=== PATIENT | male | born 1955 | race Caucasian/White ===

== ENCOUNTER 2016-10-12 07:20 | Inpatient (IN) ==
[2016-10-12] MEDS ORDERED: ASPIRIN PO ONE (07:36)
[2016-10-12 08:00] LABS: MANUAL DIFF NEEDED? NO
[2016-10-12] MEDS ORDERED: MORPHINE IV ONE ×2 (08:02→11:15)
[2016-10-12] MEDS ORDERED: ZOFRAN IV ONE (08:03)
[2016-10-12 08:04] LABS: BASO% 0.3 % (0.0-0.8); EOS# 0.82 X1000 (0.0-0.7); EOS% 9.1 % (0.0-10.0); HEMATOCRIT 29.2 % (42.0-52.0); HEMOGLOBIN 9.3 g/dL (14.0-18.0); LYMPH# 0.63 X1000 (1.2-3.4); MCH 25.8 PG (27-31); MCHC 31.8 g/dL (33-37); MCV 81.1 FL (81-99); MONO# 0.67 X1000 (0.11-0.59); MONO% 7.4 % (1.7-9.3); MPV 10.4 FL (7.4-10.4); NEUT% 76.2 % (42.2-75.2); PLT 278 X1000 (130-400)
--- NOTE | 2016-10-12 08:07 | PROVIDER DOCUMENTATION ---
Addendum entered and electronically signed by Yordan Lopez Scribe 10/12/16 13:28 : Progress - PLAN OF CARE/RESULTS Progress/Plan/Lab Results: Laboratory Tests 10/12/16 10/12/16 10/12/16 07:54 07:54 07:54 WBC 9.06 RBC 3.60 L Hgb 9.3 L Hct 29.2 L MCV 81.1 MCH 25.8 L MCHC 31.8 L RDW Std Deviation 17.2 H Plt Count 278 MPV 10.4 Immature Gran % (Auto) 0.0 Neut % (Auto) 76.2 H Lymph % (Auto) 7.0 L [place] % (Auto) 7.4 Eos % (Auto) 9.1 Baso % (Auto) 0.3 Immature Gran # (Auto) 0.00 Neut # 6.91 H Lymph # 0.63 L [place] # 0.67 H Eos # 0.82 H Baso # 0.03 Sodium 134 L Potassium 3.8 Chloride 92 L Carbon Dioxide 27 Anion Gap 15 BUN 59 H Creatinine 2.4 H Estimated GFR/1.73 m2 28 BUN/Creatinine Ratio 25 Glucose 149 H Calculated Osmolality 288 Calcium 8.4 L Total Bilirubin 1.03 H AST 14 ALT 8 L Alkaline Phosphatase 216 H Troponin T 0.288 H Edi-V-Gurdfpgaiqn Pept Total Protein 7.3 Albumin 3.3 L Globulin 4.0 Albumin/Globulin Ratio 0.8 Urine Source Urine Color Urine Turbidity Urine pH Ur Specific [place] Urine Protein Ur Glucose (Stick) Ur Ketones (Stick) Urine Blood Urine Nitrite Urine Bilirubin Urobilinogen Dipstick Urine Leukocytes Urine WBC (Auto) Urine RBC (Auto) U Epithel Cells (Auto) Urine Bacteria (Auto) 10/12/16 10/12/16 07:54 11:30 WBC RBC Hgb Hct MCV MCH MCHC RDW Std Deviation Plt Count MPV Immature Gran % (Auto) Neut % (Auto) Lymph % (Auto) [place] % (Auto) Eos % (Auto) Baso % (Auto) Immature Gran # (Auto) Neut # Lymph # [place] # Eos # Baso # Sodium Potassium Chloride Carbon Dioxide Anion Gap BUN Creatinine Estimated GFR/1.73 m2 BUN/Creatinine Ratio Glucose Calculated Osmolality Calcium Total Bilirubin AST ALT Alkaline Phosphatase Troponin T Iab-A-Dlvtvizwfal Pept 9078 H Total Protein Albumin Globulin Albumin/Globulin Ratio Urine Source CLEAN CATCH Urine Color YELLOW Urine Turbidity CLEAR Urine pH 7.0 Ur Specific [place] 1.013 Urine Protein 200 A Ur Glucose (Stick) TRACE Ur Ketones (Stick) NEGATIVE Urine Blood TRACE A Urine Nitrite NEGATIVE Urine Bilirubin NEGATIVE Urobilinogen Dipstick NORMAL Urine Leukocytes NEGATIVE Urine WBC (Auto) <10 Urine RBC (Auto) <10 U Epithel Cells (Auto) <10 Urine Bacteria (Auto) NEGATIVE Orders Category Date Time Status Nursing- MD Consult Request ROUTINE Care 10/12/16 10:31 Active MD [Physician/Provider Consults] Routine Cons 10/12/16 10:29 Ordered MD [Physician/Provider Consults] Routine Cons 10/12/16 10:31 Ordered MD [Physician/Provider Consults] Routine Cons 10/12/16 10:32 Ordered Wound Care/ET Consult DIRECTED Cons 10/12/16 10:30 Ordered CHEST-PORTABLE [RAD] Stat Exams 10/12/16 07:37 Completed BLOOD CULTURE [BLDCUL] Stat Lab 10/12/16 11:18 Results CBC WITH ELECTRONIC DIFF [HEME] Stat Lab 10/12/16 07:54 Completed COMPREHENSIVE METABOLIC PANEL [CHEM] Stat Lab 10/12/16 07:54 Completed PRO B-NATRIURETIC PEPTIDE Stat Lab 10/12/16 07:54 Completed TROPONIN T Stat Lab 10/12/16 07:54 Completed URINALYSIS W/POSS RFLX CULT [URINALYSIS] Stat Lab 10/12/16 11:30 Completed Aspirin Med 10/12/16 07:36 Discontinued 325 mg PO NOW ONE Morphine Med 10/12/16 08:02 Discontinued 2 mg IV NOW ONE Morphine Med 10/12/16 11:15 Discontinued 2 mg IV NOW ONE Ondansetron [Zofran] Med 10/12/16 08:03 Discontinued 4 mg IV NOW ONE EKG [EKG] Stat Ther 10/12/16 07:22 Draft Transfer/Admit Order [TRANSFER] Routine Transfer 10/12/16 10:27 Ordered Vital Signs - 24 hr 10/12/16 07:38 Temperature 97.8 F Pulse Rate 70 Respiratory 17 Rate Blood Pressure 153/89 O2 Sat by Pulse 100 Oximetry Addendum entered and electronically signed by Yordan Lopez Scribe 10/12/16 10:22 : Progress - EKG 1 Time of EKG reading by physician:: 07:28 EKG Read and Signed by:: Matthew Reese EKG Interpretation (*Must complete 3 of following elements*): Abnormal Rate: 70 Rhythm: NSR QRS: normal Comments: L ANTERIOR FASICULAR BLOCK. T WAVE ABNORMALITY, CONSIDER LATERAL ISCHEMIA Original Note: HPI-Chest Pain - General Source: patient Unable to obtain history due to:: urgency - History of Present Illness-CP Location: reports: substernal Chest Pain Radiation: reports: back Quality of Pain: reports: pressure Severity in ED: moderate Onset/Duration: 1-3 hours ago Timing: still present <Matthew Reese - Last Filed: 10/12/16 08:14> - General Source: patient <Yordan Lopez - Last Filed: 10/12/16 09:51> - General Chief Complaint: Chest Pain Stated Complaint: chest pain Time Seen by Provider: 10/12/16 07:34 Allergies/Adverse Reactions: Patient Allergies Allergy/AdvReac Type Severity Reaction Status Date / Time No Known Allergies Allergy Verified 10/12/16 07:47 Home Medications: ATORVAstatin [Lipitor] 80 mg PO HS 07/31/16 Aspirin [Aspirin EC] 81 mg PO DAILY 07/31/16 Carvedilol 25 mg PO BID 07/31/16 Clonazepam 0.5 mg PO BID 07/31/16 Clopidogrel [Plavix] 75 mg PO DAILY 07/31/16 Gabapentin 300 mg PO TID 07/31/16 Hydralazine [Apresoline] 12.5 mg PO TID 07/31/16 Sevelamer Carbonate [Renvela] 800 mg PO DAILY 07/31/16 Sodium Bicarbonate 650 mg PO DAILY 07/31/16 Spironolactone 25 mg PO DAILY 07/31/16 Insulin Regular, Human [Afrezza] 40 unit SQ BID 09/06/16 Isosorbide Mononitrate E.r. 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 Patient has an extensive history of heart disease. (Matthew Reese) Review of Systems - Adult - REVIEW OF SYSTEMS - ADULT Constitutional: denies: chills, fever <Yordan Lopez - Last Filed: 10/12/16 09:51> Past History - Adult - PAST MEDICAL HISTORY-ADULT Major Childhood Illnesses: reports: denies history Cardiovascular: reports: CAD, CHF, HTN, hyperlipidemia, other (pulmonary edema) Respiratory: reports: denies history Gastrointestinal: reports: denies history Obstetrical/Gynecological: reports: denies history Genitourinary: reports: ESRD Musculoskeletal: reports: intervertebral disc disease Neurological: reports: denies history Psychiatric: reports: anxiety, depression Endocrine/Immune: reports: Diabetes, thyroid disorder Other Conditions: reports: denies history - PRIOR SURGERIES/PROCEDURES Surgical/Procedure History: reports: cholecystectomy, cardiac stent, orthopedic (extremity), back/neck - IMMUNIZATION STATUS Childhood Immunizations: See Nurse Assessment Flu Vaccine: See Nurse Assessment - FAMILY HISTORY Family History: reviewed, not pertinent <Matthew Reese - Last Filed: 10/12/16 08:14> Physical Exam-General - PHYSICAL EXAM-ADULT Initial Vital Signs Reviewed: Yes - CONSTITUTIONAL General Appearance: moderate distress - EYES Eyes: PERRL/EOMI - HEAD, EARS, NOSE, MOUTH & THROAT HENMT: normocephalic/atraumatic - NECK Neck: non-tender, full range of motion - RESPIRATORY Respiratory: no respiratory distress, pain on inspiration (Patient is tender to palpation in the left anterior chest wall) - CARDIOVASCULAR Cardiovascular: normal peripheral pulses - CHEST (BREASTS) Chest/Breast: tenderness - GASTROINTESTINAL (ABDOMEN) Abdominal Exam: normal bowel sounds - GENITOURINARY Male Genitalia: deferred Rectal Exam: deferred Hemoccult Exam: deferred - LYMPHATIC Lymphatic: no adenopathy - MUSCULOSKELETAL Extremity: normal range of motion (Patient has a healing foot ulcer on the left foot for which he is getting IV antibiotics at home through a port. 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 DR MONTEMAYOR WILL ADMIT Consult Disposition: Admit <Yordan Lopez - Last Filed: 10/12/16 09:51> Departure <Matthew Reese - Last Filed: 10/12/16 08:14> - Departure Time of Disposition Order: 09:48 Certified Medical Emergency: Emergent <Yordan Lopez - Last Filed: 10/12/16 09:51> - Departure DIAGNOSIS: Chest pain Qualifiers: Chest pain type: unspecified Qualified Code(s): R07.9 - Chest pain, unspecified Disposition: ADMITTED INPATIENT 09 Condition: Stable Additional Instructions: ED Follow Up Instructions: You have been treated by a care provider in the Emergency Department. These instructions are being provided to you so you can have an understanding of how to care for yourself upon discharge. Upon discharge from the Emergency Department, you are responsible for making arrangements for follow-up care by a physician of your choice. Take all prescribed medications as directed. Return to the Emergency Department immediately for any new or worsening symptoms. You may call the Physician Referral phone number at [phone] to obtain a list of Physicians who are taking new patients. Attestation - Scribe Verification/Attestation Scribe:: Yordan Lopez Acting as Scribe for:: Matthew Reese Scribe documention review:: This chart was documented by a scribe and accurately reflects the service the provider performed and the decisions made by the provider. <Yordan Lopez - Last Filed: 10/12/16 09:51> Physician Attestation
[2016-10-12 08:58] LABS: ALBUMIN 3.3 g/dL (3.5-5.0); CALCIUM 8.4 mg/dL (8.8-10.2); POTASSIUM 3.8 mmol/L (3.5-5.1); TOTAL BILIRUBIN 1.03 mg/dL (0.20-1.00); TOTAL PROTEIN 7.3 g/dL (6.3-8.3)
--- NOTE | 2016-10-12 10:12 | EKG Report ---
Test Performed on : 10/12/2016 07:27:12 AM Test Reason : CP Blood Pressure : / mmHG Vent. Rate : 070 BPM Atrial Rate : 070 BPM P-R Int : 144 ms QRS Dur : 102 ms QT Int : 440 ms P-R-T Axes : 044 -45 103 degrees QTc Int : 475 ms Normal sinus rhythm. Left anterior fascicular block T wave abnormality, consider lateral ischemia Prolonged QT Abnormal ECG When compared with ECG of 04-OCT-2016 15:32, No significant change was found Unconfirmed Result
--- NOTE | 2016-10-12 10:24 | Diag Imaging Result Document ---
PROCEDURE NAME: CHEST-PORTABLE - 10/12/2016 AP PORTABLE CHEST: TIME: 0800 hours. FINDINGS: There is a catheter on the right side, which has not changed since 10/01/2016. The inspiration is slightly suboptimal. There is no evidence of acute pulmonary disease. IMPRESSION: Stable chest.
[2016-10-12 11:49] LABS: URINE CULTURE NEEDED? NO; URINE MICRO REVIEW NEEDED? NO; URINE SOURCE CLEAN CATCH
[2016-10-12 12:02] LABS: BILIRUBIN URINE NEGATIVE (NEGATIVE); BLOOD URINE TRACE (NEGATIVE); COLOR YELLOW; GLUCOSE URINE TRACE mg/dL (NEGATIVE); LEUKOCYTES URINE NEGATIVE (NEGATIVE); NITRITE URINE NEGATIVE (NEGATIVE); PROTEIN URINE 200 mg/dL (NEGATIVE); SP GRAVITY URINE 1.013; TURBIDITY URINE CLEAR (CLEAR); UROBILINOGEN URINE NORMAL (NORMAL)
[2016-10-12 12:04] LABS: UR EPITHELIAL CELLS <10 /HPF (<10); URINE BACTERIA NEGATIVE /HPF; URINE RBC <10 /HPF (<10); URINE WBC <10 /HPF (<10)
--- NOTE | 2016-10-12 12:31 | HISTORY AND PHYSICAL ---
PRIMARY CARE PROVIDER: Todd More MD, but states he is looking for a new physician. PRIMARY CURRICULUM DEVELOPER: Meggan Ac MD CHIEF COMPLAINT: Chest pain. HISTORY OF PRESENT ILLNESS: Mr. Mohan Ventura is a 61-year-old, male with severe peripheral arterial disease, now status post right zjkyy-nxg-brst amputation. Was performed 09/12/2016. History of coronary artery disease with stents in 2010 and 2012. Hypertension and diabetes. Recent admit for acute on chronic diastolic heart failure and complaints of chest pain on 10/04/2016. Mr. Ventura states that about 05:30 this morning he was awoken from sleep with gasping for air and chest pain that was 10/10. He states that it felt like a tightness that radiated to the right arm, from the elbow to the fingers, that felt like numbness and tingling. He had nausea and the room was spinning. He denies diaphoresis. He states once he arrived to the emergency room he received morphine and the pain improved. It is down to 8/10. His electrocardiogram showed a normal sinus rhythm, rate of 70, left anterior fascicular block. QTc is [address] elevations. His troponin is elevated at 0.288, but it appears he has a chronic elevation of the troponins, anywhere from 0.2-0.3 since May. Pro-B-type natriuretic peptide is 9078. He does not seem to be having shortness of breath at this time. His chest x-ray had negative acute findings. He continues to have chest pain. He is not anxious or agitated. He is actually joking around. He denies blood in his urine or stool, and he has no other complaints. Further assessment did show that his right below the knee stump has foul smelling drainage. The dressing has not been changed in 2 days, since the . The left heel has black eschar and also has not had a dressing change since the . However, his white blood cell count is normal and he is afebrile. PAST MEDICAL HISTORY: Coronary artery disease. Stents in 2010 and 2012. Chronic diastolic congestive heart failure. Chronic kidney disease stage 4, hypertension, hyperlipidemia, diabetes type 2 on insulin therapy, degenerative disk disease with 4 back surgeries in the past, osteoarthritis, chronic pain, peripheral arterial disease, now status post below -the-knee amputation on the right. Also now with an ulcer on this left heel, with black eschar tissue. SURGICAL HISTORY: Cholecystectomy, cardiac stent, right mwlfm-ynr-bjoh amputation, four back surgeries. FAMILY HISTORY: Positive for hypertension and diabetes. SOCIAL HISTORY: He lives at home with his 14-year-old son. He just recently completed 21 days of rehab at [facility] on 10/11/2016. He currently has home health that sees him. He states that he quit smoking 7 years ago, but smoked 5 cigarettes per day for 30+ years. States that he quit drinking 15 years ago, but it was only social at that time. Denies illicit drug use. He has been disabled since 2000. He gets around by wheelchair. He states that he used to be noncompliant with his medications, but since he has lost his leg that he is very compliant. REVIEW OF SYSTEMS: Fourteen point review of systems were complete and all are negative, except for those mentioned above HPI. He does state that he has insomnia, and he states that he was actually up until about 2:30 this morning. ALLERGIES: No known drug allergies. HOME MEDICATIONS: Trazodone 50 at bedtime, Apresoline 12.5 p.o. t.i.d., aspirin 81 mg p.o. daily, Coreg 25 mg p.o. twice daily, clonazepam 0.5 mg p.o. twice daily, Neurontin 300 mg p.o. 3 times a day, Lipitor 80 mg p.o. nightly, Plavix 75 mg p.o. daily, Renvela 800 mg p.o. daily, sodium bicarbonate 650 mg p.o. daily, spironolactone 25 mg p.o. daily, Imdur 30 mg p.o. daily, regular insulin 40 units subcutaneous twice daily, Xanax 0.25 mg p.o. 3 times a day, MiraLAX 17 g p.o. twice daily, Celexa 20 mg p.o. nightly, Prilosec 20 mg p.o. daily, [place] 10 one tab p.o. q.4 hours p.r.n., lactulose 30 mL p.o. twice daily, Lasix 40 mg p.o. twice daily, lisinopril 20 mg p.o. daily, Synthroid 50 mcg p.o. daily. LABORATORY DATA: White blood cells 9000, hemoglobin 9, hematocrit 29. Platelet count 278,000. Sodium 134, potassium 3.4, chloride 92, BUN 59, creatinine 2.4. GFR 28, glucose 149. Calcium 8.4, total bilirubin is 1.03. AST is 14, ALT is 8. Troponin 0.288. Pro-B-type natriuretic peptide 9078. Albumin 3.3. Urinalysis is ordered. IMAGING: Chest x-ray is stable. No acute pulmonary disease. Electrocardiogram is normal sinus rhythm, left anterior fascicular block. No ST elevations. The QTc is 475. Heart rate is 70. PHYSICAL EXAMINATION: VITAL SIGNS: Temperature is 97.8 degrees, heart rate 70, respiratory rate 17. Blood pressure 153/89, O2 saturation 100% on room air. GENERAL: Mr. Ventura is a 61-year-old male, who is in no acute distress. He is able answer all questions appropriately. HEENT: Atraumatic normocephalic. Pupils equal, round, reactive to light. Extraocular movements intact. CARDIOVASCULAR: S1, S2. Regular rate and rhythm. No rubs, gallops, or murmurs. NECK: No jugular venous distention or carotid bruits noted. PULMONARY: Clear to auscultation. Bilateral breath sounds. No accessory muscle use or work of breathing noted. Decreased in the bases on room air. GASTROINTESTINAL: Soft, nontender, nondistended. Positive bowel sounds x4. NEUROLOGIC: Alert and oriented x4. Moves all extremities equally. Left leg will not straighten completely. EXTREMITIES: Right below the knee amputation site with foul drainage and some small areas of open incision and erythema. Left lower extremity possible cellulitis. Is erythematous. Is not hot. Trace pulse, dorsalis pedal and posterior radial pulses. No edema noted. ASSESSMENT AND PLAN: 1. Chest pain. Rule out acute coronary syndrome. Status post coronary artery disease with stents in 2000 and 2012. Will do cardiac enzymes, electrocardiogram, consult Cardiology. Continue his aspirin and Plavix. Will do nitroglycerin paste q.6h hours and transferred to the intensive care unit, as he still states that he has chest pain but is in not acute distress. There is no ST elevation on electrocardiogram. 2. Acute on chronic diastolic congestive heart failure. We will continue his Lasix. Most recent cardiac workup reveals, on the myocardial perfusion scan from 03/2016, abnormal cardiac perfusion imaging. One appropriate Lexiscan stress test. There is evidence of myocardial scarring within the mid to apical anterior wall. No reversible defects consistent with ischemia was noted. There is mild dilatation of the left ventricle, with significantly depressed left ventricular function. The lung V/Q scan showed low probability of acute pulmonary embolus, and that was on 09/26/2016. On 09/09/2016 he had an echocardiogram that showed an ejection fraction of 45 to 50%. Enlarged right ventricle. pro-B- type natriuretic peptide is over 9000. 3. Chronic kidney disease stage 4. Will need to monitor renal function closely while on diuretic therapy. 4. Hypertension. Stable. Continue current antihypertensives. 5. Hyperlipidemia. Continue home medications. 6. Diabetes type 2. Continue sliding scale insulin and pattern blood glucoses. 7. Chronic pain. We will continue his [place]. 8. Peripheral arterial disease, now status post right pexnj-vko-qcdv amputation. We will consult Dr. Michel, as the site has a foul smelling drainage and will consult Dr. Brewer. 9. Deep venous thrombosis prophylaxis. Will start heparin 5000 units q12h. 10. Gastrointestinal prophylaxis. Will start protonix. Dictated by WILLIS Basilio for Kenia Rees MD [facility]
[2016-10-12] MEDS ORDERED: ZOFRAN IV PRN (15:00)
[2016-10-12] MEDS ORDERED: TYLENOL PO PRN (15:00)
[2016-10-12] MEDS ORDERED: NITROGLYCERIN TOP SCH (15:00)
[2016-10-12] MEDS: XANAX PO SCH ×2 (15:43→20:57)
[2016-10-12] MEDS: APRESOLINE PO SCH ×2 (15:43→20:27)
[2016-10-12] MEDS: NEURONTIN PO SCH ×2 (15:43→20:27)
[2016-10-12] MEDS: NORVASC PO SCH ×2 (15:43→20:57)
[2016-10-12] MEDS: LASIX IV SCH (15:50)
[2016-10-12] MEDS: HUMULIN R SUBQ SCH ×3 (15:58→21:00)
[2016-10-12] MEDS: NITROGLYCERIN TOP SCH ×2 (15:59→20:58)
--- NOTE | 2016-10-12 16:09 | EKG Report ---
Test Performed on : 10/12/2016 3:51:28 PM Test Reason : chest pain Blood Pressure : / mmHG Vent. Rate : 067 BPM Atrial Rate : 067 BPM P-R Int : 148 ms QRS Dur : 100 ms QT Int : 452 ms P-R-T Axes : 071 -47 104 degrees QTc Int : 477 ms Normal sinus rhythm. Left anterior fascicular block Abnormal QRS-T angle, consider primary T wave abnormality Abnormal ECG When compared with ECG of 12-OCT-2016 07:27, (Unconfirmed) No significant change was found Confirmed by Jonathan Beavers MD ([id number]) on 10/13/2016 10:14:45 AM
--- NOTE | 2016-10-12 17:22 | PROGRESS NOTE ---
DATE: 10/12/2016 PRESENT ILLNESS: The patient presents to the hospital. He was having chest pain and shortness of breath. I was asked see the patient because he has an infection in his right leg. It appears to be a cellulitis, but it could well extend deep into the bone. The last time the patient was treated for this, we grew an oxacillin-sensitive Staph aureus from the culture of the leg. MEDICATIONS: I have restarted the patient on Ancef, which he received the last time we saw him and started treating his leg infection. Some of the side effects of the medication including rash and diarrhea have been explained to the patient. He agrees with treatment. PHYSICAL EXAMINATION: Vital Signs: Temperature is 98.2, pulse is 70, respirations 18, blood pressure 139/79. General: This is an ill-appearing, middle-aged male.. He is in no acute distress. Lungs: Clear to auscultation. Cardiovascular: The patient's heart rate is regular. Chest: Patient has a [place] catheter on the right side of the chest. The catheter site is not erythematous or purulent. Extremities: The patient's right leg has a below-the -knee amputation. The distal part of the leg is erythematous and it has some opening in the incision. There is purulent drainage coming from the leg. I stuck a swab into the wound and it extends deep. I have sent this to the microbiology lab for culture. The patient's left heel has an eschar. LAB AND X-RAY: The patient's CBC shows a white blood cell count of 9060, hemoglobin 9.3 and platelet count 278,000. Creatinine is 2.4. The GFR is 28. The alkaline phosphatase is 216. Urinalysis showed white cells less than 10 and no bacteria. Blood cultures are pending. Chest x- ray shows no acute disease. ASSESSMENT AND PLAN: The patient has an infection of the right leg. He definitely has a cellulitis now. However, he could have a deeper infection such as an abscess or osteomyelitis. The last time the patient was treated for this infection which was in the past month we cultured oxacillin-sensitive Staph aureus from the wound. My plan now is to restart the patient on Ancef. The dose is being modified because the patient has renal insufficiency. I have sent a culture from one of the wounds which is draining a purulent fluid. I have ordered a x- ray of the right leg. It is portable. I do not think he should be sent down now, because he may have had a myocardial infarction. When the patient is more stable, I think he might be a candidate then for a bone scan or possibly an MRI or CT scan without any IV contrast. COMORBIDITIES: Include diabetes mellitus and end-stage renal disease. MTDD
--- NOTE | 2016-10-12 17:30 | Diag Imaging Result Document ---
PROCEDURE NAME: LOWER LEG-RIGHT - 10/12/2016 RIGHT LOWER LEG, TWO VIEWS: FINDINGS: There has been amputation below the knee. There is soft tissue gas primarily on the lateral aspect of the stump. There are no previous radiographs available for comparison. The right foot radiograph of 07/31/2016 demonstrated considerable soft tissue gas but clearly the amputation was not performed until after that radiograph. IMPRESSION: Soft tissue gas as described. Postsurgical changes.
--- NOTE | 2016-10-12 18:32 | CONSULTATION ---
DATE OF CONSULTATION: 10/12/2016 SUBJECTIVE: This is a 61-year-old male with multiple medical problems, including noncompliance, end-stage renal disease, poorly controlled diabetes, heart failure, and peripheral vascular disease, who is status post right below-knee amputation for a necrosis of his right foot. He has had prolonged healing of his stump. And multiple admissions related to exacerbations of cardiac issues and his wound concerns. He presents now with chest pain, shortness of breath, and being worked up and evaluated for this, felt to be acutely volume overloaded. However there is some concern for drainage from the stump. He denies any real pain here. He is not really doing dressing changes at home by himself. PAST MEDICAL HISTORY: 1. Diabetes. 2. Renal failure. 3. Coronary disease with stents in 2010 and 2012. 4. Congestive heart failure. 5. Hypertension. 6. Hyperlipidemia. 7. Degenerative disk disease. 8. Arthritis. 9. Peripheral arterial disease. PAST SURGICAL HISTORY: Below-knee amputation on the right. Back surgeries. Multiple coronary stents. Surgical history also includes cholecystectomy. FAMILY HISTORY: Hypertension and diabetes. REVIEW OF SYSTEMS: A 10 point negative other than what is mentioned in HPI. SOCIAL HISTORY: He is quite poor. His only caregiver is a 14-year-old son. He was in rehab for 21 days, and was home just for a couple of days before coming back. He has extensive smoking history, and also has had alcohol in the past. PHYSICAL EXAMINATION: Vital signs: Temperature 98.2 degrees, pulse 76, blood pressure 139/79, oxygen saturation 97% on 4 L nasal cannula. General: He is alert, in no acute distress. HEENT: There is no scleral icterus. Cardiovascular: Normal rate, regular rhythm. Pulmonary: Is on supplemental O2 but no increased work of breathing. Abdominal exam: Soft, nontender, nondistended. His right below-knee amputation site has a couple areas of fibrinous exudate in the wound bed, but in the more lateral wound separation that has been there presently overall looks much better. The stump is swollen and with some erythema here, but I do not see any pus or active signs of cellulitis. LABS: White count is normal at 9, hematocrit is 29, platelets are 278. Sodium is 134, potassium 3.8, chloride 92, CO2 27, BUN is 59, creatinine is 2.4, glucose is 149. T bilirubin is mildly elevated at 1.03. BNP is 9078. Troponin 0.28. ASSESSMENT/PLAN: This is a 61-year-old male status post right below-knee amputation with multiple medical problems. He appears to have exacerbation of congestive heart failure and he is quite edematous diffusely. I am not sure that he has cellulitis in his leg or not. It is red. His wound is healing and actually looks pretty good. There are a couple areas of fibrinous exudate that we have been treating with local wound care over the last month. It appears as though he does well while in-patient and diuresing with antibiotics, and then goes home, and he becomes edematous diffusely, resulting in erythema and swelling of the stump, and this gets better with his overall systemic improvement. I do not plan for surgical intervention at this time. We will continue Santyl to these areas of separation of his wound, cover with a dry gauze daily. Dr. Brewer is following. He previously had a [place] in place for IV antibiotics at home. It is unclear if he still on these or not, and I will defer antibiotic management to Dr. Brewer. And otherwise optimization of diabetes, heart failure, and other chronic medical issues by the Hospitalist Service. We will continue to follow along.
[2016-10-12] MEDS: KEFZOL IV SCH (18:35)
[2016-10-12] MEDS: NS IV SCH (18:35)
--- NOTE | 2016-10-12 19:05 | CONSULTATION ---
DATE OF CONSULTATION: 10/12/2016 CONSULTATION REQUESTED BY: Hospitalist service, Dr. Kenia Rees. REASON FOR CONSULTATION: Chest pain, shortness of breath. HISTORY: Mr. Ventura is an unfortunate 61-year-old male who was admitted to the hospital today when he presented to the emergency room with complaints of sudden onset of chest pain and shortness of breath that woke him up from his sleep. Upon presentation, they did a 12-lead EKG at 7:27 in the morning that showed sinus rhythm with poor R wave progression across the precordial leads, left axis deviation, nonspecific ST. They checked a troponin level like they always do. It was 0.288, which is abnormal, and his pro BNP is elevated at 9078. A chest x-ray done in the emergency room shows stable chest, no acute infiltrates. The patient stated that he is still having a sensation of a tight band around his chest which he says resembles what he experienced when he suffered myocardial infarctions in the past. He is also feeling short of breath. PAST MEDICAL AND SURGICAL HISTORY: His past history is positive for severe coronary heart disease. He has had previous stents to the LAD, the most recent one in April of 2015. He is being followed by Dr. Ac. The patient has developed progressive renal insufficiency. On a recent admission, he was very close to being dialyzed. The patient has had history of hypertension, hyperlipidemia, diabetes mellitus. He has also undergone recent amputation of the right leg below the knee and apparently this has become infected. He is having a foul-smelling drainage. The patient says that after his recent hospital admission that took place at [facility], [place] between 09/27/2016 and 10/03/2016, he was sent to the [facility] and from there he was discharged actually yesterday. He ended up coming back to the hospital early this morning. When he was admitted to [facility], [place], they did a stress test on 09/27/2016 that showed abnormal myocardial perfusion with evidence of scar in the mid to apical anterior wall. No reversible defects were noted. There was mild dilatation of the left ventricle with depressed ejection fraction. His history is also positive for hypothyroidism and peripheral vascular disease. He has had back surgery and cholecystectomy. He has chronic pain syndrome. SOCIAL HISTORY: He is single, disabled. He has children. He is not a smoker at this time. HOME MEDICATIONS: 1. Trazodone 50 at bedtime. 2. Spironolactone 25 daily. 3. Sodium bicarbonate 650 daily. 4. Renvela 800 daily. 5. MiraLAX 17 g twice a day. 6. Omeprazole 20 mg daily. 7. Synthroid 50 mcg daily. 8. Lactulose 30 mL twice a day. 9. Lisinopril 20 mg daily. 10.Isosorbide mononitrate 30 mg daily. 11.Insulin 40 units twice a day. 12.Hydralazine 12.5 three times a day. 13.Gabapentin 300 three times a day. 14.Furosemide 40 mg twice a day. 15.Clopidogrel 75 daily. 16.Clonazepam 0.5 twice a day. 17.Citalopram 20 mg at bedtime. 18.Carvedilol 25 mg twice a day. 19.Aspirin 81 mg daily. 20.Xanax 0.25 three times a day. 21.Atorvastatin 80 mg daily. ALLERGIES: He is not allergic to any medicines. REVIEW OF SYSTEMS: This patient has been admitted to this hospital system multiple times during the course of the past 18 months. He has had admissions for congestive heart failure, chest pain, ulcer in the foot, septicemia, chronic kidney disease, etc. PHYSICAL EXAMINATION: Vital signs: Blood pressure 139/79. Temperature 98.2. Pulse 70. Respirations 18. General: He is awake, alert. He is in some discomfort. HEENT: Unremarkable. Chest: Diminished breath sounds at the bases. No rales were noted. Cardiovascular: Heart sounds are regular and rhythmic. I do not hear any gallop or murmur. Abdomen: Soft. No masses. No hepatomegaly. Extremities: Showed evidence of amputation of the right leg below the knee with very foul-smelling drainage. The left leg shows chronic stasis dermatitis changes, thickening of the skin, very dry skin, diffuse redness, very poor pulses, very consistent with peripheral vascular disease. Neurologic: Follows commands. Moves all extremities. LABORATORY DATA: Sodium 134, potassium 3.8, BUN 59, creatinine 2.4. White count 9000, hemoglobin 9.3. IMPRESSION: 1. Patient with recurrent chest pain, possible angina pectoris, plus congestive heart failure. This is probably systolic and diastolic dysfunction and probably aggravated by his progressive renal insufficiency. 2. Advanced renal insufficiency. 3. Previous coronary stents. 4. Diabetes mellitus. 5. Peripheral vascular disease. 6. Hypertension. 7. Dyslipidemia. 8. soft tissue infection stump of right leg BKA.This could become septic and perhaps is the reason behind this admission. RECOMMENDATIONS: We will add nitro paste and morphine to his regimen. We will recommend aggressive diuresis. We will use high doses of Lasix. We will consult Nephrology. Further advice will be forthcoming. Get ID in the case for soft tissue infection. that may be the trigger for his current presentation. Thank you for the opportunity to participate in his evaluation. Best regards, CHRISTINE
[2016-10-12] MEDS: LIPITOR PO SCH (20:58)
[2016-10-12] MEDS: MIRALAX PO SCH (20:59)
[2016-10-12] MEDS: LACTULOSE PO SCH (20:59)
[2016-10-12] MEDS ORDERED: INSULIN REGULAR HUMAN 40 UNIT SQ SCH (21:00)
[2016-10-12] MEDS: HEPARIN SUBQ SCH (21:00)
[2016-10-12] MEDS: KLONOPIN PO SCH (21:00)
[2016-10-12] MEDS ORDERED: LASIX PO SCH (21:00)
[2016-10-12] MEDS: COREG PO SCH (21:01)
[2016-10-12] MEDS: CELEXA PO SCH (21:01)
[2016-10-12] MEDS: DESYREL PO SCH (21:01)
[2016-10-12] MEDS: MORPHINE IV PRN (21:24)
[2016-10-13] MEDS: MORPHINE IV PRN ×5 (02:39→20:13)
[2016-10-13] MEDS: LASIX IV SCH ×2 (02:40→15:48)
[2016-10-13] MEDS: NITROGLYCERIN TOP SCH ×4 (02:40→20:04)
[2016-10-13 05:09] LABS: MANUAL DIFF NEEDED? NO
[2016-10-13] MEDS: NS IV SCH ×2 (05:38→17:30)
[2016-10-13] MEDS: KEFZOL IV SCH ×2 (05:38→17:30)
[2016-10-13 06:06] LABS: ALBUMIN 2.7 g/dL (3.5-5.0); CALCIUM 8.1 mg/dL (8.8-10.2); MAGNESIUM 2.1 mg/dL (1.5-2.7); POTASSIUM 3.8 mmol/L (3.5-5.1); TOTAL BILIRUBIN 0.8 mg/dL (0.20-1.00)
[2016-10-13] MEDS: PRILOSEC PO SCH (06:25)
[2016-10-13] MEDS: SYNTHROID PO SCH (06:25)
[2016-10-13 06:34] LABS: BASO% 0.5 % (0.0-0.8); EOS# 0.71 X1000 (0.0-0.7); EOS% 11.3 % (0.0-10.0); HEMATOCRIT 24.6 % (42.0-52.0); HEMOGLOBIN 7.8 g/dL (14.0-18.0); LYMPH# 0.67 X1000 (1.2-3.4); LYMPH% 10.7 % (20.5-51.1); MCH 26.3 PG (27-31); MCHC 31.7 g/dL (33-37); MCV 82.8 FL (81-99); MONO# 0.64 X1000 (0.11-0.59); MONO% 10.2 % (1.7-9.3); MPV 10.6 FL (7.4-10.4); NEUT% 67.3 % (42.2-75.2); PLT 251 X1000 (130-400); RBC 2.97 XMIL (4.7-6.1)
--- NOTE | 2016-10-13 06:35 | PROGRESS NOTE ---
DATE: 10/13/2016 PRESENT ILLNESS: The patient has an infection of the right leg. He has had a [id number] amputation of the leg. Cellulitis is in the distal part of the right leg. There may be an underlying osteomyelitis. In addition, the patient's left heel has an eschar but the heel is not erythematous. MEDICATIONS: The patient is on Ancef. The dose has been modified because of the patient's renal insufficiency. PHYSICAL EXAMINATION: Vital Signs: Temperature is 97.7 degrees, pulse 62, respirations 17, blood pressure 104/59. General: This is a somewhat ill-appearing, middle-aged male. He is in no acute distress. Lungs: Clear to auscultation. Cardiovascular: Regular heart rate. Abdomen: Soft and nontender. Extremities: The right leg is erythematous and has purulent drainage. There is some opening to the wound. The left heel has an eschar on it. There is no surrounding erythema or drainage. LAB AND X-RAY: The patient had an x-ray of his lower extremity on the right side. It showed that there is soft tissue gas primarily in the lateral aspect of the stump. ASSESSMENT AND PLAN: The patient has an infection in that leg. I am treating him with Ancef pending culture result. The patient's comorbidities are diabetes mellitus and peripheral vascular disease.
--- NOTE | 2016-10-13 06:46 | EKG Report ---
Test Performed on : 10/13/2016 06:22:22 AM Test Reason : CHF/MD Blood Pressure : / mmHG Vent. Rate : 061 BPM Atrial Rate : 061 BPM P-R Int : 144 ms QRS Dur : 102 ms QT Int : 468 ms P-R-T Axes : 029 -44 111 degrees QTc Int : 471 ms Normal sinus rhythm. Left axis deviation Possible Anterior infarct , age undetermined Abnormal ECG When compared with ECG of 12-OCT-2016 15:51, (Unconfirmed) No significant change was found Confirmed by Jonathan Beavers MD ([id number]) on 10/13/2016 10:15:26 AM
[2016-10-13] MEDS: HUMULIN R SUBQ SCH ×4 (06:55→21:37)
[2016-10-13 07:14] LABS: INR 1.18; PROTIME 12.5 Seconds (9.2-11.7); PTT 30.8 Seconds (22.0-36.0)
--- NOTE | 2016-10-13 08:15 | PROGRESS NOTE ---
DATE: 10/13/2016 SUBJECTIVE: He is sleeping this morning. I did not wake him, but otherwise review of his chart, there are no changes in his vital signs overnight. He is afebrile. White count was normal at 6, hematocrit 24, platelets are 251. Creatinine is 2.4. Sodium is 134, BNP is elevated at 8001. ASSESSMENT AND PLAN: A 61-year-old male with multiple medical problems, including history of medical noncompliance, who presents now with chest pain, shortness of breath and evidence of volume overload. Congestive heart failure with some swelling of his right below-knee stump. His overall wound is healing. He has got a couple of areas with some fibrinous exudate. I have recommended Santyl daily and local wound care. Dr. Brewer is following and plans to start antibiotics to treat his leg.
--- NOTE | 2016-10-13 08:49 | PROGRESS NOTE ---
DATE: 10/13/2016 CHIEF COMPLAINT: Chest pain. SUBJECTIVE: Mr. Ventura continues to experience chest pain. It is of moderate severity. He has had several EKGs since admission. All of them showed basically the same pattern with sinus rhythm and nonspecific ST in the lateral lead, old anterior infarct and left axis. The most recent one done just moments ago at 7:51 this morning looks exactly the same. His troponin levels have been 0.288, 0.280, 0.297, and 0.306. His CPKs have been actually trending down from 194 to 114, the most recent one. His creatinine is elevated at 2.4. He does not appear to be in distress. His right stump has been evaluated by Dr. Michel from General Surgery who feels that he may have cellulitis. However, Dr. Franco Brewer from Infectious Disease also looked at the lesion, and he is more convinced that probably that there is indeed , infection. In fact, the patient had a very foul -smelling drainage coming out of the stump. He continues to have chest discomfort of moderate severity. OBJECTIVE: Vital signs: Blood pressure is 115/59, temperature 98.2, pulse 65, respirations 14. General: He is awake, alert. He is not in distress. HEENT: Unremarkable. Chest: Occasional scattered rhonchi. Cardiac: Heart sounds are distant, regular. No gallop or murmur is noted. No rub. Abdomen: Nontender. Extremities: The right leg stump is covered with dressing. The left leg shows dry skin, decreased pulses. BLOOD WORK: His white count is 6280, hemoglobin 7.8, hematocrit 24.6. Sodium 134, potassium 3.8. His proBNP yesterday was 9078, today is 8001. C-reactive protein was 15.8. Sed rate is 22. IMPRESSION: 1. Patient who presented with chest discomfort, probably recurrent angina pectoris. 2. Congestive heart failure. This is systolic and diastolic due to coronary heart disease. 3. Cellulitis of the right stump, right below-knee amputation. 4. Significant renal insufficiency. 5. Significant peripheral vascular disease. 6. Diabetes mellitus. RECOMMENDATION: At this point in time, we will try to optimize his medical management. We have put him on nitroglycerin paste. We are giving him morphine for the chest discomfort. We will optimize his amlodipine. He is getting morphine for the chest pain. We will see how he does over the next few days, but thus far his EKG does not show any impressive changes. This patient just had a stress test about 2 weeks ago at [facility] that showed no evidence of ischemia. I suspect that his presentation probably relates to small vessel disease, and the trigger may be the active infection that he has in the leg. We will monitor him closely. [facility]
[2016-10-13] MEDS ORDERED: SANTYL OINT TOP SCH (09:00)
[2016-10-13] MEDS: MIRALAX PO SCH ×2 (09:09→20:05)
[2016-10-13] MEDS: LACTULOSE PO SCH ×2 (09:12→20:06)
[2016-10-13] MEDS: SODIUM BICARBONATE PO SCH (09:14)
[2016-10-13] MEDS: RENAGEL PO SCH (09:14)
[2016-10-13] MEDS: KLONOPIN PO SCH ×2 (09:14→20:05)
[2016-10-13] MEDS: ALDACTONE PO SCH (09:14)
[2016-10-13] MEDS: PRINIVIL PO SCH (09:16)
[2016-10-13] MEDS: COREG PO SCH ×2 (09:16→20:05)
[2016-10-13] MEDS: NORVASC PO SCH ×2 (09:16→20:04)
[2016-10-13] MEDS: NEURONTIN PO SCH ×3 (09:16→17:29)
[2016-10-13] MEDS: ASPIRIN EC PO SCH (09:16)
[2016-10-13] MEDS: PLAVIX PO SCH (09:17)
[2016-10-13] MEDS: HEPARIN SUBQ SCH ×2 (09:17→20:05)
[2016-10-13] MEDS: APRESOLINE PO SCH ×3 (09:20→17:28)
--- NOTE | 2016-10-13 10:34 | EKG Report ---
Test Performed on : 10/13/2016 07:51:44 AM Test Reason : Chest Pain Blood Pressure : / mmHG Vent. Rate : 065 BPM Atrial Rate : 065 BPM P-R Int : 144 ms QRS Dur : 100 ms QT Int : 466 ms P-R-T Axes : 035 -43 101 degrees QTc Int : 484 ms Normal sinus rhythm. Left axis deviation Cannot rule out Anterior infarct (cited on or before 13-OCT-2016) Abnormal ECG When compared with ECG of 13-OCT-2016 06:22, (Unconfirmed) No significant change was found Confirmed by Jonathan Beavers MD ([id number]) on 10/13/2016 12:12:40 PM
[2016-10-13] MEDS: XANAX PO SCH ×3 (10:39→20:05)
--- NOTE | 2016-10-13 11:09 | PROGRESS NOTE ---
DATE: 10/13/2016 SUBJECTIVE: He was sleeping this morning. I did not wake him but review of his chart shows no issues overnight. OBJECTIVE: Afebrile, pulse 62, blood pressure 100-1 teens. LABS: Were reviewed. White count is normal. Hematocrit 24, creatinine is 2.4, troponin 0.306. BNP is 8000. Blood cultures are negative. Wound culture does show gram-positive cocci. ASSESSMENT AND PLAN: This is a 61-year-old male admitted with chest pain, shortness of breath, multiple medical issues and appears to have exacerbation of congestive heart failure. He is being managed for this by the Medical service. As far as his amputation site, it is healing. There are some areas of delayed healing that have some fibrinous tissue here that we are applying Santyl to and local enzymatic debridement. He also has some erythema at this area. Dr. Brewer is treating him with IV antibiotics. Suspect this is possible some smoldering chronic infection here but it is also a product of his overall hyperkalemia causing edema in all of his extremities including his surgical site. As he gets better from a volume standpoint I think his wound appearance will improve as well but I agree with antibiotics for now and local wound care.
[2016-10-13] MEDS: SANTYL OINT TOP SCH (13:30)
[2016-10-13] MEDS: NITROGLYCERIN SL PRN ×2 (20:03→20:10)
[2016-10-13] MEDS: LIPITOR PO SCH (20:04)
[2016-10-13] MEDS: CELEXA PO SCH (20:05)
[2016-10-13] MEDS: DESYREL PO SCH (20:05)
--- NOTE | 2016-10-13 21:51 | PROGRESS NOTE ---
DATE: 10/13/2016 SUBJECTIVE: The patient complains of intermittent chest pain. He is sitting at the edge of the bed. He denies having shortness of breath. OBJECTIVE: Vital Signs: Temperature 97.9 degrees, blood pressure 118/70, heart rate 69, respirations 18, O2 saturations 98% on room air. General: This is a chronically ill-appearing elderly male, sitting at the edge of the bed, in no acute distress. Head: Normocephalic, atraumatic. Heart: S1, S2. Normal. Regular rate and rhythm. Lungs: Clear to auscultation bilaterally. No wheezes, no rales, no rhonchi. Abdomen: Positive bowel sounds. Soft, nontender, nondistended. Extremities: The patient has erythema of the right above-knee amputation site. LABS: White blood cell count 6.2, hemoglobin 7.8, hematocrit 24, platelets 251, 000. INR 1.1. Sodium 134, potassium 3.8, chloride 94, CO2 29, BUN 59, creatinine 2.4, glucose 157, calcium 8.1, magnesium 2.1, AST 11, ALT 6, alkaline phosphatase 163, troponin 0.306, proBNP 8000 albumin 2.7. ASSESSMENT AND PLAN: 1. Recurrent chest pain. We will continue on the current cardiac medications as prescribed by the [employer] teacher. 2. Right above the knee amputation. Wound infection. Continue on IV antibiotic therapy as directed by Dr. Brewer. The wound culture is growing gram-positive cocci. 3. Stage 4 chronic kidney disease. Stable today, however the patient is on high dose lasix. 4. Anemia. We will check iron studies and stool for occult blood. 5. Hypothyroidism. Continue on Synthroid. 6. Coronary artery disease status post multiple stents. Continue on the current cardiac medications as directed by the [employer]ori preschool teacher. 7. Diabetes mellitus type 2. Continue on sliding scale insulin. 8. Deep vein thrombosis prophylaxis. Continue on heparin 5000 units subcutaneous every 12 hours. [facility]
[2016-10-14] MEDS: NITROGLYCERIN SL PRN ×2 (03:19→06:39)
[2016-10-14] MEDS: MORPHINE IV PRN ×2 (03:20→06:28)
[2016-10-14] MEDS: NITROGLYCERIN TOP SCH ×4 (03:42→21:04)
[2016-10-14] MEDS: LASIX IV SCH ×2 (03:42→14:47)
[2016-10-14 05:15] LABS: MANUAL DIFF NEEDED? NO
[2016-10-14 05:30] LABS: BASO% 0.6 % (0.0-0.8); EOS# 0.65 X1000 (0.0-0.7); EOS% 9.9 % (0.0-10.0); HEMATOCRIT 25.2 % (42.0-52.0); HEMOGLOBIN 7.8 g/dL (14.0-18.0); LYMPH# 0.83 X1000 (1.2-3.4); LYMPH% 12.7 % (20.5-51.1); MCH 25.7 PG (27-31); MCV 82.9 FL (81-99); MONO# 0.69 X1000 (0.11-0.59); MONO% 10.6 % (1.7-9.3); MPV 10.7 FL (7.4-10.4); NEUT% 66.2 % (42.2-75.2); PLT 272 X1000 (130-400); RBC 3.04 XMIL (4.7-6.1)
[2016-10-14] MEDS: KEFZOL IV SCH ×2 (06:14→17:55)
[2016-10-14] MEDS: NS IV SCH ×3 (06:14→17:55)
[2016-10-14] MEDS: SYNTHROID PO SCH (06:15)
[2016-10-14] MEDS: HUMULIN R SUBQ SCH ×4 (06:15→21:05)
[2016-10-14] MEDS: PRILOSEC PO SCH (06:16)
[2016-10-14 06:18] LABS: ALBUMIN 2.8 g/dL (3.5-5.0); CALCIUM 8.2 mg/dL (8.8-10.2); POTASSIUM 4.3 mmol/L (3.5-5.1)
[2016-10-14 07:02] LABS: RETIC% 0.91 % (0.8-2.1); RETIC-HE 28.4 PG (28.2-36.6)
[2016-10-14 07:12] LABS: IRON SATURATION 10 %; TIBC 304 ug/dL; TOTAL IRON 30 ug/dL (53-167); UNBOUND IRON 274 ug/dL (112-346)
--- NOTE | 2016-10-14 08:02 | PROGRESS NOTE ---
DATE: 10/14/2016 PRESENT ILLNESS: The patient has an infection of his right leg. A culture taken from the leg is growing an oxacillin-sensitive Staphylococcus aureus. The leg definitely has cellulitis and I am concerned that there may be an underlying osteomyelitis. The patient's left heel is ulcerated as well. MEDICATIONS: The patient is on Ancef. The dose has been reduced because of the patient's renal insufficiency. PHYSICAL EXAMINATION: Vital Signs: Temperature is 98.8 degrees, pulse is 68, respiratory rate 18, blood pressure 124/66. General: This is an ill-appearing, middle-aged male, who is in no acute distress. Lungs: Clear to auscultation. Cardiovascular: Regular heart rate. Abdomen: Soft and nontender. Extremities: The patient's left heel has an ulcerated area. There is no eschar covering it at this time. The patient's right leg shows distal erythema and purulent drainage coming from the right [id number] amputation site and the patient's left heel is ulcerated but there is not an eschar covering it at this time. LAB AND X-RAY: CBC shows a white count of 6540, hemoglobin 7.8 and platelet count 272,000. Creatinine is 2.4. The GFR is 24. CPK is 88. The patient is growing from his right leg wound in an oxacillin-sensitive Staphylococcus aureus, which is the same organism he previously has grown from his leg. ASSESSMENT AND PLAN: The patient has a staphylococcus ion of the right leg. The plan will be to continue Ancef. COMORBIDITIES: Include diabetes mellitus and peripheral vascular disease.
[2016-10-14] MEDS: LACTULOSE PO SCH ×2 (08:22→21:06)
[2016-10-14] MEDS: KLONOPIN PO SCH ×2 (08:22→21:04)
[2016-10-14] MEDS: MIRALAX PO SCH ×3 (08:22→21:08)
[2016-10-14] MEDS: ALDACTONE PO SCH (08:23)
[2016-10-14] MEDS: ASPIRIN EC PO SCH (08:23)
[2016-10-14] MEDS: RENAGEL PO SCH (08:23)
[2016-10-14] MEDS: NORVASC PO SCH ×2 (08:23→21:04)
[2016-10-14] MEDS: NEURONTIN PO SCH ×3 (08:23→16:54)
[2016-10-14] MEDS: PRINIVIL PO SCH (08:23)
[2016-10-14] MEDS: APRESOLINE PO SCH ×3 (08:23→16:55)
[2016-10-14] MEDS: PLAVIX PO SCH (08:23)
[2016-10-14] MEDS: SODIUM BICARBONATE PO SCH (08:23)
[2016-10-14] MEDS: COREG PO SCH ×2 (08:24→21:04)
[2016-10-14] MEDS: HEPARIN SUBQ SCH ×2 (08:24→21:05)
[2016-10-14] MEDS: SANTYL OINT TOP SCH (08:31)
--- NOTE | 2016-10-14 08:41 | EKG Report ---
Test Performed on : 10/14/2016 07:09:41 AM Test Reason : chest pain/ASHD Blood Pressure : / mmHG Vent. Rate : 067 BPM Atrial Rate : 067 BPM P-R Int : 144 ms QRS Dur : 100 ms QT Int : 446 ms P-R-T Axes : 036 -48 101 degrees QTc Int : 471 ms Normal sinus rhythm. Left anterior fascicular block Septal infarct (cited on or before 13-OCT-2016) Abnormal ECG When compared with ECG of 13-OCT-2016 19:54, (Unconfirmed) No significant change was found Confirmed by Jonathan Beavers MD ([id number]) on 10/15/2016 9:16:06 AM
--- NOTE | 2016-10-14 08:55 | EKG Report ---
Test Performed on : 10/13/2016 7:54:44 PM Test Reason : CP Blood Pressure : / mmHG Vent. Rate : 069 BPM Atrial Rate : 069 BPM P-R Int : 146 ms QRS Dur : 100 ms QT Int : 450 ms P-R-T Axes : 045 -39 130 degrees QTc Int : 482 ms Normal sinus rhythm. Left axis deviation Septal infarct (cited on or before 13-OCT-2016) Abnormal ECG When compared with ECG of 13-OCT-2016 07:51, No significant change was found Confirmed by Jonathan Beavers MD ([id number]) on 10/15/2016 9:15:52 AM
[2016-10-14] MEDS: FOLIC ACID PO SCH (10:25)
[2016-10-14] MEDS: DILAUDID IV PRN ×2 (10:25→21:13)
--- NOTE | 2016-10-14 11:10 | PROGRESS NOTE ---
DATE: 10/14/2016 CHIEF COMPLAINT: Chest pain. Additional complaint of drainage at the level of the right below- the-knee amputation stump. SUBJECTIVE: The patient continues to have significant pain in the left anterior chest. On examination, he really has a very tender spot which triggers the pain. The pain is worsened by taking deep breaths, by coughing and also by sitting upright. This is clearly noncardiac. His troponin levels have drifted up a little bit to 0.341. However, his CPKs have come down from initial value of [address] down to 88, and this also coincides with worsening of renal function. The creatinine went up to 2.7. His sodium today is 136, potassium 4.0. He is not really short of breath. He is not vomiting. OBJECTIVE: His blood pressure is 123/70, temperature 98.3, pulse 63, respirations 16. He is awake. Chest shows a tender area in the left anterior chest around the third and fourth rib anteriorly. This is between the sternum and the mid anterior clavicular line. The chest is clear to auscultation and percussion. Heart sounds are regular and rhythmic. No gallop or murmur is noted. Abdomen is nontender. No masses, no hepatomegaly. Extremities showed no edema. Pulses are diminished. Neurologic: He moves all 4 extremities. He has no deficits. DIAGNOSTIC DATA: His 12-lead EKG today shows sinus rhythm with a left anterior fascicular block. No acute ST-T changes. EKG looks the same as the previous ones that we have done for the past 24 hours. IMPRESSION: 1. This patient has chest pain; however, it is clearly of chest wall origin. He does not have any angina pectoris that I could help in any way by adjusting his cardiac medications. At this point in time, since his EKG is stable, his blood pressure is stable, we will focus on managing the pain, and we will put him on muscle relaxants. We will put him on pain medications and see how he does. 2. Coronary artery disease. In my opinion, this has really not changed much. The elevation of troponin level may be secondary to spurious values due to renal insufficiency or perhaps small vessel disease. He just took a stress test 2 weeks ago, and it was negative for ischemia. 3. The patient has chronic renal insufficiency. 4. The patient has an active infection in the right leg. He is growing Staphylococcus aureus which is being treated by Dr. Brewer. The germ is sensitive to oxacillin, so it is not an MRSA. 5. Diabetes mellitus. RECOMMENDATIONS: We will focus on management of chest wall pain, as I said, with pain medication and muscle relaxants. We will give him heating pads. Further advice will be forthcoming. Thank you for the opportunity to participate in his evaluation. Best regards.
--- NOTE | 2016-10-14 11:40 | Diag Imaging Result Document ---
PROCEDURE NAME: CT THORAX W/O CONTRAST - 10/14/2016 CT CHEST: A CT dose reduction protocol was used. COMPARISON: Chest x-ray 10/12/2016. FINDINGS: There is a right-sided tunneled catheter in good position. There is anemia present. Heart size is, otherwise, normal with no pericardial effusion. There is dense triple-vessel calcified coronary artery disease proximally. There is mild right hemidiaphragm elevation with some adjacent atelectasis. There is some trace central ground-glass opacity throughout the lungs suggesting interstitial pulmonary edema. No effusions. Upper abdominal images are unremarkable. Moderately advanced degeneration of the thoracic spine. No acute bony lesions. IMPRESSION: 1. Coronary artery disease. 2. Possible mild interstitial pulmonary edema. 3. Anemia. [facility]
[2016-10-14] MEDS: XANAX PO SCH ×3 (12:24→21:05)
[2016-10-14] MEDS: FLEXERIL PO SCH ×2 (12:30→16:54)
--- NOTE | 2016-10-14 13:23 | ECHO REPORT ---
ORDER DATE: 10/14/2016 INTERPRETING PHYSICIAN: Dr. Corey Ibarra ECHOCARDIOGRAPHIC MEASUREMENTS: Interventricular septum: 1.1 cm. Left ventricular posterior wall: 1.1 cm. Diastolic diameter: 5.7 cm. Left atrium: 5.5 cm. Aortic root: 4 cm. SUMMARY OF THE 2-DIMENSIONAL IMAGIN. Left atrium was enlarged. 2. Mitral valve was normal. There is mitral annular calcification. Tricuspid valve was normal. 3. Aortic valve leaflets were trileaflet. Pulmonic valve was normal. 4. Normal left ventricular cavity size. Estimated ejection fraction of 40-45%. There is anteroseptal hypokinesis. 5. Doppler studies revealed mild mitral regurgitation. Mild tricuspid regurgitation. Peak velocity across the tricuspid valve was 2.7 m/sec. Pulmonary artery systolic pressure of 38- 40 mmHg. 6. There is no aortic stenosis or regurgitation. 7. There is no pericardial effusion or obvious intracardiac mass.
[2016-10-14] MEDS: ULTRAM PO SCH ×2 (13:43→16:54)
--- NOTE | 2016-10-14 14:20 | PROGRESS NOTE ---
DATE: 10/14/2016 SUBJECTIVE: He continues to have some chest pain overnight and shortness of breath. OBJECTIVE: He is afebrile. No tachycardia. I reviewed his labs. No white count. His below- knee amputation site remains red as does his left lower extremity. He has got a dressing on his left foot ulcer. Stable fibrinous areas on his stump edema. ASSESSMENT AND PLAN: A 61-year-old male status post below-knee amputation with persistent cellulitis-type symptoms really of both legs and these seem to be worse when he is volume overloaded as he has had multiple readmissions for this. Dr. Brewer is following. I think plans for an MRI. I suspect that this will show bony changes but may be beneficial. He is on antibiotics and will continue to follow. No plans for surgical intervention. Continue local wound care with Dali.
[2016-10-14] MEDS: VENOFER 200 MG in NS 150 ML IV SCH (15:27)
--- NOTE | 2016-10-14 16:26 | PROGRESS NOTE ---
DATE: 10/14/2016 SUBJECTIVE: The patient complains of reproducible chest pain. Otherwise, he states that he is eating well and having bowel movements. OBJECTIVE: Vital Signs: Temperature 98 degrees, blood pressure 118/68, heart rate 68, respirations 16, O2 saturation 96% on room air. General: This is an elderly male, lying in bed in no acute distress. Head: Normocephalic, atraumatic. Heart: S1, S2. Normal. Regular rate and rhythm. Lungs: Clear to auscultation bilaterally. Abdomen: Positive bowel sounds. Soft, nontender, nondistended. Extremities: Right above the knee amputation site appears to be erythematous. Neurologic: The patient is alert and oriented. LABS: White blood cell count 6.5, hemoglobin 7.8, hematocrit 25, platelets 272. Sodium 136, potassium 4.3, chloride 95, CO2 30, BUN 62, creatinine 2.7, glucose 226. Phosphorus 4.2, calcium 8.2. Troponin 0.34. Albumin 2.8, folate 4.3. ASSESSMENT AND PLAN: 1. Atypical chest pain. The patient has been started on tramadol and Flexeril by the duct installer. We will monitor this closely. 2. Severe coronary artery disease. Aware. Continue on the current cardiac medications. 3. Acute kidney injury on chronic kidney disease stage IV. The patient's creatinine has risen from 2.4 to 2.7. The patient is on high dose Lasix at this time. We will continue to monitor the patient's renal function and urine output closely. Will hold the lisinopril at this time given the patient's elevation in creatinine. Will check urine electrolytes as well. 4. Right above the knee amputation cellulits. Dr. Brewer has ordered an MRI to assess for osteomyelitis. We will continue on intravenous antibiotic therapy as directed. 5. Anemia. The patient is iron deficient. We will start Venofer infusions. We will monitor the hemoglobin and hematocrit closely. Stool for occult blood is currently pending. 6. Hypothyroidism. Continue on Synthroid. 7. Anxiety disorder. Continue on Xanax. 8. Deep vein thrombosis prophylaxis. Continue on heparin 5000 units subcutaneous every 12 hours. [facility]
[2016-10-14] MEDS: CELEXA PO SCH (21:04)
[2016-10-14] MEDS: LIPITOR PO SCH (21:04)
[2016-10-14] MEDS: DESYREL PO SCH (21:05)
[2016-10-15] MEDS: NITROGLYCERIN TOP SCH ×4 (02:37→20:56)
[2016-10-15] MEDS: NS IV SCH ×4 (02:37→21:07)
[2016-10-15] MEDS: LASIX IV SCH ×2 (02:37→16:13)
[2016-10-15 02:49] LABS: URINE MICRO REVIEW NEEDED? NO; URINE SOURCE VOIDED
[2016-10-15 02:54] LABS: UR EPITHELIAL CELLS <10 /HPF (<10); URINE BACTERIA NEGATIVE /HPF; URINE RBC <10 /HPF (<10); URINE WBC <10 /HPF (<10)
[2016-10-15 02:55] LABS: BILIRUBIN URINE NEGATIVE (NEGATIVE); BLOOD URINE NEGATIVE (NEGATIVE); COLOR YELLOW; GLUCOSE URINE NEGATIVE (NEGATIVE); LEUKOCYTES URINE NEGATIVE (NEGATIVE); NITRITE URINE NEGATIVE (NEGATIVE); PROTEIN URINE 70 mg/dL (NEGATIVE); SP GRAVITY URINE 1.012; TURBIDITY URINE CLEAR (CLEAR); UROBILINOGEN URINE NORMAL (NORMAL)
[2016-10-15 03:09] LABS: UR CREAT RANDOM 85.3 mg/dL (14-26); UR PROT RANDOM 75.1 mg/dL
[2016-10-15] MEDS: DILAUDID IV PRN ×5 (03:15→21:28)
[2016-10-15 05:05] LABS: MANUAL DIFF NEEDED? NO
[2016-10-15 05:20] LABS: BASO% 0.1 % (0.0-0.8); EOS# 0.63 X1000 (0.0-0.7); EOS% 7.5 % (0.0-10.0); HEMATOCRIT 25.3 % (42.0-52.0); HEMOGLOBIN 8.1 g/dL (14.0-18.0); LYMPH# 0.78 X1000 (1.2-3.4); LYMPH% 9.3 % (20.5-51.1); MCH 26.5 PG (27-31); MCV 82.7 FL (81-99); MONO# 0.57 X1000 (0.11-0.59); MONO% 6.8 % (1.7-9.3); MPV 10.4 FL (7.4-10.4); NEUT% 76.3 % (42.2-75.2); PLT 276 X1000 (130-400); RBC 3.06 XMIL (4.7-6.1)
[2016-10-15 05:27] LABS: ALBUMIN 2.8 g/dL (3.5-5.0); CALCIUM 8.5 mg/dL (8.8-10.2); MAGNESIUM 2.1 mg/dL (1.5-2.7); POTASSIUM 4.2 mmol/L (3.5-5.1)
[2016-10-15] MEDS: SYNTHROID PO SCH (06:18)
[2016-10-15] MEDS: PRILOSEC PO SCH (06:18)
--- NOTE | 2016-10-15 06:21 | PROGRESS NOTE ---
DATE: 10/15/2016 SUBJECTIVE: The patient continues to have some chest pain, but otherwise no major changes. OBJECTIVE: Vital Signs: Patient is afebrile. His vital signs have been stable. General: No acute distress. Resting comfortably in bed. Extremities: Amputation site with dressing in place. No major changes. Still with some stable fibrinous areas on his stump. ASSESSMENT AND PLAN: A 61-year-old, male status post [id number] amputation with persistent cellulitis-type symptoms. At this time, we will continue local wound care. An MRI of the lower extremity has been ordered but agree this likely showed bony changes consistent with relatively recent amputation. Likely only other option would be [id number]-[id number] amputation at this time for revision, but otherwise we will continue local wound care with Dali.
[2016-10-15] MEDS: NORCO-10 PO PRN (06:24)
[2016-10-15] MEDS: HUMULIN R SUBQ SCH ×4 (06:42→20:55)
[2016-10-15] MEDS ORDERED: SAMSCA PO ONE (08:32)
[2016-10-15] MEDS: PLAVIX PO SCH (09:12)
[2016-10-15] MEDS: ULTRAM PO SCH ×3 (09:13→16:43)
[2016-10-15] MEDS: NORVASC PO SCH ×2 (09:13→20:56)
[2016-10-15] MEDS: KLONOPIN PO SCH ×2 (09:13→20:56)
[2016-10-15] MEDS: SODIUM BICARBONATE PO SCH (09:14)
[2016-10-15] MEDS: COREG PO SCH ×2 (09:14→20:57)
[2016-10-15] MEDS: FOLIC ACID PO SCH (09:14)
[2016-10-15] MEDS: RENAGEL PO SCH ×3 (09:14→18:16)
[2016-10-15] MEDS: ASPIRIN EC PO SCH (09:14)
[2016-10-15] MEDS: XANAX PO SCH ×3 (09:14→20:56)
[2016-10-15] MEDS: NEURONTIN PO SCH ×3 (09:14→16:35)
[2016-10-15] MEDS: APRESOLINE PO SCH ×3 (09:15→16:35)
[2016-10-15] MEDS: HEPARIN SUBQ SCH ×2 (09:15→20:55)
[2016-10-15] MEDS: FLEXERIL PO SCH ×3 (09:15→16:35)
[2016-10-15] MEDS: LACTULOSE PO SCH ×2 (09:16→20:55)
[2016-10-15] MEDS: KEFZOL IV SCH ×2 (09:16→21:07)
[2016-10-15] MEDS: VENOFER 200 MG in NS 150 ML IV SCH (09:16)
[2016-10-15] MEDS: MIRALAX PO SCH ×2 (10:06→20:57)
--- NOTE | 2016-10-15 11:10 | PROGRESS NOTE ---
DATE: 10/15/2016 CHIEF COMPLAINT: Chest pain. SUBJECTIVE: Mr. Ventura says that the chest pain is slightly better today. His pain is really reproducible. It is provoked by pressing on the anterior chest cage. He acknowledges having done some pulling with his arms. His breathing is more comfortable. CT scan of the chest was done yesterday suggesting some central pulmonary congestion. We have put him on Lasix 120 mg twice a day. He still has some drainage coming out of the stump on the right side. OBJECTIVE: Vital signs: Temperature 98.6, pulse 75, respirations 20, blood pressure 112/59. His telemetry shows no significant arrhythmia. HEENT: Unremarkable. Chest: Tender in the left anterior chest. Otherwise, the lungs show diminished breath sounds at the bases. No rales. Cardiac: Heart sounds regular and rhythmic, no gallop, rub, or murmur. Abdomen: Nontender. Extremities: Right BKA wrapped up with dressing. Left leg pulses diminished, slightly cool. Neurological: Alert and oriented x3, follows commands. BLOOD WORK TODAY: Sodium 133, potassium 4.2, BUN 63, creatinine 3.1. IMPRESSION: 1. Patient presented with chest pain which is, by exam and after reviewing all the tests, more than likely noncardiac. 2. Renal insufficiency. This is progressive. 3. Congestive heart failure. This is probably a combination of systolic and diastolic dysfunction. The patient has severe coronary heart disease. 4. Patient has methicillin-sensitive Staphylococcus aureus in the stump of the right leg with cellulitis. Osteomyelitis is being investigated. 5. The patient has significant coronary heart disease. IMAGING: His last imaging study from September 27 showed that his ejection fraction was 34% with dilatation of the left ventricle, myocardial scarring both in the mid apical to anterior wall. His last echo done October 14 shows ejection fraction 40% to 45% with anteroseptal hypokinesis. He has chronic systolic dysfunction and diastolic dysfunction. RECOMMENDATION: At this point in time, we will continue present therapy. He is getting antibiotics for the staph infection. We will see how he does over the next couple of days. I may give him a dose of [place] for his hyponatremia, and further intervention will depend on his clinical course. Hopefully, he will get to go home within the next 3 to 4 days. Thank you for the opportunity to participate in his care.
[2016-10-15] MEDS: SANTYL OINT TOP SCH (12:10)
--- NOTE | 2016-10-15 16:48 | CONSULTATION ---
DATE OF CONSULTATION: 10/15/2016 REASON FOR CONSULTATION: Acute kidney injury overlying chronic kidney disease. HISTORY OF PRESENT ILLNESS: Ms. Ventura is a 61-year-old white male who is well known to me. He has chronic kidney disease stage 4 with baseline creatinine that ranges between approximately 2.5 and 3.5. He was readmitted to the hospital on the with wound infection of his right BKA stump. He has been having some chest discomfort also and has been followed by Dr. Mitchell while he has been here in the hospital. Dr. Mitchell feels that his pain is more likely not cardiac in origin. Currently, he has had some pain medicine and his speech is somewhat slurred. He did not recognize me, asking if I was Dr. Ac. PAST MEDICAL HISTORY: 1. CKD as above. 2. Diabetes. 3. Coronary artery disease. 4. Congestive heart failure. 5. Hyperlipidemia. 6. Chronic pain syndrome. 7. Peripheral vascular disease with bilateral amputations. CURRENT MEDICATIONS: Include Apresoline, aspirin, Celexa, carvedilol, Desyrel, Dilaudid, Flexeril, folate, subcu heparin, insulin, Kefzol, Klonopin, furosemide 120 b.i.d., atorvastatin, MiraLAX, p.r.n. morphine, Neurontin, nitroglycerin, Plavix, Prilosec, [place], Renvela, p.r.n. Tylenol, p.r.n. Ultram, Venofer, Xanax, Zofran. ALLERGIES: NONE. SOCIAL HISTORY: He lives at home with his son. He has just recently completed 21 days at [facility]. FAMILY HISTORY: Positive for diabetes and hypertension. PHYSICAL EXAMINATION: Vital Signs: Blood pressure 112/59, heart rate 75, respirations 20, afebrile. General: He is a chronically ill man, lying at 30 degrees in no distress. Skin: Warm and dry. HEENT: Conjunctivae are pink. Pupils are equal. Neck: Neck veins are modestly distended. Trachea is midline. Hepatojugular reflux is present. Heart: Regular with a murmur. Lungs: Have equal breath sounds. Few bilateral crackles. Abdomen: Soft, nontender. Bowel sounds are present. Extremities: Have 2 to 3+ edema. No clubbing or cyanosis. LABORATORY DATA: Sodium 133, potassium 4.2, chloride 92, bicarbonate 28, BUN 63, creatinine 3.1. Hemoglobin 8.1. IMPRESSION: Acute kidney injury overlying chronic kidney disease. His creatinine ranges between approximately 2.5 and 3.5. This is affected by diuretic use, volume status, cardiac status, etc. He currently has a high BUN to creatinine ratio and is receiving high-dose diuretics to address his congestive heart failure. I do not feel like any further intervention or diagnostics are required at this time. I will simply observe as he is treated. I did adjust his sevelamer dose but no other medication changes were made.
[2016-10-15] MEDS: CELEXA PO SCH (20:56)
[2016-10-15] MEDS: LIPITOR PO SCH (20:56)
[2016-10-15] MEDS: DESYREL PO SCH (20:56)
[2016-10-15] MEDS: DULCOLAX PR SCH (21:38)
[2016-10-16] MEDS: LASIX IV SCH ×2 (03:19→16:11)
[2016-10-16] MEDS: NS IV SCH ×4 (03:19→22:09)
[2016-10-16] MEDS: DILAUDID IV PRN ×2 (03:19→09:36)
[2016-10-16] MEDS: NITROGLYCERIN TOP SCH ×4 (03:19→22:05)
[2016-10-16 04:04] LABS: MANUAL DIFF NEEDED? NO
[2016-10-16 04:06] LABS: BASO% 0.5 % (0.0-0.8); EOS# 0.82 X1000 (0.0-0.7); EOS% 13.1 % (0.0-10.0); HEMATOCRIT 26.4 % (42.0-52.0); HEMOGLOBIN 8.4 g/dL (14.0-18.0); IMM GRAN# 0.02 X1000 (0.0-0.04); IMM GRAN% 0.3 % (0.0-0.5); LYMPH# 0.72 X1000 (1.2-3.4); LYMPH% 11.5 % (20.5-51.1); MCH 26.5 PG (27-31); MCHC 31.8 g/dL (33-37); MCV 83.3 FL (81-99); MONO# 0.47 X1000 (0.11-0.59); MONO% 7.5 % (1.7-9.3); NEUT% 67.1 % (42.2-75.2); PLT 283 X1000 (130-400); RBC 3.17 XMIL (4.7-6.1)
[2016-10-16 04:34] LABS: ALBUMIN 2.9 g/dL (3.5-5.0); CALCIUM 8.6 mg/dL (8.8-10.2); POTASSIUM 4.3 mmol/L (3.5-5.1)
[2016-10-16] MEDS: HUMULIN R SUBQ SCH ×4 (05:59→22:03)
[2016-10-16] MEDS: SYNTHROID PO SCH (06:23)
[2016-10-16] MEDS: PRILOSEC PO SCH (06:23)
[2016-10-16] MEDS: KEFZOL IV SCH ×2 (09:11→22:09)
[2016-10-16] MEDS: NORVASC PO SCH ×2 (09:15→22:08)
[2016-10-16] MEDS: LACTULOSE PO SCH ×2 (09:15→22:04)
[2016-10-16] MEDS: SODIUM BICARBONATE PO SCH (09:15)
[2016-10-16] MEDS: ASPIRIN EC PO SCH (09:15)
[2016-10-16] MEDS: HEPARIN SUBQ SCH ×2 (09:15→22:09)
[2016-10-16] MEDS: NEURONTIN PO SCH ×3 (09:15→16:12)
[2016-10-16] MEDS: APRESOLINE PO SCH ×3 (09:15→16:12)
[2016-10-16] MEDS: KLONOPIN PO SCH ×2 (09:15→22:08)
[2016-10-16] MEDS: RENAGEL PO SCH ×3 (09:15→16:12)
[2016-10-16] MEDS: FOLIC ACID PO SCH (09:16)
[2016-10-16] MEDS: ULTRAM PO SCH ×3 (09:16→16:20)
[2016-10-16] MEDS: VENOFER 200 MG in NS 150 ML IV SCH (09:17)
[2016-10-16] MEDS: MIRALAX PO SCH ×2 (09:17→22:02)
[2016-10-16] MEDS: XANAX PO SCH ×3 (09:17→22:08)
[2016-10-16] MEDS: PLAVIX PO SCH (09:17)
[2016-10-16] MEDS: SANTYL OINT TOP SCH (09:17)
[2016-10-16] MEDS: COREG PO SCH ×2 (09:36→22:08)
[2016-10-16] MEDS: FLEXERIL PO SCH ×3 (09:36→16:12)
--- NOTE | 2016-10-16 10:02 | PROGRESS NOTE ---
DATE: 10/16/2016 CHIEF COMPLAINT: Chest pain. SUBJECTIVE: Mr. Ventura is having a little less chest discomfort. The pain, again, is chest wall related. He denies having any shortness of breath. No palpitations. His lens inspector shows no arrhythmia. OBJECTIVE: His blood pressure today is 121/79, temperature of 97.8, pulse 67, respirations 18. He is awake, alert, more cooperative in evidently less pain than yesterday. HEENT: Unremarkable. Chest: Diffusely diminished breath sounds bilaterally. The right lung is more diminished than the left. Heart: Heart sounds regular and rhythmic, distant. No gallop, rub, or murmur is noted. Abdomen: Nontender. No hepatomegaly. Extremities: There is amputation below the knee on the right side. Left leg shows decreased pulses, cool extremity, dry skin. Neurological: He follows commands, moves all extremities. LABORATORIES: Blood work: His white count is 6250, hemoglobin is 8.4, hematocrit is 26.4. MCV is 84. RDW is 17.1. Sodium 133, potassium 4.3, BUN 68, creatinine has gone up to 3.4. His phosphorus is 3.9. Calcium is 8.6. His albumin is 2.9. Most recent chest CT from October 14 showed possible mild interstitial pulmonary edema, coronary artery disease, and there was no pericardial effusion. They reported dense coronary artery calcifications on the chest CT. IMPRESSION: 1. Patient who presented with chest pain that appears to be noncardiac. It is reproducible at present on the left anterior chest. 2. Renal insufficiency. 3. Congestive heart failure, more than likely combination of both systolic and diastolic. 4. Coronary heart disease, diffuse. 5. Cellulitis right leg. This is due to methicillin sensitive Staphylococcal aureus. RECOMMENDATIONS: At this point in time we will continue with conservative management of his chest wall pain. Heating pad has been recommended. The patient has been seen already by Nephrology and they have given advice. We will continue to follow him along. I am going to check a followup troponin level and an EKG and further advice will be forthcoming. [facility]
[2016-10-16] MEDS ORDERED: MOVANTIK PO ONE (11:19)
--- NOTE | 2016-10-16 13:12 | PROGRESS NOTE ---
DATE: 10/16/2016 SUBJECTIVE: No major issues. OBJECTIVE: Vital Signs: Patient is currently afebrile. His vital signs have been stable. General Examination: No acute distress. Resting comfortably in bed. Extremities: Amputation site with dressing in place. No major changes. Still with some fibrinous exudate at this time but otherwise, no major issues. ASSESSMENT AND PLAN: This is a 61-year-old male status post [id number] amputation with persistent cellulitis-type symptoms. At this time the patient is slowly improving. We will continue local wound care. An MRI the lower extremity is pending.
--- NOTE | 2016-10-16 14:15 | PROGRESS NOTE ---
DATE: 10/16/2016 PRESENT ILLNESS: The patient has an oxacillin sensitive Staph aureus of his amputated right leg. The patient definitely has a cellulitis and an MRI has been ordered to see if there is an underlying osteomyelitis. The patient also on his left heel has an ulcerated area that has a black eschar. MEDICATIONS: The patient is receiving cefazolin, the dose of which has been modified because of the patient's renal insufficiency. PHYSICAL EXAMINATION: Vital Signs: Temperature is 97.8, pulse 67, respirations 18, blood pressure 121/79. General: This is an ill-appearing, middle-aged male, who is in no acute distress. Lungs: Clear to auscultation. Cardiovascular: Regular heart rate. Abdomen: Soft and nontender. Chest: The patient has a Port-A-Cath in place. The site is not erythematous or swollen. Extremities: The patient's right leg shows a xaonu-eop-okjy amputation. The leg is erythematous. It has some ulcerated areas that are draining purulent fluid. LAB AND X-RAY: There is no new x-ray today. The lab shows a CBC with a white count of 6,250, hemoglobin 8.4, and platelet count 283,000. Patient's creatinine is 3.4. The GFR is 19. Culture taken from the patient's stump is growing an oxacillin sensitive Staph aureus. ASSESSMENT AND PLAN: The patient has an infection of the leg. I plan to continue Ancef. This is day 3 of treatment with Ancef. The patient's comorbidities include diabetes mellitus and peripheral vascular disease.
--- NOTE | 2016-10-16 21:55 | PROGRESS NOTE ---
DATE: 10/16/2016 SUBJECTIVE: The patient just received pain medication and is sleepy and groggy. OBJECTIVE: Vital Signs: Temperature 98.2 degrees, blood pressure 99/64, heart rate 66, respirations 16, O2 saturations 96% on 2 L nasal cannula. General: This is a chronically ill- appearing male lying in bed in no acute distress. Head: Normocephalic, atraumatic. Heart: S1, S2. Normal. Regular rate and rhythm. Lungs: Clear to auscultation bilaterally. No wheezing. No rales. No rhonchi. Abdomen: Positive bowel sounds. Soft, nontender, nondistended. Extremities: The right cxkpp-[id number]-txgc amputation site is wrapped in a clean dry dressing. The left heel has an eschar that is dry. The patient does have 2+ edema. Neurologic: The patient is awake and alert. No focal neurologic deficits noted. LABS: White blood cell count 6.2, hemoglobin 8.4, hematocrit 26, platelets 283,000. Sodium 133, potassium 4.3, chloride 92, CO2 29, BUN 68, creatinine 3.4, glucose 129, calcium 8.3. ASSESSMENT AND PLAN: 1. Atypical chest pain. Continue on tramadol and Flexeril. 2. Acute congestive heart failure exacerbation. The patient remains on high dose Lasix. Management as per the abstract manager. 3. Severe coronary artery disease. Aware. 4. Acute kidney injury on chronic kidney disease stage 4. The patient remains on high dose diuretic therapy. Management as per the foot and ankle surgeon and abstract manager. 5. Right rohhw-xgx-zsew amputation cellulitis. Continue with IV antibiotic therapy. An MRI is planned for this week. ID and General Surgery are following. 6. Hypothyroidism. Continue on Synthroid. 7. Anemia. The patient's hemoglobin and hematocrit are improved after receiving the Venofer infusions. Will continue to monitor this closely. 8. Anxiety disorder. Continue on Xanax. 9. Chronic pain syndrome. The patient has been switched to [place] for pain control. 10. Constipation. The patient is on multiple laxatives. Will give the patient a dose of Movantik. 11. The patient is stable for transfer to the medical floor.
[2016-10-16] MEDS: DESYREL PO SCH (22:08)
[2016-10-16] MEDS: CELEXA PO SCH (22:08)
[2016-10-16] MEDS: LIPITOR PO SCH (22:09)
[2016-10-16] MEDS: DULCOLAX PR SCH (22:09)
[2016-10-17] MEDS: LASIX IV SCH ×2 (03:34→15:56)
[2016-10-17] MEDS: NS IV SCH ×4 (03:34→22:00)
[2016-10-17] MEDS: NITROGLYCERIN TOP SCH ×4 (03:40→22:01)
[2016-10-17] MEDS: HUMULIN R SUBQ SCH ×4 (06:18→22:00)
[2016-10-17] MEDS: SYNTHROID PO SCH (06:18)
[2016-10-17] MEDS: PRILOSEC PO SCH (06:18)
[2016-10-17] MEDS: NITROGLYCERIN SL PRN (06:49)
[2016-10-17 06:51] LABS: MANUAL DIFF NEEDED? NO
[2016-10-17 07:07] LABS: BASO% 0.3 % (0.0-0.8); EOS# 0.72 X1000 (0.0-0.7); EOS% 11.8 % (0.0-10.0); HEMATOCRIT 25.1 % (42.0-52.0); HEMOGLOBIN 7.9 g/dL (14.0-18.0); LYMPH# 0.65 X1000 (1.2-3.4); LYMPH% 10.6 % (20.5-51.1); MCH 26.1 PG (27-31); MCHC 31.5 g/dL (33-37); MCV 82.8 FL (81-99); MONO# 0.46 X1000 (0.11-0.59); MONO% 7.5 % (1.7-9.3); MPV 10.8 FL (7.4-10.4); NEUT% 69.8 % (42.2-75.2); PLT 270 X1000 (130-400); RBC 3.03 XMIL (4.7-6.1)
[2016-10-17 07:57] LABS: ALBUMIN 2.8 g/dL (3.5-5.0); CALCIUM 8.6 mg/dL (8.8-10.2); POTASSIUM 4.3 mmol/L (3.5-5.1)
[2016-10-17] MEDS: LACTULOSE PO SCH ×2 (08:35→22:00)
[2016-10-17] MEDS: FLEXERIL PO SCH ×3 (08:36→17:14)
[2016-10-17] MEDS: NORVASC PO SCH ×2 (08:36→22:01)
[2016-10-17] MEDS: SODIUM BICARBONATE PO SCH (08:36)
[2016-10-17] MEDS: NORCO-10 PO PRN (08:36)
[2016-10-17] MEDS: APRESOLINE PO SCH ×3 (08:36→17:13)
[2016-10-17] MEDS: NEURONTIN PO SCH ×3 (08:37→17:14)
[2016-10-17] MEDS: KLONOPIN PO SCH (08:37)
[2016-10-17] MEDS: FOLIC ACID PO SCH (08:37)
[2016-10-17] MEDS: XANAX PO SCH ×3 (08:37→21:59)
[2016-10-17] MEDS: ASPIRIN EC PO SCH (08:37)
[2016-10-17] MEDS: COREG PO SCH ×2 (08:37→22:01)
[2016-10-17] MEDS: PLAVIX PO SCH (08:37)
[2016-10-17] MEDS: MIRALAX PO SCH ×2 (08:38→21:58)
[2016-10-17] MEDS: KEFZOL IV SCH ×2 (08:38→22:00)
[2016-10-17] MEDS: RENAGEL PO SCH ×3 (08:38→17:13)
[2016-10-17] MEDS: HEPARIN SUBQ SCH ×2 (08:41→21:59)
--- NOTE | 2016-10-17 08:58 | PROGRESS NOTE ---
DATE: 10/17/2016 SUBJECTIVE: Mr. Ventura is sitting up in bed. States that he is having some left-sided chest pain. It hurts more with increased activity than at rest. He states that this pain had started prior to him getting up to void and stand at the side of the bed. He states that it hurts more with activity. He has been on quite a bit of pain medicine yesterday evening, according to his nurse. It looks like this has been decreased since yesterday. OBJECTIVE: His most recent vital signs, temperature 97.4 degrees, blood pressure 104/60, heart rate 64, respirations. He is on 2 L nasal cannula. Last recorded saturation 98 %. He has had 312 in; he has had 300+ out per void. He has got at least 500 mL in his LABORATORY DATA: His labs this a.m. are currently pending. White count 6.11 this a.m. with a hemoglobin 7.9, hematocrit 25.1, and a platelet count of 280,000. PHYSICAL EXAMINATION: General: This is a 61-year-old white male. He is currently resting in bed. He appears in mild distress. Skin: Warm and dry. HEENT: Normocephalic , atraumatic. Conjunctivae pale. He has ЮЛИЯ. Mucous membranes moist. Neck: Supple. Trachea midline. He has no JVD. Cardiovascular: Regular rate and rhythm. He has a soft murmur. No gallop appreciated. Lungs: Clear to auscultation anteriorly. Equal excursion. Faint bibasilar crackles on O2. Abdomen: Round, soft, nontender. Positive bowel sounds. Extremities: Have 2 to 3+ lower extremity edema. This is pitting all the way up into the mid sacral hip area. No clubbing or cyanosis. Right extremity has a right BKA. Left has slight chronic venous stasis evident. Neurological: Alert and oriented x3. ASSESSMENT AND PLAN: 1. Acute kidney injury overlying chronic kidney disease. Creatinine ranges between 2.5 in 3.5 in the last year. The patient continues on diuretic therapy. His BUN and elevated creatinine we will attribute to his high doses of diuresis to address his congestive heart failure. 2. Electrolytes. These are currently pending this a.m. He has had mild hyponatremia. We will continue to monitor. No need for intervention. 3. Acid-base balance. This remains stable. 4. Anemia. This remains low but stable during the hospitalization. 5. Amputation to the right, below knee amputation. Dr. Beauchamp is currently following. He continues with wound care. Antibiotics renally dosed. I would like to thank you for allowing us to follow with this patient. Seen, data reviewed, discussed with Hamida Guan on 10/17/16. I agree with the above assessment and plan of care. rg Dictated by WILLIS Vail for Herb Brown MD [facility]
[2016-10-17] MEDS ORDERED: PERCOCET-5 PO PRN (09:33)
[2016-10-17] MEDS: DEMEROL IV PRN ×3 (09:51→18:07)
[2016-10-17] MEDS: SANTYL OINT TOP SCH (11:31)
--- NOTE | 2016-10-17 14:12 | PROGRESS NOTE ---
DATE: 10/17/2016 SUBJECTIVE: The patient complains some chest tenderness over his sternum. OBJECTIVE: Vital signs: He is afebrile. Vital signs are stable. General: He is alert and oriented x4. He appears weak but in no acute distress. Chest Exam: He is tender over the costochondral joints anteriorly, at the border of the sternum. Extremities: His right BKA stump shows significant cellulitis. There are several open sores with seropurulent drainage and a slight odor. LABORATORY: White blood cell count 6.1. ASSESSMENT AND PLAN: This is a 61-year-old male status post right below-knee amputation with infected stump wound. I am going to change his wound care to silver alginate gauze packing. He should continue on Ancef. I will monitor this wound. If the purulent drainage does not improve then he may need an I D of this. Also there is an MRI pending which may help clarify his surgical needs.
--- NOTE | 2016-10-17 14:35 | PROGRESS NOTE ---
DATE: 10/17/2016 SUBJECTIVE: The patient has received some pain medication again. He is sleepy and groggy. He denies any complaint. OBJECTIVE: Vital Signs: Temperature 97.9 degrees, heart rate 72, respiratory rate 19, blood pressure 105/68, O2 saturation 97% on 2 L nasal cannula. General: This is a chronically ill looking 61-year-old male, lying in bed, in no acute distress. HEENT: Head is normocephalic, atraumatic. Anicteric sclerae and pale conjunctivae. Neck: Supple. No JVD noted. No carotid bruits. No lymphadenopathy. Cardiovascular: S1, S2 heard. No murmurs, gallops, or rubs. Regular rate and rhythm. Respiratory: Clear bilaterally to auscultation. No work of breathing or using accessory muscles. Abdomen: Soft, nontender to palpation. Bowel sounds present. No organomegaly. Extremities: Right gnndq-ynr-qlhw amputation. Site is wrapped with clean and dry dressing. The left heel has an eschar that is dry. The patient have 2+ pitting edema. Neurological: Patient is sleepy, groggy, but moves 4 extremities. LABORATORY DATA: White cell count 6.11, hemoglobin 7.9, hematocrit 25.1, platelets 217,000. Sodium 133, potassium 4.3, chloride 92, bicarbonate 26, BUN 77, creatinine 3.7, and glucose 134. ASSESSMENT AND PLAN: 1. Atypical chest pain. This condition is resolved. Patient is not complaining of any chest pain. 2. Acute congestive heart failure. Patient is on high doses of Lasix. Patient is being followed by Renal and also Cardiology. We will continue with the same management. 3. Severe coronary artery disease, aware. Patient is not complaining of any chest pain. 4. Acute on chronic kidney disease stage 4. Dr. Brown from Nephrology is following this patient. We will follow recommendations. 5. Right ygdpr-hdc-laxa amputation. Cellulitis. Patient is on IV antibiotics and Infectious Disease and General Surgery is following this patient as well. 6. Hypothyroidism. We will continue with Synthroid. 7. Anemia chronic disease. Hemoglobin has been dropped a little bit and today is 7.8. We will continue watching this hemoglobin closely. He already received Venofer infusions. 8. Anxiety disorder. Currently this patient was on Klonopin 0.5 mg p.o. b.i.d. and also in addition to that he was on Xanax 0.25 three times per day. Definitely he cannot get both medications so will leave just Xanax for this patient.. 9. Chronic pain syndrome. Patient has been receiving Dilaudid 1 mg IV q.4 hours p.r.n. for pain which I do not think this patient needed. Definitely, because this patient looks over- sedated, he was switched to [place] for pain control. I do not think this patient truly needs strong medications for pain so we are going stop both the of [place] and change to Demerol in really small doses in this case, 25 mg IV q.4 hours p.r.n. for pain. I think this patient has become a pain seeker patient so I do not recommend personally to continue giving him pain medications because he does not at this point have too many reasons to hurt. 10. Constipation. Patient is on multiple laxatives. We will continue with the same management. The patient is doing fine. At this point, we will continue with the following recommendations from our colleagues in infectious disease, renal, and cardiology.
--- NOTE | 2016-10-17 15:20 | Diag Imaging Result Document ---
PROCEDURE NAME: CHEST-1 VIEW - 10/17/2016 PORTABLE CHEST X-RAY, 10/17/2016: COMPARISON: 10/12/2016. FINDINGS: Stable central line. Stable right hemidiaphragm elevation. Stable mild cardiomegaly and pulmonary vascular congestion. No infiltrates. No pneumothorax or pleural effusion. IMPRESSION: No change from prior.
--- NOTE | 2016-10-17 16:10 | PROGRESS NOTE ---
DATE: 10/17/2016 PRESENT ILLNESS: The patient has an oxacillin sensitive Staph aureus infection of his right leg, which had a duygq-lyp-yxar amputation performed. There is cellulitis and I am concerned there may be an underlying osteomyelitis. The patient's left heel also has an ulcerated area. MEDICATIONS: This is the 5th day of Ancef therapy. The dose is reduced because of the patient's renal insufficiency. PHYSICAL EXAMINATION: Vital Signs: Temperature is 97.9 degrees, pulse 72, respirations 19, blood pressure 105/68. General: This is a somewhat ill-appearing, middle-aged male. He is in no acute distress. Lungs: Clear to auscultation. Cardiovascular: Heart rate is regular. Abdomen: Soft and nontender. The patient's left heel and the patient's right leg have large dressings around them. The dressings are intact. The patient has a Port-A-Cath present in the right chest. The site is not erythematous or tender. LABORATORY AND X-RAY: The MRI has not yet been done on the patient's leg. It will be done tomorrow. His CBC for today shows a white count of 6110, hemoglobin 7.9 and platelet count 270,000. Chest x-ray shows pulmonary edema and cardiomegaly. ASSESSMENT AND PLAN: 1. The patient has a Staph infection of his right leg. My plan is to continue Ancef. The MRI of the leg is pending. 2. Comorbidities include peripheral vascular disease and diabetes mellitus.
[2016-10-17] MEDS: DULCOLAX PR SCH (21:59)
[2016-10-17] MEDS: LIPITOR PO SCH (21:59)
[2016-10-17] MEDS: DESYREL PO SCH (22:00)
[2016-10-17] MEDS: CELEXA PO SCH (22:00)
[2016-10-18] MEDS: NS IV SCH ×3 (02:51→22:36)
[2016-10-18] MEDS: LASIX IV SCH ×2 (02:51→22:36)
[2016-10-18] MEDS: DEMEROL IV PRN ×4 (02:51→18:56)
[2016-10-18] MEDS: NITROGLYCERIN TOP SCH ×5 (02:55→22:02)
[2016-10-18] MEDS: HUMULIN R SUBQ SCH ×4 (06:03→22:36)
[2016-10-18] MEDS: PRILOSEC PO SCH (06:04)
[2016-10-18] MEDS: SYNTHROID PO SCH (06:04)
[2016-10-18 07:35] LABS: ALBUMIN 2.9 g/dL (3.5-5.0); CALCIUM 8.6 mg/dL (8.8-10.2); POTASSIUM 4.3 mmol/L (3.5-5.1)
[2016-10-18] MEDS ORDERED: SAMSCA PO ONE (07:52)
[2016-10-18] MEDS: LACTULOSE PO SCH ×2 (08:18→22:05)
[2016-10-18] MEDS: MIRALAX PO SCH ×2 (08:18→22:03)
[2016-10-18] MEDS: HEPARIN SUBQ SCH ×2 (08:18→22:04)
[2016-10-18] MEDS: NEURONTIN PO SCH ×3 (08:19→17:05)
[2016-10-18] MEDS: PLAVIX PO SCH (08:19)
[2016-10-18] MEDS: RENAGEL PO SCH ×3 (08:19→17:04)
[2016-10-18] MEDS: FLEXERIL PO SCH ×3 (08:19→17:04)
[2016-10-18] MEDS: SODIUM BICARBONATE PO SCH (08:19)
[2016-10-18] MEDS: APRESOLINE PO SCH ×3 (08:19→17:04)
[2016-10-18] MEDS: ASPIRIN EC PO SCH (08:19)
[2016-10-18] MEDS: KEFZOL IV SCH (08:20)
[2016-10-18] MEDS: COREG PO SCH ×2 (08:20→22:04)
[2016-10-18] MEDS: SANTYL OINT TOP SCH (08:20)
[2016-10-18] MEDS: FOLIC ACID PO SCH (08:20)
[2016-10-18] MEDS: XANAX PO SCH ×3 (08:20→22:01)
[2016-10-18] MEDS: NORVASC PO SCH ×2 (08:20→22:02)
--- NOTE | 2016-10-18 08:28 | PROGRESS NOTE ---
DATE: 10/15/2016 SUBJECTIVE: The patient is resting comfortably in bed. He does complain of occasional pain localized to the left chest wall. He denies any shortness of breath. OBJECTIVE: Vital signs: Temperature 98, blood pressure 121/60, heart rate 74, respirations 16. O2 saturation is 97% on 2 liters nasal cannula. General: This is a chronically ill-appearing elderly male sitting up in bed in no acute distress. Head: Normocephalic, atraumatic. Heart: S1, S2 normal. Lungs: Clear to auscultation bilaterally. No crackles. No rales. Abdomen: Positive bowel sounds, soft, nontender, nondistended. Extremities: 2+ edema in the left leg. The right vzrtc-xig-etuj amputation stump appears to be infected and erythematous. Neurologic: The patient is alert and oriented x 3. LABORATORY: platelets 276. Sodium 133, potassium 4.2, chloride 92, creatinine 3.1, ASSESSMENT AND PLAN: 1. Atypical chest pain. Continue on flexeril prn. 2. Acute on chronic systolic and diastolic congestive heart failure exacerbation. The patient is currently on diuretic therapy. Management as per the management sme. 3. Methicillin-sensitive Staphylococcus aureus of the right below-knee amputation stump. Continue on the current IV antibiotic regimen as directed by Dr. Brewer. 4. Acute kidney injury on chronic kidney disease stage 4. The patient is on high dose lasix. Nephrology is following. 5. Iron deficiency anemia. The patient is currently receiving Venofer infusion. 6. Hypothyroidism. Continue on synthroid. 7. DM type 2. Continue on sliding scale insulin. [facility]
--- NOTE | 2016-10-18 09:56 | PROGRESS NOTE ---
DATE: 10/18/2016 CHIEF COMPLAINT: Shortness of breath, chest pain. SUBJECTIVE: Mr. Ventura says that his chest pain is getting better. He has not experienced any major deterioration in his symptoms. Breathing is more comfortable. Chest x-ray was done yesterday, October 17, and is reported as indicating no change from prior. There is stable mild cardiomegaly and pulmonary vascular congestion. OBJECTIVE: Vital signs: Blood pressure 101/61, temperature 98.1, pulse 63, respirations 19. General: He is awake, alert, oriented. HEENT: Unremarkable. Chest: Tenderness to palpation of the left anterior chest. Pain is reproducible. His lungs are relatively clear to auscultation and percussion, although the breath sounds are diffusely diminished. Cardiac: Heart sounds are regular and rhythmic. I do not hear gallop or murmur. Abdomen: Nontender. Extremities: Show the below-knee amputation. The right stump is covered with a dressing. His left foot is dry with diminished pulses. BLOOD WORK TODAY: Sodium 130, potassium 4.3, BUN 84, creatinine 3.9. His last troponin was 0.496 on October 16. His CK was 194 on the day of admission, 133 on October 16. BUN and creatinine are 84 and 3.9. IMPRESSION: 1. Patient with congestive heart failure. This is systolic and diastolic. Underlying coronary heart disease is present. 2. Chest pain, which is chest cage pain, reproducible by palpation. 3. Renal insufficiency, acute on chronic. 4. Cellulitis of the right leg on antibiotics. 5. Diffuse coronary heart disease. 6. Hyponatremia. RECOMMENDATION: At this point in time, we will cut down his Lasix to once a day, and we will give him one dose of tolvaptan to try to correct his hyponatremia. We will see how he does. He needs to have a heating pad applied to the chest cage 3 times a day to minimize the pain. He has been put on pain medication along with cyclobenzaprine to manage his chest discomfort. Further intervention will depend on his clinical course.
--- NOTE | 2016-10-18 11:27 | PROGRESS NOTE ---
DATE: 10/18/2016 TIME SEEN: 09. SUBJECTIVE: Mr. Ventura is lying quietly in bed. States that he is not short of breath when he is at rest, but he becomes severely short of breath with any increased exertion. Denies chest pain at this time. OBJECTIVE: His most recent vital signs are temperature 98.1, blood pressure 101 /61, heart rate 66, respirations 19. He is currently on 2 L nasal cannula. Last recorded saturation 97%. Had 472 in. Had 875 out per void. LABORATORY DATA: This a.m., sodium 130, potassium 4.3, chloride 90, CO2 of 26, BUN 84, creatinine 3.9, glucose 150. Anion gap 14, calcium 8.6, albumin 2.9. Hemoglobin previously 7.9 on the . BNP this morning is 5199 with blood cultures negative. PHYSICAL EXAMINATION: General: This is a 61-year-old white male. He appears chronically ill. He is in no acute distress. Skin: Warm and dry. HEENT: Normocephalic, atraumatic. Conjunctiva is pale. He has ЮЛИЯ. Mucous membranes are slightly dry. Neck: Supple. Trachea midline. No JVD. Cardiovascular: Regular rate and rhythm. Soft systolic murmur. No gallop appreciated. Lungs: Clear to auscultation anterior. He has diminished bibasilar crackles to the bases. Continues on O2. Abdomen: Round, soft, nontender. Positive bowel sounds. Extremities: With 2 to 3+ lower extremity edema. He continues with pitting up into the mid hip, sacral, abdominal area. Neurological: Alert and oriented x3. ASSESSMENT AND PLAN: 1. Acute kidney injury overlying chronic kidney disease. Patient's BUN and creatinine continue to elevate. He continues on diuretic therapy for high doses. At this point , he currently has Lasix ordered, 120 mg q.24 hours. We will change that to q.12 hours at this time and re- evaluate. We will check a 24 hour urine to determine patient's renal status. 2. Electrolytes. Patient has hyponatremia. He currently is on trazodone and Celexa. This may be multifactorial. We will stop his trazodone. We will continue his Celexa. We will continue with his Lasix of 120 mg and change it to q.12 hours and re- evaluate his labs in the a.m. He may need his Celexa stopped. 3. Acid-base balance. This continues stable. 4. Anemia. This remains low, but stable with no need for intervention. 5. Continued chronic elevated troponin and chest pain. Cardiology is following. I would like to thank you for allowing us to follow with this patient. Data reviewed, discussed with Hamida Guan on 10/18/16. I agree with the above assessment and plan of care. rg Dictated by WILLIS Vail for Herb Brown MD [facility]
--- NOTE | 2016-10-18 12:48 | Diag Imaging Result Document ---
PROCEDURE NAME: MRI LOW EXTREMTY W/O CON-RIGHT - 10/18/2016 MRI OF THE RIGHT KNEE: FINDINGS: There is some increased signal intensity on the STIR images in the marrow spaces of the mid femur and the proximal tibia. This may be related to red marrow conversion. There is fluid in the suprapatellar bursa. There is a small amount of fluid distal to the stump of the tibia. IMPRESSION: While the possibility of chronic osteomyelitis in the remaining portion of the distal tibia cannot be excluded, the findings are nonspecific and may simply related to postsurgical change. If possible, pre- and postgadolinium enhanced sequence with fat suppression would be helpful.
--- NOTE | 2016-10-18 15:27 | PROGRESS NOTE ---
DATE: 10/18/2016 PRESENT ILLNESS: The patient has an oxacillin sensitive Staph aureus infection of his right leg which has a hrlsy-gpe-qtyr amputation. The MRI showed that possibly there is osteomyelitis present. The patient does have cellulitis present. The patient's left heel has an ulcerated area that has not shown any change. MEDICATIONS: This is day 6 of treatment with cefazolin. The dosage is reduced because of the patient's renal insufficiency. PHYSICAL EXAMINATION: Vital Signs: Temperature is 97.6 degrees, pulse 68, respirations 19, blood pressure 104/64. Generally, the patient is lethargic. He can be aroused though, and he is able to move his extremities. There is no tremor. Lungs clear to auscultation. Cardiovascular: Regular heart rate. Abdomen is soft and nontender. The patient's dressings were removed. The right leg is less erythematous and has less purulent drainage. The patient's left heel is unchanged. There is no spreading of the ulcerated area. There is no purulent drainage. LABORATORY AND X-RAY: MRI of the right leg showed the possibility of osteomyelitis. CBC shows a white count of 6110, hemoglobin 7.9 and platelet count 270,000. Creatinine is 3.9. The GFR is 16. ASSESSMENT AND PLAN: The patient has Staph aureus infection of the right leg which might have osteomyelitis in addition to cellulitis. My plan is to continue with Ancef at the current dose and, since osteomyelitis is a possibility, I plan to treat the patient for a total of 6 weeks. This is day 6 of treatment. The patient's comorbidities include diabetes mellitus, peripheral vascular disease, and end-stage renal disease.
--- NOTE | 2016-10-18 16:04 | PROGRESS NOTE ---
DATE: 10/18/2016 Today Mr. Ventura referred to be doing okay. Still complains of some epigastric and chest discomfort. However patient has been evaluated by Cardiology and they ruled out any cardiac component. OBJECTIVELY: His vitals stable. Blood pressure is 104/64, pulse of 58, respirations 90, temperature is 97.6 degrees.General: Mr. Ventura is a 61-year-old male. He was in bed. No distress. HEENT: Mucosa is pink and moist. Anicteric. Acyanotic. Neck: Supple. Chest: Clear. Cardiovascular: Regular rate and rhythm. Abdomen: Soft, distended. Bowel sounds reduced. Extremities: Has a right BKA which is dressed. Left has about 2+ edema. This is less pitting. FNP: Patient is drowsy but easily arousable. Follow commands. LABORATORY DATA: No CBC for today. CMP: Sodium is 130, potassium is 4.3, chloride is 90, bicarb is 26, BUN is 84, creatinine is 3.9. ProBNP is 5,199. ASSESSMENT: 1. Atypical chest pain. Patient continues to have residual chest pain and has been evaluated by Cardiology to rule out any cardiac component. The patient's chest pain does get worse on palpation which I think there is some musculoskeletal component to this as well as possible GERD. We will address that. 2. Acute on chronic congestive heart failure. 3. Severe coronary artery disease. 4. Acute on chronic kidney disease. Patient is being followed by Dr. Brown. 5. Right below-knee amputation with cellulitis and wound infection with culture growing MSSA. Patient is currently on Ancef and is being followed also by Dr. Brewer. 6. Chronic pain syndrome. 7. Hypothyroidism. Will continue with Synthroid. 8. Constipation. Patient is on multiple laxatives. I think this is mainly due to the underlying use of opioids. We will be extremely careful with the use of this on the patient because I think he is now developing some tendency toward abusing this. 9. Hyponatremia. Patient has been given a dose of [place]. Our general plan, patient has been evaluated again by a Nephrology for a 24 urine collection since the renal function seems to be worsening. We will continue with the recommendations from both Cardio and Renal medicine. We have also spoken with the family welfare social work professor. At this point in time, patient does not have any more rehab bed which means whenever he is ready to be discharged which I think will be tomorrow once he is finished with the Nephrology studies, he will be going home with home health.
--- NOTE | 2016-10-18 16:37 | PROGRESS NOTE ---
DATE: 10/18/2016 SUBJECTIVE: He does not complain of any worsening pain in his right BKA stump. OBJECTIVE: Vital Signs: He is afebrile. Vital signs are stable. General: Alert and oriented x3. No acute distress. Extremities: Right BKA stump was examined. There continues to be swelling, erythema and some induration. There does appear to be less purulent drainage today; it is slightly improved from yesterday. IMAGING: MRI indicated inflammation of the soft tissues and tibia. Osteomyelitis could not be ruled out. However, it also could be consistent with recent amputation site changes. ASSESSMENT/PLAN: A 61-year-old male with infected right below-knee amputation stump. It is slightly improved on my exam today. I think continued observation, antibiotics and local wound care are in order at this time. I would be okay with discharge and close follow up with Dr. Michel in the next week or so.
[2016-10-18] MEDS: CELEXA PO SCH (22:01)
[2016-10-18] MEDS: LIPITOR PO SCH (22:01)
[2016-10-18] MEDS: DULCOLAX PR SCH (22:04)
[2016-10-19] MEDS: DEMEROL IV PRN ×2 (00:37→09:09)
[2016-10-19] MEDS: KEFZOL IV SCH ×3 (03:50→21:27)
[2016-10-19] MEDS: NS IV SCH ×5 (03:50→21:27)
[2016-10-19] MEDS ORDERED: LASIX IV SCH ×4 (06:00)
[2016-10-19] MEDS ORDERED: NS IV SCH ×4 (06:00)
[2016-10-19] MEDS: HUMULIN R SUBQ SCH ×3 (07:11→16:41)
[2016-10-19] MEDS: NITROGLYCERIN TOP SCH ×4 (07:12→21:27)
[2016-10-19 07:53] LABS: ALBUMIN 2.9 g/dL (3.5-5.0); CALCIUM 8.7 mg/dL (8.8-10.2); POTASSIUM 4.3 mmol/L (3.5-5.1)
[2016-10-19] MEDS: PRILOSEC PO SCH (07:54)
[2016-10-19] MEDS: SYNTHROID PO SCH (07:54)
[2016-10-19] MEDS ORDERED: VITAMIN D PO SCH (09:00)
[2016-10-19] MEDS: XANAX PO SCH ×2 (09:08→21:27)
[2016-10-19] MEDS: APRESOLINE PO SCH ×3 (09:10→16:41)
[2016-10-19] MEDS: MIRALAX PO SCH ×2 (09:10→21:26)
[2016-10-19] MEDS: NEURONTIN PO SCH ×3 (09:11→16:41)
[2016-10-19] MEDS: HEPARIN SUBQ SCH ×2 (09:11→21:26)
[2016-10-19] MEDS: LACTULOSE PO SCH ×2 (09:11→21:27)
[2016-10-19] MEDS: RENAGEL PO SCH ×3 (09:11→16:41)
[2016-10-19] MEDS: NORVASC PO SCH ×2 (09:12→21:26)
[2016-10-19] MEDS: LASIX IV SCH ×2 (09:12→21:27)
[2016-10-19] MEDS: FOLIC ACID PO SCH (09:12)
[2016-10-19] MEDS: PLAVIX PO SCH (09:12)
[2016-10-19] MEDS: ASPIRIN EC PO SCH (09:12)
[2016-10-19] MEDS: SODIUM BICARBONATE PO SCH (09:12)
[2016-10-19] MEDS: COREG PO SCH ×2 (09:12→21:26)
[2016-10-19] MEDS: FLEXERIL PO SCH ×2 (09:12→21:26)
[2016-10-19] MEDS: SANTYL OINT TOP SCH (09:13)
[2016-10-19 09:32] LABS: CALCIUM 8.4 mg/dL (8.8-10.2)
--- NOTE | 2016-10-19 11:02 | PROGRESS NOTE ---
DATE: 10/19/2016 SUBJECTIVE: Patient currently sitting up in bed. He states that he thought he was to go home. OBJECTIVE: Vital Signs: Temperature 97.4 degrees, pulse 69, respiratory rate 19, blood pressure 106/56. Intake 720 mL. Output has not been measured. He had at least 150 mL plus multiple voids that have not been measured. He has a 24 hour urine in progress. General: This is a chronically ill-appearing, middle-aged gentleman resting in bed. No acute distress. HEENT: Normocephalic. Atraumatic. Oral mucosa moist. Neck: Supple. Trachea midline. No JVD. Cardiovascular: Regular rate and rhythm. Systolic murmur noted. Pulmonary: Equal excursion. He is clear bilaterally with decreased breath sounds to the bases noted. Abdomen: Soft, with positive bowel sounds. Genitourinary: Not inspected. He is voiding. Extremities: He has a right BKA. Left lower extremity warm, erythematous, tender to touch with a 2+ to 3+ pretibial edema. Integumentary: Skin is warm and dry otherwise. He has a central line noted with medications continued. ASSESSMENT AND PLAN: 1. Acute kidney injury. Creatinine has continued to increase. His urine output has not been quantified. We are waiting results of a 24 hour urine. I did discuss with him that depending on his renal function once we have this 24 hour urine back that he may need dialysis. The patient thought that he was to go home. We would request that he remain in the hospital at least until we get his labs back but very likely it looks like he is not having recovery with his acute kidney injury. As such, I will go ahead and make him NPO and will put an order in for a consult to surgery for probable dialysis catheter placement for tomorrow. 2. Electrolytes: Hyponatremia is improved significantly. Continue to monitor. 3. Acid base balance, anemia stable. 4. Elevated troponin and chest pain followed by Cardiology. 5. Infection to right below-knee amputation followed by surgery. Dictated by WILLIS De Jesus for Herb Brown MD
--- NOTE | 2016-10-19 12:18 | PROGRESS NOTE ---
DATE: 10/19/2016 SUBJECTIVE: This morning, Mr. Ventura referred to be doing okay. He was just drowsy, but is easily arousable. OBJECTIVE: Vital Signs: Blood pressure 106/56, pulse of 69, respiration is 19 , and temperature 97.4 degrees. General exam: Mr. Ventura is a 61-year-old male. He was in bed and did not seem to be in any distress. HEENT: Mucosa is pink and moist. Anicteric. Acyanotic. Neck: Supple. Chest: Air entry was bilaterally reduced with bibasilar crepitations. Cardiovascular: Regular rate and rhythm. Abdomen: Soft, distended. OTR DRIVER: Patient is drowsy , but easily arousable. Follows commands. Extremities: Has a right BKA, maybe about 1+ to 2+ pedal edema. There is also some edema to the bilateral abdominal wall laterally. LABORATORY DATA: Sodium is 132, potassium 4.3, chloride 93, bicarbonate is 26, creatinine is 4.2, continues to worsen. ASSESSMENT: 1. Atypical chest pain. The patient did not complain of any chest pain today. Cardiology has seen the patient. They have ruled out cardiac component. 2. Acute on chronic congestive heart failure. A limited echocardiogram that was done this time around showed an ejection fraction of 40% to 45% with some anteroseptal hypokinesis. Cardiology is following. 3. Severe coronary artery disease. The patient had a catheterization last year which showed severe one-vessel coronary artery disease with about 80% stenosis of the left anterior descending. Also, some mild disease in the circumflex and mild plaque in the right coronary artery. 4. Acute on chronic kidney disease. Patient has been evaluated by nephrology, and the plan I think is to get him a 24-hour urine collection. I think there is a plan to dialyze him if kidney function does not improve, and the creatinine continues to get worse. Acid base is okay. 5. Right below-knee amputation with methicillin-sensitive Staphylococcus aureus infection. Patient is on Ancef. 6. Chronic pain syndrome. 7. Hypothyroidism. Continue with Synthroid. 8. Constipation, likely due to opioid abuse. We will continue using symptomatic management. 9. Hyponatremia. I think this is probably due to the underlying renal disease. 10. Vitamin D deficiency. We will continue replacing this. 11. Mild fluid overload likely due to the underlying renal and cardiac disease. The patient is getting 120 mg of intravenous Lasix. However, urine output has just been very marginal; 150 was documented yesterday and 480 has been documented today. 12. Drowsiness. I think this is probably related to medications that patient is getting. Currently on Demerol; I am going to stop this. Patient is getting Xanax 3 times per day; I will cut it down to 2 times per day because of his drowsiness, and we would use Tylenol or [place] for pain control. [facility]
--- NOTE | 2016-10-19 16:42 | PROGRESS NOTE ---
DATE: 10/19/2016 SUBJECTIVE: The patient does not complain of any worsening pain in his legs. OBJECTIVE: Vital Signs: He is afebrile. Vital signs are stable. General: He is alert and oriented x3. No acute distress. Extremities: Right BKA stump dressing is intact with some bloody seepage through it. LABORATORIES: BUN is worse at 92. Creatinine is worse at 4.2. ASSESSMENT AND PLAN: A 61-year-old male status post right below-knee amputation with a stump infection. He also has acute kidney injury and does not appear to be recovering. Pending Dr. Brown's recommendations, we may be placing a tunneled dialysis catheter tomorrow.
[2016-10-19] MEDS: NORCO-5 PO PRN (17:15)
[2016-10-19] MEDS: CELEXA PO SCH (21:26)
[2016-10-19] MEDS: DULCOLAX PR SCH (21:27)
[2016-10-19] MEDS: LIPITOR PO SCH (21:27)
[2016-10-20] MEDS: HUMULIN R SUBQ SCH ×5 (00:21→22:11)
[2016-10-20] MEDS: NITROGLYCERIN TOP SCH ×4 (04:07→21:33)
[2016-10-20] MEDS: PRILOSEC PO SCH (06:04)
[2016-10-20] MEDS: SYNTHROID PO SCH (06:04)
[2016-10-20 06:33] LABS: MANUAL DIFF NEEDED? NO
[2016-10-20 06:40] LABS: BASO% 0.3 % (0.0-0.8); EOS% 8.2 % (0.0-10.0); HEMATOCRIT 25.6 % (42.0-52.0); HEMOGLOBIN 8.1 g/dL (14.0-18.0); LYMPH# 0.52 X1000 (1.2-3.4); LYMPH% 8.5 % (20.5-51.1); MCH 26.2 PG (27-31); MCHC 31.6 g/dL (33-37); MCV 82.8 FL (81-99); MONO% 8.2 % (1.7-9.3); MPV 10.8 FL (7.4-10.4); NEUT% 74.8 % (42.2-75.2); PLT 293 X1000 (130-400); RBC 3.09 XMIL (4.7-6.1)
[2016-10-20 06:59] LABS: CALCIUM 8.7 mg/dL (8.8-10.2); POTASSIUM 4.2 mmol/L (3.5-5.1)
[2016-10-20] MEDS: XANAX PO SCH ×2 (08:47→21:32)
[2016-10-20] MEDS: NS IV SCH ×4 (08:48→22:10)
[2016-10-20] MEDS: LASIX IV SCH ×2 (08:48→21:30)
[2016-10-20] MEDS: KEFZOL IV SCH ×2 (08:52→22:10)
[2016-10-20] MEDS: MIRALAX PO SCH ×2 (08:53→21:35)
[2016-10-20] MEDS: PLAVIX PO SCH (08:53)
[2016-10-20] MEDS: FLEXERIL PO SCH ×2 (08:53→21:33)
[2016-10-20] MEDS: NORVASC PO SCH ×2 (08:53→21:32)
[2016-10-20] MEDS: APRESOLINE PO SCH ×3 (08:53→16:27)
[2016-10-20] MEDS: FOLIC ACID PO SCH (08:53)
[2016-10-20] MEDS: SODIUM BICARBONATE PO SCH (08:54)
[2016-10-20] MEDS: RENAGEL PO SCH ×3 (08:54→16:27)
[2016-10-20] MEDS: COREG PO SCH ×2 (08:54→21:32)
[2016-10-20] MEDS: NEURONTIN PO SCH ×3 (08:54→16:27)
[2016-10-20] MEDS: ASPIRIN EC PO SCH (08:54)
[2016-10-20] MEDS: HEPARIN SUBQ SCH ×2 (08:54→21:31)
[2016-10-20] MEDS: SANTYL OINT TOP SCH (08:54)
[2016-10-20] MEDS: LACTULOSE PO SCH ×2 (08:54→21:31)
--- NOTE | 2016-10-20 10:50 | PROGRESS NOTE ---
DATE: 10/20/2016 SUBJECTIVE: Patient is currently sitting up in bed. He is awake and alert. No acute distress. OBJECTIVE: Vital Signs: Temperature 97.6 degrees, pulse 68, respiratory rate 20, blood pressure 106/65. Intake and output: Intake 900 mL. Output 950 mL. General: This is a middle-aged gentleman resting in bed. No acute distress. HEENT: Normocephalic, atraumatic. Oral mucosa moist. Neck: Supple. Trachea midline without JVD. Cardiovascular: Regular rate and rhythm with a systolic murmur. Pulmonary: Equal excursion. He is clear bilaterally. Abdomen: Soft with positive bowel sounds. : Not inspected. He continues to void. Extremities: Right BKA. Left lower extremity continues warm, erythematous, and tender with 2 to 3+ pretibial edema. Integumentary: Skin is warm and dry with a central line noted to the right upper chest wall. Clean, dry, and intact. LAB DATA: WBC of 6.0, hemoglobin 8.1, hematocrit 25.6, platelet count of 293,000. Sodium 133, potassium 4.2, CO2 25, BUN 91, creatinine 4.2, calcium 8.7, phosphorus 4.5, and albumin 3.0. ASSESSMENT AND PLAN: 1. Acute kidney injury. His creatinine and BUN have remained stable overnight. It appears that he has plateaued with his creatinine. His urine output has picked up and he has been in equal territory over the last 24 hours. As such, we will hold off initiating dialysis on him. Will check labs in the morning. I will let him go ahead and eat today. I told him that I would make an NPO again tonight at midnight in the event that his renal function worsened and we did need to intervene. He is in agreement with this plan. If his numbers look better tomorrow he can go back to his diabetic diet. 2. Electrolytes, acid-base balance. These are stable. 3. Infection right below-knee amputation. Followed by surgery. On appropriate medications. Dictated by WILLIS De Jesus for Herb Brown MD
--- NOTE | 2016-10-20 11:17 | PROGRESS NOTE ---
DATE: 10/20/2016 PRESENT ILLNESS: The patient has an oxacillin sensitive Staph aureus infection of his right leg which has a maspi-vlz-zbhn amputation. According to the MRI there is possibly osteomyelitis present. Patient's left heel has a ulcerated area with an eschar covering it. MEDICATIONS: This is day 8 of treatment with cefazolin, the dose of which is reduced because of the patient's renal insufficiency. PHYSICAL EXAMINATION: Vital Signs: Temperature is 97.6 degrees, pulse 68, respirations 20, blood pressure 106/65. General: The patient appears ill. He is in no acute distress however. Lungs: Clear to auscultation. Cardiovascular: Regular heart rate. Abdomen: Soft and nontender. I remove the dressings from the patient's both legs. The right leg distally is erythematous, but less so than previously. There still is a purulent drainage coming from the incision site. The patient's left heel has a large eschar on it that is black in color with some surrounding erythema. Chest: The patient has a Livingston catheter in place. The catheter site is not erythematous or swollen. LAB AND X-RAY: Today the patient's CBC shows a white count of 6090, hemoglobin 8.1 and platelet count 293,000. Creatinine is 4.2. GFR is 18. ASSESSMENT AND PLAN: The patient's right leg has a possible osteomyelitis. I plan to treat the patient with Ancef for a total of 6 weeks. This is day 8 of his treatment today. COMORBIDITIES: Include diabetes mellitus, peripheral vascular disease and end-stage renal disease.
--- NOTE | 2016-10-20 11:54 | PROGRESS NOTE ---
DATE: 10/20/2016 SUBJECTIVE: Today, Mr. Ventura referred to be doing a whole lot better. He is much, much alert today than yesterday. He said nephrology has changed their mind and they plan to observe his kidney function today since it seems to be stable. OBJECTIVE: Vital Signs: Blood pressure is 106/65. Pulse 68. Respirations 20. Temperature 97.6 degrees. Patient is saturating 99% on room air. General: On general exam, Mr. Rodriguez is a 61- year-old male. He was in bed. He does not seem to be in any distress. HEENT: Mucosa is pink and moist. Anicteric. Acyanotic. Neck: Supple. Chest: Air entry is bilaterally reduced, a few bibasilar crepitations. Cardiovascular: Regular rate and rhythm. Abdomen: Softly distended. Bowel sounds are decreased. DISTRIBUTOR ADVERTISING MATERIAL: The patient is alert, is oriented. Follows commands. Extremities: There is a right BKA, which has a dressing over the stump, and there is about 1 to 2+ pedal edema extending to the thigh and some to the bilateral abdominal wall posteriorly. LABORATORY DATA: WBC is 6.09. Hemoglobin is 8.1. Platelet count is 293,000. Sodium is 133. Potassium 4.2. Chloride 93. Bicarb is 25. Creatinine is 4.2, which is stable. A 24-urine collection is still pending. ASSESSMENT: 1. Atypical chest pain, improved. Cardiology reviewed the patient to rule out any cardiac component. 2. Rkulg-js-ugjvynp congestive heart failure. The patient had ejection fraction of 40-45 on a recent echo. 3. Severe coronary artery disease. A left heart catheterization last year did show 80% stenosis of LAD and some mild disease in the circumflex and also the right coronary. Cardiology is on board. 4. Gfczp-ty-egrrwpy kidney disease. The patient is still in the process of doing 24-hour urine collection. Nephrology has withheld decision to place Vas-Cath for dialysis since the creatinine today is stable, the same as yesterday. 5. Right below-knee amputation with MRSA infection. Patient is on Ancef. There is a questionable, possible osteomyelitis so patient will be getting Ancef for my understanding 6 weeks as per M.D. followup with Dr. Brewer. 6. Chronic pain syndrome, noted. 7. Hypothyroidism. The patient continues to be on Synthroid. 8. Vitamin D deficiency, continue replacing. 9. Hyponatremia, likely due to underlying renal disease. 10. Constipation, noted. 11. Drowsiness due to medications. We did discontinue the Demerol yesterday and we have spaced out his Xanax. This morning, he looks more alert than yesterday. We will keep an eye on all the sedatives or pain medications the patient gets. PLAN: Our general plan is patient will continue with the 24-urine collection and we will re- evaluate him tomorrow. If creatinine continues to be stable and there is no further plan for Vas- Cath, then we might be able to discharge the patient home to follow up with nephrology.
[2016-10-20 14:13] LABS: UR CREATININE 66.2 mg/dL (14-26); UR PROTEIN 55.7 mg/dL
[2016-10-20 14:36] LABS: UR CREATININE TOTAL 1886.7 mg/24 (800-1800)
--- NOTE | 2016-10-20 16:46 | PALLIATIVE CARE CONSULTATION ---
DATE: 10/20/2016 REQUESTING PHYSICIAN: Dr. Hay REASON FOR CONSULTATION: Goals of care. HISTORY OF PRESENT ILLNESS: Mr. Ventura is a 61-year-old, male with an extensive past medical history, who was most recently admitted on 10/12/2016 after presenting to the ER stating that he was awakened from his sleep gasping for air with severe chest pain. At that time he states that the pain radiated to his right arm from his elbow to his fingers and felt that his arm was numb and tingling. It was also reported that he had nausea and dizziness. While in the emergency room his troponin was elevated, however it appears that he has chronic elevation of troponins ranging from 0.2 to 0.3 since May of this year. ProBNP was also elevated at 9078. Further evaluation also revealed a foul smelling drainage from his right knee stump. Currently, Mr. Ventura is lying in the hospital bed. She denies pain specifically chest pain. He also denies anxiety or depression and dyspnea. He does not have any family present. He states that his support system is his 14-year-old son who lives with him. The palliative care team has been consulted to assist with goals of care. REVIEW OF SYSTEMS: A 12 point review of systems has been conducted and is otherwise negative except those mentioned in the HPI. PAST MEDICAL HISTORY: 1. Coronary artery disease. 2. Diabetes mellitus. 3. Congestive heart failure. 4. Hyperlipidemia. 5. Peripheral vascular disease. 6. Chronic kidney disease stage 4. 7. Hypertension. 8. Degenerative disk disease. 9. Osteoarthritis. PAST SURGICAL HISTORY: 1. Cholecystectomy. 2. Cardiac stent. 3. Right below the knee amputation. 4. Four back surgeries. FAMILY HISTORY: Positive for hypertension and diabetes. SOCIAL HISTORY: He states that he quit smoking 7 years ago. He states that he quit drinking 15 years ago. Drug use has been denied. He has been this able since 2000. He states that he was hurt on the job. Prior to this admission he lived at home with his 14-year-old son. PHYSICAL EXAMINATION: General: Mr. Ventura is a 61-year-old, male who does not appear to be in any acute distress. HEENT: Atraumatic, normocephalic. Neck: Trachea is midline. Cardiovascular: Normal S1, S2. Pulmonary: Lung sounds are diminished. Respirations are nonlabored. Abdomen: Soft. Bowel sounds active. Extremities: Upper extremity, pulses are palpable. He does have a right ptfaz-jvt-zzot amputation. The dressing to his right below-the- knee stump is intact. The left lower extremity is mildly erythematous and warm to touch. Skin: Otherwise warm and dry. IMPRESSION: This is a 61-year-old, male with a past medical history as listed above. PLAN: I met with Mr. Ventura to determine his goals of care. Mr. Ventura was very withdrawn during our conversation. I did however discuss his extensive medical history, and the role of strict compliance. Mr. Ventura states that he has a history of being noncompliant but is compliant at this point. We discussed Advance Directive and power of men's swim coach. He does not have either document, however he wishes to be a full code. Mr. Ventura has no acute complaints at this time. The palliative care team will continue to follow daily until discharge. Thank you for this consultation. Dictated by WILLIS Richard for Peter Hugo MD
--- NOTE | 2016-10-20 19:07 | PROGRESS NOTE ---
DATE: 10/20/2016 SUBJECTIVE: The patient has no acute complaints or changes. OBJECTIVE: He is afebrile. Vital signs are stable.General: Alert and oriented x3. No acute distress. Extremities: Right BKA stump continues to have significant erythema. There is purulent drainage emanating from several open sores. There appears to be some necrotic subcutaneous soft tissue. ASSESSMENT AND PLAN: A 61-year-old male with acute kidney injury and wound infection status post right BKA. He is on antibiotics but I suspect he needs debridement and better drainage of this infection. I have offered this to him and he is agreeable. We will plan to take him to the operating room tomorrow for incision and drainage and debridement of his right infected BKA stump.
[2016-10-20] MEDS: LIPITOR PO SCH (21:32)
[2016-10-20] MEDS: CELEXA PO SCH (21:32)
[2016-10-20] MEDS: DULCOLAX PR SCH (21:34)
[2016-10-21] MEDS: NORCO-5 PO PRN (03:35)
[2016-10-21] MEDS: NITROGLYCERIN TOP SCH ×4 (03:40→22:24)
[2016-10-21] MEDS: HUMULIN R SUBQ SCH ×4 (07:01→22:49)
[2016-10-21] MEDS: APRESOLINE PO SCH ×4 (09:00→18:32)
--- NOTE | 2016-10-21 10:22 | PROGRESS NOTE ---
DATE: 10/21/2016 SUBJECTIVE: He is awaiting surgery this morning to debride his leg. He says he has occasional episodes of shortness of breath. No chest pain. OBJECTIVE: Vital Signs: Blood pressure 108/58, heart rate 69, respiration 18, afebrile. Intake 350 mL; output 2100 mL. General: On physical exam, no acute distress, lying flat. Skin: Warm and dry. Eyes: Conjunctivae are pink. Neck: Neck veins are distended with hepatojugular reflux. Heart: Regular with S4. No rubs. Lungs: Have equal excursion. Equal breath sounds. No crackles. Abdomen: Soft and nontender. Bowel sounds are present. Extremities: Have 2+ to 3+ edema. No clubbing or cyanosis. LABORATORY DATA: No labs yet today. IMPRESSION: Acute kidney disease overlying chronic kidney disease. He responded nicely to diuretics yesterday, and we will continue this treatment over the next several days. Observe his renal function. I have counseled him regarding the severity of this problem, and it is our trajectory over the last hospitalization. I counseled he may require hemodialysis for management.
--- NOTE | 2016-10-21 11:14 | PROGRESS NOTE ---
DATE: 10/20/2016 SUBJECTIVE: Patient feels a bit better today. His breathing appears to be stable. He is not orthopneic. He is not having overt chest pain. OBJECTIVE: Vital signs: Heart rate is in the 60s, blood pressure is 100s to 120s over 60s. I's and O's he is positive 10 mL today. PHYSICAL EXAMINATION: General: This is a well-developed male. He is lying comfortably. HEENT: Benign. Neck: Supple. Chest: Bilateral breath sounds, which are clear. Cardiovascular: Reveals a regular rate and rhythm. Abdomen: Positive bowel sounds. Nontender, nondistended. Extremities: There is a right tnbsg-qna-gkvm amputation. No significant pitting edema in the left lower extremity. IMPRESSION: Problem #1: Congestive heart failure. The patient has essentially chronic systolic congestive heart failure. He is diuresed and appears to be stable. Renal function although not optimal appears to be stabilizing. I am concerned about our long-term ability to provide adequate diuresis in the setting of kidney dysfunction. Certainly if renal function worsens then dialysis will need to be considered. I would make no further cardiac recommendations at this time but we will continue to follow clinically.
[2016-10-21] MEDS ORDERED: REGLAN ONE (11:44)
[2016-10-21] MEDS ORDERED: PEPCID ONE (11:45)
[2016-10-21] MEDS ORDERED: KEFZOL 2 GM/D5W 50 ML ONE (11:45)
[2016-10-21] MEDS ORDERED: CLAVE SECONDARY SET 11953 ONE ×2 (11:45→13:58)
--- NOTE | 2016-10-21 12:37 | PROGRESS NOTE ---
DATE: 10/21/2016 SUBJECTIVE: Today Mr. Ventura referred to be doing a whole lot better. No new complaints. OBJECTIVE: Vital signs: Blood pressure is 108/58, pulse of 69, respirations 18, temperature is 97.4 degrees. General exam: Mr. Ventura is a 61-year-old, male. He was in bed not seemingly distressed. HEENT: Mucosa is pink and moist. Anicteric. Acyanotic. Neck: Supple. Chest: A few bibasilar crepitations. Cardiovascular: Regular rate and rhythm. Abdomen: Distended, but nontender. Bowel sounds are present. CARTOGRAPHIC TECHNICIAN: Patient is alert and oriented, follows commands. Extremities: A right BKA is in dressing. The dressing is soiled with some purulent material. There is also minimal pedal edema on the left. LABORATORY DATA: Chemistry: None today. Creatinine was 4.2 yesterday. Intake and output: Patient had a total of 2100 urine output yesterday. CURRENT MEDICATIONS: 1. Xanax 0.25 b.i.d. 2. Amlodipine 5 mg b.i.d. 3. Aspirin 81 mg daily. 4. Lipitor 80 mg at bedtime. 5. Bisacodyl 10 mg HI. 6. Carvedilol 25 mg b.i.d. 7. Cefazolin 1 g q. 12 hours. 8. Citalopram 20 mg at bedtime. 9. Clopidogrel 75 mg daily. 10. Flexeril 5 mg b.i.d. 11. Ergocalciferol 50 units p.o. daily. 12. Folic acid 1 mg daily. 13. Furosemide 120 mg q. 12 hourly. 14. Heparin for DVT prophylaxis. 15. Hydralazine 12.5 p.o. b.i.d. 16. Insulin sliding scale. 17. Lactulose. 18. Levothyroxine 50 mcg daily. ASSESSMENT: 1. Acute on chronic congestive heart failure. Ejection fraction of 40% to 45%. Patient seems to be stable. 2. Severe coronary artery disease. The left heart cath done last year shows 80% stenosis of the left anterior descending with mild disease in the circumflex and also right coronary. Cardiology is on board. 3. Atypical chest pain. This was the main reason the patient presented to the hospital. However, cardiology has ruled out any cardiac component. We think this is mainly musculoskeletal. 4. Acute on chronic kidney disease. The patient is being followed by nephrology. A 24-hour urine collection showed glomerular filtration rate not significantly changed from previous one. Patient has responded very well with diuretic therapy. I think at this point the plan is just to kind of observe his kidney functions and hold the decision to do dialysis. 5. Right below-knee amputation with methicillin-resistant Staphylococcus aureus infection. Patient is getting debridement of the wound today as per surgery notes. 6. Chronic pain syndrome noted. 7. Hypothyroidism. Will continue with Synthroid supplement. 8. Vitamin D deficiency. We will continue replacement. 9. Hyponatremia, stable. 10. Chronic constipation likely due to opioids noted. 11. Drowsiness due to medication has resolved. 12. Secondary hyperparathyroidism. The patient is on Sevelamer. GENERAL PLAN: We are going to observe the patient. He is getting surgery for the debridement of the stump infection, and will follow up with further recommendation from nephrology with regards to renal replacement versus just observation.
[2016-10-21] MEDS: MORPHINE ONE ×2 (13:27→13:32)
[2016-10-21] MEDS ORDERED: FENTANYL ONE (13:31)
[2016-10-21] MEDS ORDERED: DIPRIVAN 1% ONE (13:31)
--- NOTE | 2016-10-21 13:54 | OPERATIVE NOTE ---
PROCEDURE DATE: 10/21/2016 PREOPERATIVE DIAGNOSIS: Infected right djhyu-cimi-ehjctruvuc wound. POSTOPERATIVE DIAGNOSIS: Infected right znuge-mvhf-evlrhroypq wound. PROCEDURE: Debridement of skin, subcutaneous tissue, and muscle less than 20 square cm. SURGEON: Jose Mendieta MD. ANESTHESIA: General. ESTIMATED BLOOD LOSS: 25 mL. COMPLICATIONS: None apparent. SPECIMENS: Portions of tibia for culture. FINDINGS: There was necrotic and infected subcutaneous fat, fascia, and muscle of the right BKA stump. The tibia was visualized and not obviously necrotic. The wound measured 6 x 3 cm. TECHNIQUE: He was brought to the operating room. General anesthesia was induced. He was prepped and draped in sterile fashion. A 15 blade was used to sharply debride and excise the necrotic skin, subcutaneous fat and muscle. The wound was then thoroughly irrigated with saline. A rongeur was used to take some portions of the tibia for culture. Cautery was used to obtain hemostasis. There was some mild oozing of the deep muscle and bone, and I placed some Surgifoam on this and then packed the wound with Betadine-soaked gauze. He tolerated this well. There were no apparent complications.
[2016-10-21] MEDS ORDERED: ZOFRAN ONE (13:57)
[2016-10-21] MEDS ORDERED: ROBINUL ONE (13:58)
[2016-10-21] MEDS ORDERED: XYLOCAINE-MPF 2% ONE (13:58)
[2016-10-21] MEDS ORDERED: EXTENSION SET 32 IN 4522 ONE (13:58)
[2016-10-21] MEDS ORDERED: ANESTHESIA PB SET 88 IN 5742 ONE (13:58)
[2016-10-21] MEDS ORDERED: LR 1,000 ML ONE (13:58)
[2016-10-21] MEDS: COREG PO SCH ×2 (14:00→22:25)
[2016-10-21] MEDS: MIRALAX PO SCH ×2 (14:52→22:27)
[2016-10-21] MEDS: NEURONTIN PO SCH ×3 (14:56→18:31)
[2016-10-21] MEDS: SODIUM BICARBONATE PO SCH (14:56)
[2016-10-21] MEDS: RENAGEL PO SCH ×3 (14:56→18:31)
[2016-10-21] MEDS: NORVASC PO SCH ×2 (14:56→22:26)
[2016-10-21] MEDS: ASPIRIN EC PO SCH (14:56)
[2016-10-21] MEDS: FOLIC ACID PO SCH (14:57)
[2016-10-21] MEDS: LACTULOSE PO SCH ×2 (14:57→22:24)
[2016-10-21] MEDS: HEPARIN SUBQ SCH ×2 (14:57→22:28)
[2016-10-21] MEDS: FLEXERIL PO SCH ×2 (14:58→22:26)
[2016-10-21] MEDS: KEFZOL IV SCH ×2 (14:59→22:23)
[2016-10-21] MEDS: NS IV SCH ×3 (14:59→22:23)
[2016-10-21] MEDS: PLAVIX PO SCH (14:59)
[2016-10-21] MEDS: LASIX IV SCH (15:01)
[2016-10-21] MEDS: PRILOSEC PO SCH (15:02)
[2016-10-21] MEDS: SANTYL OINT TOP SCH (15:02)
[2016-10-21] MEDS: XANAX PO SCH ×2 (15:02→22:25)
[2016-10-21] MEDS: SYNTHROID PO SCH (15:02)
--- NOTE | 2016-10-21 15:17 | PROGRESS NOTE ---
DATE: 10/21/2016 SUBJECTIVE: Mr. Cid had a debridement today. Eating in his room presently. No complaints. PHYSICAL EXAMINATION: He is afebrile. Heart rates seem to be in the 70s. Blood pressure 121/63. Generally: No acute distress. Cardiovascular: He sounds to be in a regular rate and rhythm. He has no obvious murmurs. No lower extremity edema. Chest: Clear bilaterally. No increased work of breathing. Abdomen: Soft, nontender. PERTINENT DATA: His white count is 6, hematocrit 25.6, platelet count 293,000. Sodium 133, potassium 4.2. BUN is 91. Creatinine is 4.2. ASSESSMENT: 1. Acute renal insufficiency. 2. Congestive heart failure. PLAN: Patient's creatinine yesterday and on the are stable. No chemistries from today. Renal is currently following the patient. We will continue to follow along. Presently, he is not having any chest pain. He is not having any orthopnea.
[2016-10-21] MEDS: LIPITOR PO SCH (22:25)
[2016-10-21] MEDS: CELEXA PO SCH (22:26)
[2016-10-21] MEDS: DULCOLAX PR SCH (22:50)
[2016-10-21 23:09] LABS: MANUAL DIFF NEEDED? NO
[2016-10-21 23:14] LABS: BASO% 0.5 % (0.0-0.8); EOS# 0.49 X1000 (0.0-0.7); EOS% 6.7 % (0.0-10.0); HEMATOCRIT 28.2 % (42.0-52.0); HEMOGLOBIN 9.1 g/dL (14.0-18.0); LYMPH# 0.61 X1000 (1.2-3.4); LYMPH% 8.4 % (20.5-51.1); MCH 26.9 PG (27-31); MCHC 32.3 g/dL (33-37); MCV 83.4 FL (81-99); MONO% 6.9 % (1.7-9.3); MPV 10.5 FL (7.4-10.4); NEUT% 77.5 % (42.2-75.2); PLT 337 X1000 (130-400); RBC 3.38 XMIL (4.7-6.1)
[2016-10-21 23:49] LABS: INR 1.13; PTT 33.3 Seconds (22.0-36.0)
[2016-10-22] MEDS: NS IV SCH ×5 (01:56→23:20)
[2016-10-22] MEDS: LASIX IV SCH ×3 (01:56→23:20)
[2016-10-22] MEDS: NITROGLYCERIN TOP SCH ×4 (04:00→22:50)
[2016-10-22] MEDS: PRILOSEC PO SCH (06:19)
[2016-10-22] MEDS: SYNTHROID PO SCH (06:19)
[2016-10-22] MEDS: HUMULIN R SUBQ SCH ×4 (06:21→22:36)
[2016-10-22 06:50] LABS: HEMATOCRIT 26.4 % (42.0-52.0); HEMOGLOBIN 8.3 g/dL (14.0-18.0); MCH 26.6 PG (27-31); MCHC 31.4 g/dL (33-37); MCV 84.6 FL (81-99); MPV 10.4 FL (7.4-10.4); RBC 3.12 XMIL (4.7-6.1)
[2016-10-22 07:16] LABS: POTASSIUM 4.2 mmol/L (3.5-5.1)
--- NOTE | 2016-10-22 11:49 | PROGRESS NOTE ---
DATE: 10/22/2016 SUBJECTIVE: He states he is feeling better and hopes to be discharged on Monday. Good urine output. No shortness of breath. OBJECTIVE: Vital Signs: Blood pressure 106/61, heart rate 72, respirations 18, afebrile. Intake 1.8 L. Output 2.1 L. General: No acute distress. Skin: Warm and dry. Conjunctivae are pink. Neck: Neck veins are not visible. Trachea is midline. Heart: Regular. Lungs: Have equal breath sounds. No crackles. Abdomen: Soft and nontender. Bowel sounds are present. Extremities: Have trace edema. No clubbing or cyanosis. LABORATORY DATA: Sodium 136, potassium 4.2, chloride 96, bicarbonate 28, BUN 80, creatinine 3.4, hemoglobin 8.3. IMPRESSION: 1. Acute kidney injury overlying chronic kidney disease. Labs are improved today and good urine output. No changes required at this time. 2. Electrolytes are in target. 3. Anemia: Modestly worse but he had surgery yesterday.
[2016-10-22] MEDS: KEFZOL IV SCH ×2 (12:26→22:40)
[2016-10-22] MEDS: APRESOLINE PO SCH ×3 (12:32→22:45)
[2016-10-22] MEDS: COREG PO SCH ×2 (12:32→22:46)
[2016-10-22] MEDS: FOLIC ACID PO SCH (12:32)
[2016-10-22] MEDS: RENAGEL PO SCH ×3 (12:33→22:49)
[2016-10-22] MEDS: NORVASC PO SCH ×2 (12:33→22:58)
[2016-10-22] MEDS: LACTULOSE PO SCH ×2 (12:33→22:48)
[2016-10-22] MEDS: FLEXERIL PO SCH ×2 (12:34→22:47)
[2016-10-22] MEDS: ASPIRIN EC PO SCH (12:34)
[2016-10-22] MEDS: NEURONTIN PO SCH ×3 (12:34→22:49)
[2016-10-22] MEDS: PLAVIX PO SCH (12:34)
[2016-10-22] MEDS: SODIUM BICARBONATE PO SCH (12:34)
[2016-10-22] MEDS: HEPARIN SUBQ SCH ×2 (12:36→22:49)
[2016-10-22] MEDS: MIRALAX PO SCH ×2 (12:39→22:54)
[2016-10-22] MEDS: XANAX PO SCH ×2 (12:46→22:58)
--- NOTE | 2016-10-22 15:35 | PROGRESS NOTE ---
DATE: 10/22/2016 Today Mr. Ventura referred to be doing a whole lot better. There was a little bit of bleeding on the abdominal wall where he had a heparin injection but I did apply about 5 minutes of amount of pressure on that and apparently stopped bleeding. OBJECTIVE: Vital signs: Blood pressure is 106/61, pulse is 73, respirations 18, temperature 98.4 degrees. General: Mr. Ventura is a 61-year-old, male who was in bed. He did not seem to be in any distress. HEENT: Mucosa is pink and moist. Anicteric. Acyanotic. Neck: Supple. Chest: Clear. Cardiovascular: Regular rate and rhythm. Abdomen: Soft, slightly distended. YARD ENGINEER: Patient was alert and oriented. Extremities: There is a right BKA which was recently intervened with some did debridement of some necrotic tissue. I's and O's, the patient had 2100 mL of urine output yesterday for a negative balance of 3500. INTERVENTIONS DONE: Debridement of skin, subcutaneous tissue, and muscle less than 20 square cm was done yesterday by Dr. Mendieta on the patient's right stump. ASSESSMENT: 1. Acute on chronic congestive heart failure. Ejection fraction is 40-45%. This is stable. 2. Severe coronary artery disease with 80% stenosis of the LAD and some disease in the circumflex as well as the right coronary artery. Patient is stable. 3. Atypical chest pain. This was patient's presenting symptom. This has been resolved. We think this is more musculoskeletal. 4. Acute on chronic kidney disease. The patient's creatinine seems to be improving. He is also making adequate urine. I think the bindery worker has withheld the decision to do hemodialysis. 5. Right below-knee amputation with MRSA infection of the stump. Patient has had another debridement of the wound yesterday. Will continue following with further recommendations from surgery. 6. Chronic pain syndrome noted. 7. Hypothyroidism. The patient is on some Synthroid supplement. 8. Vitamin D deficiency. We will continue replacement. 9. Chronic constipation likely due to opioids. 10. Opioid induced altered mental status. This is improved. 11. Secondary hyperparathyroidism. The patient is on sevelamer. 12. Mild right side abdominal bleeding from heparin injection. Has been stopped with manual pressure. We are going to keep eye on this. PLAN: Patient seems to be doing a lot better. We will continue observing his renal function over the weekend. Hopefully by Monday if he continues the downward progression in the creatinine, we will be able to discharge him to follow up with all of the other subspecialties in his care.
[2016-10-22] MEDS: CELEXA PO SCH (22:46)
[2016-10-22] MEDS: DULCOLAX PR SCH (22:47)
[2016-10-22] MEDS: LIPITOR PO SCH (22:59)
[2016-10-23] MEDS: NITROGLYCERIN TOP SCH ×4 (03:47→22:36)
[2016-10-23] MEDS: HUMULIN R SUBQ SCH ×4 (06:15→22:45)
[2016-10-23] MEDS: SYNTHROID PO SCH (06:15)
[2016-10-23] MEDS: PRILOSEC PO SCH (06:15)
[2016-10-23 07:18] LABS: ALBUMIN 2.9 g/dL (3.5-5.0); CALCIUM 8.7 mg/dL (8.8-10.2); POTASSIUM 4.3 mmol/L (3.5-5.1)
[2016-10-23] MEDS ORDERED: VANCOMYCIN IV PER PHARMACY MISC SCH (09:15)
[2016-10-23 09:20] LABS: HEMATOCRIT 24.4 % (42.0-52.0); HEMOGLOBIN 7.7 g/dL (14.0-18.0); MCH 26.5 PG (27-31); MCHC 31.6 g/dL (33-37); MCV 83.8 FL (81-99); MPV 10.6 FL (7.4-10.4); RBC 2.91 XMIL (4.7-6.1)
[2016-10-23] MEDS: HEPARIN SUBQ SCH ×3 (10:29→22:35)
[2016-10-23] MEDS: PLAVIX PO SCH (10:29)
[2016-10-23] MEDS: ASPIRIN EC PO SCH (10:29)
[2016-10-23] MEDS: RENAGEL PO SCH ×3 (10:29→17:19)
[2016-10-23] MEDS: NEURONTIN PO SCH ×3 (10:29→17:19)
[2016-10-23] MEDS: LACTULOSE PO SCH ×2 (10:29→22:35)
[2016-10-23] MEDS: MIRALAX PO SCH ×3 (10:29→22:36)
[2016-10-23] MEDS: NS IV SCH ×3 (10:30→22:35)
[2016-10-23] MEDS: XANAX PO SCH ×2 (10:30→22:39)
[2016-10-23] MEDS: LASIX IV SCH ×2 (10:30→22:35)
[2016-10-23] MEDS: FOLIC ACID PO SCH (10:30)
[2016-10-23] MEDS: COREG PO SCH ×2 (10:30→22:33)
[2016-10-23] MEDS: APRESOLINE PO SCH ×3 (10:30→17:18)
[2016-10-23] MEDS: SODIUM BICARBONATE PO SCH (10:30)
[2016-10-23] MEDS: NORVASC PO SCH ×2 (10:30→22:39)
[2016-10-23] MEDS: FLEXERIL PO SCH ×2 (10:31→22:33)
[2016-10-23] MEDS: KEFZOL IV SCH (10:31)
[2016-10-23] MEDS ORDERED: VANCOMYCIN 2,200 MG in NS 500 ML IV ONE (11:00)
[2016-10-23] MEDS ORDERED: CUBICIN IV SCH (16:00)
[2016-10-23] MEDS ORDERED: NS IV SCH (16:00)
--- NOTE | 2016-10-23 16:13 | PROGRESS NOTE ---
DATE: 10/23/2016 The patient has been on Ancef for an oxacillin sensitive Staph aureus wound infection. He recently had surgery and the culture from surgery now is growing Enterococcus faecium which is susceptible to vancomycin but resistant to penicillin. Because the patient has severe renal impairment, I do not want to give him vancomycin which would cover the prior Staph aureus and the Enterococcus isolated from the patient's wounds. Instead I have started the patient on daptomycin to provide coverage for the enterococcus and the oxacillin sensitive Staph aureus wound infection. I have discontinued atorvastatin because it can interact with daptomycin and result in enhanced risk of muscle toxicity.
--- NOTE | 2016-10-23 16:13 | PROGRESS NOTE ---
DATE: 10/23/2016 SUBJECTIVE: Today Mr. Ventura referred to be doing okay. No changes overnight. However, he was requesting a little bit more pain medications. OBJECTIVELY: Vital signs: Stable. Blood pressure is 112/62, pulse 74, respirations 15, temperature is 98.3 degrees. Physical exam is unchanged from yesterday. Extremities: There is a right BKA which has sterile gauze over it. There is an ulcer under the left leg which also is dressed. ASSESSMENT: 1. Right [id number] amputation with methicillin-resistant Staphylococcus aureus infection of the stump. Patient has had ray intervention with debridement of some necrotic tissue. So far the surgical sample has grown Enterococcus faecium. Patient is currently on cefazolin. However, this is resistant to that, so I have started him on vancomycin and will be pending ID to re-evaluate the patient to see if they will make any changes. 2. Atypical chest pain. This was the main presenting complaint. However, cardiology reviewed the patient and they do not think there is any cardiac component. 3. Acute on chronic congestive heart failure. Ejection fraction is 40 to 45%. This is stable on medications. 4. Severe coronary artery disease with 80% stenosis of LAD and some disease in the circumflex, as well as the right coronary artery. The patient is stable. 5. Acute kidney injury. Patient is making adequate urine and creatinine continues to show some downward trend. So will follow up with further recommendations from Nephrology. I think so far they have withheld the decision to do any renal replacement. 6. Chronic pain syndrome. Patient continues to request pain medications. However, he was 1 time very altered because of a lot of narcotics and sedatives. I would therefore be extremely careful with how much to give him. 7. Hypothyroidism. Patient is on Synthroid. 8. Vitamin D deficiency. 9. Chronic constipation due to opioid gut. 10. Opioid induced altered mental status. This has resolved. 11. Secondary hyperparathyroidism. PLAN: So the plan is to continue with the current antibiotics. I have added, as I said, vancomycin. We are pending Dr. Brewer' evaluation tomorrow to see if we can discharge the patient tomorrow. I saw the Dr Brewer and discussed the case with him. He would rather use Dapto because of patient Reanl failure. [facility]
[2016-10-23] MEDS: DULCOLAX PR SCH (22:33)
[2016-10-23] MEDS: CELEXA PO SCH (22:33)
[2016-10-24] MEDS: NITROGLYCERIN TOP SCH ×3 (03:28→15:53)
[2016-10-24] MEDS: HUMULIN R SUBQ SCH ×3 (06:26→15:50)
[2016-10-24] MEDS: PRILOSEC PO SCH (06:27)
[2016-10-24] MEDS: SYNTHROID PO SCH (06:27)
[2016-10-24 06:57] LABS: HEMOGLOBIN 7.7 g/dL (14.0-18.0)
[2016-10-24 07:01] LABS: HEMATOCRIT 24.5 % (42.0-52.0); MCH 26.6 PG (27-31); MCHC 31.4 g/dL (33-37); MCV 84.8 FL (81-99); MPV 10.2 FL (7.4-10.4); RBC 2.89 XMIL (4.7-6.1)
[2016-10-24 07:21] LABS: ALBUMIN 2.9 g/dL (3.5-5.0); CALCIUM 8.6 mg/dL (8.8-10.2); POTASSIUM 3.9 mmol/L (3.5-5.1)
[2016-10-24] MEDS: LASIX IV SCH (08:23)
[2016-10-24] MEDS: NS IV SCH (08:23)
[2016-10-24] MEDS: LACTULOSE PO SCH (08:24)
[2016-10-24] MEDS: NORVASC PO SCH (08:25)
[2016-10-24] MEDS: XANAX PO SCH (08:25)
[2016-10-24] MEDS: RENAGEL PO SCH ×2 (08:25→12:55)
[2016-10-24] MEDS: COREG PO SCH (08:25)
[2016-10-24] MEDS: ASPIRIN EC PO SCH (08:25)
[2016-10-24] MEDS: PLAVIX PO SCH (08:25)
[2016-10-24] MEDS: FOLIC ACID PO SCH (08:25)
[2016-10-24] MEDS: NEURONTIN PO SCH ×2 (08:25→12:55)
[2016-10-24] MEDS: APRESOLINE PO SCH ×2 (08:26→12:59)
[2016-10-24] MEDS: FLEXERIL PO SCH (08:26)
[2016-10-24] MEDS: HEPARIN SUBQ SCH ×2 (08:27→08:44)
[2016-10-24] MEDS: SODIUM BICARBONATE PO SCH (08:27)
[2016-10-24] MEDS: MIRALAX PO SCH (08:28)
--- NOTE | 2016-10-24 08:48 | PROGRESS NOTE ---
DATE: 10/24/2016 SUBJECTIVE: No events overnight. He is eating breakfast and wants to go home. OBJECTIVE: He is afebrile, no tachycardia. Blood pressure has been normal. He has got a dressing placed on his right below-knee amputation site with some serosanguineous drainage. He was eating breakfast, unable to take his dressing off completely this morning. LABORATORIES: Reviewed white count, it is normal at 8. Creatinine is 2.8, sodium 134. ASSESSMENT: A 61-year-old male with some cellulitis of right lower extremity BKA stump. He is status post debridement a couple days ago by Dr. Mendieta. He is on antibiotics from [facility] with staph aureus growing out of his leg from a superficial wound culture. We will come back and remove his dressing after he finished breakfast later this morning and make definitive plans for future wound care, possibly wound VAC.
--- NOTE | 2016-10-24 11:44 | PROGRESS NOTE ---
DATE: 10/24/2016 PRESENT ILLNESS: The patient has a severe infection of his right leg, which was amputated below the knee. The MRI shows possible osteomyelitis. Recent culture from the leg is growing Staph aureus, which is resistant to penicillin and susceptible to vancomycin. The patient has Staph aureus is an oxacillin sensitive Staph aureus. MEDICATIONS: The patient currently is getting daptomycin 675 mg IV every 48 hours. Vancomycin would provide coverage for the above-mentioned organisms; however, since the patient has kidney disease, I think there would be a risk that the kidneys could get worse, to the point that the patient might need to be on dialysis. Therefore, I think it would be better to stick with daptomycin rather than to switch to vancomycin. PHYSICAL EXAMINATION: Vital Signs: Temperature is 98.1 degrees, pulse 79, respirations 19, blood pressure 135/67. General: This is an ill-appearing, middle-aged male, who is in no acute distress. Lungs: Clear to auscultation. Cardiovascular: Regular heart rate. Chest: The patient has a right-sided Livingston catheter in place. The patient's right leg dressing is intact. The left leg heel dressing is intact also. LAB AND X-RAY: Patient's CBC shows a white count of 8570, hemoglobin 7.7, and platelet count 303,000. Creatinine is 2.8. GFR is 23. ASSESSMENT AND PLAN: The patient's right leg infection, as mentioned above, could be treated with vancomycin, which I would prefer not to use because the patient's renal insufficiency. The patient currently is on daptomycin. He has had 2 weeks of treatment already for the leg infection, and my plan would be to treat him for 4 more weeks with daptomycin 675 mg IV every 48 hours. COMORBIDITIES: Diabetes mellitus, peripheral vascular disease, and end-stage renal disease.
[2016-10-24 14:13] VITALS: BP 119/70
--- NOTE | 2016-10-24 16:38 | PROGRESS NOTE ---
DATE: 10/24/2016 SUBJECTIVE: He expects discharge today. He is going to need home IV antibiotics for an extended time and has a Livingston catheter. He still has swelling but no shortness of breath. OBJECTIVE: Vital Signs: Blood pressure 119/70, heart rate 76, respirations 20, afebrile. Intake 1 L. Output 2.6 L. General Examination: No acute distress. Skin: Warm and dry. HEENT: Conjunctivae are pink. Neck: Neck veins are distended. Heart: Regular with a gallop. Lungs: Equal breath sounds. No crackles. Abdomen: Soft, nontender. Bowel sounds are present. Extremities: 2+ edema. No clubbing or cyanosis. LABORATORY DATA: Sodium 134, potassium 3.9, chloride 93, bicarbonate 28, BUN 63, creatinine 2.8. IMPRESSION: Acute kidney injury overlying chronic kidney disease. Baseline creatinine is roughly 2.5 and he is approaching that baseline. Okay for discharge from my perspective and we can follow him as an outpatient. His followup in our office has been very sporadic because he has such a major problem with transportation but we will certainly attempt to arrange it again.
--- NOTE | 2016-10-24 18:36 | DISCHARGE SUMMARY ---
ADMISSION DATE: 10/12/2016 DISCHARGE DATE: 10/24/2016 DISPOSITION: Home with home health. FOLLOWUP: His followups will be with: 1. Dr. Brewer. 2. Dr. Brown. 3. Dr. Michel. 4. Dr. Mitchell. CONSULTATIONS DURING THIS ADMISSION: 1. Cardiology was consulted. The patient was seen by Dr. Mitchell. 2. Surgery was consulted. The patient was seen by Dr. Michel. 3. Nephrology was consulted. The patient was seen by Dr. Brown. 4. Infectious disease was consulted. The patient was seen by Dr. Brewer. INVASIVE PROCEDURES DONE DURING THIS ADMISSION: Debridement of subcutaneous tissue was done by Dr. Mendieta on 10/21/2016. ADMISSION DIAGNOSES: 1. Chest pain. 2. Acute on chronic diastolic heart failure. 3. Chronic kidney disease stage 4. 4. Hypertension. DISCHARGE DIAGNOSES: 1. Chest pain secondary to musculoskeletal pains. The patient was seen by cardiology and they ruled out cardiac component. 2. Right below-knee amputation with methicillin-sensitive Staphylococcus aureus infection, as well as Enterococcus faecium infection. The patient is status post I and D, and he is currently going to be on daptomycin. 3. Acute on chronic congestive heart failure, ejection fraction of 40% to 45%. 4. Severe coronary artery disease with 80% stenosis of left anterior descending and some disease in circumflex, as well as the right coronary artery. 5. Acute kidney injury with progressive improvement. 6. Chronic pain syndrome. 7. Hypothyroidism. 8. Vitamin D deficiency. 9. Chronic constipation due to opioid. 10. Opioid-induced altered mental status during hospital stay, improved. 11. Secondary hyperparathyroidism. DISCHARGE MEDICATIONS: 1. Clopidogrel 75 mg p.o. daily. 2. Aspirin 81 mg daily. 3. Hydralazine 12.5 three times per day. 4. Clonazepam 0.5 b.i.d. 5. Carvedilol 25 b.i.d. 6. Gabapentin 300 three times per day. 7. Sodium bicarbonate 650 p.o. daily. 8. Imdur 30 mg daily. 9. Celexa 20 mg daily. 10. Trazodone 50 p.o. every night at bedtime. 11. Sevelamer 800 three times per day. 12. Amlodipine 10 mg daily. 13. Ergocalciferol. MEDICATIONS THAT HAVE BEEN DISCONTINUED FOR NOW: lisinopril and spironolactone due to kidney failure. PRESENTING COMPLAINT: Chest pain. HISTORY OF PRESENTING COMPLAINT: Mr. Ventura is a 61-year-old male with a significant history of peripheral vascular disease, status post right below-knee amputation. The patient was admitted and discharged from the hospital recently with stump infection with MSSA. He was sent home on Ancef. At home, the patient started having some chest pain, so he came into the emergency department where he was evaluated. EKG did not show any changes. Troponins were unremarkable. Cardiology saw the patient, and they ruled out myocardial infarction. They did not think that the pain was related to any cardiac injury and that it was more musculoskeletal pain. During the hospital stay, the patient was also seen by surgery who did debridement of the right stump due to the infection, and a reculture actually showed that he had Enterococcus faecium. The antibiotic was changed from Ancef to daptomycin. Because the patient was started on daptomycin, the statin drug was also discontinued for now until he finishes the therapy with daptomycin. During the hospital stay, the patient's creatinine also went a little higher, and we think it was acute kidney injury overlying chronic kidney disease, which showed some progressive improvement on Lasix. I discussed the case with Dr. Brown, and he was okay for the patient to be discharged on his diuretic, and he will follow up with his office once discharged. Today the patient is doing a whole lot better, and he himself also wants to be discharged, and I think clinically he is stable to go, and he is supposed to follow up with all the subspecialties that have been involved in his care. The patient's vital signs at the time of discharge: Blood pressure is 119/70, pulse of 72, respirations 20, temperature is 98 degrees. Physical exams is unremarkable for any acute detail. His lab works are unremarkable except for anemia of chronic disease and a little bit of electrolyte abnormalities due to his underlying kidney disease. The patient will, therefore, be discharged today. DISPOSITION: Home. ACTIVITY: As tolerated. DISCHARGE INSTRUCTIONS: He is supposed to be coming in every day to outpatient to be seen at administration since he does not seem to have anybody to help him at home, but the patient will also be having home health to help him with physical rehabilitation, as well as OT. PENDING LABORATORIES AND IMAGING STUDIES: At the time of discharge, there are not any pending labs or imaging studies. TIME SPENT: The time spent for discharge was 36 minutes.
[2016-10-25] MEDS ORDERED: VANCOMYCIN 2 GM in NS 500 ML IV SCH (11:00)
== END 2016-10-24 17:20 | disposition home health service (06) | DRG 500 ==
LOC: EDBD → ED 07:20 → EDIPHOLD 13:29 → 3S 13:35 → 3N 10-16 14:10
PROVIDERS: ATTEND Internal Medicine
PROC: 0KBS0ZZ Excision of Right Lower Leg Muscle, Open Approach (ICD-10-PCS; principal; 2016-10-21 12:11)
DX: T87.44 Infection of amputation stump, left lower extremity (principal); I50.43 Acute on chronic combined systolic (congestive) and diastolic (congestive) heart failure; E11.22 Type 2 diabetes mellitus with diabetic chronic kidney disease; N18.4 Chronic kidney disease, stage 4 (severe); N17.9 Acute kidney failure, unspecified; E11.51 Type 2 diabetes mellitus with diabetic peripheral angiopathy without gangrene; L03.115 Cellulitis of right lower limb; I13.0 Hypertensive heart and chronic kidney disease with heart failure and stage 1 through stage 4 chronic kidney disease, or unspecified chronic kidney disease; L97.429 Non-pressure chronic ulcer of left heel and midfoot with unspecified severity; E87.1 Hypo-osmolality and hyponatremia; T87.81 Dehiscence of amputation stump; E87.5 Hyperkalemia; T80.89XA Other complications following infusion, transfusion and therapeutic injection, initial encounter; K59.03 Drug induced constipation; D50.9 Iron deficiency anemia, unspecified; D63.8 Anemia in other chronic diseases classified elsewhere; I25.10 Atherosclerotic heart disease of native coronary artery without angina pectoris; E03.9 Hypothyroidism, unspecified; E78.5 Hyperlipidemia, unspecified; I87.8 Other specified disorders of veins; K21.9 Gastro-esophageal reflux disease without esophagitis; E55.9 Vitamin D deficiency, unspecified; E21.3 Hyperparathyroidism, unspecified; R41.82 Altered mental status, unspecified; R07.89 Other chest pain; M19.90 Unspecified osteoarthritis, unspecified site; G89.4 Chronic pain syndrome; F41.9 Anxiety disorder, unspecified; B95.61 Methicillin susceptible Staphylococcus aureus infection as the cause of diseases classified elsewhere; Z79.899 Other long term (current) drug therapy; Z79.02 Long term (current) use of antithrombotics/antiplatelets; Z79.4 Long term (current) use of insulin; Z79.82 Long term (current) use of aspirin; Z87.891 Personal history of nicotine dependence; Z89.511 Acquired absence of right leg below knee; Z95.5 Presence of coronary angioplasty implant and graft; Z83.3 Family history of diabetes mellitus; Z82.49 Family history of ischemic heart disease and other diseases of the circulatory system; T40.2X5A Adverse effect of other opioids, initial encounter
CPT/HCPCS: 71010; 71250; 73718; 80053; 80069; 81001; 81050; 82272; 82310; 82550; 82570; 82575; 82607; 82728; 82746; 82948; 83540; 83550; 83735; 83880; 83935; 83970; 84100; 84156; 84300; 84484; 84540; 85025; 85027; 85045; 85610; 85651; 85730; 86140; 87040; 87070; 87075; 87077; 87186; 87205; 93005; 93010; 93308; 94761; 96374; 96376; J0690; J0878; J1170; J1644; J1756; J1940; J2175; J2270; J2405; J2765; J3010; J3370; J7040; J7120

== ENCOUNTER 2016-12-04 18:33 | Inpatient (IN) ==
[2016-12-04] MEDS ORDERED: OFIRMEV 1000 MG/ISOTONIC SOLN 100 ML IV ONE (19:21)
[2016-12-04] MEDS ORDERED: TORADOL IV ONE (19:22)
[2016-12-04] MEDS ORDERED: VANCOMYCIN 1 GM/NS 250 ML IV ONE (19:23)
--- NOTE | 2016-12-04 19:26 | PROVIDER DOCUMENTATION ---
HPI-Chest Pain - General Chief Complaint: Extremity Injury Stated Complaint: LT FOOT BLEEDING Time Seen by Provider: 12/04/16 19:14 Source: patient Allergies/Adverse Reactions: Patient Allergies Allergy/AdvReac Type Severity Reaction Status Date / Time No Known Allergies Allergy Verified 12/04/16 20:05 Home Medications: Home Medication List Medication Instructions Recorded Confirmed Last Taken Type Aspirin [Aspirin EC] 81 mg PO DAILY 07/31/16 12/04/16 12/03/16 10:00 History Carvedilol 25 mg PO BID 07/31/16 12/04/16 12/03/16 22:00 History Clonazepam 0.5 mg PO BID 07/31/16 12/04/16 12/03/16 22:00 History Clopidogrel [Plavix] 75 mg PO DAILY 07/31/16 12/04/16 12/03/16 10:00 History Gabapentin 300 mg PO TID 07/31/16 12/04/16 12/03/16 22:00 History Hydralazine [Apresoline] 12.5 mg PO TID 07/31/16 12/04/16 12/03/16 22:00 History Sodium Bicarbonate 650 mg PO DAILY 07/31/16 12/04/16 12/03/16 10:00 History Isosorbide Mononitrate E.r. [Imdur] 30 mg PO DAILY 09/06/16 12/04/16 12/03/16 10 :00 History Citalopram [Celexa] 20 mg PO QHS #0 tablet 09/13/16 12/04/16 12/03/16 22:00 Rx Trazodone HCl 50 mg PO QHS 09/23/16 12/04/16 12/03/16 22:00 History Alprazolam [Xanax] 0.25 mg PO TID@0900,1300,2100 09/26/16 12/04/16 12/03/16 22: 00 History Levothyroxine [Synthroid] 50 microgm PO DAILY@0700 #0 tablet 10/03/16 12/04/16 12/03/16 10:00 Rx Amlodipine [Norvasc] 10 mg PO DAILY #60 tablet 10/24/16 12/04/16 12/03/16 10:00 Rx Ergocalciferol (Vitamin D2) 50,000 unit PO Q7D #10 capsule 10/24/16 12/04/16 Rx [Vitamin D] Folic Acid 1 mg PO DAILY #60 tablet 10/24/16 12/04/16 12/03/16 10:00 Rx Nitroglycerin Sl [Nitroglycerin] 0.4 mg SL Q5M PRN PRN #30 tablet 10/24/1612/0411/11/16 Rx Omeprazole [Prilosec] 20 mg PO DAILY@0700 #30 capsule 10/24/16 12/04/16 10:00 Rx Sevelamer [Renagel] 800 mg PO TID CC #90 tablet 10/24/16 12/04/16 12/03/16 22: 00 Rx Epoetin Celestine [Epogen] 10,000 unit SUBQ Q7D #0 vial 11/04/16 12/04/16 11/11/16 Rx Collagenase Clostridium Oint 1 gm TOP DAILY #0 oint 11/09/16 12/04/16 12/03/16 10:00 Rx [Santyl Oint] Docusate Sodium [Colace] 100 mg PO BID #0 capsule 11/25/16 12/04/16 12/03/16 22: 00 Rx Polyethylene Glycol 3350 [Miralax] 17 gm PO BID #0 powder, packet 11/25/1612/0412/03/16 22:00 Rx Furosemide [Lasix] 80 mg PO BID #60 tablet 11/27/16 12/04/16 12/03/16 22:00 Rx Hydrocodone/Acetaminophen [[place] 1 each PO BID PRN #30 tablet 11/27/16 12/04/16 12/03/16 22:00 Rx 5-325 Tablet] Ranolazine [Ranexa] 1,000 mg PO BID #60 tab.er.12h 11/27/16 12/04/16 12/03/16 22 :00 Rx Furosemide [Lasix] 40 mg PO DAILY #20 tablet 11/28/16 12/04/16 12/03/16 10:00 Rx Metolazone 2.5 mg PO DAILY 11/28/16 12/04/16 12/03/16 10:00 History Metolazone 5 mg PO DIRECTED 11/28/16 12/04/1612/03/17 22:00 History Ondansetron HCl [Zofran] 4 mg PO PRN PRN 11/28/16 12/04/16 11/28/16 09:46 History - History of Present Illness-CP Nature of Presenting Problem: Pt is a 61 yom who returns to the ED after signing out AMA earlier today. Pt was seen and admitted earlier today with c/o chest pain that started this am. Pt has hx of [place]'s and states that he thought he was having another one, so he came to ER. Pt was admitted, but signed out AMA when he was told he would not be given narcotics for his pain. On exam, pt reports "I got pain all over. I got to get this pain off me." Pt did not report any complaints about his LLE, which was dressed. Location: reports: central Chest Pain Radiation: reports: no radiation Quality of Pain: reports: tightness Severity in ED: mild Onset/Duration: this morning Timing: still present Associated Symptoms: reports: diaphoresis, shortness of breath, swelling/lump in chest, weakness. denies: dizziness, heartburn, nausea, rash, syncope, vomiting Review of Systems - Adult - REVIEW OF SYSTEMS - ADULT Constitutional: reports: fatique. denies: chills, fever, night sweats Eyes: reports: no symptoms reported Ears, Nose, Mouth & Throat: reports: no symptoms reported Cardiovascular: reports: chest pain, palpitations. denies: edema, heart murmur , irregular heart rate, orthopnea, poor circulation, PND, syncope Respiratory: reports: chronic cough, cough, dyspnea on exertion, excessive sputum production, shortness of breath. denies: hemoptysis, pleurisy, wheezing Gastrointestinal: reports: no symptoms reported Genitourinary: reports: no symptoms reported Musculoskeletal: reports: no symptoms reported Integumentary: reports: no symptoms reported Neurological: reports: no symptoms reported Psychiatric: reports: no symptoms reported Endocrine: reports: no symptoms reported Hematologic/Lymphatic: reports: no symptoms reported Allergic/Immunologic: reports: no symptoms reported All Other Systems: Reviewed and Negative Past History - Adult - PAST MEDICAL HISTORY-ADULT Review of Records: reports: Nursing Assessment Review, Medications Reviewed Cardiovascular: reports: CAD, CHF, HTN, hyperlipidemia, other (pulmonary edema) Genitourinary: reports: ESRD Musculoskeletal: reports: intervertebral disc disease Psychiatric: reports: anxiety, depression Endocrine/Immune: reports: Diabetes, thyroid disorder - PRIOR SURGERIES/PROCEDURES Surgical/Procedure History: reports: cholecystectomy, cardiac stent, orthopedic (extremity), back/neck - IMMUNIZATION STATUS Childhood Immunizations: See Nurse Assessment Flu Vaccine: See Nurse Assessment Physical Exam-General - PHYSICAL EXAM-ADULT Initial Vital Signs Reviewed: Yes - CONSTITUTIONAL General Appearance: alert, no apparent distress, lethargic, slow to respond, obtunded - NECK Neck: non-tender, full range of motion, supple - RESPIRATORY Respiratory: chest non-tender, lungs clear, normal breath sounds - CARDIOVASCULAR Cardiovascular: normal peripheral pulses, regular rate, rhythm - GASTROINTESTINAL (ABDOMEN) Abdominal Exam: normal bowel sounds, non tender, soft - MUSCULOSKELETAL Extremity: tenderness, other (amputated RLE, BTK; Diabetic foot ulcer on LLE, actively bleeding, bandaged). negative: inflammation, swelling - SKIN Integumentary: other (Diabetic foot ulcer on LLE). negative: laceration(s), swelling, tenderness, warm - NEUROLOGIC Neurologic: grossly normal, no motor/sensory deficits - PSYCHIATRIC Psych/Mental Status: normal thought content, normal thought process, oriented x 3, depressed affect Progress - PLAN OF CARE/RESULTS Progress/Plan/Lab Results: Vital Signs - 24 hr 12/04/16 18:49 Temperature 97.6 F Pulse Rate 71 Respiratory 20 Rate Blood Pressure 136/70 O2 Sat by Pulse 98 Oximetry Orders Category Date Time Status Cardiac Monitoring DIRECTED Care 12/04/16 19:19 Active Saline Loc NOW Care 12/04/16 19:19 Active CHEST-PORTABLE [RAD] Stat Exams 12/04/16 Taken CBC WITH ELECTRONIC DIFF [HEME] Stat Lab 12/04/16 19:51 Completed CK PROFILE [SP CHEM] Stat Lab 12/04/16 19:51 Results COMPREHENSIVE METABOLIC PANEL [CHEM] Stat Lab 12/04/16 19:51 Results LACTATE, PLASMA [CHEM] Stat Lab 12/04/16 19:51 Completed MAGNESIUM [CHEM] Stat Lab 12/04/16 19:51 Results PRO B-NATRIURETIC PEPTIDE Stat Lab 12/04/16 19:51 Completed PROTIME WITH INR [COAG] Stat Lab 12/04/16 19:51 Completed PTT [COAG] Stat Lab 12/04/16 19:51 Completed TROPONIN T Stat Lab 12/04/16 19:51 Completed UA [URINALYSIS] [URINALYSIS] Stat Lab 12/04/16 20:24 Completed Acetaminophen [Ofirmev 1000 mg/Isotonic Soln] 100 ml Med 12/04/16 19:21 Discontinued IV ONCE Ketorolac [Toradol] Med 12/04/16 19:22 Discontinued 30 mg IV NOW ONE Vancomycin 1 gm/Ns 250 ml Med 12/04/16 19:23 Discontinued IV NOW EKG [EKG] Stat Ther 12/04/16 19:19 Ordered Laboratory Tests 12/04/16 12/04/16 12/04/16 19:51 19:51 19:51 WBC 7.32 RBC 3.28 L Hgb 8.9 L Hct 27.4 L MCV 83.5 MCH 27.1 MCHC 32.5 L RDW Std Deviation 17.4 H Plt Count 307 MPV 10.2 Immature Gran % (Auto) 0.3 Neut % (Auto) 75.8 H Lymph % (Auto) 8.5 L [place] % (Auto) 5.7 Eos % (Auto) 8.9 Baso % (Auto) 0.8 Immature Gran # (Auto) 0.02 Neut # (Auto) 5.55 Lymph # (Auto) 0.62 L [place] # (Auto) 0.42 Eos # (Auto) 0.65 Baso # (Auto) 0.06 PT INR PTT (Actin FS) Sodium 133 L Potassium 4.1 Chloride 94 L Carbon Dioxide 21 L Anion Gap 18 BUN 59 H Creatinine 2.3 H Estimated GFR/1.73 m2 29 BUN/Creatinine Ratio 26 Glucose 150 H Calculated Osmolality 286 Calcium 8.5 L Magnesium 2.1 Total Bilirubin 1.59 H AST 14 ALT 8 L Alkaline Phosphatase 120 Creatine Kinase 233 H Troponin T Tor-P-Rrxhfodsnpi Pept 20156 H Total Protein 7.1 Albumin 3.2 L Globulin 3.9 Albumin/Globulin Ratio 0.8 Plasma Lactate Urine Source Urine Color Urine Turbidity Urine pH Ur Specific Roby Urine Protein Ur Glucose (Stick) Ur Ketones (Stick) Urine Blood Urine Nitrite Urine Bilirubin Urobilinogen Dipstick Urine Leukocytes Urine WBC (Auto) Urine RBC (Auto) U Epithel Cells (Auto) Urine Bacteria (Auto) 12/04/16 12/04/16 12/04/16 19:51 19:51 19:51 WBC RBC Hgb Hct MCV MCH MCHC RDW Std Deviation Plt Count MPV Immature Gran % (Auto) Neut % (Auto) Lymph % (Auto) [place] % (Auto) Eos % (Auto) Baso % (Auto) Immature Gran # (Auto) Neut # (Auto) Lymph # (Auto) [place] # (Auto) Eos # (Auto) Baso # (Auto) PT 13.0 H INR 1.22 PTT (Actin FS) 31.1 Sodium Potassium Chloride Carbon Dioxide Anion Gap BUN Creatinine Estimated GFR/1.73 m2 BUN/Creatinine Ratio Glucose Calculated Osmolality Calcium Magnesium Total Bilirubin AST ALT Alkaline Phosphatase Creatine Kinase Troponin T 0.351 H* [id number]-[id number] Pept Total Protein Albumin Globulin Albumin/Globulin Ratio Plasma Lactate 1.2 Urine Source Urine Color Urine Turbidity Urine pH Ur Specific Roby Urine Protein Ur Glucose (Stick) Ur Ketones (Stick) Urine Blood Urine Nitrite Urine Bilirubin Urobilinogen Dipstick Urine Leukocytes Urine WBC (Auto) Urine RBC (Auto) U Epithel Cells (Auto) Urine Bacteria (Auto) 12/04/16 20:24 WBC RBC Hgb Hct MCV MCH MCHC RDW Std Deviation Plt Count MPV Immature Gran % (Auto) Neut % (Auto) Lymph % (Auto) [place] % (Auto) Eos % (Auto) Baso % (Auto) Immature Gran # (Auto) Neut # (Auto) Lymph # (Auto) [place] # (Auto) Eos # (Auto) Baso # (Auto) PT INR PTT (Actin FS) Sodium Potassium Chloride Carbon Dioxide Anion Gap BUN Creatinine Estimated GFR/1.73 m2 BUN/Creatinine Ratio Glucose Calculated Osmolality Calcium Magnesium Total Bilirubin AST ALT Alkaline Phosphatase Creatine Kinase Troponin T Dhd-U-Litlgdyvwoc Pept Total Protein Albumin Globulin Albumin/Globulin Ratio Plasma Lactate Urine Source VOIDED Urine Color YELLOW Urine Turbidity CLEAR Urine pH 6.0 Ur Specific [place] 1.008 Urine Protein 100 A Ur Glucose (Stick) NEGATIVE Ur Ketones (Stick) NEGATIVE Urine Blood TRACE A Urine Nitrite NEGATIVE Urine Bilirubin NEGATIVE Urobilinogen Dipstick NORMAL Urine Leukocytes LARGE A Urine WBC (Auto) TNTC A Urine RBC (Auto) <10 U Epithel Cells (Auto) <10 Urine Bacteria (Auto) NEGATIVE - EKG 1 Time of EKG reading by physician:: 20:25 EKG Read and Signed by:: Ivan Ivy EKG Interpretation (*Must complete 3 of following elements*): Abnormal ( Possible L atrial enlargement; L axis deviation; Cannot rule out Anteroseptal infarct, age undetermined) Rate: 66 Rhythm: Normal sinus rhythm - XRAY 1 XRAY: Bilateral XRAY Study: Chest Impression: See EMR Report (Chronic CHF and interstitial markings; Unchanged) Comparison with other Films: no changes - CONSULTS/PCP/HOSPITALIST Notification #1 *Consult/PCP/Hospitalist*: Dr. Green (Hospitalist) Time Discussed: 20:46 Consult Disposition: Admit Departure - Departure Time of Disposition Order: 20:47 DIAGNOSIS: Elevated troponin Chest pain Qualifiers: Chest pain type: unspecified Qualified Code(s): R07.9 - Chest pain, unspecified Disposition: ADMITTED INPATIENT 09 Certified Medical Emergency: Emergent Condition: Stable Referrals: None,PCP [Primary Care Provider] - Attestation - Scribe Verification/Attestation Scribe:: Dakota Guevara Acting as Scribe for:: Ivan Ivy Scribe documention review:: This chart was documented by a scribe and accurately reflects the service the provider performed and the decisions made by the provider.
[2016-12-04 20:04] LABS: MANUAL DIFF NEEDED? NO
[2016-12-04 20:09] LABS: BASO% 0.8 % (0.0-0.8); EOS# 0.65 X1000 (0.0-0.7); EOS% 8.9 % (0.0-10.0); HEMATOCRIT 27.4 % (42.0-52.0); HEMOGLOBIN 8.9 g/dL (14.0-18.0); IMM GRAN# 0.02 X1000 (0.0-0.04); IMM GRAN% 0.3 % (0.0-0.5); LYMPH# 0.62 X1000 (1.2-3.4); LYMPH% 8.5 % (20.5-51.1); MCH 27.1 PG (27-31); MCHC 32.5 g/dL (33-37); MCV 83.5 FL (81-99); MONO# 0.42 X1000 (0.11-0.59); MONO% 5.7 % (1.7-9.3); MPV 10.2 FL (7.4-10.4); NEUT% 75.8 % (42.2-75.2); PLT 307 X1000 (130-400); RBC 3.28 XMIL (4.7-6.1)
[2016-12-04 20:20] LABS: INR 1.22; PTT 31.1 Seconds (22.0-36.0)
[2016-12-04 20:35] LABS: ALBUMIN 3.2 g/dL (3.5-5.0); CALCIUM 8.5 mg/dL (8.8-10.2); MAGNESIUM 2.1 mg/dL (1.5-2.7); POTASSIUM 4.1 mmol/L (3.5-5.1); TOTAL BILIRUBIN 1.59 mg/dL (0.20-1.00); TOTAL PROTEIN 7.1 g/dL (6.3-8.3)
[2016-12-04 20:37] LABS: URINE MICRO REVIEW NEEDED? NO; URINE SOURCE VOIDED
[2016-12-04 20:40] LABS: BILIRUBIN URINE NEGATIVE (NEGATIVE); BLOOD URINE TRACE (NEGATIVE); COLOR YELLOW; GLUCOSE URINE NEGATIVE (NEGATIVE); LEUKOCYTES URINE LARGE (NEGATIVE); NITRITE URINE NEGATIVE (NEGATIVE); PROTEIN URINE 100 mg/dL (NEGATIVE); SP GRAVITY URINE 1.008; TURBIDITY URINE CLEAR (CLEAR); UROBILINOGEN URINE NORMAL (NORMAL)
[2016-12-04 20:41] LABS: UR EPITHELIAL CELLS <10 /HPF (<10); URINE BACTERIA NEGATIVE /HPF; URINE RBC <10 /HPF (<10); URINE WBC TNTC /HPF (<10)
[2016-12-04 20:52] LABS: CK INDEX 3.8 (0.0-2.5); CK-MB 8.97 ng/mL (0.0-5.0)
[2016-12-04] MEDS ORDERED: MORPHINE IV ONE (23:39)
[2016-12-05] MEDS ORDERED: ZOFRAN IV PRN (00:45)
[2016-12-05] MEDS ORDERED: NORCO-5 PO PRN (00:45)
[2016-12-05] MEDS ORDERED: TYLENOL PO PRN (00:45)
[2016-12-05] MEDS ORDERED: SALINE LOCK IV FLUID XX ONE (00:57)
[2016-12-05] MEDS ORDERED: VANCOMYCIN IV PER PHARMACY MISC SCH (01:15)
[2016-12-05] MEDS ORDERED: ZOSYN 3.375 GM/NS 50 ML IV SCH (01:15)
[2016-12-05] MEDS ORDERED: VANCOMYCIN 1 GM/NS 250 ML IV ONE (02:00)
--- NOTE | 2016-12-05 05:00 | PROGRESS NOTE ---
DATE: 12/04/2016 This is an addendum progress note to the History and Physical that was performed on Mohan Ventura. DATE AND TIME OF PROGRESS NOTE: 12/04/2016 at 2325. Mr. Ventura presented to the ER earlier in the day complaining of midsternal chest pain that was nonradiating. He was evaluated and was subsequently placed for admission. Our hospitalist service did evaluate the patient and admit him to the inpatient medical floor. This was at 3 p.m. on December 04, 2016. Once Mr. Ventura arrived to the floor, he did begin requesting IV morphine pain medication. Nurse practitioner Magdaleno with the hospital service did go up and speak with the patient and informed him that he would not be able to receive IV morphine for pain. Once the patient was informed of this, he did ultimately decided to sign out against medical advice and was placed in a wheelchair by nursing staff and brought down to ER to await his cab ride home. Once the cab arrived, the patient was getting into the cab and did hit his foot somehow and did have some abrasions noted to the anterior surface of his 1st and 2nd left toes. The patient after sustaining this injury, did request to be brought to the ER to be signed in for evaluation. During his evaluation in the ER, the patient still continued to complain of chest pain. He reports that his chest pain is all across his chest, right and left chest as well as substernal. It is nonradiating though the patient does also report some complaints of dizziness and shortness of breath as well. He reports the pain is constant. He also reports that he hurts all over as well. The patient reports that the pain in his chest was heavy in nature stating he felt like he had bricks on his chest. EKG was performed which showed normal sinus rhythm with possible left atrial enlargement, left axis deviation and cannot rule out anterior or septal infarct. This was at a ventricular rate of 66. QTC was 469. The patient's CK was elevated as well at 233. His troponin was elevated at 0.351. At this time, the patient will be placed back as an inpatient admission to our service. For further information for history and physical, please refer to previous H P that was performed earlier this day, December 04, 2016 at approximately 1530. SUBJECTIVE: Please see above note. Though the patient did present to the ER complaining of chest pain and left foot injury, he also did complain of pain all over as well as associated symptoms of dizziness and shortness of breath with his chest pain. He denied any headache, abdominal pain, nausea, vomiting or diarrhea, constipation. He did report some dysuria onset today though he denies any fever or body aches, he did report that he felt chilled 1 time after arriving to the ER. PHYSICAL EXAMINATION: VITAL SIGNS: Temperature 97.6 degrees, heart rate 69, respirations 20, blood pressure 130/82, oxygen saturation 97% on nasal cannula oxygen at 3 liters. GENERAL: Upon my examination, Mr. Ventura was sitting on the ER stretcher; though he was complaining of chest pain, he was in no acute distress. He was awake, alert and able to answer all questions appropriately. HEENT: Head is atraumatic, normocephalic. Pupils equal, round and reactive to light, were 3 mm bilaterally and brisk. Oral mucosa was moist. Oropharynx was clear. NECK: Supple. Trachea midline. CARDIOVASCULAR: Normal S1, S2. No murmurs, rubs or gallops appreciated with a regular rate and rhythm. PULMONARY: Patient's lung sounds were clear in upper lung walsh bilaterally. There was some slight coarse crackles noted in bilateral lung walsh. Patient had symmetrical chest expansion bilaterally. ABDOMEN: Soft, nontender, nondistended though the patient does have a protuberant abdomen noted. Bowel sounds were present in all 4 quadrants and normoactive. EXTREMITIES: Patient does have a right dnimk-ddk-wmyp amputation noted with a wound VAC in place. Patient does have edema noted to his left lower extremity that is 2+ pitting edema. Pulse, motor and sensory is intact his extremity. Pedal pulse was 3+. Patient does have a diabetic foot ulcer noted to his left heel. This is approximately a half-dollar size. He also has abrasions noted to the dorsal surface of his left first and second toes. There is some dried blood noted as well, though there is no active bleeding at this time. INTEGUMENTARY: Patient's skin is pink, warm, dry and intact. No lesions or sores noted except for previous abnormalities mentioned in above extremities examination. NEUROLOGICAL: The patient is alert and oriented to person, place, time and situation. Cranial nerves II-XII are grossly intact. DIAGNOSTIC DATA: Laboratory results: White blood cell count 7.3, hemoglobin 8.9, hematocrit 27.4, platelet count 307. PT 13, INR 1.2, PTT 31.1. Sodium 133, potassium 4.1, chloride 94, carbon dioxide 21, BUN 59, creatinine 2.3, GFR 29, glucose 150, calcium 8.5. Magnesium 2.1. Total bilirubin 1.59, AST 14, ALT 8, alkaline phosphatase 120. CPK 233, CK index 3.8, CK-MB 8.97. Troponin 0.351. ProBNP 13,456. Plasma lactate is 1.2. Urinalysis was obtained via clean catch and was positive for protein, trace blood, large leukocytes, too numerous to count white blood cells, and was negative for glucose, ketones and nitrites or bacteria. EKG showed normal sinus rhythm with possible left atrial enlargement. Left axis deviation. Cannot rule anterior or septal infarct at a rate of 66, QTC was 469. Portable chest x-ray was performed on 12/04/2016 at approximately 11 p.m. and showed pulmonary vascular congestion and pulmonary edema. Foot complete left performed earlier in the day on 12/04/2016 at approximately 1607 showed some mild pedal edema. No fracture or dislocation. There was peripheral vascular disease in the arteries of the ankle though no other acute abnormalities noted. ASSESSMENT AND PLAN: Mr. Ventura is a 61-year-old male who was admitted to the hospital earlier today, subsequently decided to leave A though did come back for readmission just shortly after this. He is admitted to the hospital for further evaluation of his chest pain. 1. Chest pain. The patient will be admitted to the floor with telemetry. We will continue all his home medications and we will continue to do series of cardiac enzymes and we will repeat EKG in the morning to rule out myocardial infarction. We also have placed a consult with Cardiology and will await their evaluation and further recommendations. Home medications of aspirin 325 mg daily; Coreg 25 mg p.o. b.i.d. have been continued as well. 2. Acute on chronic systolic ejection heart failure. We will continue the patient's Lasix 80 mg p.o. b.i.d. We will continue his home medications and consult Cardiology as previously mentioned. We will do strict intake and output, and daily weights. 3. Left diabetic foot ulcer. Left foot x-ray did not show any acute abnormalities though we have placed a consult with Dr. Mendieta with Surgery as well as Dr. Brewer with Infectious Disease and we will await their evaluations and further recommendations for management of this. We have also placed a wound care nurse consult as well. We have placed the patient on vancomycin IV, Pharmacy to dose, as well as Zosyn 3.375 grams IV q. 6 hours. Blood cultures have been obtained as well. We will continue to follow. 4. Hypertension. We will continue his home medications for this. 5. Diabetes mellitus. We have placed the patient on sliding-scale insulin Lispro and we will do pattern fingerstick blood sugars and continue to follow. 6. Chronic kidney disease stage 3 or 4. The patient's creatinine as well as GFR does appear to be stable according to his baseline. We will continue his home medications and we will continue to monitor this closely and will avoid nephrotoxic medications and renally dose medications as necessary. 7. DVT prophylaxis at this time will be provided with heparin 5000 units subcutaneously q. 12 hours and GI prophylaxis will be provided with omeprazole 20 mg p.o. daily. Dictated by WILLIS Choudhary for Darius Green MD
[2016-12-05] MEDS: PRILOSEC PO SCH ×2 (05:31→06:24)
[2016-12-05] MEDS: SYNTHROID PO SCH ×2 (05:31→06:24)
--- NOTE | 2016-12-05 06:18 | EKG Report ---
Test Performed on : 12/05/2016 05:23:00 AM Test Reason : Chest Pain Blood Pressure : / mmHG Vent. Rate : 058 BPM Atrial Rate : 058 BPM P-R Int : 150 ms QRS Dur : 106 ms QT Int : 480 ms P-R-T Axes : 036 -41 116 degrees QTc Int : 471 ms Sinus bradycardia. Left axis deviation Nonspecific ST and T wave abnormality Cannot rule out Anterior infarct (cited on or before 04-DEC-2016) Abnormal ECG When compared with ECG of 04-DEC-2016 11:55, (Unconfirmed) premature ventricular complexes. are no longer present Questionable change in initial forces of Anteroseptal leads Confirmed by Shahzad Gonzalez MD ([id number]) on 12/07/2016 10:27:39 PM
[2016-12-05 06:23] LABS: MANUAL DIFF NEEDED? NO
[2016-12-05 06:37] LABS: BASO% 0.5 % (0.0-0.8); EOS# 0.78 X1000 (0.0-0.7); EOS% 13.9 % (0.0-10.0); HEMATOCRIT 24.2 % (42.0-52.0); HEMOGLOBIN 7.7 g/dL (14.0-18.0); LYMPH# 0.56 X1000 (1.2-3.4); MCH 26.6 PG (27-31); MCHC 31.8 g/dL (33-37); MCV 83.7 FL (81-99); MONO# 0.36 X1000 (0.11-0.59); MONO% 6.4 % (1.7-9.3); MPV 10.1 FL (7.4-10.4); NEUT% 69.2 % (42.2-75.2); PLT 249 X1000 (130-400); RBC 2.89 XMIL (4.7-6.1)
[2016-12-05 07:15] LABS: CALCIUM 8.3 mg/dL (8.8-10.2); POTASSIUM 3.9 mmol/L (3.5-5.1)
[2016-12-05] MEDS: HUMALOG SUBQ SCH ×4 (07:56→22:19)
--- NOTE | 2016-12-05 08:17 | CONSULTATION ---
DATE OF CONSULTATION: 12/05/2016 PRESENT ILLNESS: The patient has osteomyelitis of the right oxvuu-vit-wkgy amputation site. He also has a necrotic left heel which could very well have osteomyelitis in it. It does have cellulitis involving it. The patient's toes on the left foot also are erythematous and others have bleeding from them. MEDICATIONS: The patient was on vancomycin and Zosyn. PHYSICAL EXAMINATION: Vital Signs: Temperature is 98.1 degrees, pulse 58, respirations 16, blood pressure 141/79. General: This is an ill-appearing, middle-aged male. He is in no acute distress. Thorax: Increased AP diameter to the chest. The patient has a right-sided Livingston catheter in place. Lungs: Clear to auscultation. Cardiovascular: Regular heart rate. Abdomen: Soft and nontender. Bones, Joints, and Muscles: The patient has a right wdxfa-ilr-bved amputation site. There is a VAC on it. The patient's left heel is necrotic. Some of his toes are bleeding on the left foot. LAB AND X-RAY STUDIES: There is no new x-ray. Lab shows a CBC with a white count of 5600, hemoglobin 7.7, and platelet count of 249,000. Patient's creatinine is 2.3. The GFR is 29. CPK is 233. Urinalysis shows white cells but no bacteria. A urine culture is pending. The patient's bilirubin is slightly elevated at 1.59. ASSESSMENT AND PLAN: The patient has osteomyelitis involving his right kbekx-qik-uied amputation site and also the patient has a necrotic heel with cellulitis and probable osteomyelitis as well. The patient will need 8 more days of treatment with the combination of daptomycin 600 mg intravenous every 48 hours and Rocephin 2 g intravenous daily. COMORBIDITIES: Include diabetes mellitus, renal failure, and peripheral vascular disease.
--- NOTE | 2016-12-05 08:34 | Diag Imaging Result Document ---
PROCEDURE NAME: CHEST-PORTABLE - 12/04/2016 AP PORTABLE CHEST: TIME: 1930 hours. FINDINGS: There is some hazy opacity around the left hilum which is more conspicuous than on the previous examination of 12/04/2016. Otherwise, there has been no significant change. IMPRESSION: Left upper lobe pneumonia.
--- NOTE | 2016-12-05 08:37 | PROGRESS NOTE ---
DATE: 12/05/2016 PRESENT ILLNESS: The patient has osteomyelitis involving the right lskuv-kct-dkez amputation site. He also has a necrotic left heel. MEDICATIONS: Patient as an outpatient was supposed to be receiving daptomycin 600 mg IV every 48 hours and Rocephin 2 g IV every 24 hours. As of today, he should have 8 more days left of treatment with the antibiotics. PHYSICAL EXAMINATION: Vital Signs: Temperature is 98.1 degrees, pulse 58, respirations 16, blood pressure 141/79. General: This is an ill-appearing, middle-aged male. He is in no acute distress. Lungs: Clear to auscultation. Cardiovascular: Regular heart rate. Abdomen: Soft and nontender. Thorax: Patient has a right-sided Livingston catheter in place. The catheter site is not erythematous or swollen. Extremities: Patient has a right ezxgk-lqb-svcf amputation. A VAC is in place on the distal end of the leg. The leg is less swollen and less red than it was. The patient has, on the left foot, a necrotic heel. There also is some erythema and bleeding from his toes on the left foot as well. LAB AND X-RAY: The CBC shows a white count of 5600, hemoglobin 7.7, and platelet count 249,000. Bilirubin is 1.59. Urinalysis shows white cells but no bacteria. Urine culture is pending. The patient's creatinine is 2.3. The GFR is 29. The patient's CPK is 233. ASSESSMENT AND PLAN: The patient has osteomyelitis of the right leg and necrosis of the left heel, and there well could be osteomyelitis involving the heel as well. My plan is to switch the patient to Rocephin and daptomycin for 8 more days. COMORBIDITIES: Include diabetes mellitus, renal failure, and peripheral vascular disease.
[2016-12-05] MEDS ORDERED: SANTYL OINT TOP SCH (09:00)
[2016-12-05] MEDS ORDERED: VITAMIN D PO SCH (09:00)
[2016-12-05] MEDS ORDERED: IMDUR PO SCH (09:00)
[2016-12-05] MEDS: ROCEPHIN 2 GM/NS 50 ML IV SCH (09:17)
[2016-12-05] MEDS: RANEXA PO SCH ×2 (09:26→21:09)
[2016-12-05] MEDS: NEURONTIN PO SCH ×3 (09:27→16:50)
[2016-12-05] MEDS: RENAGEL PO SCH ×3 (09:27→16:50)
[2016-12-05] MEDS: LASIX PO SCH ×2 (09:27→21:10)
[2016-12-05] MEDS: FOLIC ACID PO SCH (09:28)
[2016-12-05] MEDS: APRESOLINE PO SCH ×3 (09:28→16:49)
[2016-12-05] MEDS: COLACE PO SCH ×2 (09:28→21:10)
[2016-12-05] MEDS: NORVASC PO SCH (09:28)
[2016-12-05] MEDS: PLAVIX PO SCH (09:28)
[2016-12-05] MEDS: SODIUM BICARBONATE PO SCH (09:28)
[2016-12-05] MEDS: ASPIRIN PO SCH (09:29)
[2016-12-05] MEDS: XANAX PO SCH ×3 (09:29→21:11)
[2016-12-05] MEDS: COREG PO SCH ×2 (09:29→21:12)
[2016-12-05] MEDS: ZAROXOLYN PO SCH (09:29)
[2016-12-05] MEDS: HEPARIN SUBQ SCH ×2 (09:37→21:13)
[2016-12-05] MEDS ORDERED: EPOGEN SUBQ SCH (10:00)
--- NOTE | 2016-12-05 10:10 | EKG Report ---
Test Performed on : 12/04/2016 09:01:52 AM Test Reason : Chest Pain Blood Pressure : / mmHG Vent. Rate : 071 BPM Atrial Rate : 071 BPM P-R Int : 138 ms QRS Dur : 104 ms QT Int : 444 ms P-R-T Axes : 044 -44 109 degrees QTc Int : 482 ms Normal sinus rhythm. Possible Left atrial enlargement Left axis deviation Septal infarct , age undetermined T wave abnormality, consider lateral ischemia Abnormal ECG When compared with ECG of 28-NOV-2016 14:31, (Unconfirmed) Septal infarct is now present Unconfirmed Result
[2016-12-05 10:13] LABS: RETIC% 2.64 % (0.8-2.1); RETIC-HE 26.7 PG (28.2-36.6)
[2016-12-05] MEDS ORDERED: NS 500 ML ONE (13:03)
[2016-12-05] MEDS: ISORDIL PO SCH ×2 (13:26→16:50)
--- NOTE | 2016-12-05 13:31 | CONSULTATION ---
DATE OF CONSULTATION: 12/05/2016 INDICATION FOR THE CONSULTATION: Chest pain. HISTORY OF PRESENT ILLNESS: Mr. Ventura is a 61-year-old white male with a history of coronary artery disease, systolic heart failure/ischemic cardiomyopathy. He presented for evaluation of chest pain that began yesterday when he was seated. He describes the pain as a pressure-like sensation in his mid chest. There was no exertional component to it. It seemed like it persisted for several hours until he got to the ER and was treated. Notably, the patient has had persistently positive troponins for many checks. He had a myocardial perfusion scan that showed a fixed defect with a followup viability study that showed no viability in the affected territory. He continues to undergo treatment with a wound VAC for a right lower extremity wound after a BKA. In addition, he has a chronic ulcer to his left heel. He is currently on antibiotics. PAST MEDICAL HISTORY: Significant for: 1. Coronary artery disease. 2. Ischemic cardiomyopathy. 3. Poor control of diabetes mellitus. 4. Diabetic neuropathy. 5. CKD. 6. Peripheral arterial disease. 7. Hyperlipidemia. 8. Back pain. SOCIAL HISTORY: He quit smoking around 7-8 years ago, as well as drinking around 15 years ago. No illicit drug use. FAMILY HISTORY: Hypertension, diabetes, and coronary disease. REVIEW OF SYSTEMS: A 10 system review of systems is negative except for those things mentioned in the HPI. PHYSICAL EXAMINATION: Vital signs: He is afebrile. His heart rate is 56. His blood pressure is 137/75. General: He is in no acute distress. HEENT: Oropharynx is moist. Poor dentition. His eye examination shows pink conjunctivae, white sclerae. Neck: Examination shows no obvious thyromegaly or thyroid tenderness. Cardiovascular: He is in a regular rate and rhythm. He has no obvious murmurs. He has no S3. He has no lower extremity edema. Chest: Exam is clear bilaterally. He has no increased work of breathing. Abdomen: Soft, nontender, nondistended. He has no obvious organomegaly. Skin Exam: Warm and dry throughout any rashes. Neurological: He is moving all extremities well. Cranial nerves 2 through 12 are intact without any sensation deficits. PERTINENT DATA: His chest x-ray demonstrated suggestion of pulmonary vascular congestion with pulmonary edema. His laboratory data shows a white count of 5.6, hematocrit 24.2. His platelet count is 249,000. His reticulocyte count was 2.64. Sodium is 133, potassium 3.9. His BUN is 60, creatinine 2.3. B12 is normal. Folate is normal as well. His iron is 36. His ferritin is 456. His EKG shows sinus rhythm, rate of 58 beats per minute. He has poor R-wave progression. ASSESSMENT: 1. Ischemic cardiomyopathy. 2. Anemia. PLAN: We have drawn anemia studies. We will transfuse him 1 unit of blood. We will continue him on diuretics at this point. I would not proceed with any further ischemia evaluation as cardiac enzymes have been persistently positive and the patient does not seem to have any viability to suggest a reasonable intervention site. He is currently on Coreg and amlodipine. I will increase his isosorbide dinitrate to 20 mg t.i.d. He is on Ranexa at 1 g b.i.d. His furosemide is at 80 mg p.o. b.i.d. We may consider giving him some IV medication in the near future. His I Os thus far are negative 433 mL. His echocardiogram is per currently pending.
--- NOTE | 2016-12-05 14:02 | ECHO REPORT ---
ORDER DATE: 12/05/2016 1. To assess left ventricular systolic function with Definity. 2. Aortic valve leaflets are trileaflet. Mitral valve was normal. Pulmonic valve was normal. Tricuspid valve was normal. This was a limited study. 3. Left ventricular ejection fraction of 35%. 4. There is global hypokinesis. 5. There is no pericardial effusion or obvious intracardiac mass or thrombus.
[2016-12-05 16:04] LABS: IRON SATURATION 16 %; TIBC 196 ug/dL; TOTAL IRON 32 ug/dL (53-167); UNBOUND IRON 164 ug/dL (112-346)
[2016-12-05] MEDS: CUBICIN (FOR INPATIENT USE) 600 MG in NS 100 ML IV SCH (17:20)
--- NOTE | 2016-12-05 20:55 | CONSULTATION ---
DATE OF CONSULTATION: 12/05/2016 HISTORY OF PRESENT ILLNESS: This is a 61-year-old male with multiple medical issues and social issues who has had a right below-knee amputation and a left heel ulcer for several months. He keeps presenting with complaints of chest pain and shortness of breath. Overall his workup is showing stable chronic findings felt. There is felt to be some degree of social situation driving this as well. He has undergone 3 times weekly wound VAC changes to right below- knee amputation site and Santyl ointment to left heel ulcer. He is admitted now. Dr. Madrigal is following him. Concerned that echo may show left ventricular thrombus. PAST MEDICAL HISTORY: Chronic kidney disease, diabetes poorly controlled, hypertension, coronary disease with ischemic cardiomyopathy. PAST SURGICAL HISTORY: He had a right below-knee amputation. SOCIAL HISTORY: History of smoking. History of alcohol abuse in the past although I think he denies both of these currently. He is single but has a teenage son. FAMILY HISTORY: Noncontributory. REVIEW OF SYSTEMS: Ten point negative except as mentioned in the HPI. PHYSICAL EXAMINATION: Vital signs: Afebrile since admission. No tachycardia. Blood pressure this morning is 120/77, oxygen saturation 100% on 3 L nasal cannula. General: He is alert, unkempt, and a chronically ill-appearing gentleman. Cardiovascular: Normal rate. Regular rhythm. Pulmonary: No increased work of breathing. Extremities: His right below-knee amputation site is 95% healed. There is a stable wound on the right lateral aspect that has much decreased in size with healthy granulation tissue in the bed. No cellulitis. His left posterior heel ulcer is more soft than it has been in the past but no obvious pus, no cellulitis here. LABS: Reviewed. White count is normal at 5, hematocrit is low at 24, creatinine is 2.3. Troponins are elevated as they are chronically. Glucose 167. Sodium is low at 133. ASSESSMENT/PLAN: A 61-year-old male with multiple medical issues and status post right below-knee amputation secondary to infected diabetic foot. He has a longstanding dry ulcer in the posterior heel softer now than it has been in the past. I suspect it is going to need debridement. At this time I have discussed this with him. We will plan to go tomorrow for debridement of this heel ulcer under MAC to facilitate wound healing. We had a long discussion about this and he understands. We will defer antibiotics to Dr. Brewer in the Medicine service. He has been on antibiotics for a long period of time. Dr. Madrigal I think is planning on therapeutic anticoagulation regarding the left ventricular thrombus. This will be fine. He will not need to be held for surgery. Otherwise I made him NPO tonight and consented for tomorrow. MTDD
[2016-12-05] MEDS: DESYREL PO SCH (21:10)
[2016-12-05] MEDS: CELEXA PO SCH (21:11)
[2016-12-06] MEDS: PRILOSEC PO SCH (06:15)
[2016-12-06] MEDS: SYNTHROID PO SCH (06:15)
[2016-12-06] MEDS: HUMALOG SUBQ SCH ×4 (06:58→21:38)
[2016-12-06 07:08] LABS: HEMATOCRIT 27.3 % (42.0-52.0); HEMOGLOBIN 8.7 g/dL (14.0-18.0); MCH 27.3 PG (27-31); MCHC 31.9 g/dL (33-37); MCV 85.6 FL (81-99); MPV 9.8 FL (7.4-10.4); RBC 3.19 XMIL (4.7-6.1)
[2016-12-06 07:26] LABS: CALCIUM 8.8 mg/dL (8.8-10.2); MAGNESIUM 2.3 mg/dL (1.5-2.7); POTASSIUM 4.2 mmol/L (3.5-5.1)
--- NOTE | 2016-12-06 07:34 | PROGRESS NOTE ---
DATE: 12/06/2016 PRESENT ILLNESS: The patient has osteomyelitis involving the distal part of his right below-the- knee amputation. The patient also has a necrotic left heel. In addition, today the patient told me that his Livingston catheter on the right side is not working at all. MEDICATIONS: The patient is receiving daptomycin 600 mg IV every 48 hours, and Rocephin 2 g IV every 24 hours. The patient will require 7 more days of treatment with the antibiotics to complete the 8 week treatment course. PHYSICAL EXAMINATION: Vital Signs: Temperature is 98.7 degrees, pulse 64, respirations 16, blood pressure 128/65. General: The patient looks chronically ill. He is middle-aged. Lungs: Clear to auscultation. Cardiovascular: Regular heart rate. Chest: The patient has a right-sided Livingston catheter in place. The site is not erythematous or swollen. Extremities: The patient has a right ifpwe-bvp-oqjh amputation. The VAC is in place. The leg is not erythematous and it is not draining. The patient's left foot has a large dressing around it. The dressing is intact. LAB AND X-RAY: The patient's CBC today shows a white count of 5600, hemoglobin 7.7, and platelet count 249,000. Creatinine is 2.3. GFR is 29. Urine culture is sterile. There is no new x-ray today. ASSESSMENT AND PLAN: The patient has osteomyelitis of the right leg and a necrosis of the left heel where there could well be osteomyelitis also. Dr. Michel is going to debride the patient's left heel today. I told him about how the Livingston catheter is not working in he is going to investigate that, and if it truly is not working he will take it out at surgery today. My plan is to continue the patient's current antibiotics namely Rocephin and daptomycin for 7 more days. COMORBIDITIES: Include diabetes mellitus, renal failure, and peripheral vascular disease.
[2016-12-06] MEDS ORDERED: STERILE WATER INJ. INJ ONE (08:29)
[2016-12-06] MEDS ORDERED: CATHFLO IV ONE (08:29)
[2016-12-06] MEDS: ROCEPHIN 2 GM/NS 50 ML IV SCH (09:37)
--- NOTE | 2016-12-06 09:39 | PROGRESS NOTE ---
DATE: 12/06/2016 SUBJECTIVE: No events overnight. Feels a little better this morning. OBJECTIVE: Vital Signs: Afebrile. No tachycardia. Blood pressure 120/70. General: He is alert, in no acute distress. Cardiovascular: Normal rate, normal rhythm. Abdomen: Soft, nontender, nondistended. Skin/Extremities: His right Livingston site is clean, dry, and intact. There are no other scars or issues with his left neck, left chest. Left heel ulcer dressing is in place. Right BK wound VAC is in place. LABS: I have reviewed his labs. White count of 8, hematocrit 27, creatinine is stable at 2.4, glucose 194, INR was 1.22 a couple days ago. ASSESSMENT/PLAN: A 61-year-old male with multiple medical issues and social issues. He has this chronic nonhealing wound of his left heel. I plan to debride it today. Discussed with the patient and he consents. His right BK incision has nearly healed completely with wound VAC. Dr. Brewer also called and voiced concerns that his Livingston catheter was not flushing or withdrawing blood, and need for antibiotics is ongoing. We will attempt to place alteplase today to de-clog the catheter; if unsuccessful, will remove and replace in the operating room the same time as his heel.
[2016-12-06] MEDS ORDERED: SODIUM CHLORIDE 0.9% ONE (09:53)
[2016-12-06] MEDS ORDERED: HEPARIN ONE (09:53)
[2016-12-06] MEDS ORDERED: XYLOCAINE 1%/EPI 1:100,000 ONE (09:53)
[2016-12-06] MEDS ORDERED: KETAMINE (DOSE) ONE (11:17)
[2016-12-06] MEDS ORDERED: VERSED ONE (11:18)
[2016-12-06] MEDS ORDERED: DIPRIVAN 1% ONE (11:18)
[2016-12-06] MEDS ORDERED: 1/2 NS 500 ML ONE (11:23)
[2016-12-06] MEDS ORDERED: PIGGYBACK SET 7393 ONE (11:23)
--- NOTE | 2016-12-06 13:27 | OPERATIVE NOTE ---
PROCEDURE DATE: 12/06/2016 PREOPERATIVE DIAGNOSIS: Nonhealing left heel ulcer. POSTOPERATIVE DIAGNOSIS: Nonhealing left heel ulcer. PROCEDURE PERFORMED: Excisional debridement of a 5 x 5 cm x 5 mm deep left heel ulcer down to the level of fascia. SURGEON: Daniel Michel MD COMPLICATIONS: None. ESTIMATED BLOOD LOSS: 5 mL. OPERATIVE INDICATIONS: This is a 61-year-old male with poorly controlled diabetes, kidney disease, and tobacco abuse, status post right below-knee amputation, who has had a long-standing left heel ulcer. It failed to improve with enzymatic debridement, and excisional debridement was indicated. OPERATIVE NOTE: Risks, benefits, alternatives were discussed with the patient and he consented to the procedure. He was seen in the preoperative area and surgery to be performed was confirmed. The surgical site was marked. He was taken to the operating room. Monitored anesthesia care was provided. After his foot was prepped, a time-out was performed and the surgery to be performed was confirmed. There was a necrotic but dry left posterior heel ulcer with above dimensions. Using a 15 blade scalpel, we excised this down to healthy bleeding tissue. We then curetted the base of any fibrinous tissue until bleeding in all aspects. We obtained hemostasis down to the level of the fascia. There was no bone evident. We obtained hemostasis and again confirmed this. We dressed the wound with saline wet-to-dry dressings, Kerlix, and an John. He tolerated it well. There were identified complications. All sponge, instrument, and needle counts were correct x2.
[2016-12-06] MEDS ORDERED: VANCOMYCIN 1,850 MG in NS 500 ML IV SCH (14:00)
--- NOTE | 2016-12-06 14:09 | PROGRESS NOTE ---
DATE: 12/06/2016 SUBJECTIVE: Patient reports he is doing well this morning. He is planning on going to the operating room today for debridement of the left heel. PHYSICAL EXAMINATION: Vital Signs: Afebrile, heart rate 63, blood pressure 115/72. General: No acute distress. Cardiovascular: He sounds to be in a regular rate and rhythm. He has no obvious murmurs. He has no S3. No lower extremity edema. Chest: Clear bilaterally. No increased work of breathing. Abdomen: Soft, nontender. PERTINENT DATA: White count is 8.2, hematocrit 27, platelet count 275,000. Sodium 135, potassium 4.2, BUN 58, creatinine 2.4. ASSESSMENT: Ischemic cardiomyopathy. PLAN: Patient has positive cardiac enzymes which has been a persistent issue for him. He has had a reasonable diuresis of around 1500 mL over the course of the hospitalization. We have escalated his antianginals in the form of adding in the ISDN. At this point, his echocardiogram does not seem to show any significant segmental wall motion abnormalities other than an EF of 35%. We will likely continue treating him with antianginals at this point. He has had myocardial perfusion scans as well as viability studies that suggest no significant burden of ischemia to explain his chest discomfort.
[2016-12-06] MEDS: ASPIRIN PO SCH (14:39)
[2016-12-06] MEDS: SODIUM BICARBONATE PO SCH (14:39)
[2016-12-06] MEDS: ISORDIL PO SCH ×3 (14:39→17:32)
[2016-12-06] MEDS: ZAROXOLYN PO SCH (14:41)
[2016-12-06] MEDS: NORVASC PO SCH (14:43)
[2016-12-06] MEDS: RENAGEL PO SCH ×3 (14:43→17:32)
[2016-12-06] MEDS: APRESOLINE PO SCH ×3 (14:44→17:31)
[2016-12-06] MEDS: RANEXA PO SCH ×2 (14:45→20:40)
[2016-12-06] MEDS: XANAX PO SCH ×4 (14:45→23:55)
[2016-12-06] MEDS: PLAVIX PO SCH (14:45)
[2016-12-06] MEDS: NEURONTIN PO SCH ×3 (14:46→17:32)
[2016-12-06] MEDS: COREG PO SCH ×2 (14:46→20:40)
[2016-12-06] MEDS: COLACE PO SCH ×2 (14:46→20:40)
[2016-12-06] MEDS: FOLIC ACID PO SCH (14:46)
[2016-12-06] MEDS: HEPARIN SUBQ SCH ×2 (14:47→20:41)
[2016-12-06] MEDS: LASIX PO SCH ×2 (14:48→20:40)
[2016-12-06] MEDS: OFIRMEV 1000 MG/ISOTONIC SOLN 100 ML IV PRN (15:58)
--- NOTE | 2016-12-06 16:07 | PROGRESS NOTE ---
DATE: 12/06/2016 SUBJECTIVE: Patient is feeling fine. OBJECTIVE: General: This is a 61-year-old chronically ill-looking, disheveled male, lying in bed, in no acute distress. Vitals: Temperature 98.4 degrees, heart rate 62, respiratory rate 17, blood pressure 115/72, O2 saturation 94% 2 L nasal cannula. HEENT: Head is normocephalic, atraumatic. Anicteric sclerae and pale conjunctivae. Neck: Supple. No JVD noted. No carotid bruits. Cardiovascular: S1, S2 heard. No murmurs, gallops, or rubs. Regular rate and rhythm. Respiratory: Clear bilaterally to auscultation. No work of breathing or using accessory muscles. Abdomen: Soft, nontender to palpation. Bowel sounds present. No organomegaly. Extremities: No clubbing or cyanosis. Right hhpzo-rsz-crgr amputation with a wound VAC in place and also left lower extremity covered by dressing. Peripheral pulses present in the right lower extremity. Neurological: Patient is alert and oriented x3. Moves 4 extremities. LABORATORY DATA: White cell count 8.28, hemoglobin 8.7, hematocrit 27.3, platelets 275,000. Sodium 134, potassium 4.2, chloride 97, bicarbonate 24, BUN 58, creatinine 2.4. ASSESSMENT AND PLAN: 1. Chest pain. The patient came back to the hospital for the same complaints. As per our evaluation and evaluation from Cardiology, this patient has chest pain that is recurrent. At this point, considering this patient is a pain seeker, I am not completely sure to what extent this patient has truly chest pain or if he is using his symptom as an element to push doctors to admit him to the hospital to receive IV pain medication. At this time, because this patient complains of chest pain all the time, we had performed some months viability studies which basically show that this patient is not going to get any benefit by doing any stenting or coronary artery bypass graft. At this point, patient is receiving medical treatment trying to optimize his medications. 2. Acute on chronic systolic heart failure. That condition is stable. He is not in any acute exacerbation. We will continue with home medications. Currently, he is receiving Lasix 80 mg p.o. b.i.d. We will continue with the same management. 3. Left diabetic foot ulcer. Dr. Michel has seen this patient and decided to take him to the operating room for cleaning of that left heel ulcer. We have checked with him and he is fine to let this patient go today. 4. For infection, Dr. Brewer has been consulted. Currently he is on vancomycin and Zosyn. We will see what Dr. Brewer decides to continue at discharged. 5. Hypertension. We will continue with the same management. 6. Diabetes mellitus. On sliding scale insulin. 7. Chronic kidney disease stage 4. Aware. 8. Deep vein thrombosis prophylaxis with heparin.
[2016-12-06] MEDS: DESYREL PO SCH (20:40)
[2016-12-06] MEDS: PERIDEX MT SCH (20:40)
[2016-12-06] MEDS: CELEXA PO SCH (20:41)
[2016-12-06 21:16] LABS: UR AMPHETAMINES QUAL NONE DETECTED (NONE DETECT); UR BARBITUATES QUAL NONE DETECTED (NONE DETECT); UR BENZODIAZEPIN QUAL PRESUMPTIVE POSITIVE (NONE DETECT); UR CANNABINOIDS QUAL NONE DETECTED (NONE DETECT); UR COCAINE QUAL NONE DETECTED (NONE DETECT); UR METHADONE QUAL NONE DETECTED (NONE DETECT); UR OPIATES QUAL PRESUMPTIVE POSITIVE (NONE DETECT); UR OXYCODONE QUAL NONE DETECTED (NONE DETECT); UR PCP QUAL NONE DETECTED (NONE DETECT)
[2016-12-07] MEDS: ASPIRIN PO SCH ×2 (04:54→09:17)
[2016-12-07] MEDS: SYNTHROID PO SCH (06:02)
[2016-12-07] MEDS: PRILOSEC PO SCH ×2 (06:02→10:03)
--- NOTE | 2016-12-07 07:50 | EKG Report ---
Test Performed on : 12/07/2016 03:52:38 AM Test Reason : NO Order in Scientific Media Blood Pressure : / mmHG Vent. Rate : 078 BPM Atrial Rate : 078 BPM P-R Int : 154 ms QRS Dur : 108 ms QT Int : 418 ms P-R-T Axes : 033 -47 112 degrees QTc Int : 476 ms Normal sinus rhythm. Left anterior fascicular block Septal infarct (cited on or before 04-DEC-2016) ST & T wave abnormality, consider lateral ischemia Abnormal ECG When compared with ECG of 05-DEC-2016 05:23, (Unconfirmed) Questionable change in initial forces of Septal leads Confirmed by Shahzad Gonzalez MD ([id number]) on 12/08/2016 10:09:49 PM
[2016-12-07] MEDS: NEURONTIN PO SCH ×3 (09:13→22:35)
[2016-12-07] MEDS: ROCEPHIN 2 GM/NS 50 ML IV SCH (09:13)
[2016-12-07] MEDS: COREG PO SCH ×2 (09:13→20:48)
[2016-12-07] MEDS: XANAX PO SCH ×3 (09:13→20:49)
[2016-12-07] MEDS: NORVASC PO SCH (09:13)
[2016-12-07] MEDS: HEPARIN SUBQ SCH ×2 (09:14→20:52)
[2016-12-07] MEDS: PLAVIX PO SCH (09:14)
[2016-12-07] MEDS: FOLIC ACID PO SCH (09:14)
[2016-12-07] MEDS: RANEXA PO SCH ×2 (09:14→20:50)
[2016-12-07] MEDS: PERIDEX MT SCH ×2 (09:14→20:52)
[2016-12-07] MEDS: ISORDIL PO SCH ×3 (09:14→18:15)
[2016-12-07] MEDS: SODIUM BICARBONATE PO SCH (09:15)
[2016-12-07] MEDS: RENAGEL PO SCH ×3 (09:15→18:14)
[2016-12-07] MEDS: APRESOLINE PO SCH ×3 (09:15→18:15)
[2016-12-07] MEDS: LASIX PO SCH ×2 (09:15→20:49)
[2016-12-07] MEDS: ZAROXOLYN PO SCH (09:16)
[2016-12-07] MEDS: COLACE PO SCH ×2 (09:17→20:48)
[2016-12-07] MEDS: SANTYL OINT TOP SCH (09:18)
[2016-12-07] MEDS: HUMALOG SUBQ SCH ×4 (10:02→22:35)
[2016-12-07] MEDS ORDERED: NITROGLYCERIN SL PRN (11:45)
[2016-12-07] MEDS: OFIRMEV 1000 MG/ISOTONIC SOLN 100 ML IV PRN (11:46)
--- NOTE | 2016-12-07 15:05 | PROGRESS NOTE ---
DATE: 12/07/2016 SUBJECTIVE: He continues to complain of chest pain. Extensive workup shows stable scar, but no reversible ischemia. No pain in his foot. OBJECTIVE: Vital Signs: Afebrile no tachycardia. Blood pressures have been okay. General: He is alert. Extremities: His right below-knee wound VAC dressing is in place with suction. His left heel dressing is clean, dry, and intact with no bleeding. LABS REVIEWED: Nothing new today other than a mildly elevated troponin of 0.62. ASSESSMENT: A 61-year-old male with multiple issues: 1. Status post right below-knee amputation with prolonged healing of his right below-knee amputation site, but this looks better and wound VAC in place. 2. Left heel: His left heel is now status post excisional debridement yesterday. It was clean. There is no purulence here, just some necrotic ulcer that was fully excised PLAN: 1. We continue Santyl to the heel daily and dry gauze dressings. Talked to Crystal Morrow about this, and she will help facilitate this while he is here and home health could manage this while at home. I can see him as an outpatient. 2. Will continue 3 times weekly wound VAC changes to his right below-knee site. 3. We will continue follow up.
--- NOTE | 2016-12-07 17:40 | PROGRESS NOTE ---
DATE: 12/07/2016 SUBJECTIVE: Patient complains of chest pain suprasternal 6 to 8/10 in intensity. He reports that it comes and goes. OBJECTIVE: Vital Signs: Temperature 98.0 degrees, heart rate 86, respiratory rate 16, blood pressure 120/76, O2 saturation 100% 2 L nasal cannula. General Examination: This is a 61-year- old, chronically ill-looking and disheveled male, lying in bed, in no acute distress. HEENT: Head is normocephalic, atraumatic. Anicteric sclerae. Pale conjunctivae. Mucous membranes moist. Neck: Supple. No JVD noted. No carotid bruits. No lymphadenopathy. No thyromegaly. Cardiovascular: S1, S2 heard. No murmurs, gallops, or rubs. Regular rate and rhythm. Respiratory: Clear bilaterally to auscultation. No work of breathing or using accessory muscles. Abdomen: Soft, nontender to palpation. Bowel sounds present. No organomegaly. Extremities: No clubbing, cyanosis, or edema. Right lcfph-kae-xyno amputation with wound in place in left lower extremity covered by dressing. Peripheral pulses present in the left lower extremity. Neurological: Patient alert and oriented x3. Moves 4 extremities. LABORATORY DATA: There are no labs from today. ASSESSMENT AND PLAN: 1. Chest pain. As we mentioned in our previous note, the patient is still complaining of chest pain although Cardiology is adjusting the doses of anti-anginal medications. At this time we are going to continue with the same management. Unfortunately I think this patient is drug seeking. He is using these chest pain symptoms as a way to get pain medications. At this time we are going to continue with the same management and we will use acetaminophen 1 g IV q.6 hours p.r.n. for pain. Cardiology has seen this patient already on previous visits because almost every time he comes here he is complaining of chest pain, so we know that this patient had ischemia and no procedure like stenting or coronary artery bypass graft can help this patient. We will continue as we mentioned before to optimize medical treatment. 2. Acute on chronic systolic heart failure. Condition is stable. It is important to remark that he is not in an exacerbation so we are going to continue with Lasix 80 mg p.o. b.i.d. 3. Left diabetic foot ulcer. Dr. Michel from General Surgery has been following this patient. We will follow his recommendations. 4. Chronic infection of the left foot. Dr. Brewer has been consulted and he thinks that the patient at this time does not need to be on antibiotics at discharge. Currently he is receiving daptomycin and ceftriaxone. We will continue with the same management until he is discharged. 5. Hypertension. We will continue with the same management. 6. Diabetes mellitus. Patient is on sliding scale insulin. 7. Chronic kidney disease stage 4. Aware. Patient is at creatinine baseline. 8. DVT prophylaxis with heparin. 9. The patient is doing fine. The only reason why we kept this patient for the last 2 days was because we are trying to send him to LTAC. Dr. Michel from General Surgery suggested patient may be sent to a longterm. In any case we will try to consult Social Work to see if that is an option for this patient considering that LTAC has been denied. In that case if insurance refuses to pay for a longterm we can send him home with home health.
[2016-12-07] MEDS: CUBICIN (FOR INPATIENT USE) 600 MG in NS 100 ML IV SCH (18:14)
[2016-12-07] MEDS: CELEXA PO SCH (20:49)
[2016-12-07] MEDS: DESYREL PO SCH (20:49)
[2016-12-08] MEDS: PRILOSEC PO SCH (06:35)
[2016-12-08] MEDS: SYNTHROID PO SCH (06:35)
[2016-12-08] MEDS: HUMALOG SUBQ SCH ×4 (06:36→21:19)
[2016-12-08] MEDS: XANAX PO SCH ×3 (09:23→21:19)
[2016-12-08] MEDS: ROCEPHIN 2 GM/NS 50 ML IV SCH ×4 (09:26→16:23)
[2016-12-08] MEDS: SODIUM BICARBONATE PO SCH (09:27)
[2016-12-08] MEDS: RANEXA PO SCH ×2 (09:27→21:19)
[2016-12-08] MEDS: PLAVIX PO SCH (09:28)
[2016-12-08] MEDS: RENAGEL PO SCH ×3 (09:28→17:49)
[2016-12-08] MEDS: ASPIRIN PO SCH (09:28)
[2016-12-08] MEDS: ZAROXOLYN PO SCH (09:28)
[2016-12-08] MEDS: NEURONTIN PO SCH ×3 (09:29→17:49)
[2016-12-08] MEDS: COREG PO SCH ×2 (09:29→21:18)
[2016-12-08] MEDS: PERIDEX MT SCH ×2 (09:29→21:18)
[2016-12-08] MEDS: LASIX PO SCH ×2 (09:29→21:18)
[2016-12-08] MEDS: HEPARIN SUBQ SCH ×2 (09:29→21:18)
[2016-12-08] MEDS: ISORDIL PO SCH ×3 (09:30→17:41)
[2016-12-08] MEDS: COLACE PO SCH ×2 (09:30→21:18)
[2016-12-08] MEDS: FOLIC ACID PO SCH (09:30)
[2016-12-08] MEDS: APRESOLINE PO SCH ×3 (09:31→17:41)
[2016-12-08] MEDS: NORVASC PO SCH (09:31)
--- NOTE | 2016-12-08 13:23 | PROGRESS NOTE ---
DATE: 12/08/2016 SUBJECTIVE: Patient has been doing fine. He reports mild chest pain intermittent. No other complaints. OBJECTIVE: Vital Signs: Temperature 98.3 degrees, heart rate 68, respiratory rate 22, blood pressure 112/70, and O2 saturation 98% on nasal cannula 2 L. General examination: This is a chronically ill-looking, disheveled 61-year-old male, lying in bed in no acute distress. HEENT: Head is normocephalic, atraumatic. Anicteric sclerae and pale conjunctivae. Mucous membranes moist. Neck: Supple. No JVD noted. No carotid bruits. No lymphadenopathy. No thyromegaly. Cardiovascular exam: S1, S2 heard. No murmurs, gallops, or rubs. Regular rate and rhythm. Respiratory exam: Clear bilaterally to auscultation. No work of breathing or using accessory muscles. Abdomen: Soft, nontender to palpation. Bowel sounds present. No organomegaly. Extremities: No clubbing, cyanosis, or edema. Right woywm-xnk-kfun amputation with wound VAC in place. Also, in the left lower extremity that is covered by dressing. Peripheral pulses present in the left leg. Neurological examination: Patient is alert, oriented x3. ASSESSMENT/PLAN: 1. Chest pain. This condition is very well known for us as this patient has an eschar in the heart indefinitely. He is not a candidate for any surgical procedure or any stenting. At this time, we are adjusting doses of anti anginal medication. 2. Acute on chronic systolic heart failure. Condition is stable. The patient is not on any exacerbation. We will continue with the same home medications. 3. Left diabetic foot ulcer. Dr. Michel from general surgery is following this patient. He is okay to let this patient go. 4. Chronic infection of the left foot. Dr. Michel has seen this patient 3 days ago; he makes recommendations to provide this patient 8 more days of ceftriaxone, which will be December 13 that this patient may need to be on ceftriaxone, then he will not need to be on anything. 5. Hypertension. We will continue with the same management. 6. Diabetes mellitus. Patient on sliding scale insulin. 7. Chronic kidney disease, stage IV. Aware. 8. Physical deconditioning. Patient has been physical therapy, and they recommend that it will be beneficial for him to go to rehabilitation facility, but if not he can do okay at home with home health.
--- NOTE | 2016-12-08 15:40 | PROGRESS NOTE ---
DATE: 12/08/2016 PRESENT ILLNESS: The patient has osteomyelitis of the distal part of his right ndhmx-plq-tiyj amputation site. He also has a necrotic left heel which has been debrided by Dr. Michel. MEDICATIONS: The patient is scheduled to receive daptomycin 600 mg IV every 48 hours and Rocephin 2g IV every 24 hours for an additional 5 more days. PHYSICAL EXAMINATION: Vital Signs: Temperature is 98.2, pulse 73, respirations 18, blood pressure 118/68. General: This is a chronically ill-appearing, middle-aged male. He is in no acute distress, however. Lungs: Clear to auscultation. Cardiovascular: Heart rate is regular. Chest: The patient's Livingston catheter has been removed. The site is not purulent or swollen. Extremities: The patient's right urajf-ofk-zdpv amputation site is not erythematous. The VAC is in place. The patient's left foot has a large dressing around it. The dressing is intact. LAB AND X-RAY: There is no new lab or x-ray for today. ASSESSMENT AND PLAN: The plan is to continue with the patient's 2 antibiotics for 5 more days after which they will be discontinued. I will go ahead also and order some lab work for tomorrow, namely a CBC and a BMP. Also a CPK. I will not have to order a CPK after all, because one was done yesterday and it was 59. COMORBIDITY: Diabetes and peripheral vascular disease. MTDD
--- NOTE | 2016-12-08 17:06 | PROGRESS NOTE ---
DATE: 12/08/2016 SUBJECTIVE: He feels okay. He still complains of intermittent chest pain and shortness of breath. He states he wants to have heart surgery. OBJECTIVE: He is afebrile. His vitals have been stable. His right below-knee amputation site is intact with a wound VAC in place. His left heel dressing is clean. There is no cellulitis. His toes foot and has recently been changed. His right Livingston catheter site is clean, dry, and intact as well. LABS: I have reviewed his labs. ASSESSMENT AND PLAN: A 61-year-old male with multiple issues although his medical issues are somewhat stable now. Dr. Brewer recommended discontinuing his antibiotics. He is noncompliant at home with care of his Livingston and there is concern for source of potential infection given his environment. They have requested removal of this. I have talked to the patient about this and he consents to removal today. We will do this at the bedside and subsequent procedure note will follow. Otherwise I had a long discussion with the social group worker, Dr. Davis, and the patient himself. I from a surgical standpoint and to facilitate his ongoing care would recommend a nursing facility for long-term placement. I have discussed with him that he will not receive any IV antibiotics if he were to readmit the hospital and I think this is driving the primary sources of his readmissions seeking IV pain medicine. He had an extensive cardiac workup. He has per Dr. Madrigal a scar with an irreversible ischemic defect and no grounds for intervention here. He is on multiple antianginals and antihypertensives, and despite this he continues complaining of chest pain and air hunger at times although vital signs have all remained stable. He understands that he will not receive IV pain medicine and that this is no longer an option for him. I discussed the importance of his rehabilitation and being out of the hospital and gaining strength in order to obtain a prosthetic for his right lower extremity which he is very interested in. Regarding his left heel wound, we can continue Santyl daily to this and I can follow him as an outpatient in my office but this is very basic wound dressing which can be done at any facility. He does not need LTAC just a nursing facility or even home health care can arrange that. Regarding the wound VAC, his wound is nearly healed but we can continue in the meantime 3 times weekly wound VAC changes. If this is prohibitive to his disposition which I think is ultimately his most important need, we can switch this to b.i.d. wet-to-dry dressings with saline and this will provide adequate wound therapy as well, but in the meantime wound VAC will hopefully facilitate quicker healing of this difficult wounds. We will continue to follow along pending placement in a SNF facility.
[2016-12-08] MEDS: SANTYL OINT TOP SCH (17:50)
[2016-12-08] MEDS: DESYREL PO SCH (21:18)
[2016-12-08] MEDS: CELEXA PO SCH (21:19)
--- NOTE | 2016-12-08 21:42 | OPERATIVE NOTE ---
PROCEDURE DATE: 12/08/2016 PREOPERATIVE DIAGNOSES: Osteomyelitis, resolved. POSTOPERATIVE DIAGNOSIS: Osteomyelitis, resolved. PROCEDURE PERFORMED: Removal of tunneled right internal jugular vein Livingston catheter. ESTIMATED BLOOD LOSS: Zero. SPECIMENS: None. ANESTHETIC: None. COMPLICATIONS: None. OPERATIVE INDICATION: This is a 61-year-old male with a chronic infection of right below-knee amputation site, now status post treatments. Wound is near healed and given noncompliance and inability to care for the Livingston catheter, removal has been requested by the Medicine and Infectious Disease Services. COMPLICATIONS: None. OPERATIVE NOTE: Risks, benefits, alternatives discussed with Mr. Ventura and he consented to procedure. His dressing was removed. The right entry site was prepped with alcohol solution at the bedside. The nylon suture was clipped and removed. Attempts to removed with gentle traction showed the cuff was quite ingrown as this has been there for a couple of months now. Using a hemostat forceps that was sterile, we dissected out this cuff and removed the catheter easily without complication in its entirety. We held pressure over the venotomy site in the neck for several minutes and hemostasis was noted. We applied a dressing at the conclusion of the case. He tolerated this well with no identified complications.
[2016-12-09 05:43] LABS: MANUAL DIFF NEEDED? NO
[2016-12-09 05:53] LABS: BASO% 0.5 % (0.0-0.8); EOS# 1.17 X1000 (0.0-0.7); HEMATOCRIT 24.9 % (42.0-52.0); HEMOGLOBIN 7.9 g/dL (14.0-18.0); LYMPH# 0.46 X1000 (1.2-3.4); LYMPH% 7.1 % (20.5-51.1); MCH 26.7 PG (27-31); MCHC 31.7 g/dL (33-37); MCV 84.1 FL (81-99); MONO# 0.21 X1000 (0.11-0.59); MONO% 3.2 % (1.7-9.3); MPV 9.9 FL (7.4-10.4); NEUT% 71.2 % (42.2-75.2); PLT 238 X1000 (130-400); RBC 2.96 XMIL (4.7-6.1)
[2016-12-09] MEDS: HUMALOG SUBQ SCH ×2 (06:09→11:34)
[2016-12-09] MEDS: SYNTHROID PO SCH (06:09)
[2016-12-09] MEDS: PRILOSEC PO SCH (06:09)
[2016-12-09 06:31] LABS: CALCIUM 8.8 mg/dL (8.8-10.2); POTASSIUM 4.3 mmol/L (3.5-5.1)
[2016-12-09 07:36] VITALS: BP 131/70
[2016-12-09] MEDS: PERIDEX MT SCH (08:50)
[2016-12-09] MEDS: FOLIC ACID PO SCH (08:51)
[2016-12-09] MEDS: NEURONTIN PO SCH ×2 (08:51→12:25)
[2016-12-09] MEDS: NORVASC PO SCH (08:51)
[2016-12-09] MEDS: ASPIRIN PO SCH (08:52)
[2016-12-09] MEDS: COREG PO SCH (08:52)
[2016-12-09] MEDS: COLACE PO SCH (08:52)
[2016-12-09] MEDS: PLAVIX PO SCH (08:52)
[2016-12-09] MEDS: ISORDIL PO SCH ×2 (08:53→12:25)
[2016-12-09] MEDS: LASIX PO SCH (08:53)
[2016-12-09] MEDS: RENAGEL PO SCH ×2 (08:53→12:25)
[2016-12-09] MEDS: RANEXA PO SCH (08:53)
[2016-12-09] MEDS: APRESOLINE PO SCH ×2 (08:53→12:23)
[2016-12-09] MEDS: ZAROXOLYN PO SCH (08:55)
[2016-12-09] MEDS: HEPARIN SUBQ SCH (08:56)
[2016-12-09] MEDS: SODIUM BICARBONATE PO SCH (08:57)
[2016-12-09] MEDS: SANTYL OINT TOP SCH (09:50)
[2016-12-09] MEDS ORDERED: CUBICIN (FOR INPATIENT USE) 600 MG in NS 100 ML IV SCH (10:30)
[2016-12-09] MEDS: XANAX PO SCH ×2 (10:30→15:01)
--- NOTE | 2016-12-09 12:04 | PROGRESS NOTE ---
DATE: 12/09/2016 The patient is going to a rehab facility. He will be receiving 5 more days of daptomycin and Rocephin. He will have follow up care with Dr. Porter Michel. I am available to see the patient on a p.r.n. basis.
--- NOTE | 2016-12-09 12:43 | PROGRESS NOTE ---
DATE: 12/09/2016 SUBJECTIVE: No issues overnight. He is better spirits this morning. He is motivated to go to rehab after our discussion yesterday. OBJECTIVE: Vital signs: No fevers. General: He is alert and oriented. He is eating breakfast this morning. His tunneled catheter removal site is intact and clean. There is no hematoma here. A wound VAC is in place on his right below knee amputation site. His left heel wound has fibrinous tissue in the bed but no necrosis, no cellulitis, and no purulence. I have reviewed his labs. ASSESSMENT AND PLAN: This is a 61-year-old male with multiple medical and social issues. We had a long discussion about him no longer receiving IV pain medicine even if he is readmitted and that all of his physicians are on the same page with this and he understands that this is not an option any longer. I have also had a long discussion with him about his cardiac standpoint and that we do not see any evidence of reversible defects and he is on maximal medical therapy for this. As far as his wounds, they are healing. For his right below knee stump amputation site we will continue the wound VAC for now but I think in the near future we can stop this and switch to wet to dry dressings and really could even do this now but I would anticipate a longer wound healing if we were to do this and as such the wound VAC is indicated. Regarding the left heel wound, it is clean. There is no infection here and I think Santyl debridement going forward will manage this adequately. His tunneled catheter is out. Social Work has made arrangements and he is going to a senior living facility for further rehabilitation with the hopes of getting him to wear a prosthetic in the future and I have discussed that if he does not participate while in physical therapy and is not able to regain his strength the likelihood of getting a prosthetic is low and that would be unfortunate in this relatively young gentleman who was active prior to this. He understands and seems motivated now. I can see him back in the next 2 weeks to monitor his wounds but otherwise I think these wounds are stable and they are healing and I do not want this to interfere with his physical therapy and rehabilitation.
--- NOTE | 2016-12-09 14:13 | DISCHARGE SUMMARY ---
ADMISSION DATE: 12/04/2016 DISCHARGE DATE: 12/09/2016 CONSULTATIONS: Dr. Obi Madrigal with Cardiology. Dr. Porter Michel with General Surgery, and Dr. Franco Brewer with Infectious Disease. PERTINENT PROCEDURES: Echocardiogram that showed an EF of 35%. On 12/06/2016, excisional debridement of a 5 x 5 cm x 5 mm deep left heel ulcer down to the level of the fascia performed by Dr. Porter Michel on 12/08/2016 by removal of a tunneled right internal jugular Livingston catheter. HOSPITAL COURSE: Briefly, Mr. Ventura is a 61-year-old male well known to our service for several re-admissions for chest pain, acute on chronic systolic heart failure, Left diabetic foot ulcer, hypertension, diabetes mellitus, right [id number] amputation with wound VAC, chronic kidney disease stage 3 or 4, medical noncompliance, hyperlipidemia, opioid dependence, chronic back pain, ischemic cardiomyopathy, CAD with chronic chest pain. Medical treatment only, patient is not a surgical candidate. Mr. Ventura presented to the ED earlier in the day complaining of midsternal chest pain that was nonradiating. He was evaluated and subsequently placed for admission. Our hospitalist service did evaluate the patient and admit him to the inpatient medical floor around 3 p.m. on December 04. Once Mr. Ventura arrived to the floor he began requesting IV morphine pain medicine. The [employer] at that time informed the patient that he would not be able to receive IV morphine again. Once the patient was informed with this he ultimately decided to sign out against medical advice, was placed in a wheelchair by nursing staff and brought down to the ER to await a cab ride home. Once the cab arrived the patient was getting into the cab, he hit his foot and somewhat did have some abrasions noted to the anterior surface of his 1st and 2nd left toes. The patient after sustaining this injury did request to be brought to the ER to sign in for evaluation. During the evaluation in the ED the patient still continued to complain of chest pain, it was nonradiating. He reports that the pain is constant with complaints of dizziness and shortness of breath as well. He also reported that he hurt all over as well. EKG done showed normal sinus rhythm with left atrial enlargement, left axis deviation. Patient's CK was elevated as well at 233, troponin at 0.351. The patient was placed back inpatient to our service. Once again Cardiology, Surgery and Infectious Disease were consulted. The patient's antibiotics were changed to daptomycin as well as Rocephin. He had an echocardiogram that showed an EF of 35%. Doctor Obi Madrigal assessed the patient again. He did give him 1 unit of blood and wanted to continue his diuretics, continue his Coreg and Norvasc. His isosorbide was increased to 20 mg p.o. t.i.d. as well as his Ranexa 1 g b.i.d. and to continue his Lasix at 80 mg p.o. b.i.d. And he suggested not to pursue with any further ischemic evaluation as cardiac enzymes have been persistently positive and the patient does not seem to have any viability to suggest a reasonable intervention site, and they ultimately signed off on the . Dr. Michel has done a debridement on a nonhealing left heel ulcer as well as another wound VAC placement and removal of a right IJ tunneled Livingston catheter. The patient was stable again, ready for discharge with [facility] and [facility]. However [facility] refused and dropped the patient due to noncompliance. We suggested rehab. The patient adamantly refused rehab. We did talk to Dr. Brewer to see if we could change the patient to p.o. antibiotics. We are in the process of working this. We approached the patient again about rehab. This time he has decided to go to rehab. He will continue his full course of IV antibiotics as well as wound care with a wound VAC as well as other orders. Dr. Davis has assessed the patient. He is appropriate for discharge today. He does have a bed at [facility]. Vital signs: Temperature is 98 degrees, heart rate 65, respiration 16, blood pressure is 131/70, O2 is 98% on 2 L nasal cannula. Discharge diet is diabetic. Discharge medications, please see MAR as well as pink sheet. The patient will get his dose of daptomycin as well as Rocephin before he goes to the [place] [facility]. FOLLOWUP: The patient is being discharged to [facility] where he will continue with daptomycin for 4 more doses q.48 hours, last dose received on 12/09/2016, as well as 4 more doses of Rocephin at 2 g IV q. 24 hours for 4 more doses. Again both daptomycin as well as Rocephin have been given today on 12/09/2016 prior to going to [facility]. He does have wound care orders for his wound VAC as well as his other wounds. The patient can return to the ED for any worsening of symptoms. DISCHARGE TIME: Greater than 40 minutes. Dictated by WILLIS Macedo for Ti Craig MD
--- NOTE | 2016-12-09 14:59 | PROGRESS NOTE ---
DATE: 12/09/2016 The patient is being discharged today to a rehab facility. There he will get 5 more days of treatment with daptomycin and Rocephin. I am available to see the patient on a p.r.n. basis. Dr. Michel will be managing patient's wounds. MTDD
== END 2016-12-09 17:00 | DRG 264 ==
LOC: ED 18:33 → 4N 23:53 → DIRADM 12-06 10:01 → 4N 12-06 10:03 → DIRADM 12-09 09:21 → 4N 12-09 09:28
PROVIDERS: ATTEND Internal Medicine
PROC: 30233N1 Transfusion of Nonautologous Red Blood Cells into Peripheral Vein, Percutaneous Approach (ICD-10-PCS; 2016-12-05)
PROC: 0JBR0ZZ Excision of Left Foot Subcutaneous Tissue and Fascia, Open Approach (ICD-10-PCS; principal; 2016-12-06 10:03)
PROC: 0JPT0XZ Removal of Tunneled Vascular Access Device from Trunk Subcutaneous Tissue and Fascia, Open Approach (ICD-10-PCS; 2016-12-08)
DX: R07.89 Other chest pain (principal); I25.2 Old myocardial infarction; N18.4 Chronic kidney disease, stage 4 (severe); T87.43 Infection of amputation stump, right lower extremity; I50.22 Chronic systolic (congestive) heart failure; I13.0 Hypertensive heart and chronic kidney disease with heart failure and stage 1 through stage 4 chronic kidney disease, or unspecified chronic kidney disease; L03.116 Cellulitis of left lower limb; M86.8X6 Other osteomyelitis, lower leg; M86.8X7 Other osteomyelitis, ankle and foot; F11.20 Opioid dependence, uncomplicated; E11.22 Type 2 diabetes mellitus with diabetic chronic kidney disease; E11.40 Type 2 diabetes mellitus with diabetic neuropathy, unspecified; I25.10 Atherosclerotic heart disease of native coronary artery without angina pectoris; E11.621 Type 2 diabetes mellitus with foot ulcer; R74.8 Abnormal levels of other serum enzymes; L97.529 Non-pressure chronic ulcer of other part of left foot with unspecified severity; F32.9 Major depressive disorder, single episode, unspecified; E11.69 Type 2 diabetes mellitus with other specified complication; F41.9 Anxiety disorder, unspecified; E11.51 Type 2 diabetes mellitus with diabetic peripheral angiopathy without gangrene; I25.5 Ischemic cardiomyopathy; E11.65 Type 2 diabetes mellitus with hyperglycemia; G89.29 Other chronic pain; M54.9 Dorsalgia, unspecified; S90.414A Abrasion, right lesser toe(s), initial encounter; W22.8XXA Striking against or struck by other objects, initial encounter; E07.9 Disorder of thyroid, unspecified; S90.412A Abrasion, left great toe, initial encounter; S90.415A Abrasion, left lesser toe(s), initial encounter; D64.9 Anemia, unspecified; Z91.128 Patient's intentional underdosing of medication regimen for other reason; Z87.891 Personal history of nicotine dependence; Z89.511 Acquired absence of right leg below knee; Z95.5 Presence of coronary angioplasty implant and graft; Z76.5 Malingerer [conscious simulation]; Z82.49 Family history of ischemic heart disease and other diseases of the circulatory system; Z83.3 Family history of diabetes mellitus; Z79.899 Other long term (current) drug therapy; Z79.82 Long term (current) use of aspirin; Z79.02 Long term (current) use of antithrombotics/antiplatelets
CPT/HCPCS: 71010; 80048; 80053; 81001; 82550; 82553; 82607; 82728; 82746; 82948; 83540; 83550; 83605; 83735; 83880; 84484; 85025; 85027; 85045; 85610; 85651; 85730; 86140; 86850; 86900; 86901; 86920; 87040; 87088; 88304; 88312; 93005; 93010; 94761; 94799; 96365; 96366; 96368; 96374; 96375; C8929; G0480; J0131; J0696; J0878; J0885; J1644; J1815; J1885; J1940; J2250; J2270; J2405; J2543; J3370; J7040; P9016; 80324; 80345; 80346; 80349; 80353; 80358; 80361; 80365; 83992; 97530-GP

== ENCOUNTER 2016-12-20 11:25 | Observation (INO) ==
--- NOTE | 2016-12-20 11:45 | PROVIDER DOCUMENTATION ---
HPI-Chest Pain - General Source: patient - History of Present Illness-CP Location: reports: central Chest Pain Radiation: reports: no radiation Quality of Pain: reports: dull Severity in ED: mild, moderate Onset/Duration: abrupt, this morning (0300) Timing: still present, constant Context/Activities at Onset: reports: none Modifying Factors: improves with: nothing Associated Symptoms: reports: shortness of breath. denies: back pain, dizziness , edema, fatigue, fever/chills, nausea, vomiting Nitro Today/Relief: 0.4 mg x 1, provided at home, mild relief Prior Chest Pain/Cardiac Workup: reports: echocardiography (12/04/16 EF 35%) Similar Symptoms Previously?: No Recently Seen Here or By Another Healthcare Provider: No <Cecilio Long - Last Filed: 12/20/16 13:30> <Efraín Conrad - Last Filed: 12/20/16 15:09> - General Chief Complaint: Chest Pain Time Seen by Provider: 12/20/16 11:37 Allergies/Adverse Reactions: Patient Allergies Allergy/AdvReac Type Severity Reaction Status Date / Time No Known Allergies Allergy Verified 12/20/16 13:22 Home Medications: Home Medication List Medication Instructions Recorded Confirmed Last Taken Type Aspirin [Aspirin EC] 81 mg PO DAILY 07/31/16 12/20/16 12/20/16 10:00 History Carvedilol 25 mg PO BID 07/31/16 12/20/16 12/20/16 10:00 History Clopidogrel [Plavix] 75 mg PO DAILY 07/31/16 12/20/16 12/20/16 10:00 History Gabapentin 300 mg PO TID 07/31/16 12/20/16 12/20/16 06:00 History Hydralazine [Apresoline] 12.5 mg PO TID 07/31/16 12/20/16 12/20/16 06:00 History Sodium Bicarbonate 650 mg PO DAILY 07/31/16 12/20/16 12/20/16 10:00 History Citalopram [Celexa] 20 mg PO QHS #0 tablet 09/13/16 12/20/16 12/20/16 10:00 Rx Trazodone HCl 4 mg PO Q4-6H PRN PRN 09/23/16 12/20/16 12/03/16 22:00 History Alprazolam [Xanax] 0.25 mg PO TID@0900,1300,2100 09/26/16 12/20/16 12/20/16 06: 00 History Levothyroxine [Synthroid] 50 microgm PO DAILY@0700 #0 tablet 10/03/16 12/20/16 12/20/16 06:00 Rx Folic Acid 1 mg PO DAILY #60 tablet 10/24/16 12/20/16 12/20/16 10:00 Rx Omeprazole [Prilosec] 20 mg PO DAILY@0700 #30 capsule 10/24/16 12/20/16 06:00 Rx Sevelamer [Renagel] 800 mg PO TID CC #90 tablet 10/24/16 12/20/16 12/20/16 11: 30 Rx Collagenase Clostridium Oint 1 gm TOP DAILY #0 oint 11/09/16 12/20/16 12/19/16 07:00 Rx [Santyl Oint] Docusate Sodium [Colace] 100 mg PO BID #0 capsule 11/25/16 12/20/16 12/20/16 10: 00 Rx Furosemide [Lasix] 80 mg PO BID #60 tablet 11/27/16 12/20/16 12/20/16 10:00 Rx Ranolazine [Ranexa] 1,000 mg PO BID #60 tab.er.12h 11/27/16 12/20/16 12/20/16 10 :00 Rx Metolazone 2.5 mg PO DAILY 11/28/16 12/20/16 12/20/16 10:00 History Ondansetron HCl [Zofran] 4 mg PO PRN PRN 11/28/16 12/20/16 11/28/16 09:46 History Isosorbide Dinitrate [Isordil] 20 mg PO TID #0 tablet 12/09/16 12/20/16 06:00 Rx Nitroglycerin Sl [Nitroglycerin] 0.4 mg SL Q5M PRN PRN #30 tablet 12/09/1612/2012/19/16 Rx CefTRIAXONE [Rocephin] 2 gm IV DAILY 12/20/16 12/20/16 12/13/16 10:00 History Cetirizine HCl [Zyrtec] 10 mg PO DAILY 12/20/16 12/20/16 12/20/16 10:00 History Polyethylene Glycol 3350 [Miralax] 17 gm PO BID 12/20/16 12/20/16 12/20/16 10: 00 History Sodium Bicarbonate 650 mg PO DAILY 12/20/16 12/20/16 12/20/16 10:00 History - History of Present Illness-CP Nature of Presenting Problem: Patient is a 61 yo M that presents with central chest pain that began at 0300 today. He reports having some shortness of breath with it but no n/v or diaphoresis. Patient denies and radiation of pain. Pain is 8/10. Patient is well known to the ER and hospital with multiple visits and admissions for chest pain. (Cecilio Long) Review of Systems - Adult - REVIEW OF SYSTEMS - ADULT Constitutional: denies: chills, fever, fatique Eyes: reports: no symptoms reported Ears, Nose, Mouth & Throat: denies: ear pain, sinus problem, throat pain Cardiovascular: reports: chest pain. denies: palpitations, syncope Respiratory: reports: shortness of breath. denies: cough, wheezing Gastrointestinal: denies: abdominal pain, diarrhea, nausea, vomiting Genitourinary: reports: no symptoms reported Musculoskeletal: reports: no symptoms reported Integumentary: reports: no symptoms reported Neurological: denies: dizziness/vertigo, seizure, syncope Psychiatric: reports: no symptoms reported Endocrine: reports: no symptoms reported Hematologic/Lymphatic: reports: no symptoms reported Allergic/Immunologic: reports: no symptoms reported All Other Systems: Reviewed and Negative <Cecilio Long - Last Filed: 12/20/16 13:30> Past History - Adult - PAST MEDICAL HISTORY-ADULT Review of Records: reports: Old Records Reviewed, Nursing Assessment Review, Medications Reviewed Cardiovascular: reports: CAD, CHF, HTN, hyperlipidemia, other (pulmonary edema) Respiratory: reports: sleep apnea Genitourinary: reports: ESRD Musculoskeletal: reports: intervertebral disc disease Psychiatric: reports: anxiety, depression Endocrine/Immune: reports: Diabetes, thyroid disorder (hyperparathyroid), other (hyperparathyroid) - PRIOR SURGERIES/PROCEDURES Surgical/Procedure History: reports: cholecystectomy, cardiac stent, orthopedic (extremity), back/neck - IMMUNIZATION STATUS Childhood Immunizations: See Nurse Assessment Flu Vaccine: See Nurse Assessment - FAMILY HISTORY Family History: reviewed, not pertinent - SOCIAL HISTORY Smoking: quit greater than 1 year, cigarettes Living Situation: care facility <Cecilio Long - Last Filed: 12/20/16 13:30> Physical Exam-General - PHYSICAL EXAM-ADULT Initial Vital Signs Reviewed: Yes - CONSTITUTIONAL General Appearance: alert, no apparent distress - EYES Eyes: PERRL/EOMI, pink conjunctivae - HEAD, EARS, NOSE, MOUTH & THROAT HENMT: normocephalic/atraumatic, moist mucous membranes, normal ENT inspection - NECK Neck: full range of motion, normal inspection - RESPIRATORY Respiratory: lungs clear, normal breath sounds, no respiratory distress, no accessory muscle use - CARDIOVASCULAR Cardiovascular: regular rate, rhythm, no edema, no gallop, no murmur - GASTROINTESTINAL (ABDOMEN) Abdominal Exam: normal bowel sounds, non tender, soft, no organomegaly, no pulsatile mass - MUSCULOSKELETAL Extremity: other (Right BKA) - SKIN Integumentary: warm/dry - NEUROLOGIC Neurologic: grossly normal, no motor/sensory deficits - PSYCHIATRIC Psych/Mental Status: normal mood/affect, normal thought content, normal thought process, oriented x 3 <Cecilio Long - Last Filed: 12/20/16 13:30> - MUSCULOSKELETAL Extremity: other (bloody drainage on the dressing on the right heel.) <Efraín Conrad - Last Filed: 12/20/16 15:09> Progress - XRAY 1 XRAY Study: Chest Impression: Abnormal XRAY Interpretation: worse CHF - CONSULTS/PCP/HOSPITALIST Notification #1 *Consult/PCP/Hospitalist*: Time Discussed: 13:30 Reason/Comments: at bedside Consult Disposition: Will see in ED, Admit <Cecilio Long - Last Filed: 12/20/16 13:30> <Efraín Conrad - Last Filed: 12/20/16 15:09> - PLAN OF CARE/RESULTS Progress/Plan/Lab Results: plan of care -cardiac work up Vital Signs Temp Pulse Resp BP Pulse Ox 12/20/16 13:11 53 L 29 H 123/74 98 12/20/16 11:30 97.5 F L 67 18 133/79 90 L No Known Allergies Allergy (Verified 12/20/16 13:22) Aspirin [Aspirin EC] 81 mg PO DAILY 07/31/16 Carvedilol 25 mg PO BID 07/31/16 Clopidogrel [Plavix] 75 mg PO DAILY 07/31/16 Gabapentin 300 mg PO TID 07/31/16 Hydralazine [Apresoline] 12.5 mg PO TID 07/31/16 Sodium Bicarbonate 650 mg PO DAILY 07/31/16 Citalopram [Celexa] 20 mg PO QHS #0 tablet 09/13/16 Trazodone HCl 50 mg PO QHS 09/23/16 Alprazolam [Xanax] 0.25 mg PO TID@0900,1300,2100 09/26/16 Levothyroxine [Synthroid] 50 microgm PO DAILY@0700 #0 tablet 10/03/16 Amlodipine [Norvasc] 10 mg PO DAILY #60 tablet 10/24/16 Ergocalciferol (Vitamin D2) [Vitamin D] 50,000 unit PO Q7D #10 capsule 10/24/16 Folic Acid 1 mg PO DAILY #60 tablet 10/24/16 Omeprazole [Prilosec] 20 mg PO DAILY@0700 #30 capsule 10/24/16 Sevelamer [Renagel] 800 mg PO TID CC #90 tablet 10/24/16 Epoetin Celestine [Epogen] 10,000 unit SUBQ Q7D #0 vial 11/04/16 Collagenase Clostridium Oint [Santyl Oint] 1 gm TOP DAILY #0 oint 11/09/16 Docusate Sodium [Colace] 100 mg PO BID #0 capsule 11/25/16 Polyethylene Glycol 3350 [Miralax] 17 gm PO BID #0 powder, packet 11/25/16 Furosemide [Lasix] 80 mg PO BID #60 tablet 11/27/16 Ranolazine [Ranexa] 1,000 mg PO BID #60 tab.er.12h 11/27/16 Metolazone 2.5 mg PO DAILY 11/28/16 Ondansetron HCl [Zofran] 4 mg PO PRN PRN 11/28/16 Isosorbide Dinitrate [Isordil] 20 mg PO TID #0 tablet 12/09/16 Nitroglycerin Sl [Nitroglycerin] 0.4 mg SL Q5M PRN PRN #30 tablet 12/09/16 Laboratory 12/20/16 12/20/16 12/20/16 12:00 12:00 12:00 WBC RBC Hgb Hct MCV MCH MCHC RDW Std Deviation Plt Count MPV Immature Gran % (Auto) Neut % (Auto) Lymph % (Auto) [place] % (Auto) Eos % (Auto) Baso % (Auto) Immature Gran # (Auto) Neut # (Auto) Lymph # (Auto) [place] # (Auto) Eos # (Auto) Baso # (Auto) PT 12.8 H INR 1.21 PTT (Actin FS) 35.9 Sodium Potassium Chloride Carbon Dioxide Anion Gap BUN Creatinine Estimated GFR/1.73 m2 BUN/Creatinine Ratio Glucose Calculated Osmolality Calcium Magnesium Total Bilirubin AST ALT Alkaline Phosphatase Creatine Kinase Troponin T 0.360 H* Enb-L-Xskareaoxsm Pept 95599 H Total Protein Albumin Globulin Albumin/Globulin Ratio 12/20/16 12/20/16 12:00 12:00 WBC 5.57 RBC 2.60 L Hgb 6.9 L Hct 22.0 L MCV 84.6 MCH 26.5 L MCHC 31.4 L RDW Std Deviation 18.4 H Plt Count 262 MPV 9.8 Immature Gran % (Auto) 0.4 Neut % (Auto) 73.8 Lymph % (Auto) 13.1 L [place] % (Auto) 4.1 Eos % (Auto) 7.9 Baso % (Auto) 0.7 Immature Gran # (Auto) 0.02 Neut # (Auto) 4.11 Lymph # (Auto) 0.73 L [place] # (Auto) 0.23 Eos # (Auto) 0.44 Baso # (Auto) 0.04 PT INR PTT (Actin FS) Sodium 130 L Potassium 4.2 Chloride 91 L Carbon Dioxide 27 Anion Gap 12 BUN 76 H Creatinine 3.1 H Estimated GFR/1.73 m2 21 BUN/Creatinine Ratio 25 Glucose 111 H Calculated Osmolality 284 Calcium 8.7 L Magnesium 2.3 Total Bilirubin 0.98 AST 8 L ALT 6 L Alkaline Phosphatase 118 Creatine Kinase 64 Troponin T Vty-U-Bcqzmotqspy Pept Total Protein 6.5 Albumin 2.9 L Globulin 3.6 Albumin/Globulin Ratio 0.8 Orders Category Date Time Status Cardiac Monitoring DIRECTED Care 12/20/16 11:44 Active Oxygen Therapy- ED Nursing DIRECTED Care 12/20/16 11:44 Active Saline Loc NOW Care 12/20/16 11:44 Active cxr [CHEST-1 VIEW] [RAD] Stat Exams 12/20/16 11:46 Taken CBC WITH ELECTRONIC DIFF [HEME] Stat Lab 12/20/16 12:00 Completed CK PROFILE [SP CHEM] Stat Lab 12/20/16 12:00 Completed COMPREHENSIVE METABOLIC PANEL [CHEM] Stat Lab 12/20/16 12:00 Completed MAGNESIUM [CHEM] Stat Lab 12/20/16 12:00 Completed PRO B-NATRIURETIC PEPTIDE Stat Lab 12/20/16 12:00 Completed PROTIME WITH INR [COAG] Stat Lab 12/20/16 12:00 Completed PTT [COAG] Stat Lab 12/20/16 12:00 Completed TROPONIN T Stat Lab 12/20/16 12:00 Completed Aspirin Med 12/20/16 13:03 Discontinued 325 mg PO NOW ONE EKG [EKG] Stat Ther 12/20/16 11:44 Ordered (Cecilio Long) Departure - Departure Time of Disposition Order: 13:29 Certified Medical Emergency: Emergent <Cecilio Long - Last Filed: 12/20/16 13:30> <Efraín Conrad - Last Filed: 12/20/16 15:09> - Departure DIAGNOSIS: Systolic heart failure, Chronic kidney disease stage 3, Shortness of breath Decubitus ulcer of foot Qualifiers: Pressure ulcer stage: unspecified pressure ulcer stage Laterality: left Qualified Code(s): L89.899 - Pressure ulcer of other site, unspecified stage Chest pain Qualifiers: Chest pain type: other chest pain Qualified Code(s): R07.89 - Other chest pain Disposition: ADMITTED INPATIENT 09 Condition: Stable Referrals: Antony Loomis MD [Primary Care Provider] - Attestation - Scribe Verification/Attestation Scribe:: Cecilio Long Acting as Scribe for:: Efraín Conrad Scribe documention review:: This chart was documented by a scribe and accurately reflects the service the provider performed and the decisions made by the provider. <Cecilio Long - Last Filed: 12/20/16 13:30> Physician Attestation - Physician Attestation I, the provider, attest to the following statement:: Efraín Conrad Physician documentation Attestation:: This documentation recorded by the scribe accurately reflects the service I personally performed and the decisions made by me. <Cecilio Long - Last Filed: 12/20/16 13:30>
[2016-12-20 12:10] LABS: MANUAL DIFF NEEDED? NO
[2016-12-20 12:30] LABS: INR 1.21; PROTIME 12.8 Seconds (9.2-11.7); PTT 35.9 Seconds (22.0-36.0)
[2016-12-20 12:37] LABS: ALBUMIN 2.9 g/dL (3.5-5.0); CALCIUM 8.7 mg/dL (8.8-10.2); MAGNESIUM 2.3 mg/dL (1.5-2.7); POTASSIUM 4.2 mmol/L (3.5-5.1); TOTAL BILIRUBIN 0.98 mg/dL (0.20-1.00); TOTAL PROTEIN 6.5 g/dL (6.3-8.3)
[2016-12-20 12:39] LABS: BASO% 0.7 % (0.0-0.8); EOS# 0.44 X1000 (0.0-0.7); EOS% 7.9 % (0.0-10.0); HEMOGLOBIN 6.9 g/dL (14.0-18.0); IMM GRAN# 0.02 X1000 (0.0-0.04); IMM GRAN% 0.4 % (0.0-0.5); LYMPH# 0.73 X1000 (1.2-3.4); LYMPH% 13.1 % (20.5-51.1); MCH 26.5 PG (27-31); MCHC 31.4 g/dL (33-37); MCV 84.6 FL (81-99); MONO# 0.23 X1000 (0.11-0.59); MONO% 4.1 % (1.7-9.3); MPV 9.8 FL (7.4-10.4); NEUT% 73.8 % (42.2-75.2); PLT 262 X1000 (130-400)
[2016-12-20] MEDS ORDERED: ASPIRIN PO ONE (13:03)
--- NOTE | 2016-12-20 13:45 | EKG Report ---
Test Performed on : 12/20/2016 11:30:57 AM Test Reason : Chest Pain Blood Pressure : / mmHG Vent. Rate : 064 BPM Atrial Rate : 064 BPM P-R Int : 170 ms QRS Dur : 126 ms QT Int : 456 ms P-R-T Axes : 039 -54 125 degrees QTc Int : 470 ms Normal sinus rhythm. Left axis deviation Nonspecific intraventricular block T wave abnormality, consider lateral ischemia Abnormal ECG When compared with ECG of 07-DEC-2016 03:52, QRS duration has increased Criteria for Septal infarct are no longer present Unconfirmed Result
--- NOTE | 2016-12-20 13:51 | Diag Imaging Result Document ---
PROCEDURE NAME: CHEST-1 VIEW - 12/20/2016 PORTABLE CHEST X-RAY: COMPARISON: 12/04/2016. FINDINGS: Stable moderate cardiomegaly. The central line has been removed. There is slight worsening in the diffuse bilateral predominantly interstitial infiltrates compatible with pulmonary edema. No pneumothorax or large effusion. Stable mild right hemidiaphragm elevation. IMPRESSION: Slight worsening pulmonary edema.
[2016-12-20] MEDS ORDERED: LASIX IV ONE (13:55)
[2016-12-20] MEDS ORDERED: SODIUM CHLORIDE 0.9% INJ SCH (14:15)
[2016-12-20] MEDS ORDERED: NS 1,000 ML ONE (15:16)
--- NOTE | 2016-12-20 15:41 | HISTORY AND PHYSICAL ---
The patient presented to the emergency room, by his report he was sent here to have a transfusion. He felt like he was short of breath this morning at 3 o'clock, he could not get his breath very well, and then later on he developed some chest pain, which he has had chronic chest pain. PAST MEDICAL HISTORY: 1. Coronary artery disease. 2. Systolic heart failure. 3. Ischemic cardiomyopathy. 4. Poorly controlled diabetes mellitus type 2. 5. Diabetic neuropathy. 6. Chronic kidney disease stage III-IV. 7. Peripheral arterial disease. 8. Hyperlipidemia. 9. Chronic back pain. 10. Opioid dependence. 11. Medical noncompliance. SURGICAL HISTORY: 1. Right BKA, he has a wound vac to the lateral stump. 2. He had back surgery x4. 3. Cholecystectomy. 4. Coronary artery stenting. SOCIAL HISTORY: The patient quit smoking about 8 or 9 years ago. He quit drinking about 15 years ago he says. No history of illicit drugs. Currently lives at home. He was living at home with his 14-year-old son but [facility]. FAMILY HISTORY: Significant for hypertension, diabetes, and coronary artery disease. REVIEW OF SYSTEMS: General: No weight gain or loss that he knows of. No fever or chills. Right distal lateral stump with a wound vac, appears dry and clean. Left foot wrapped with gauze at the heel, recent debridement of heel ulcer. HEENT: Unremarkable. Respiratory: No increased work of breathing or dyspnea until this morning. Cardiovascular: He has had chest pain numerous times and we do know he has coronary artery disease. GI/: No gross hematuria or dysuria. No change in bowels by his report. Endocrinologic/hematologic: He has a history of diabetes which is in the complications of peripheral neuropathy. PHYSICAL EXAMINATION: VITAL SIGNS: Temp 97.5. Pulse 53. Respirations 29. Blood pressure 123/74. Pupils are equal and round. CVP less than 6 cm. LUNGS: Clear anterior lateral and posterior. CARDIOVASCULAR: Regular rhythm and rate without murmur or S3. ABDOMEN: Soft. SKIN: Warm and dry. EXTREMITIES: Right above knee amputation with lateral wound vac on the lateral distal stump, which appears dry and clean. Left heel was unwrapped, he has some gauze from recent debridement of left calcaneus. LABORATORY: White count 5570, hematocrit 22, platelet count 262,000. Sodium 130, potassium 4.2, chloride 91, bicarb 27, BUN 76, creatinine 3.1, magnesium 2.3, calcium 8.7. Troponin is always chronically high, it is 0.360. CPK 64. His pro-BNP is 14,536. Albumin 2.9. Pro-time 12.8. INR 1.21. PTT 35. ASSESSMENT AND PLAN: 1. Normocytic anemia but suspect this is probably from chronic illness as well as may have a macrocytic component from gastrointestinal blood loss. We will give him 2 units of packed red blood cells. We will follow the first unit with 40 mg of IV Lasix. 2. Sudden shortness of breath, which is not new for him. He has renal insufficiency, so we really cannot check a CT of this, but I think it would be worthwhile for him to get a VQ scan, and make sure there is no pulmonary emboli. 3. Diabetic neuropathy, left heel diabetic ulcer, recent debridement. We will have wound care look at him while he is here. I think the surgeon is Dr. Michel, we will have him look as well at the wounds, make sure he is satisfied with this. 4. Known coronary artery disease. Not a candidate for invasive treatment at this point. He has chronic chest pain as well as chronic elevation of his cardiac enzymes. We will nonetheless, check troponin again later this afternoon and in the morning and get an EKG later this afternoon and in the morning. Hopefully, we can get him transfused and we will be able to get him back to [facility] tomorrow, at least that is my hope.
[2016-12-20] MEDS ORDERED: EPOGEN SUBQ SCH (16:12)
[2016-12-20] MEDS ORDERED: ZOFRAN IV PRN (16:12)
[2016-12-20] MEDS: DUONEB (A & A) INH SCH ×3 (16:12→23:30)
[2016-12-20] MEDS ORDERED: VITAMIN D PO SCH (16:12)
[2016-12-20] MEDS ORDERED: TYLENOL PO PRN (16:12)
--- NOTE | 2016-12-20 16:33 | EKG Report ---
Test Performed on : 12/20/2016 4:28:34 PM Test Reason : Chest pain Blood Pressure : / mmHG Vent. Rate : 058 BPM Atrial Rate : 058 BPM P-R Int : 178 ms QRS Dur : 124 ms QT Int : 488 ms P-R-T Axes : 033 -46 120 degrees QTc Int : 479 ms Sinus bradycardia. Left anterior fascicular block T wave abnormality, consider lateral ischemia Abnormal ECG When compared with ECG of 20-DEC-2016 11:30, (Unconfirmed) No significant change was found Confirmed by Shahzad Gonzalez MD ([id number]) on 12/20/2016 9:58:59 PM
[2016-12-20] MEDS: HUMULIN R SUBQ SCH ×2 (16:51→21:45)
[2016-12-20] MEDS: NEURONTIN PO SCH (18:08)
[2016-12-20] MEDS: RENAGEL PO SCH (18:11)
[2016-12-20] MEDS: ISORDIL PO SCH (19:00)
[2016-12-20] MEDS: APRESOLINE PO SCH (19:11)
[2016-12-20] MEDS: NITROGLYCERIN SL PRN (19:35)
[2016-12-20] MEDS: PROTONIX IV SCH (20:55)
[2016-12-20] MEDS: COLACE PO SCH (20:55)
[2016-12-20] MEDS: COREG PO SCH ×2 (20:55→21:05)
[2016-12-20] MEDS: RANEXA PO SCH (20:55)
[2016-12-20] MEDS: MIRALAX PO SCH (21:00)
[2016-12-20] MEDS ORDERED: DESYREL PO SCH (21:00)
[2016-12-20] MEDS ORDERED: XANAX PO SCH (21:00)
[2016-12-20] MEDS ORDERED: MIRALAX PO SCH (21:00)
[2016-12-20] MEDS: XANAX PO SCH (21:45)
[2016-12-21] MEDS: DUONEB (A & A) INH SCH ×2 (03:30→07:30)
[2016-12-21] MEDS: NITROGLYCERIN SL PRN ×2 (03:50→04:25)
[2016-12-21 04:21] LABS: INR 1.18; PROTIME 12.5 Seconds (9.2-11.7); PTT 39.8 Seconds (22.0-36.0)
[2016-12-21 04:23] LABS: BASO% 0.7 % (0.0-0.8); EOS# 0.55 X1000 (0.0-0.7); HEMOGLOBIN 7.8 g/dL (14.0-18.0); IMM GRAN# 0.02 X1000 (0.0-0.04); IMM GRAN% 0.3 % (0.0-0.5); LYMPH# 0.59 X1000 (1.2-3.4); LYMPH% 9.7 % (20.5-51.1); MANUAL DIFF NEEDED? YES; MCH 27.6 PG (27-31); MCHC 32.5 g/dL (33-37); MCV 84.8 FL (81-99); MONO# 0.28 X1000 (0.11-0.59); MONO% 4.6 % (1.7-9.3); MPV 10.1 FL (7.4-10.4); NEUT% 75.7 % (42.2-75.2); PLT 251 X1000 (130-400); RBC 2.83 XMIL (4.7-6.1)
[2016-12-21 04:56] LABS: ALBUMIN 2.9 g/dL (3.5-5.0); MAGNESIUM 2.3 mg/dL (1.5-2.7); POTASSIUM 4.4 mmol/L (3.5-5.1); TOTAL PROTEIN 6.5 g/dL (6.3-8.3)
[2016-12-21 06:08] LABS: BANDS 2 % (0-1); EOS 6 % (1-10); LYMPHS 8 % (21-51); MONO 4 % (1-9)
[2016-12-21] MEDS ORDERED: SYNTHROID PO SCH (07:00)
--- NOTE | 2016-12-21 08:45 | DISCHARGE SUMMARY ---
ADMISSION DATE: 12/20/2016 DISCHARGE DATE: 12/21/2016 HISTORY OF PRESENT ILLNESS: The patient was put in yesterday. Came to the emergency room reporting that they told him his blood count was low, needed a transfusion. He felt like he had a little shortness of breath that morning and then he felt like he had some chest discomfort. The chest pain seems to migrate. He has had a long history of this. Seems to be chest wall pain. He does have known coronary artery disease. There is no invasive intervention that he wants done, nor is he a candidate. He does not appear to be having angina or cardiac ischemia. PAST MEDICAL HISTORY: Coronary artery disease. Systolic heart failure. Ischemic cardiomyopathy. Poorly controlled diabetes mellitus type 2. Recently better controlled. He is at [facility] right now for rehab. Diabetic neuropathy, chronic kidney disease stage 3-4. Peripheral artery disease. Hyperlipidemia, chronic back pain. Opioid dependence in the past and medical noncompliance. SURGICAL HISTORY: Right BKA. He has a wound VAC to the lateral stump which appears to be healing well. He has had back surgery x4, cholecystectomy, coronary artery stenting. HOSPITAL COURSE: His left foot, apparently recent debridement of the heel. Will try and wrap that with continued wrap and continued topical treatment. He received 2 units of packed red blood cells and felt he could go home. [place] he could go back to [facility]. His troponin is chronically high. He always has a troponin that is elevated. TSH was 10.89. We will have them check a T4 and TSH while he is here. See if we can get him back to [facility]. DISCHARGE MEDICATIONS: We will put him back on what he was on: Xanax 0.25 mg t.i.d., aspirin 81 mg a day, Coreg 25 mg b.i.d. He is getting Rocephin 2 g daily, Zyrtec 10 mg a day. Celexa 20 mg at bedtime, Plavix 75 mg a day. Santyl collagenase topical treatment for his wound on his heel. Docusate or Colace 100 mg b.i.d., folic acid 1 mg a day. Lasix 80 mg b.i.d., Gabapentin 300 mg t.i.d., Apresoline 12.5 mg t.i.d., Isordil 20 mg t.i.d., Synthroid 50 mcg p.o. daily, metolazone 2.5 mg a day. Nitroglycerin 0.4 mg sublingual p.r.n., Prilosec 20 mg a day. Zofran 4 mg p.o. p.r.n., MiraLAX 17 g p.o. b.i.d., Ranexa 1000 mg b.i.d., Renagel 800 mg p.o. t.i.d., sodium bicarbonate 650 mg, I think he takes that twice a day. Trazodone 4 mg p.o. q.6 to 4 hours p.r.n.
[2016-12-21] MEDS ORDERED: XANAX PO SCH (09:00)
[2016-12-21] MEDS ORDERED: ROCEPHIN 2 GM/NS 50 ML IV SCH (09:00)
[2016-12-21] MEDS ORDERED: ROCEPHIN IV SCH (09:00)
[2016-12-21] MEDS ORDERED: ZYRTEC PO SCH (09:00)
[2016-12-21] MEDS ORDERED: NORVASC PO SCH (09:00)
[2016-12-21] MEDS ORDERED: SANTYL OINT TOP SCH (09:00)
[2016-12-21] MEDS ORDERED: LASIX PO SCH (09:00)
[2016-12-21] MEDS ORDERED: ZAROXOLYN PO SCH (09:00)
[2016-12-21] MEDS ORDERED: FOLIC ACID PO SCH (09:00)
[2016-12-21] MEDS ORDERED: SODIUM BICARBONATE PO SCH (09:00)
[2016-12-21] MEDS: HUMULIN R SUBQ SCH (09:02)
[2016-12-21] MEDS: RENAGEL PO SCH (09:05)
[2016-12-21] MEDS: APRESOLINE PO SCH (09:09)
[2016-12-21] MEDS: RANEXA PO SCH (09:10)
[2016-12-21] MEDS: ISORDIL PO SCH (09:11)
[2016-12-21] MEDS: MIRALAX PO SCH (09:15)
[2016-12-21] MEDS: COLACE PO SCH (09:35)
[2016-12-21] MEDS: PROTONIX IV SCH (09:36)
[2016-12-21] MEDS: COREG PO SCH (09:36)
[2016-12-21] MEDS: NEURONTIN PO SCH (09:36)
[2016-12-21] MEDS: XANAX PO SCH (09:36)
--- NOTE | 2016-12-21 10:16 | PROGRESS NOTE ---
DATE: 12/21/2016 SUBJECTIVE: This is a 61-year-old male well known to me with multiple medical issues. He has had a right below-knee amputation with delayed healing of his wound. He also has ulcer on his left heel that I have debrided in the past. He is admitted from rehab after he has been there for approximately a week with what was felt to be symptomatic anemia. He has been in the ED hold bed. He has been transfused 2 units. He feels better. States he has some persistent chest pain and shortness of breath, which he has chronically and has had extensive workup for. Has wound VAC on his right leg. OBJECTIVE: Vital Signs: No fevers at 97.8, pulse has been 60-70, blood pressure 146/91, oxygen saturation 95% on 2 L nasal cannula. General: He is alert, in no acute distress. Cardiovascular: Normal rate, regular rhythm. Pulmonary: He has no increased work of breathing noted. Extremities: His left heel ulcer is clean. There is no cellulitis. There is some fibrinous tissue in the bed, but no evidence of wet necrosis. No pus. His right below-knee amputation site is nearly healed. There is some superficial granulation tissue in the lateral aspect, but this wound is closed. LABS: I reviewed his labs. White count is normal at 6, hematocrit was 22 on admission and is now 24, platelets 251. INR is 1.28, creatinine is 3.1, glucose 167. ASSESSMENT/PLAN: A 61-year-old male with multiple medical issues admitted for symptomatic anemia. No gastrointestinal bleeding of note, but he does have chronic renal insufficiency and chronic disease. Suspect this etiology is persistent with progressive anemia. He has been transfused. He is hemodynamically stable. Regarding his right below-knee amputation site wound, I have taken the wound VAC off and I do not think he needs this anymore. He can continue Santyl ointment to this with gauze dressings, and continue the Santyl ointment to his left posterior heel wound. I can follow him at [place] or at my office in 2 weeks to monitor his wound. I think he is going to be nearing ready for prosthetic fitting and training in the near future, otherwise I do not see any reason for inpatient admission if he is cleared from medicine service.
[2016-12-21 11:15] VITALS: BP 129/91
[2016-12-21] MEDS ORDERED: CELEXA PO SCH (21:00)
== END 2016-12-21 11:20 ==
LOC: ED 11:25 → EDIPHOLD 15:15
PROVIDERS: ATTEND Emergency Medicine
DX: D64.9 Anemia, unspecified (principal); R07.89 Other chest pain; E11.621 Type 2 diabetes mellitus with foot ulcer; L97.429 Non-pressure chronic ulcer of left heel and midfoot with unspecified severity; Z89.511 Acquired absence of right leg below knee; R06.02 Shortness of breath; I25.10 Atherosclerotic heart disease of native coronary artery without angina pectoris; I25.5 Ischemic cardiomyopathy; I13.2 Hypertensive heart and chronic kidney disease with heart failure and with stage 5 chronic kidney disease, or end stage renal disease; E11.40 Type 2 diabetes mellitus with diabetic neuropathy, unspecified; E11.65 Type 2 diabetes mellitus with hyperglycemia; E11.22 Type 2 diabetes mellitus with diabetic chronic kidney disease; D63.1 Anemia in chronic kidney disease; N18.3 Chronic kidney disease, stage 3 (moderate); I50.22 Chronic systolic (congestive) heart failure; R74.8 Abnormal levels of other serum enzymes; E21.3 Hyperparathyroidism, unspecified; F41.9 Anxiety disorder, unspecified; I73.9 Peripheral vascular disease, unspecified; J81.1 Chronic pulmonary edema; F32.9 Major depressive disorder, single episode, unspecified; G47.30 Sleep apnea, unspecified; Z95.5 Presence of coronary angioplasty implant and graft; E78.5 Hyperlipidemia, unspecified; G89.29 Other chronic pain; M54.9 Dorsalgia, unspecified; F11.20 Opioid dependence, uncomplicated; Z91.19 Patient's noncompliance with other medical treatment and regimen; Z79.82 Long term (current) use of aspirin; Z79.899 Other long term (current) drug therapy; Z79.02 Long term (current) use of antithrombotics/antiplatelets; Z87.891 Personal history of nicotine dependence; Z83.3 Family history of diabetes mellitus; Z82.49 Family history of ischemic heart disease and other diseases of the circulatory system
CPT/HCPCS: 71010; 80053; 82550; 82948; 83735; 83880; 84439; 84443; 84484; 85025; 85610; 85730; 86850; 86900; 86901; 86920; 93005; 94640; 94761; C9113; J0696; J0885; J1940; J7030; P9016; S0164

== ENCOUNTER 2017-02-13 16:42 | Observation (INO) ==
--- NOTE | 2017-02-13 18:21 | PROVIDER DOCUMENTATION ---
HPI-Musculoskeletal Pain/Inj - GENERAL Chief Complaint: Extremity Injury Stated Complaint: fall Time Seen by Provider: 02/13/17 17:28 Source: patient - HX OF PRESENT ILLNESS-MUSKULOSKELTAL Nature of Presenting Problem: 61 y/o WM presents to the ED with c/o R shoulder pain x 1 day s/p fall. Pt states he was released from rehab at [facility] in [place], then states that he had side pain and LLE pain, so he was seen at the [place] ED. States since then he has fallen trying to move himself from the wheelchair to the bed and fell, landing on his R shoulder. States that he can't use his R UE and is guarding during hx and PE. States pain to bilat LE. Pt is wheelchair bound with bilat LE amputations. Denies any head injury or LOC. Review of Systems - Adult - REVIEW OF SYSTEMS - ADULT Constitutional: reports: no symptoms reported. denies: chills, fever Eyes: reports: no symptoms reported. denies: blurred vision, double vision Ears, Nose, Mouth & Throat: reports: no symptoms reported. denies: ear pain, nose pain Cardiovascular: reports: no symptoms reported. denies: chest pain, palpitations Respiratory: reports: no symptoms reported. denies: dyspnea on exertion, shortness of breath Gastrointestinal: reports: no symptoms reported. denies: nausea, vomiting Genitourinary: reports: no symptoms reported. denies: dysuria, frequency Musculoskeletal: reports: see HPI, joint pain, muscle aches, other. denies: back pain, neck pain Integumentary: reports: no symptoms reported. denies: nail changes, rash Neurological: reports: no symptoms reported. denies: headache/migraines, numbness, paresthesia Psychiatric: reports: no symptoms reported Endocrine: reports: no symptoms reported. denies: cold intolerance, heat intolerance Hematologic/Lymphatic: reports: no symptoms reported. denies: easy bruising, prolonged bleeding Allergic/Immunologic: reports: no symptoms reported All Other Systems: Reviewed and Negative Past History - Adult - PAST MEDICAL HISTORY-ADULT Review of Records: reports: Nursing Assessment Review, Medications Reviewed Cardiovascular: reports: CAD, CHF, HTN, hyperlipidemia, other (pulmonary edema) Respiratory: reports: sleep apnea Genitourinary: reports: ESRD Musculoskeletal: reports: intervertebral disc disease Psychiatric: reports: anxiety, depression Endocrine/Immune: reports: Diabetes, thyroid disorder (hyperparathyroid), other (hyperparathyroid) - PRIOR SURGERIES/PROCEDURES Surgical/Procedure History: reports: cholecystectomy, cardiac stent, orthopedic (extremity), back/neck - IMMUNIZATION STATUS Childhood Immunizations: See Nurse Assessment Flu Vaccine: See Nurse Assessment - FAMILY HISTORY Family History: reviewed, not pertinent - SOCIAL HISTORY Smoking: quit greater than 1 year Physical Exam-Injury Related - Physical Exam-Injury Related Initial Vital Signs Reviewed: Yes General Appearance: alert, mild distress Eyes: pink conjunctivae Head, Ears, Nose, Mouth & Throat: normocephalic/atraumatic, moist mucous membranes Neck: full range of motion, supple, normal inspection. negative: C-spine tenderness, vertebral point tenderness Respiratory: lungs clear, normal breath sounds. negative: crackles, rales, rhonchi, stridor, wheezing Cardiovascular: regular rate, rhythm. negative: bradycardia, tachycardia Extremity: normal gait, normal capillary refill, swelling (bilat LE and RUE > LUE), tenderness (R shoulder.). negative: normal range of motion (LROM at R shoulder), abnormal NV exam, pulse deficit Integumentary: normal color, warm/dry Neurologic: negative: aphasia, sensory deficit Psych/Mental Status: normal mood/affect, normal thought content, normal thought process, oriented x 3 Progress - PLAN OF CARE/RESULTS Progress/Plan/Lab Results: Vital Signs - 8 hr 02/13/17 16:46 Temperature 98.2 F Pulse Rate 82 Respiratory Rate 18 Blood Pressure 170/96 O2 Sat by Pulse Oximetry 99 Laboratory Results - last 24 hr 02/13/17 02/13/17 02/13/17 18:34 18:34 18:34 WBC 14.27 H RBC 3.85 L Hgb 10.8 L Hct 32.9 L MCV 85.5 MCH 28.1 MCHC 32.8 L RDW Std Deviation 16.9 H Plt Count 170 MPV 10.2 Immature Gran % (Auto) 0.2 Neut % (Auto) 87.1 H Lymph % (Auto) 4.0 L [place] % (Auto) 3.7 Eos % (Auto) 4.8 Baso % (Auto) 0.2 Immature Gran # (Auto) 0.03 Neut # (Auto) 12.42 H Lymph # (Auto) 0.57 L [place] # (Auto) 0.53 Eos # (Auto) 0.69 Baso # (Auto) 0.03 PT INR PTT (Actin FS) Sodium 134 L Potassium 4.3 Chloride 96 L Carbon Dioxide 24 L Anion Gap 14 BUN 29 H Creatinine 1.9 H Estimated GFR/1.73 m2 36 BUN/Creatinine Ratio 15 Glucose 206 H Calculated Osmolality 280 Calcium 8.8 Magnesium 1.9 Total Bilirubin 1.08 H AST 17 ALT 16 Alkaline Phosphatase 134 H Miz-J-Jkgehlgytdj Pept 26739 H Total Protein 6.8 Albumin 3.1 L Globulin 3.7 Albumin/Globulin Ratio 0.8 02/13/17 18:34 WBC RBC Hgb Hct MCV MCH MCHC RDW Std Deviation Plt Count MPV Immature Gran % (Auto) Neut % (Auto) Lymph % (Auto) [place] % (Auto) Eos % (Auto) Baso % (Auto) Immature Gran # (Auto) Neut # (Auto) Lymph # (Auto) [place] # (Auto) Eos # (Auto) Baso # (Auto) PT 11.7 INR 1.11 PTT (Actin FS) 32.1 Sodium Potassium Chloride Carbon Dioxide Anion Gap BUN Creatinine Estimated GFR/1.73 m2 BUN/Creatinine Ratio Glucose Calculated Osmolality Calcium Magnesium Total Bilirubin AST ALT Alkaline Phosphatase Dyw-F-Rbktslpujbj Pept Total Protein Albumin Globulin Albumin/Globulin Ratio Orders Category Date Time Status Arm Sling DIRECTED Care 02/13/17 18:28 Active CHEST-2 VIEWS [RAD] Stat Exams 02/13/17 19:19 Taken SHOULDER-RIGHT [RAD] Stat Exams 02/13/17 16:53 Taken CBC WITH ELECTRONIC DIFF [HEME] Stat Lab 02/13/17 18:34 Completed COMPREHENSIVE METABOLIC PANEL [CHEM] Stat Lab 02/13/17 18:34 Completed MAGNESIUM [CHEM] Stat Lab 02/13/17 18:34 Completed PRO B-NATRIURETIC PEPTIDE Stat Lab 02/13/17 18:34 Completed PROTIME WITH INR [COAG] Stat Lab 02/13/17 18:34 Completed PTT [COAG] Stat Lab 02/13/17 18:34 Completed URINALYSIS W/POSS RFLX CULT [URINALYSIS] Stat Lab 02/13/17 19:24 Uncollected Discussed pt with Dr. Christie; he states pt needs to be admitted. Result Diagrams: 02/13/17 18:34 02/13/17 18:34 - XRAY 1 XRAY: Right XRAY Study: Shoulder XRAY Interpretation: No fx or dislocation, per Dr. Christie 2 XRAY Study: Chest XRAY Interpretation: mild edema - CONSULTS/PCP/HOSPITALIST Notification #1 *Consult/PCP/Hospitalist*: social Crystal worker Time Discussed: 18:10 Reason/Comments: R shoulder pain, bilat LE amputee Consult Disposition: other (will check with rehab facilities and call back. 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 Must be admitted to find placement.) #2 Consult: Dr. Morel Time Discussed: 19:25 Reason/Comments: elevated BNP, leukocytosis Consult Disposition: Admit, other (call with results to Xray and UA) Departure - Departure Time of Disposition Decision: 19:26 DIAGNOSIS: CHF (congestive heart failure) Qualifiers: Congestive heart failure type: unspecified congestive heart failure type Congestive heart failure chronicity: unspecified congestive heart failure chronicity Qualified Code(s): I50.9 - Heart failure, unspecified Shoulder injury Qualifiers: Encounter type: initial encounter Laterality: right Qualified Code(s): S49.91XA - Unspecified injury of right shoulder and upper arm, initial encounter Amputated below knee Qualifiers: Laterality: bilateral Qualified Code(s): Z89.512 - Acquired absence of left leg below knee Disposition: ADMITTED INPATIENT 09 Certified Medical Emergency: Emergent Condition: Stable Referrals and Follow-Ups: Todd More MD [Primary Care Provider] - Attestation - Physician/ MARY Attestation Patient care was provided by Advanced Practice Provider:: Yes Advanced Practice Provider:: Kenia Gaines Advanced Practice Provider documentation review:: The Mid-level provider documentation, treatment plan and medical decision making was reviewed by the physician who agrees with all treatment and medical decision making by the MLP.
[2017-02-13 18:46] LABS: BASO% 0.2 % (0.0-0.8); EOS# 0.69 X1000 (0.0-0.7); EOS% 4.8 % (0.0-10.0); HEMATOCRIT 32.9 % (42.0-52.0); HEMOGLOBIN 10.8 g/dL (14.0-18.0); IMM GRAN# 0.03 X1000 (0.0-0.04); IMM GRAN% 0.2 % (0.0-0.5); LYMPH# 0.57 X1000 (1.2-3.4); MANUAL DIFF NEEDED? NO; MCH 28.1 PG (27-31); MCHC 32.8 g/dL (33-37); MCV 85.5 FL (81-99); MONO# 0.53 X1000 (0.11-0.59); MONO% 3.7 % (1.7-9.3); MPV 10.2 FL (7.4-10.4); NEUT% 87.1 % (42.2-75.2); PLT 170 X1000 (130-400); RBC 3.85 XMIL (4.7-6.1)
[2017-02-13 18:52] LABS: INR 1.11; PROTIME 11.7 Seconds (9.2-11.7); PTT 32.1 Seconds (22.0-36.0)
[2017-02-13 19:06] LABS: ALBUMIN 3.1 g/dL (3.5-5.0); CALCIUM 8.8 mg/dL (8.8-10.2); MAGNESIUM 1.9 mg/dL (1.5-2.7); POTASSIUM 4.3 mmol/L (3.5-5.1); TOTAL BILIRUBIN 1.08 mg/dL (0.20-1.00); TOTAL PROTEIN 6.8 g/dL (6.3-8.3)
[2017-02-13] MEDS ORDERED: MORPHINE IM ONE (20:18)
[2017-02-13] MEDS ORDERED: ZOFRAN ODT PO ONE (20:18)
[2017-02-13] MEDS ORDERED: NORCO-10 PO PRN (22:59)
[2017-02-13] MEDS ORDERED: LASIX IV ONE (23:05)
[2017-02-14] MEDS ORDERED: TYLENOL PO PRN (01:33)
[2017-02-14] MEDS ORDERED: ZOFRAN IV PRN (01:33)
[2017-02-14 01:51] LABS: URINE MICRO REVIEW NEEDED? NO; URINE SOURCE CLEAN CATCH
[2017-02-14 01:54] LABS: BILIRUBIN URINE NEGATIVE (NEGATIVE); BLOOD URINE SMALL (NEGATIVE); COLOR YELLOW; GLUCOSE URINE 200 mg/dL (NEGATIVE); LEUKOCYTES URINE SMALL (NEGATIVE); NITRITE URINE NEGATIVE (NEGATIVE); PROTEIN URINE 600 mg/dL (NEGATIVE); SP GRAVITY URINE 1.013; TURBIDITY URINE CLEAR (CLEAR); UROBILINOGEN URINE NORMAL (NORMAL)
[2017-02-14 01:56] LABS: UR EPITHELIAL CELLS <10 /HPF (<10); URINE BACTERIA NEGATIVE /HPF; URINE CULTURE NEEDED? YES; URINE RBC <10 /HPF (<10); URINE WBC TNTC /HPF (<10)
[2017-02-14 07:38] LABS: MANUAL DIFF NEEDED? NO
[2017-02-14 07:41] LABS: BASO% 0.2 % (0.0-0.8); EOS# 0.69 X1000 (0.0-0.7); EOS% 7.2 % (0.0-10.0); HEMOGLOBIN 9.7 g/dL (14.0-18.0); LYMPH# 0.78 X1000 (1.2-3.4); LYMPH% 8.2 % (20.5-51.1); MCH 27.9 PG (27-31); MCHC 32.3 g/dL (33-37); MCV 86.2 FL (81-99); MONO% 4.2 % (1.7-9.3); MPV 10.8 FL (7.4-10.4); NEUT% 80.2 % (42.2-75.2); PLT 147 X1000 (130-400); RBC 3.48 XMIL (4.7-6.1)
--- NOTE | 2017-02-14 07:58 | Diag Imaging Result Document ---
PROCEDURE NAME: SHOULDER-RIGHT - 02/13/2017 PLAIN RADIOGRAPH OF THE RIGHT SHOULDER, 2 VIEWS: COMPARISON: None available. FINDINGS: There are trace degenerative changes at the AC joint with tiny undersurface osteophytes. There is no evidence of fracture, dislocation, or intrinsic osseous lesion, otherwise. Surrounding soft tissues are grossly unremarkable. IMPRESSION: No evidence of acute osseous abnormality.
[2017-02-14 08:11] LABS: ALBUMIN 2.5 g/dL (3.5-5.0); CALCIUM 8.2 mg/dL (8.8-10.2); POTASSIUM 4.2 mmol/L (3.5-5.1); TOTAL BILIRUBIN 0.83 mg/dL (0.20-1.00)
[2017-02-14] MEDS ORDERED: INSULIN PEN NEEDLES ONE (08:11)
--- NOTE | 2017-02-14 08:21 | Diag Imaging Result Document ---
PROCEDURE NAME: CERVICAL SPINE W/O CONTRAST - 02/13/2017 CT OF THE CERVICAL SPINE: FINDINGS: There are interstitial opacities in the lung apices bilaterally. There is severe degenerative disk disease from the C3 level caudally with particularly large posterior osteophytes at C4-5 and C5-C6. No prevertebral soft tissue swelling is present. There is no evidence of acute fracture or subluxation. There is osteophytic encroachment on several intervertebral foramina particularly C6-7 foramen on the left. Compared to the previous CT of the neck dated 09/23/2016, the interstitial opacities in the lungs are worse. There is a thyroid nodule in the right thyroid lobe measuring 9 mm in diameter. There is a 19 mm right paratracheal node seen on image 83. IMPRESSION: Pulmonary edema. Spondylosis as described. No evidence of acute bony disease.
--- NOTE | 2017-02-14 08:23 | Diag Imaging Result Document ---
PROCEDURE NAME: CHEST-2 VIEWS - 02/13/2017 SITTING AP AND LATERAL CHEST, TWO VIEWS: COMPARISON: 12/20/2016. FINDINGS: Poor inspiratory effort. The right hemidiaphragm is elevated. The heart is borderline mildly prominent. The vessels are not distended. No consolidation. No pleural effusions. IMPRESSION: Borderline mildly prominent heart, but no other evidence of congestive failure.
[2017-02-14] MEDS: LANTUS SUBQ SCH (11:53)
[2017-02-14] MEDS: LASIX IV SCH ×2 (11:55→22:33)
[2017-02-14] MEDS: PRINIVIL PO SCH (11:55)
[2017-02-14] MEDS: HEPARIN SUBQ SCH ×2 (11:55→22:32)
[2017-02-14] MEDS: FOLIC ACID PO SCH (11:55)
[2017-02-14] MEDS: PEPCID PO SCH (11:55)
[2017-02-14] MEDS: COREG PO SCH ×2 (11:56→22:33)
[2017-02-14] MEDS: PERICOLACE PO SCH (11:56)
[2017-02-14] MEDS: CYMBALTA PO SCH (11:56)
[2017-02-14] MEDS: ROBAXIN PO SCH (11:56)
[2017-02-14] MEDS: FLOMAX PO SCH (11:56)
[2017-02-14] MEDS: ASPIRIN EC PO SCH (11:56)
[2017-02-14] MEDS: NEURONTIN PO SCH ×2 (11:56→22:32)
[2017-02-14] MEDS: PRAVACHOL PO SCH (11:57)
[2017-02-14] MEDS: ROCEPHIN 1 GM/NS 1 GM/50 ML IVPB IV SCH (11:58)
--- NOTE | 2017-02-14 13:59 | HISTORY AND PHYSICAL ---
PRIMARY CARE PROVIDER: Dr. Todd More. DATE AND TIME: February 13, 2017 at 2200. CHIEF COMPLAINT: Fall. HISTORY OF PRESENT ILLNESS: Mr. Ventura is a 61-year-old male who is well known to our service. He has a past medical history most notable for chronic kidney disease, diabetes mellitus type 2, hypertension, coronary artery disease with recent bilateral rqlfv-uzc-[id number] amputation secondary to complications from his diabetes. The patient was discharged on the December 21, 2016 and has been at rehab since that time. Mr. Ventura reports that he got home from rehab today, January 13, and was at his house approximately 15 minutes after returning home from rehab when he was trying to move himself from his wheelchair to the couch and fell. The patient states then he tried to get himself back up and actually fell again. The patient reports that he has right shoulder pain and neck pain secondary to this fall. He denied hitting his head. He denied any loss of consciousness. He also reports that he thinks he hit his right and left leg stumps during the fall, though upon evaluation there were no new acute wounds or injuries noted to the patient's bilateral lower extremities or area where his bilateral stumps are. He denies any headache, dizziness, lightheadedness, chest pain, shortness of breath, abdominal pain, nausea, vomiting, diarrhea. He denies any pain or burning with urination. He denies any increased pain in his bilateral lower extremities. Patient does have chronic pain secondary to diabetic neuropathy and back pain. Upon evaluation in the ER, the patient was found to have decreased mobility and pain noted to his right shoulder, though x-ray of the patient's right shoulder was performed and was negative. The patient is experiencing quite a bit of discomfort. Chest x-ray was negative for any acute abnormality. CT of the C-spine showed no evidence of acute bony disease. The patient did have some leukocytosis present and does appear as though he has a urinary tract infection as well. His renal function appears to be at his baseline though. The patient's proBNP is elevated at 30,471 which is an increase from his baseline. He did sound slightly congested in the right lung field upon examination so we will admit the patient for further evaluation of his right shoulder pain, congestive heart failure, and will obtain a social services manager and case management consult for rehab placement. REVIEW OF SYSTEMS: A 12-point review of systems was conducted with the patient and all were negative except for pertinent positives mentioned above in the HPI. PAST MEDICAL HISTORY: 1. Coronary artery disease. 2. Systolic heart failure. 3. Ischemic cardiomyopathy. 4. Poorly controlled diabetes mellitus type 2. 5. Diabetic neuropathy. 6. Chronic kidney disease stage 3B. 7. Peripheral artery disease. 8. Hyperlipidemia. 9. Chronic back pain. 10. Opioid dependence. 11. Medical noncompliance. PAST SURGICAL HISTORY: 1. A right and left cnnlt-psq-nvxz amputation. 2. History of 4 back surgeries. 3. Cholecystectomy. 4. Coronary artery stenting. SOCIAL HISTORY: Patient is a previous smoker. He quit smoking approximately 8 or 9 years ago. He reports he quit drinking approximately 15 years ago. He has no history of illicit drug use. He currently just returned home from rehab. He lives at home with his 14-year- old son. FAMILY HISTORY: Significant for hypertension, diabetes, and coronary artery disease. DIAGNOSTIC DATA: Laboratory results: White blood cell count 14.27, hemoglobin 10.8, hematocrit 32.9, platelet count 170,000. PT 11.7, INR 1.11, and PTT is 32.1. Sodium is 134, potassium 4.3, chloride 96, bicarb 24, BUN 29, creatinine 1.9, GFR 36, glucose 206, calcium 8.8 , magnesium 1.9. Total bilirubin is 1.08, AST 17, ALT 16, alkaline phosphatase is 134. ProBNP is 30,471. Urinalysis was obtained via clean catch and was positive for protein, glucose, blood, small leukocytes, jxg-wngrdbic-nn-count white blood cells. Had a less than 10 epithelial cells and was negative for nitrites and bacteria. A chest 2 view shows borderline mildly prominent heart but otherwise no evidence of congestive failure. Right shoulder x-ray showed no evidence of acute osseous abnormality. CT cervical spine showed pulmonary edema and spondylosis, though no evidence of acute bony disease. Also noted by the radiologist was a thyroid nodule of the right thyroid lobe measuring 9 mm in diameter. There is a 19 mm right paratracheal node seen on image 83. This is per the radiologist. PHYSICAL EXAMINATION: VITAL SIGNS: Temperature 97.5 degrees, heart rate 80, respirations 18, blood pressure 145/91, oxygen saturation is 97% room air. GENERAL: Mr. Ventura is a pleasant, 61-year-old male, who was resting comfortably in the ER stretcher. He is in no acute distress. He was awake, alert, and able to answer all questions appropriately. HEENT: Head is atraumatic, normocephalic. Pupils are equal, round, react to light, 3 mm bilaterally, and brisk. Oral mucosa is moist. Oropharynx is clear. NECK: Supple. The patient does report some right-sided neck pain and he did have some slight CVA tenderness noted upon examination. CARDIOVASCULAR: Patient has normal S1, S2. No murmurs, gallops, rubs appreciated. Regular rate and rhythm. PULMONARY: Patient has symmetrical chest expansion bilaterally. Lung sounds were clear except for the patient did have some slightly diminished lung sounds on the right and did appear to sound slightly congested on that side as well. ABDOMEN: Soft, nontender, nondistended. The patient does have a protuberant abdomen noted. Bowel sounds were present in all 4 quadrants, normoactive. EXTREMITIES: Patient does have a xafyc-puu-cwym bilateral amputations noted. Motor and sensory were intact in all extremities. Radial pulses were 2+ bilaterally. Capillary refill in bilateral lower extremity stumps was less than 3. INTEGUMENTARY: The patient's skin is pink, warm, dry. The patient does have some healing wounds noted to his right stump, though these appear to be healing well. No signs of erythema or infectious process present. NEUROLOGICAL: Patient is alert, oriented to person, place, time, situation. Cranial nerves 2 through 12 grossly intact. ASSESSMENT AND PLAN: 1. Right shoulder pain status post fall. The patient's x-ray was negative, though he is experiencing a lot of discomfort in his shoulder, as well as decreased ability. The patient does have pulse, motor, and sensory intact in fingers distal to the injury. He has had a right shoulder immobilizer placed, though we will have orthopedic surgery assess and evaluate him and will await their evaluation and further recommendations and continue to follow. 2. Urinary tract infection. A urine culture has been placed as well. We have placed the patient on Rocephin 1 g IV q.24 hours and continue to follow. 3. Congestive heart failure. We will continue the patient's Coreg, though he does take Lasix 40 mg p.o. b.i.d. We will give this IV at this time given that his proBNP was slightly elevated and he did sound slightly congested in the right lung walsh. 4. Hypertension. We will continue the patient's lisinopril. 5. Coronary artery disease. We will continue the patient's aspirin. 6. Hyperlipidemia. We will continue the patient's pravastatin. 7. Chronic kidney disease stage 3B. We will continue to monitor the patient's renal function. We will avoid nephrotoxic medications. Renally dose medications as necessary. 8. Chronic pain. We will continue the patient's Mclean and Neurontin. We did slightly increase the patient's Mclean dosage from 7.5 to 10 q.6 hours p.r.n. given that he does have an acute injury from a fall with right shoulder pain at present. 9. The patient was placed on medical floor, telemetry. He will have vital signs q.8 hours. DVT prophylaxis provided with heparin 5000 units subcutaneously q.12 hours. We have placed a consult with the wound care nurse as well for wound management of the patient 's right lower extremity stump. We also placed a physical therapy evaluation as well. Will place a social services manager and case management consult for rehab placement. He will be placed on a diabetic diet. We will do strict intake and output. We will wait orthopedics evaluation. Further orders and recommendations pending hospital course, diagnostic studies, and physician evaluation. Dictated by WILLIS Choudhary for Shakeel Morel MD cc: MD Todd Haley MD [facility]
--- NOTE | 2017-02-14 17:24 | CONSULTATION ---
DATE OF CONSULTATION: 02/14/2017 CHIEF COMPLAINT: Right shoulder pain. HISTORY OF PRESENT ILLNESS: Mr. Ventura is a 61-year-old male who is experiencing right shoulder pain status post fall. He was brought to the emergency room for evaluation where radiographic imaging was performed and read as normal and we were consulted to further evaluate his shoulder pain. ALLERGIES: No known drug allergy. PAST MEDICAL HISTORY: CHF, hypertension, hyperlipidemia, CAD, sleep apnea, ESRD, intervertebral disk disease, anxiety, depression, diabetes, hyperthyroidism. PAST SURGICAL HISTORY: Cholecystectomy, cardiac stent, bilateral lower extremity amputation, neck surgery. SOCIAL HISTORY: The patient is a former smoker. Quit over a year ago. MEDICATIONS: Acetaminophen 650 mg p.o. q.6h hours p.r.n. Acetaminophen hydrocodone 10 mg p.o. q.6 hours p.r.n. pain. Aspirin 81 mg p.o. daily. Carvedilol 12.5 mg p.o. b.i.d. Ceftriaxone 1 g IV. Duloxetine 60 mg p.o. daily. Famotidine 20 mg p.o. daily. Folic acid 1 mg p.o. daily. Furosemide 40 mg IV b.i.d. Gabapentin 100 mg p.o. b.i.d. Heparin 5000 units subcu q.8 hours. Insulin 5 units subcu daily. Lisinopril 20 mg daily. Methocarbamol which is Robaxin 750 mg p.o. daily. Zofran 4 mg IV q.4 hours p.r.n. nausea and vomiting. Pravastatin 80 mg p.o. daily. Senna 1 p.o. daily. Flomax 0.4 mg p.o. daily. Furosemide 40 mg IV once. REVIEW OF SYSTEMS: HEENT: Denies blurred vision, ear pain, nose pain, headache. Cardiovascular: Denies chest pain, palpitations. Respiratory: Denies shortness of breath, cough. Gastrointestinal: Denies nausea, vomiting. : Denies dysuria, frequency. Musculoskeletal: Reports right shoulder pain. Neurological: Reports tingling in all 5 fingers on his right hand. PHYSICAL EXAMINATION: General: The patient is resting comfortably at bedside and able to articulate and able to answer questions fully. HEENT: Head is normocephalic. Nares are patent. Neck: Supple. Heart: Regular rate and rhythm. Lungs: Clear to auscultation bilaterally. Neurological: Gross motor function is intact. Musculoskeletal: Right arm has limited range of motion due to pain and guarding. No gross deformity, edema or ecchymosis is noted. IMPRESSION: Right shoulder bursitis. PLAN: We injected him in a sterile fashion with the site marked with 4 mL of Marcaine, 4 mL of lidocaine and 80 mg of Solu-Medrol and the patient agreed to this procedure and tolerated the procedure and he can be discharged when he is medically stable. Dictated by JIM Meyer for Timmy Cano MD cc: JIM Meyer MD
[2017-02-15] MEDS: ROCEPHIN 1 GM/NS 1 GM/50 ML IVPB IV SCH (08:08)
[2017-02-15] MEDS: FLOMAX PO SCH (08:09)
[2017-02-15] MEDS: COREG PO SCH (08:09)
[2017-02-15] MEDS: ASPIRIN EC PO SCH (08:09)
[2017-02-15] MEDS: CYMBALTA PO SCH (08:09)
[2017-02-15] MEDS: FOLIC ACID PO SCH (08:09)
[2017-02-15] MEDS: HEPARIN SUBQ SCH (08:09)
[2017-02-15] MEDS: LANTUS SUBQ SCH (08:10)
[2017-02-15] MEDS: ROBAXIN PO SCH (08:11)
[2017-02-15] MEDS: PERICOLACE PO SCH (08:11)
[2017-02-15] MEDS: LASIX IV SCH (08:11)
[2017-02-15] MEDS: PRAVACHOL PO SCH (08:11)
[2017-02-15] MEDS: NEURONTIN PO SCH (08:11)
[2017-02-15] MEDS: PRINIVIL PO SCH (08:11)
[2017-02-15] MEDS: PEPCID PO SCH (08:11)
--- NOTE | 2017-02-15 13:03 | DISCHARGE SUMMARY ---
ADMISSION DATE: 02/14/2017 DISCHARGE DATE: 02/15/2017 A 61-year-old male who is known to our service. Past medical history most notable for chronic kidney disease, diabetes mellitus type 2, hypertension, coronary artery disease, recent bilateral [id number] amputations secondary to complications from diabetes. Patient discharged on 12/21/2016 and has been at rehab since that time. Mr. Ventura reported that he got home from rehab. When he was trying to move himself from the wheelchair to his couch, he fell. The patient states he tried to get himself up and actually fell again. Patient reports that he has right shoulder pain, right neck pain secondary to the fall. Denied hitting his head. Denied any loss of consciousness. Reports that he thinks he hit his right and left stump during the fall though evaluation showed no acute wounds or injuries. Denied any headaches, dizziness, lightheadedness, chest pain, shortness of breath, abdominal pain, nausea, vomiting, diarrhea. Denies pain on urination. Denies any increased pain in bilateral lower extremities. Patient does have chronic pain secondary to diabetes and diabetic neuropathy. Upon evaluation the emergency room patient was found to have decreased mobility and pain noted on right shoulder. X-ray of the patient's right shoulder was negative. The patient was experiencing quite a bit of discomfort. X-ray was negative for acute abnormality. CT of C-spine showed no evidence of bony disease. The patient did have some leukocytosis which was nonspecific and he has had a urinary tract infection in the past. Renal function appears to be baseline. Patient's proBNP was elevated at 30,471 which is increased from his baseline. He did sounds slightly congested and so was admitted. PAST MEDICAL HISTORY: 1. Coronary artery disease. 2. Systolic heart failure. 3. Ischemic cardiomyopathy. 4. Poorly controlled diabetes mellitus type 2. 5. Diabetic neuropathy. 6. Chronic kidney disease stage 3B. 7. Peripheral artery disease. 8. Hyperlipidemia. 9. Chronic back pain. 10. Opioid dependence. 11. Medical noncompliance in the past. SURGERIES: 1. He has had right and left ojdzo-ynu-ejdk amputation. 2. History of 4 back surgeries. 3. Cholecystectomy. 4. Coronary artery stenting in the past. Orthopedic looked at his shoulder, felt he might have a little bit of bursitis. Shoulder was injected. He was requesting pain medicine which I have discouraged strong opioids for his pain given his history and felt he could go back home, would like him to get home health on 02/15/2017. DISCHARGE MEDICATIONS: He can take Tylenol as needed. He was taking some [place] 10 q.6 hours p.r.n. and aspirin 81 mg a day. Coreg 12.5 mg b.i.d., Cymbalta 60 mg a day, Pepcid 20 mg a day. Folic acid 1 mg a day. Lasix 40 mg he was getting IV b.i.d. which will go down to 40 mg p.o. q.a.m. once a day. Neurontin 100 mg b.i.d., Lantus 5 units subcutaneous daily, Prinivil 20 mg a day, Robaxin 750 mg daily, Pravachol 80 mg a day, Radhika-Colace 1 a day. Flomax 0.4 mg daily. Get follow up with home health care and his primary care physician. At home he was getting 7.5 mg of hydrocodone p.r.n. cc: Michel Ellsworth MD
--- NOTE | 2017-02-15 14:13 | PROGRESS NOTE ---
DATE: 02/15/2017 ADDENDUM: SUBJECTIVE: Mr. Ventura does not want to go home. He says his phone is not working and he complains that his arm is aching, but I think he is mainly afraid to go home. He had only been there 15 minutes when he fell. I am going to get the social services manager to see if we can arrange some help, see if he needs to go back to rehabilitation, but he does not want to go home. He is requesting stronger pain medicine; however, most of the time when I go in there, he is sleeping. I am sure he does have some aching in that shoulder from the fall, but I do not want to get him back on strong opioid pain medicines. We will continue the [place]. OBJECTIVE: Vital Signs: Temperature 97.7 degrees, pulse 79, respirations 18, blood pressure 140/81. HEENT: Pupils are equal and round. Lungs: Clear in all lung walsh. Cardiovascular: Regular rhythm and rate, without murmur or S3. URINE OUTPUT: Over 3 L. LABORATORY: From 02/14/2017, hematocrit stable at 30. Electrolytes in 02/14/2017 look okay. Blood sugars are doing well. ASSESSMENT AND PLAN: 1. Recent bilateral qthhi-zry-ecja amputation for diabetic ulcers and peripheral vascular disease. 2. History of coronary artery disease. 3. History of systolic heart failure, ischemic cardiomyopathy. 4. Diabetes mellitus. His sugars are well controlled. 5. Chronic kidney disease, stage 3B. 6. Peripheral artery disease. 7. Hyperlipidemia. 8. Chronic back pain. 9. History of opiate dependency in the past and still requesting stronger medications. He does not want to go home. We will see if we can work on getting him some help. cc: Michel Ellsworth MD
[2017-02-15 14:25] VITALS: BP 160/97
--- NOTE | 2017-02-15 23:26 | DISCHARGE SUMMARY ---
ADMISSION DATE: 02/14/2017 DISCHARGE DATE: 02/15/2017 SUBJECTIVE: A 61-year-old male well known to our service. Past medical history most notable for chronic kidney disease, diabetes mellitus type 2, hypertension, coronary artery disease. Recent bilateral asayq-qgu-gyoh amputations secondary to complications from diabetes. Patient discharged on 12/21/2016, has been in rehab since that time. Mr. Ventura reports that he got home from rehab January 13 and was in his house approximately 15 minutes after returning home from rehab he was trying to move himself from the wheelchair on the couch and he fell. The patient states that he tried to get himself back up and actually fell again the patient reports that he had right shoulder pain and neck pain secondary to the fall. Denied hitting his head. He denied any loss of consciousness. Also reports that he thinks he hit his right and left stump during the fall though upon evaluation there are no acute wounds or injuries noted. He denies any headache, dizziness, lightheadedness, chest pain, shortness of breath, abdominal pain, nausea, vomiting, or diarrhea. In the emergency room, he was found to have decreased mobility. Pain noted to be in the right shoulder. X-ray of the right shoulder was negative. He had CT of the shoulder and spine and it was unremarkable. The patient was alert and oriented. PAST MEDICAL HISTORY: To review: 1. History of coronary artery disease. 2. Systolic heart failure. 3. Ischemic cardiomyopathy. 4. Poorly controlled diabetes mellitus type 2. 5. Diabetic neuropathy. 6. Chronic kidney disease stage 3B. 7. Peripheral artery disease. 8. Hyperlipidemia. 9. Chronic back pain. 10. Opioid dependence. 11. Medical noncompliance in the past. It has been documented. PAST SURGICAL HISTORY: Right and left nfrse-jyz-vcgf amputation. History of 4 back surgeries. Cholecystectomy, coronary artery stenting. HOSPITAL COURSE: The patient had no fractures and I think what we need to decide is whether he is able to go home. We will have physical therapy assess and he can go home with home health. We may decide he needs to go back and get a more extensive rehab. He had just been home a short time before falling. Blood pressures look good. Reviewed his orders will continue his current medication. PLAN: So will assess and see if rehab feels he is able to go home and tomorrow we can try and let him go home. Otherwise we need to probably pursue rehab. cc: MD Michel Sequeira MD
== END 2017-02-15 18:47 | disposition home health service (06) ==
LOC: 3N 16:42 → ED 16:42 → SUATTDRO 02-14 00:59
PROVIDERS: ATTEND Emergency Medicine

== ENCOUNTER 2017-05-20 10:58 | Inpatient (IN) ==
[2017-05-20] MEDS ORDERED: SOLU-MEDROL IV ONE (11:07)
[2017-05-20] MEDS ORDERED: DUONEB (A & A) INH ONE (11:07)
[2017-05-20 11:30] LABS: MANUAL DIFF NEEDED? NO
[2017-05-20 11:33] LABS: ALLEN TEST NO; BE -2.8 mmoll (-3.0-3.0); BLOOD TYPE ARTERIAL; DRAW SITE R BRACHIAL; METHB 1.2 % (0.0-1.5); O2(CT) 13.9 mL/dL (15.0-23.0); PCO2(98.6) 36 mmHg (35-45); PO2(98.6) 72 mmHg (60-100); SAMPLE BLOOD; SAO2 97.5 % (95.0-100.0); THB 10.5 g/dL (11.5-17.4); pH(98.6) 7.39 (7.35-7.45)
[2017-05-20 11:34] LABS: MODALITY CANNULA
[2017-05-20 11:35] LABS: BASO% 0.5 % (0.0-0.8); EOS# 0.44 X1000 (0.0-0.7); EOS% 5.6 % (0.0-10.0); HEMATOCRIT 31.9 % (42.0-52.0); HEMOGLOBIN 10.7 g/dL (14.0-18.0); IMM GRAN# 0.03 X1000 (0.0-0.04); IMM GRAN% 0.4 % (0.0-0.5); LYMPH# 0.63 X1000 (1.2-3.4); MCH 29.5 PG (27-31); MCHC 33.5 g/dL (33-37); MCV 87.9 FL (81-99); MONO# 0.38 X1000 (0.11-0.59); MONO% 4.8 % (1.7-9.3); MPV 9.6 FL (7.4-10.4); NEUT% 80.7 % (42.2-75.2); PLT 216 X1000 (130-400); RBC 3.63 XMIL (4.7-6.1)
[2017-05-20 11:42] LABS: INR 1.01; PROTIME 10.6 Seconds (9.2-11.7)
[2017-05-20 11:55] LABS: ALBUMIN 3.3 g/dL (3.5-5.0); MAGNESIUM 2.2 mg/dL (1.5-2.7); POTASSIUM 4.1 mmol/L (3.5-5.1); TOTAL BILIRUBIN 1.04 mg/dL (0.20-1.00); TOTAL PROTEIN 6.6 g/dL (6.3-8.3)
[2017-05-20 12:19] LABS: CK INDEX 4.1 (0.0-2.5); CK-MB 9.36 ng/mL (0.0-5.0)
[2017-05-20] MEDS ORDERED: LASIX IV ONE (12:45)
[2017-05-20] MEDS ORDERED: NORCO-5 PO ONE (12:52)
--- NOTE | 2017-05-20 13:58 | Diag Imaging Result Doc PS360 ---
EXAM: CHEST-2 VIEWS INDICATION: sob TECHNIQUE: 2 views COMPARISON: 05/19/2017 FINDINGS: Inspiration is suboptimal. Pulmonary venous congestion and interstitial edema are stable to marginally worsened. There is also probably a component of atelectasis. Otherwise, no new consolidations are appreciated. Cardiac silhouette is stable. IMPRESSION: Pulmonary venous congestion and interstitial edema are stable to marginally worsened as compared to the previous study. Electronically signed by Shaheen Perea 05/20/2017 1:55 PM
[2017-05-20] MEDS ORDERED: DUONEB (A & A) INH PRN (14:41)
[2017-05-20] MEDS ORDERED: NITROGLYCERIN SL PRN (14:41)
[2017-05-20] MEDS ORDERED: TYLENOL PO PRN (14:41)
[2017-05-20] MEDS: DUONEB (A & A) INH SCH ×3 (15:55→23:14)
[2017-05-20] MEDS: FLEXERIL PO PRN (16:12)
[2017-05-20] MEDS: HUMALOG SUBQ SCH ×2 (16:13→21:31)
--- NOTE | 2017-05-20 16:26 | HISTORY AND PHYSICAL ---
PRIMARY CARE PHYSICIAN: Dr. Todd More. CHIEF COMPLAINT: Shortness of breath. HISTORY OF PRESENT ILLNESS: Mr. Ventura is a 61-year-old male with a history of multiple admissions to our service, most recently discharged on 02/15/2017. He has a very complex history notable for CKD, type 2 diabetes, hypertension, CAD, ischemic cardiomyopathy, and multiple others. He reports that he became short of breath this morning while taking medications in his kitchen, apparently had taken his oxygen off for just a bit to take his medicines and he became acutely short of breath. He called 911 for transport to our facility. Today lujan the 6th ER visit in 6 days for shortness of breath. He reports orthopnea and occasional chest pain. He denies any fever, chills, cough or congestion. He is reporting chronic low back pain. In the ER he had labs and diagnostics done. Chest x-ray showed pulmonary vascular congestion consistent with CHF. He also had elevated cardiac [place] [address] and a creatinine of 2. As such, he is going to be admitted for congestive heart failure exacerbation. PAST MEDICAL HISTORY: 1. Systolic heart failure, EF 35%. 2. CAD. 3. Ischemic cardiomyopathy. 4. Poorly controlled type 2 diabetes. 5. Diabetic neuropathy. 6. CKD 3B. 7. PAD. 8. Hyperlipidemia. 9. Chronic back pain. 10. Opioid dependence. 11. Medical noncompliance. PAST SURGICAL HISTORY: He has had bilateral BKA, multiple back surgeries, cholecystectomy and coronary stenting. SOCIAL HISTORY: Patient has a remote history of smoking as well as alcohol use. He currently does not use alcohol, drugs or illicit substances. He lives at home alone. FAMILY HISTORY: Noncontributory. REVIEW OF SYSTEMS: Fourteen-point review of systems obtained and found to be negative with the exception of the HPI. ALLERGIES: No known drug allergies. HOME MEDICATIONS: Tylenol 650 mg every 6 hours as needed. Aspirin low 81 mg daily. Coreg 12.5 mg p.o. b.i.d. Flexeril 10 mg p.o. t.i.d. Pepcid 20 mg p.o. daily. Lasix 40 mg daily. Neurontin 100 mg p.o. b.i.d. Lantus 5 units subcu daily. Lisinopril 20 mg p.o. daily. Robaxin 750 mg p.o. daily. Naproxen 250 mg p.o. b.i.d. Nitroglycerin 0.4 mg patch as needed. Pravachol 80 mg daily. Senokot tablet 1 daily. Flomax 0.4 mg daily. PHYSICAL EXAMINATION: VITAL SIGNS: Blood pressure is 176/106, heart rate 90, respiratory rate 22, O2 saturation 97% on 2 L. Temperature is 98.2 degrees. GENERAL: Disheveled and chronically ill appearing 61-year-old male, lying in hospital bed in no acute distress. NEUROLOGIC: The patient is awake, and oriented. He follows commands without focal deficits. HEENT: Head atraumatic and normocephalic. Pupils are equal, round, reactive to light. Oral mucosa is moist. Trachea is midline. No JVD. CHEST: Bibasilar crackles and diminished air entry. CV: Regular rate and rhythm. S1, S2 is noted. No murmurs. GI: Soft. Nondistended. EXTREMITIES: Both BKA slightly edematous at the stumps but neurovascular and pulses are intact. DIAGNOSTIC DATA: Chest x-ray shows CHF. EKG shows normal sinus rhythm without acute ST or T changes. WBC 7.87, hemoglobin 10.7, hematocrit 31.9, platelet count 216,000. INR 1.01. ABG on 2 L pH 7.39, CO2 36, O2 72, bicarb 22.7. Sodium 137, potassium 4.1, chloride 101, CO2 21, anion gap 15. BUN 52, creatinine 2, glucose 268, magnesium 2.2. Total bilirubin 1.04. AST 12, ALT 16, alkaline phosphatase 111. CK 126, CK index 4.1, CK-MB 9.36. Troponin 0.099. ProBNP 25,935. Albumin 3.3. ASSESSMENT AND PLAN: 1. Acute on chronic heart failure exacerbation: We will continue diuresis to an edema free state. Oxygen, follow strict I's and O's and daily weights and continue his beta-ronel and JONELLE inhibitor. We will trend his enzymes as well. 2. Elevated cardiac enzymes: Likely secondary to fluid volume overload but he is reporting some chest pain but his EKG is normal. Will continue to trend his enzymes and continue aspirin. We may consider Cardiology consult if enzymes worsen. 3. Chronic kidney disease: Creatinine stable. We will continue his home medications and monitor on a daily basis. Following strict I's and O's. 4. Diabetes mellitus: Continue home medications. Add pattern sugars and sliding scale insulin. 5. Chronic back pain. We will make sure he is on Effort 5 every 8 hours as needed for pain. 6. Medical noncompliance: Patient has been highly advised to continue medications as directed, check blood sugars appropriately and follow up with physicians after discharge. 7. Deep vein thrombosis prophylaxis will be provided with heparin. Further recommendations to follow. Dictated by WILLIS To for Fred Mclean MD cc: WILLIS To MD
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
[2017-05-20] MEDS: MORPHINE IV PRN ×2 (18:24→22:22)
[2017-05-20] MEDS: HEPARIN SUBQ SCH (21:30)
[2017-05-20] MEDS: COREG PO SCH (21:30)
[2017-05-20] MEDS: NEURONTIN PO SCH (21:30)
[2017-05-21] MEDS: DUONEB (A & A) INH SCH ×6 (03:08→23:12)
[2017-05-21] MEDS: MORPHINE IV PRN ×5 (05:11→23:27)
[2017-05-21 05:55] LABS: HEMATOCRIT 29.2 % (42.0-52.0); HEMOGLOBIN 9.9 g/dL (14.0-18.0); MCH 30.2 PG (27-31); MCHC 33.9 g/dL (33-37); MPV 9.6 FL (7.4-10.4); RBC 3.28 XMIL (4.7-6.1)
[2017-05-21 06:27] LABS: CALCIUM 8.9 mg/dL (8.8-10.2); POTASSIUM 4.3 mmol/L (3.5-5.1)
[2017-05-21] MEDS ORDERED: INSULIN PEN NEEDLES ONE (06:36)
[2017-05-21] MEDS: HUMALOG SUBQ SCH ×4 (07:45→22:22)
[2017-05-21] MEDS: PRAVACHOL PO SCH (09:00)
[2017-05-21] MEDS: FLOMAX PO SCH (09:00)
[2017-05-21] MEDS: PRINIVIL PO SCH (09:00)
[2017-05-21] MEDS: ASPIRIN EC PO SCH (09:00)
[2017-05-21] MEDS: ROBAXIN PO SCH (09:00)
[2017-05-21] MEDS ORDERED: LANTUS SUBQ SCH (09:00)
[2017-05-21] MEDS: HEPARIN SUBQ SCH ×2 (09:00→21:55)
[2017-05-21] MEDS: COREG PO SCH ×2 (09:01→21:56)
[2017-05-21] MEDS: PEPCID PO SCH (09:01)
[2017-05-21] MEDS: PERICOLACE PO SCH (09:01)
[2017-05-21] MEDS: FOLIC ACID PO SCH (09:01)
[2017-05-21] MEDS: NEURONTIN PO SCH ×2 (09:01→21:56)
[2017-05-21] MEDS: LANTUS SUBQ SCH (09:02)
--- NOTE | 2017-05-21 14:40 | PROGRESS NOTE ---
DATE: 05/21/2017 SUBJECTIVE: This patient states that he is feeling better. He is still complaining of mild shortness of breath. No nausea. No vomiting. No chest pain. OBJECTIVE: Vital Signs: Temperature 98 degrees, pulse 73, respiratory rate 22, blood pressure 170/95, oxygen saturation 100% on 3 L of nasal cannula. HEENT: Head normocephalic. No trauma. PERRLA. Neck: Supple. No JVD. No masses. Central trachea. Chest: Decreased breath sounds globally, bilateral lower lung crackles. Abdomen: Soft, nontender, nondistended. No hepatosplenomegaly. Cardiovascular: Regular rhythm and rate. No murmurs. Extremities: No edema. No clubbing. No cyanosis. He has bilateral lower extremity amputation. Neurological: The patient is alert and oriented x3. No focal neurological deficits. LABORATORY: WBC 9.6, hemoglobin 9.1, hematocrit 29.2, platelets 199,000. Sodium 135, potassium 4.3, chloride 100, bicarbonate 22, BUN 55, creatinine 2.2, glucose 235, calcium 8.9. ASSESSMENT AND PLAN: 1. Acute on chronic heart failure exacerbation. Continue with diuresis, he is feeling better, we will continue to monitor. 2. Elevated cardiac enzymes. This is likely secondary to fluid overload. He is not complaining of chest pain at this moment. EKG was unremarkable. 3. Chronic kidney disease. This is chronic and stable. Continue with the same treatment. 4. Type 2 diabetes. Continue with home medication, the blood sugar has been elevated today. He received a dose of steroids at the emergency department and probably the blood sugar increased secondary to this. I increased the dose of Lantus from 5 to 15. We will continue to monitor closely. 5. Chronic back pain. Continue with pain medication. 6. Medical noncompliance. This patient has been highly advised to continue medication as directed. I will continue with daily education. 7. Deep vein thrombosis prophylaxis provided with heparin. cc: Fred Mclean MD
[2017-05-21] MEDS: FLEXERIL PO PRN (18:54)
[2017-05-21] MEDS ORDERED: LASIX IV SCH (22:15)
[2017-05-22] MEDS: FLEXERIL PO PRN (02:42)
[2017-05-22] MEDS: DUONEB (A & A) INH SCH ×3 (03:32→11:59)
[2017-05-22] MEDS: MORPHINE IV PRN ×3 (03:50→12:04)
--- NOTE | 2017-05-22 06:34 | EKG Report ---
Test Performed on : 05/20/2017 11:09:02 AM Test Reason : Re-Ordered/CP Blood Pressure : / mmHG Vent. Rate : 086 BPM Atrial Rate : 086 BPM P-R Int : 114 ms QRS Dur : 102 ms QT Int : 394 ms P-R-T Axes : 061 -42 104 degrees QTc Int : 471 ms Sinus rhythm. with occasional premature ventricular complexes. Left axis deviation Minimal voltage criteria for LVH, may be normal variant Septal infarct (cited on or before 19-MAY-2017) T wave abnormality, consider lateral ischemia Abnormal ECG When compared with ECG of 19-MAY-2017 13:21, (Unconfirmed) premature ventricular complexes. are now present Unconfirmed Result
[2017-05-22 06:45] LABS: HEMATOCRIT 29.5 % (42.0-52.0); HEMOGLOBIN 9.6 g/dL (14.0-18.0); MCH 29.6 PG (27-31); MCHC 32.5 g/dL (33-37); MPV 9.9 FL (7.4-10.4); RBC 3.24 XMIL (4.7-6.1)
[2017-05-22] MEDS: HUMALOG SUBQ SCH ×3 (06:46→16:26)
[2017-05-22 07:02] LABS: CALCIUM 8.6 mg/dL (8.8-10.2); POTASSIUM 4.4 mmol/L (3.5-5.1)
[2017-05-22] MEDS: FLOMAX PO SCH ×2 (07:55→10:55)
[2017-05-22] MEDS: FOLIC ACID PO SCH ×2 (07:55→10:55)
[2017-05-22] MEDS: COREG PO SCH (08:01)
[2017-05-22] MEDS: ROBAXIN PO SCH (08:01)
[2017-05-22] MEDS: PEPCID PO SCH (08:02)
[2017-05-22] MEDS: PRINIVIL PO SCH (08:02)
[2017-05-22] MEDS: PERICOLACE PO SCH (08:02)
[2017-05-22] MEDS: NEURONTIN PO SCH (08:02)
[2017-05-22] MEDS: ASPIRIN EC PO SCH (08:02)
[2017-05-22] MEDS: HEPARIN SUBQ SCH (08:03)
[2017-05-22] MEDS: LANTUS SUBQ SCH (08:03)
[2017-05-22] MEDS ORDERED: LASIX IV SCH (09:00)
[2017-05-22] MEDS: PRAVACHOL PO SCH (10:56)
[2017-05-22] MEDS ORDERED: PERCOCET-5 PO SCH (11:30)
[2017-05-22 15:36] VITALS: BP 159/39
--- NOTE | 2017-05-23 06:57 | DISCHARGE SUMMARY ---
ADMISSION DATE: 05/20/2017 DISCHARGE DATE: 05/22/2017 CONSULTATIONS: None. PERTINENT PROCEDURES: Chest x-ray showed pulmonary venous congestion and interstitial edema but are stable to marginally worsening compared to previous study. DISCHARGE DIAGNOSES: 1. Acute on chronic systolic heart failure exacerbation, improved. 2. Chronically elevated cardiac enzymes. The patient is not complaining of any chest pain. [place] secondary to his kidney disease as well as fluid overload. 3. Chronic kidney disease, stable. 4. Diabetes mellitus type 2. Continue home regimen. 5. Chronic back pain. Continue with home regimen. 6. Medical noncompliance. The patient has been educated daily to continue with his home medications as directed. HOSPITAL COURSE: Mr. Ventura is a 61-year-old, male with a history of multiple admissions to our service. He was most recently discharged on 02/15/2017. His history is notable for CKD, type 2 diabetes, hypertension, CAD, ischemic cardiomyopathy, diabetic neuropathy, peripheral artery disease, hyperlipidemia, chronic back pain, opiate dependence , medical noncompliance, bilateral BKAs, and coronary stenting. The patient came to the ED after he reported he became short of breath while taking medications. The patient became short of breath on the morning of his admission while taking medications. Apparently he had taken his oxygen off to take his medicines and became acutely short of breath. He called 911 for transport to our facility. On the day of his admission it was his 6th ER visit in 6 days for shortness of breath. He reported orthopnea and occasional chest pain. He denied any fever, chills, cough or congestion. He reported chronic low back pain. In the ED, he had laboratory and diagnostics done. A chest x-ray showed pulmonary vascular congestion consistent with CHF. He also had elevated cardiac enzymes and a proBNP of 26,000 and a creatinine of 2. He was admitted for acute on chronic systolic heart failure exacerbation. He was started on diuresis, strict I Os as well as daily weights. He was continued on beta blockers and JONELLE inhibitors. Trended his enzyme. Again, patient was educated daily on medical compliance. The patient did diurese well on IV Lasix. His shortness of breath has improved. He is back to his baseline and is stable for discharge home with his regular home health and home O2. VITAL SIGNS: Temperature is 97.6 degrees, heart rate 68, respirations 18, blood pressure 158/91, O2 is 100% on 2 L nasal cannula. DISCHARGE MEDICATIONS: 1. Tylenol 650 mg p.o. q.6 hours p.r.n. 2. Aspirin 81 mg p.o. daily. 3. Coreg 12.5 mg p.o. b.i.d. 4. Flexeril 10 mg p.o. t.i.d. p.r.n. 5. Pepcid 20 mg p.o. daily. 6. Folic acid 1 mg p.o. daily. 7. Lasix 40 mg p.o. daily. 8. Neurontin 100 mg p.o. b.i.d. 9. Lantus 5 units subcutaneous daily. 10. Lisinopril 20 mg p.o. daily. 11. Robaxin 750 p.o. daily. 12. Naproxen 250 mg p.o. b.i.d. 13. Nitroglycerin 0.4 mg/hour patch topical p.r.n. q.24. 14. Percocet 5 one p.o. q.8 hours. 15. Pravachol 80 mg p.o. daily. 16. Senokot 1 tab p.o. daily. 17. Flomax 0.4 mg p.o. daily. FOLLOWUP: Mr. Ventura is being discharged home with [facility]. 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 He can return to the ED for any worsening of symptoms. DISCHARGE TIME: 30 minutes. Dictated by WILLIS Macedo for Fred Mclean MD cc: Fred Mclean MD MTDD
== END 2017-05-22 17:18 | disposition home health service (06) ==
LOC: ED 10:58 → SUATTDRO 14:10 → 4N 14:10
PROVIDERS: ADMIT Internal Medicine; ATTEND Internal Medicine

== ENCOUNTER 2017-05-28 15:16 | Observation (INO) ==
[2017-05-28] MEDS ORDERED: ASPIRIN PO STA (15:50)
[2017-05-28 16:09] LABS: ALLEN TEST NO; BE -3.4 mmoll (-3.0-3.0); BLOOD TYPE ARTERIAL; DRAW SITE R BRACHIAL; METHB 1.3 % (0.0-1.5); O2(CT) 13.9 mL/dL (15.0-23.0); PCO2(98.6) 36 mmHg (35-45); PO2(98.6) 155 mmHg (60-100); SAMPLE BLOOD; SAO2 99.4 % (95.0-100.0); pH(98.6) 7.38 (7.35-7.45)
[2017-05-28 16:10] LABS: MODALITY CANNULA
[2017-05-28] MEDS: NORCO-5 PO ONE ×2 (16:45)
--- NOTE | 2017-05-28 16:58 | Diag Imaging Result Doc PS360 ---
EXAM: CHEST-PORTABLE - 05/28/2017 HISTORY: CP TECHNIQUE: Portable chest 1555 COMPARISON: 05/27/2017 FINDINGS: Heart size is normal. Inspiration is slightly shallow. There is mild prominence of interstitial markings which appears stable. There is no dense consolidation, pleural effusion, or pneumothorax identified. IMPRESSION: Slightly shallow inspiration. Stable mild prominence of interstitial markings. Electronically signed by Miguel Vasquez 05/28/2017 4:56 PM
[2017-05-28 17:00] LABS: MANUAL DIFF NEEDED? NO
[2017-05-28 17:09] LABS: BASO% 0.3 % (0.0-0.8); EOS# 0.35 X1000 (0.0-0.7); EOS% 3.6 % (0.0-10.0); HEMATOCRIT 31.4 % (42.0-52.0); HEMOGLOBIN 10.6 g/dL (14.0-18.0); IMM GRAN# 0.03 X1000 (0.0-0.04); IMM GRAN% 0.3 % (0.0-0.5); LYMPH# 0.76 X1000 (1.2-3.4); LYMPH% 7.8 % (20.5-51.1); MCH 29.5 PG (27-31); MCHC 33.8 g/dL (33-37); MCV 87.5 FL (81-99); MONO# 0.44 X1000 (0.11-0.59); MONO% 4.5 % (1.7-9.3); MPV 9.5 FL (7.4-10.4); NEUT% 83.5 % (42.2-75.2); PLT 277 X1000 (130-400); RBC 3.59 XMIL (4.7-6.1)
[2017-05-28 17:15] LABS: URINE CULTURE NEEDED? NO; URINE MICRO REVIEW NEEDED? NO; URINE SOURCE CLEAN CATCH
[2017-05-28 17:15] LABS: INR 1.04; PROTIME 10.9 Seconds (9.2-11.7); PTT 28.7 Seconds (22.0-36.0)
[2017-05-28 17:23] LABS: BILIRUBIN URINE NEGATIVE (NEGATIVE); BLOOD URINE SMALL (NEGATIVE); COLOR YELLOW; GLUCOSE URINE 70 mg/dL (NEGATIVE); LEUKOCYTES URINE NEGATIVE (NEGATIVE); NITRITE URINE NEGATIVE (NEGATIVE); PROTEIN URINE 300 mg/dL (NEGATIVE); SP GRAVITY URINE 1.015; TURBIDITY URINE CLEAR (CLEAR); UROBILINOGEN URINE NORMAL (NORMAL)
[2017-05-28 17:24] LABS: UR EPITHELIAL CELLS <10 /HPF (<10); URINE BACTERIA NEGATIVE /HPF; URINE RBC <10 /HPF (<10); URINE WBC <10 /HPF (<10)
[2017-05-28 17:39] LABS: ALBUMIN 3.1 g/dL (3.5-5.0); CALCIUM 8.6 mg/dL (8.8-10.2); POTASSIUM 3.8 mmol/L (3.5-5.1); TOTAL BILIRUBIN 0.89 mg/dL (0.20-1.00); TOTAL PROTEIN 6.4 g/dL (6.3-8.3)
--- NOTE | 2017-05-28 17:42 | PROVIDER DOCUMENTATION ---
This chart was entered by Nubia Longoria Scribe, acting as scribe for Jorge Alberto Cotto MD. HPI-General Adult - General Source: patient, EMS <Grant Christie - Last Filed: 05/28/17 18:40> - General Source: patient - History of Present Illness -Gen Adult Nature of Presenting Problems: PT is a 61 year male who came to the ED with a cc of pain and SOB since three days ago. pt was seen here 3 times in the last 24 hours. Location of Pain/Injury: reports: chest Pain Radiation: reports: no radiation Quality of Pain: reports: sharp Onset/Duration: reports: unsure Timing: reports: still present Context/Activities at Onset: reports: none Modifying Factors: improves with: nothing Associated Symptoms: reports: shortness of breath Similar Symptoms Previously?: Yes Recently seen or treated by another doctor?: Yes <Jorge Alberto Cotto - Last Filed: 05/30/17 07:32> - General Chief Complaint: Chest Pain Stated Complaint: CP Time Seen by Provider: 05/28/17 15:19 Allergies/Adverse Reactions: Patient Allergies Allergy/AdvReac Type Severity Reaction Status Date / Time No Known Allergies Allergy Verified 05/27/17 13:42 Home Medications: Home Medication List Medication Instructions Recorded Confirmed Last Taken Type Aspirin [Aspir-Low] 81 mg PO DAILY 02/13/17 05/29/17 05/26/17 History Carvedilol [Coreg] 12.5 mg PO BID 02/13/17 05/29/17 05/26/17 History Famotidine [Pepcid] 20 mg PO DAILY 02/13/17 05/29/17 05/26/17 History Folic Acid 1 mg PO DAILY 02/13/17 05/29/17 05/26/17 History Gabapentin [Neurontin] 100 mg PO BID 02/13/17 05/29/17 05/26/17 History Insulin Glargine [Lantus] 5 units SQ DAILY 02/13/17 05/29/17 05/26/17 History Lisinopril 20 mg PO DAILY 02/13/17 05/29/17 05/26/17 History Methocarbamol [Robaxin-750] 750 mg PO DAILY 02/13/17 05/29/17 05/26/17 History Nitroglycerin [Nitroglycerin 0.4 0.4 mg TOP PRN PRN 02/13/17 05/29/17 05/19/17 History mg/Hr Patch] PRAVAstatin [Pravachol] 80 mg PO DAILY 02/13/17 05/29/17 05/26/17 History Sennosides/Docusate Sodium 1 tab PO DAILY 02/13/17 05/29/17 05/26/17 History [Senokot-S Tablet] Tamsulosin [Flomax] 0.4 mg PO DAILY 02/13/17 05/29/17 05/26/17 History Acetaminophen [Tylenol] 650 mg PO Q6H PRN PRN #0 tablet 02/15/17 05/29/17 Rx Furosemide [Lasix] 40 mg PO DAILY #30 vial 02/15/17 05/29/17 05/26/17 Rx Cyclobenzaprine [Flexeril] 10 mg PO TID PRN #30 tablet 05/14/17 05/29/17 Rx Naproxen [Naprosyn] 250 mg PO BID #20 tablet 05/14/17 05/29/17 05/19/17 08:00 Rx Oxycodone/APAP 5 mg/325 mg 1 each PO Q8H #15 tablet 05/22/17 05/29/17 05/26/17 Rx [Percocet-5] Amlodipine [Norvasc] 5 mg PO DAILY #30 tablet 05/29/17 Unknown Rx Review of Systems - Adult - REVIEW OF SYSTEMS - ADULT Constitutional: denies: fever <Grant Christie - Last Filed: 05/28/17 18:40> - REVIEW OF SYSTEMS - ADULT Constitutional: denies: chills, fever Eyes: reports: no symptoms reported Ears, Nose, Mouth & Throat: denies: ear pain, throat swelling Cardiovascular: reports: chest pain. denies: heart murmur, orthopnea Respiratory: reports: shortness of breath. denies: chronic cough, cough Gastrointestinal: reports: no symptoms reported Genitourinary: reports: no symptoms reported Musculoskeletal: reports: no symptoms reported Integumentary: reports: no symptoms reported Neurological: reports: no symptoms reported Psychiatric: reports: no symptoms reported Endocrine: reports: no symptoms reported Hematologic/Lymphatic: reports: no symptoms reported Allergic/Immunologic: reports: no symptoms reported All Other Systems: Reviewed and Negative <Jorge Alberto Cotto - Last Filed: 05/30/17 07:32> Past History - Adult - PAST MEDICAL HISTORY-ADULT Review of Records: reports: Old Records Reviewed, Nursing Assessment Review, Medications Reviewed, Social history reviewed & non-contributory. <Grant Christie - Last Filed: 05/28/17 18:40> - PAST MEDICAL HISTORY-ADULT Review of Records: reports: Old Records Reviewed, Nursing Assessment Review Major Childhood Illnesses: reports: denies history Cardiovascular: reports: CAD, CHF, HTN, hyperlipidemia, MS, other (pulmonary edema) Respiratory: reports: COPD, sleep apnea Gastrointestinal: reports: GERD Obstetrical/Gynecological: reports: denies history Genitourinary: reports: ESRD, kidney disease Musculoskeletal: reports: chronic pain, intervertebral disc disease Neurological: reports: denies history Psychiatric: reports: anxiety, depression Endocrine/Immune: reports: Diabetes, thyroid disorder (hyperparathyroid), other (hyperparathyroid) Other Conditions: reports: denies history - PRIOR SURGERIES/PROCEDURES Surgical/Procedure History: reports: cholecystectomy, cardiac stent, orthopedic (extremity), back/neck (back) - IMMUNIZATION STATUS Childhood Immunizations: See Nurse Assessment Flu Vaccine: See Nurse Assessment - FAMILY HISTORY Family History: reviewed, not pertinent <Jorge Alberto Cotto - Last Filed: 05/30/17 07:32> Physical Exam-General - PHYSICAL EXAM-ADULT Initial Vital Signs Reviewed: Yes - CONSTITUTIONAL General Appearance: alert, no apparent distress <Grant Christie - Last Filed: 05/28/17 18:40> - PHYSICAL EXAM-ADULT Initial Vital Signs Reviewed: Yes - CONSTITUTIONAL General Appearance: alert, no apparent distress - EYES Eyes: PERRL/EOMI, pink conjunctivae - HEAD, EARS, NOSE, MOUTH & THROAT HENMT: normocephalic/atraumatic, moist mucous membranes - NECK Neck: non-tender, full range of motion - RESPIRATORY Respiratory: chest non-tender, lungs clear, normal breath sounds - CARDIOVASCULAR Cardiovascular: normal peripheral pulses, regular rate, rhythm - GASTROINTESTINAL (ABDOMEN) Abdominal Exam: normal bowel sounds, non tender, soft - MUSCULOSKELETAL Back Exam: normal inspection, no CVA tenderness Extremity: other (bka) - SKIN Integumentary: normal color, normal turgor - NEUROLOGIC Neurologic: grossly normal - PSYCHIATRIC Psych/Mental Status: normal mood/affect, normal thought content, normal thought process, oriented x 3 <Jorge Alberto Cotto X - Last Filed: 05/30/17 07:32> Progress - PLAN OF CARE/RESULTS Progress/Plan/Lab Results: Vital Signs - 8 hr 05/28/17 15:58 Temperature 97.6 F Pulse Rate 78 Respiratory Rate 18 Blood Pressure 131/71 O2 Sat by Pulse Oximetry 95 Laboratory Results - last 24 hr 05/28/17 05/28/17 05/28/17 16:00 16:53 16:53 WBC 9.74 RBC 3.59 L Hgb 10.6 L Hct 31.4 L MCV 87.5 MCH 29.5 MCHC 33.8 RDW Std Deviation 16.6 H Plt Count 277 MPV 9.5 Immature Gran % (Auto) 0.3 Neut % (Auto) 83.5 H Lymph % (Auto) 7.8 L Warrick % (Auto) 4.5 Eos % (Auto) 3.6 Baso % (Auto) 0.3 Immature Gran # (Auto) 0.03 Neut # (Auto) 8.13 H Lymph # (Auto) 0.76 L Warrick # (Auto) 0.44 Eos # (Auto) 0.35 Baso # (Auto) 0.03 PT INR PTT (Actin FS) D-Dimer Specimen Type ARTERIAL Sample Site R BRACHIAL pH 7.38 pCO2 36 pO2 155 H HCO3 22.3 Base Excess -3.4 L Oxyhemoglobin 96.5 ABG O2 Sat (Calculated) 13.9 L ABG O2 Saturation 99.4 ABG Carboxyhemoglobin 1.60 ABG Methemoglobin 1.3 Michel Test NO A-a O2 Difference 0.0 Total Hemoglobin 10.0 L Lactate 0.40 L Liter Flow 2.0 Blood Gas Modality CANNULA FiO2 % 28.0 Sodium 139 Potassium 3.8 Chloride 102 Carbon Dioxide 20 L Anion Gap 17 BUN 55 H Creatinine 2.1 H Estimated GFR/1.73 m2 32 BUN/Creatinine Ratio 26 Glucose 140 H Calculated Osmolality 295 Calcium 8.6 L Magnesium 2.0 Total Bilirubin 0.89 AST 17 ALT 16 Alkaline Phosphatase 109 Creatine Kinase 472 H Creatine Kinase Index 3.1 H CK-MB (CK-2) 14.45 H Troponin T [id number] Pept Total Protein 6.4 Albumin 3.1 L Globulin 3.3 Albumin/Globulin Ratio 0.9 Urine Source Urine Color Urine Turbidity Urine pH Ur Specific [place] Urine Protein Ur Glucose (Stick) Ur Ketones (Stick) Urine Blood Urine Nitrite Urine Bilirubin Urobilinogen Dipstick Urine Leukocytes Urine WBC (Auto) Urine RBC (Auto) U Epithel Cells (Auto) Urine Bacteria (Auto) Urine Opiates Screen Ur Oxycodone Screen Urine Methadone Screen Ur Barbiturates Screen Ur Phencyclidine Scrn Ur Amphetamines Screen U Benzodiazepines Scrn Urine Cocaine Screen U Cannabinoids Screen 05/28/17 05/28/17 05/28/17 16:53 16:53 16:53 WBC RBC Hgb Hct MCV MCH MCHC RDW Std Deviation Plt Count MPV Immature Gran % (Auto) Neut % (Auto) Lymph % (Auto) Warrick % (Auto) Eos % (Auto) Baso % (Auto) Immature Gran # (Auto) Neut # (Auto) Lymph # (Auto) [place] # (Auto) Eos # (Auto) Baso # (Auto) PT 10.9 INR 1.04 PTT (Actin FS) 28.7 D-Dimer 0.84 H Specimen Type Sample Site pH pCO2 pO2 HCO3 Base Excess Oxyhemoglobin ABG O2 Sat (Calculated) ABG O2 Saturation ABG Carboxyhemoglobin ABG Methemoglobin Michel Test A-a O2 Difference Total Hemoglobin Lactate Liter Flow Blood Gas Modality FiO2 % Sodium Potassium Chloride Carbon Dioxide Anion Gap BUN Creatinine Estimated GFR/1.73 m2 BUN/Creatinine Ratio Glucose Calculated Osmolality Calcium Magnesium Total Bilirubin AST ALT Alkaline Phosphatase Creatine Kinase Creatine Kinase Index CK-MB (CK-2) Troponin T [id number]-Zmwtsbqlluo Pept 46694 H Total Protein Albumin Globulin Albumin/Globulin Ratio Urine Source Urine Color Urine Turbidity Urine pH Ur Specific [place] Urine Protein Ur Glucose (Stick) Ur Ketones (Stick) Urine Blood Urine Nitrite Urine Bilirubin Urobilinogen Dipstick Urine Leukocytes Urine WBC (Auto) Urine RBC (Auto) U Epithel Cells (Auto) Urine Bacteria (Auto) Urine Opiates Screen Ur Oxycodone Screen Urine Methadone Screen Ur Barbiturates Screen Ur Phencyclidine Scrn Ur Amphetamines Screen U Benzodiazepines Scrn Urine Cocaine Screen U Cannabinoids Screen 05/28/17 05/28/17 05/28/17 16:53 16:58 16:58 WBC RBC Hgb Hct MCV MCH MCHC RDW Std Deviation Plt Count MPV Immature Gran % (Auto) Neut % (Auto) Lymph % (Auto) [place] % (Auto) Eos % (Auto) Baso % (Auto) Immature Gran # (Auto) Neut # (Auto) Lymph # (Auto) War[place] # (Auto) Eos # (Auto) Baso # (Auto) PT INR PTT (Actin FS) D-Dimer Specimen Type Sample Site pH pCO2 pO2 HCO3 Base Excess Oxyhemoglobin ABG O2 Sat (Calculated) ABG O2 Saturation ABG Carboxyhemoglobin ABG Methemoglobin Michel Test A-a O2 Difference Total Hemoglobin Lactate Liter Flow Blood Gas Modality FiO2 % Sodium Potassium Chloride Carbon Dioxide Anion Gap BUN Creatinine Estimated GFR/1.73 m2 BUN/Creatinine Ratio Glucose Calculated Osmolality Calcium Magnesium Total Bilirubin AST ALT Alkaline Phosphatase Creatine Kinase Creatine Kinase Index CK-MB (CK-2) Troponin T 0.227 H [id number]-Qbxxzynarcv Pept Total Protein Albumin Globulin Albumin/Globulin Ratio Urine Source CLEAN CATCH Urine Color YELLOW Urine Turbidity CLEAR Urine pH 6.0 Ur Specific [place] 1.015 Urine Protein 300 A Ur Glucose (Stick) 70 A Ur Ketones (Stick) NEGATIVE Urine Blood SMALL A Urine Nitrite NEGATIVE Urine Bilirubin NEGATIVE Urobilinogen Dipstick NORMAL Urine Leukocytes NEGATIVE Urine WBC (Auto) <10 Urine RBC (Auto) <10 U Epithel Cells (Auto) <10 Urine Bacteria (Auto) NEGATIVE Urine Opiates Screen PRESUMPTIVE POS A Ur Oxycodone Screen NONE DETECTED Urine Methadone Screen NONE DETECTED Ur Barbiturates Screen NONE DETECTED Ur Phencyclidine Scrn NONE DETECTED Ur Amphetamines Screen NONE DETECTED U Benzodiazepines Scrn NONE DETECTED Urine Cocaine Screen NONE DETECTED U Cannabinoids Screen NONE DETECTED Orders Category Date Time Status Cardiac Monitoring DIRECTED Care 05/28/17 15:50 Active Oxygen Therapy- ED Nursing DIRECTED Care 05/28/17 15:50 Active Saline Loc NOW Care 05/28/17 15:50 Active CHEST-PORTABLE [RAD] Stat Exams 05/28/17 15:50 Completed ABG [RESP] Routine Lab 05/28/17 16:00 Completed CBC WITH ELECTRONIC DIFF [HEME] Stat Lab 05/28/17 16:53 Completed CK PROFILE [SP CHEM] Stat Lab 05/28/17 16:53 Completed COMPREHENSIVE METABOLIC PANEL [CHEM] Stat Lab 05/28/17 16:53 Completed D-DIMER [CHEM] Stat Lab 05/28/17 16:53 Completed MAGNESIUM [CHEM] Stat Lab 05/28/17 16:53 Completed PRO B-NATRIURETIC PEPTIDE Stat Lab 05/28/17 16:53 Completed PROTIME WITH INR [COAG] Stat Lab 05/28/17 16:53 Completed PTT [COAG] Stat Lab 05/28/17 16:53 Completed TROPONIN T Stat Lab 05/28/17 16:53 Completed UA NIMS W/REFLEX CULT [URINALYSIS] Stat Lab 05/28/17 16:58 Completed URINE DRUG SCREEN MEDTOX Stat Lab 05/28/17 16:58 Completed Aspirin Med 05/28/17 15:50 Discontinued 325 mg PO STAT STA Heparin Med 05/28/17 18:37 Discontinued 5,000 unit IV NOW ONE Heparin 25,000 Units/D5w Med 05/28/17 18:45 Ordered 25,000 unit in 250 ml IV 12 unit/kg/hr Hydrocodone/APAP 5 mg/325 mg [[place]-5] Med 05/28/17 16:45 Discontinued 1 each PO NOW ONE Nitroglycerin Med 05/28/17 18:38 Discontinued 1 inch TOP NOW ONE EKG [EKG] Stat Ther 05/28/17 15:50 Ordered Result Diagrams: 05/28/17 16:53 05/28/17 16:53 <Grant Christie - Last Filed: 05/28/17 18:40> - PLAN OF CARE/RESULTS Progress/Plan/Lab Results: Vital Signs - 8 hr 05/28/17 15:58 Temperature 97.6 F Pulse Rate 78 Respiratory Rate 18 Blood Pressure 131/71 O2 Sat by Pulse Oximetry 95 Laboratory Results - last 24 hr 05/28/17 05/28/17 05/28/17 16:00 16:53 16:53 WBC 9.74 RBC 3.59 L Hgb 10.6 L Hct 31.4 L MCV 87.5 MCH 29.5 MCHC 33.8 RDW Std Deviation 16.6 H Plt Count 277 MPV 9.5 Immature Gran % (Auto) 0.3 Neut % (Auto) 83.5 H Lymph % (Auto) 7.8 L [place] % (Auto) 4.5 Eos % (Auto) 3.6 Baso % (Auto) 0.3 Immature Gran # (Auto) 0.03 Neut # (Auto) 8.13 H Lymph # (Auto) 0.76 L [place] # (Auto) 0.44 Eos # (Auto) 0.35 Baso # (Auto) 0.03 PT INR PTT (Actin FS) D-Dimer Specimen Type ARTERIAL Sample Site R BRACHIAL pH 7.38 pCO2 36 pO2 155 H HCO3 22.3 Base Excess -3.4 L Oxyhemoglobin 96.5 ABG O2 Sat (Calculated) 13.9 L ABG O2 Saturation 99.4 ABG Carboxyhemoglobin 1.60 ABG Methemoglobin 1.3 Michel Test NO A-a O2 Difference 0.0 Total Hemoglobin 10.0 L Lactate 0.40 L Liter Flow 2.0 Blood Gas Modality CANNULA FiO2 % 28.0 Estimated GFR/1.73 m2 32 Troponin T Urine Source Urine Color Urine Turbidity Urine pH Ur Specific [place] Urine Protein Ur Glucose (Stick) Ur Ketones (Stick) Urine Blood Urine Nitrite Urine Bilirubin Urobilinogen Dipstick Urine Leukocytes Urine WBC (Auto) Urine RBC (Auto) U Epithel Cells (Auto) Urine Bacteria (Auto) 05/28/17 05/28/17 05/28/17 16:53 16:53 16:53 WBC RBC Hgb Hct MCV MCH MCHC RDW Std Deviation Plt Count MPV Immature Gran % (Auto) Neut % (Auto) Lymph % (Auto) [place] % (Auto) Eos % (Auto) Baso % (Auto) Immature Gran # (Auto) Neut # (Auto) Lymph # (Auto) [place] # (Auto) Eos # (Auto) Baso # (Auto) PT 10.9 INR 1.04 PTT (Actin FS) 28.7 D-Dimer 0.84 H Specimen Type Sample Site pH pCO2 pO2 HCO3 Base Excess Oxyhemoglobin ABG O2 Sat (Calculated) ABG O2 Saturation ABG Carboxyhemoglobin ABG Methemoglobin Michel Test A-a O2 Difference Total Hemoglobin Lactate Liter Flow Blood Gas Modality FiO2 % Estimated GFR/1.73 m2 Troponin T 0.227 H Urine Source Urine Color Urine Turbidity Urine pH Ur Specific [place] Urine Protein Ur Glucose (Stick) Ur Ketones (Stick) Urine Blood Urine Nitrite Urine Bilirubin Urobilinogen Dipstick Urine Leukocytes Urine WBC (Auto) Urine RBC (Auto) U Epithel Cells (Auto) Urine Bacteria (Auto) 05/28/17 16:58 WBC RBC Hgb Hct MCV MCH MCHC RDW Std Deviation Plt Count MPV Immature Gran % (Auto) Neut % (Auto) Lymph % (Auto) [place] % (Auto) Eos % (Auto) Baso % (Auto) Immature Gran # (Auto) Neut # (Auto) Lymph # (Auto) [place] # (Auto) Eos # (Auto) Baso # (Auto) PT INR PTT (Actin FS) D-Dimer Specimen Type Sample Site pH pCO2 pO2 HCO3 Base Excess Oxyhemoglobin ABG O2 Sat (Calculated) ABG O2 Saturation ABG Carboxyhemoglobin ABG Methemoglobin Michel Test A-a O2 Difference Total Hemoglobin Lactate Liter Flow Blood Gas Modality FiO2 % Estimated GFR/1.73 m2 Troponin T Urine Source CLEAN CATCH Urine Color YELLOW Urine Turbidity CLEAR Urine pH 6.0 Ur Specific [place] 1.015 Urine Protein 300 A Ur Glucose (Stick) 70 A Ur Ketones (Stick) NEGATIVE Urine Blood SMALL A Urine Nitrite NEGATIVE Urine Bilirubin NEGATIVE Urobilinogen Dipstick NORMAL Urine Leukocytes NEGATIVE Urine WBC (Auto) <10 Urine RBC (Auto) <10 U Epithel Cells (Auto) <10 Urine Bacteria (Auto) NEGATIVE Orders Category Date Time Status Cardiac Monitoring DIRECTED Care 05/28/17 15:50 Active Oxygen Therapy- ED Nursing DIRECTED Care 05/28/17 15:50 Active Saline Loc NOW Care 05/28/17 15:50 Active CHEST-PORTABLE [RAD] Stat Exams 05/28/17 15:50 Completed ABG [RESP] Routine Lab 05/28/17 16:00 Completed CBC WITH ELECTRONIC DIFF [HEME] Stat Lab 05/28/17 16:53 Completed CK PROFILE [SP CHEM] Stat Lab 05/28/17 16:53 Results COMPREHENSIVE METABOLIC PANEL [CHEM] Stat Lab 05/28/17 16:53 Results D-DIMER [CHEM] Stat Lab 05/28/17 16:53 Completed MAGNESIUM [CHEM] Stat Lab 05/28/17 16:53 Results PRO B-NATRIURETIC PEPTIDE Stat Lab 05/28/17 16:53 Received PROTIME WITH INR [COAG] Stat Lab 05/28/17 16:53 Completed PTT [COAG] Stat Lab 05/28/17 16:53 Completed TROPONIN T Stat Lab 05/28/17 16:53 Completed UA NIMS W/REFLEX CULT [URINALYSIS] Stat Lab 05/28/17 16:58 Completed URINE DRUG SCREEN MEDTOX Stat Lab 05/28/17 16:58 Received Aspirin Med 05/28/17 15:50 Discontinued 325 mg PO STAT STA Hydrocodone/APAP 5 mg/325 mg [[place]-5] Med 05/28/17 16:45 Discontinued 1 each PO NOW ONE EKG [EKG] Stat Ther 05/28/17 15:50 Ordered Result Diagrams: 05/28/17 16:53 05/28/17 16:53 - CHANGE OF SHIFT REPORT (ED Provider) Report Given and Care Transferred to:: Dr. Christie Time of Transfer: 18:00 Items Pending: Labs, CT/MRI Results, Other (Further work up for elevated D- dimer depending on renal function and final dispo) <Jorge Alberto Cotto - Last Filed: 05/30/17 07:32> Departure - Departure Date of Disposition Decision: 05/28/17 Time of Disposition Decision: 18:41 Certified Medical Emergency: Emergent - Critical Care Note This patient required my direct & personal management of CC.: No <Grant Christie - Last Filed: 05/28/17 18:40> - Departure Date of Disposition Decision: 05/28/17 Time of Disposition Decision: 18:41 Certified Medical Emergency: Emergent - Critical Care Note This patient required my direct & personal management of CC.: No <Jorge Alberto Cotto - Last Filed: 05/30/17 07:32> - Departure DIAGNOSIS: Chest pain Qualifiers: Chest pain type: chest pain due to myocardial ischemia Ischemic chest pain type : unstable angina pectoris Qualified Code(s): I20.0 - Unstable angina Disposition: ADMITTED INPATIENT 09 Condition: Fair Attestation - Physician/ MARY Attestation Patient care was provided by Advanced Practice Provider:: No The physician spent face to face time with patient:: Yes Advanced Practice Provider documentation review:: Supervising physician onsite and consulted in the evaluation and care of this patient. The physician did have a face to face encounter with the patient. <Grant Christie - Last Filed: 05/28/17 18:40> - Physician/ MARY Attestation Patient care was provided by Advanced Practice Provider:: No The physician spent face to face time with patient:: Yes Advanced Practice Provider documentation review:: Supervising physician onsite and consulted in the evaluation and care of this patient. The physician did have a face to face encounter with the patient. <Jorge Alberto Cotto - Last Filed: 05/30/17 07:32> This chart was documented by the indicated scribe, (Nubia Longoria Scribe) and accurately reflects the services I performed and decisions made by me, Jorge Alberto Cotto MD, as attested by the provider's signature.
[2017-05-28 18:02] LABS: CK INDEX 3.1 (0.0-2.5); CK-MB 14.45 ng/mL (0.0-5.0)
[2017-05-28 18:08] LABS: UR AMPHETAMINES MT NONE DETECTED (NONE DETECT); UR BARBITUATES MT NONE DETECTED (NONE DETECT); UR BENZODIAZ MT NONE DETECTED (NONE DETECT); UR CANNABIS MEDTOX NONE DETECTED (NONE DETECT); UR COCAINE MT NONE DETECTED (NONE DETECT); UR METHADONE MEDTOX NONE DETECTED (NONE DETECT); UR OPIATES MT PRESUMPTIVE POS (NONE DETECT); UR OXYCODONE MEDTOX NONE DETECTED (NONE DETECT); UR PCP MEDTOX NONE DETECTED (NONE DETECT)
[2017-05-28] MEDS ORDERED: HEPARIN IV ONE (18:37)
[2017-05-28] MEDS ORDERED: NITROGLYCERIN TOP ONE (18:38)
--- NOTE | 2017-05-28 18:40 | ED EKG INTERP ---
This chart was entered by Dakota Guevara Scribe, acting as scribe for Grant Christie MD. EKG Interpretation - EKG Time of EKG reading by physician:: 17:47 EKG Read and Signed by:: Grant Christie EKG Interpretation (*Must complete 3 of following elements*): Abnormal (Left anterior fascicular block; Minimal voltage criteria for LVH, may be normal variant; Septal infarct, age undetermined; T wave abnormality, consider lateral ischemia; No change from earlier today.) Rate: 73 Rhythm: NSR Attestation - Physician/ MARY Attestation Patient care was provided by Advanced Practice Provider:: No The physician spent face to face time with patient:: Yes Advanced Practice Provider documentation review:: Supervising physician onsite and consulted in the evaluation and care of this patient. The physician did have a face to face encounter with the patient. This chart was documented by the indicated scribe, (Dakota Guevara Scribe) and accurately reflects the services I performed and decisions made by me, Grant Beasley MD, as attested by the provider's signature.
[2017-05-28] MEDS ORDERED: HEPARIN 25,000 UNITS/D5W 25,000 UNIT/250 ML IV.SOLN IV SCH (18:45)
[2017-05-28] MEDS ORDERED: LOVENOX SUBQ SCH (20:30)
[2017-05-28] MEDS ORDERED: NORCO-5 PO PRN (20:37)
[2017-05-28] MEDS ORDERED: TYLENOL PO PRN (20:37)
[2017-05-28] MEDS ORDERED: NITROGLYCERIN SL PRN (21:00)
[2017-05-28] MEDS ORDERED: LIPITOR PO SCH (21:00)
[2017-05-28 21:54] LABS: CK INDEX 3.3 (0.0-2.5); CK-MB 12.78 ng/mL (0.0-5.0)
[2017-05-28] MEDS: COREG PO SCH (21:59)
[2017-05-28] MEDS: PLAVIX PO SCH (21:59)
[2017-05-28] MEDS: LASIX PO SCH (21:59)
[2017-05-28] MEDS: NITROGLYCERIN TOP SCH (21:59)
[2017-05-28] MEDS: NEURONTIN PO SCH (21:59)
[2017-05-28 22:53] LABS: HEMOGLOBIN A1C 7.6 % (4.8-6.0)
--- NOTE | 2017-05-29 02:13 | HISTORY AND PHYSICAL ---
REASON FOR ADMISSION: Chest pain. HISTORY OF PRESENT ILLNESS: Mohan Ventura is a 61-year-old man well known to our service with multiple admissions to our service and outside our service. This is his 3rd presentation to the ER in the last 24 hours. He informs us that about a month ago he had a cardiac cath at [facility] and no intervention was done, only medical management was suggested. He has a past medical history of coronary artery disease, CKD, peripheral artery disease status post lower extremity amputation, hypertension, type 2 diabetes, ischemic cardiomyopathy with EF of 35-40%, hyperlipidemia, chronic low back pain and opioid dependence. On prior admissions he has come in and signed out AMA when he never got pain medication. On this occasion, he comes with chest pain which he says is throbbing in the precordial area with no specific radiation. He says the pain is worse with slight movement or when he takes a breath. He says he has a chronic cough but this is dry. He denies any fever or chills. He says he has been having some nausea with this and some diaphoresis but no vomiting. He denies any orthopnea, PND, swelling of his abdomen or his extremities. Denies any other additional GI complaints. He said the pain was initially intermittent yesterday but has become constant. REVIEW OF SYSTEMS: System review was essentially unremarkable. No polyuria or polydipsia. No genitourinary complaints. No focal neurological complaints. FAMILY HISTORY: Significant for heart disease and diabetes. SURGICAL HISTORY: Right and left [id number] amputations, 4 back surgeries, cholecystectomy, coronary artery stenting. SOCIAL HISTORY: States that he is not actively smoking. Lives alone. Does not use alcohol or use illicit drugs. CURRENT LAB WORK: EKG showed left anterior hemiblock versus left axis deviation. He has voltage criteria for LVH. Normal sinus rhythm with Q-waves in V1 and V2 with a few abnormalities in the lateral leads but no change from the earlier EKG. White count 9000, hemoglobin and hematocrit 10 and 31, platelets 277,000 with 83% neutrophils. BUN is 55, creatinine 2.1 which is his baseline. Blood gas, 7.3, pCO2 35, PO2 155 on 2 L. Urinalysis shows 300 protein, 70 glucose. Urine drug screen positive for opiates. D-dimer 0.84.. CK 472 with an index of 3.1. ProBNP 27,000, troponin 0.227. Glucose 140. HOME MEDICATION LIST: This has not been reconciled and the list we have here just lists him taking Tylenol, aspirin, Coreg, Flexeril, Pepcid, folic acid, Lasix, Neurontin, Lantus, lisinopril, Robaxin, naproxen, sublingual nitroglycerin, oxycodone, pravastatin , senna and Flomax. PHYSICAL EXAMINATION: VITAL SIGNS: Blood pressure 164/84, heart rate 79, respirations 17, temperature is 97.7, 100% on 2 L. GENERAL: He is a middle-aged man who is alert and oriented to person , time, with normal mood and affect, not in acute distress. HEENT: Head is normocephalic, atraumatic. Eyes ЮЛИЯ, EOMI. He is anicteric, not pale. ENT and oropharynx are grossly normal. NECK: Supple. No JVD or carotid bruit. No thyromegaly. CHEST: Clear to auscultation with good air entry both lung walsh. CARDIOVASCULAR: First and second heart sounds heard. No gallops, murmurs, rubs. Rhythm is regular. ABDOMEN: Slightly protuberant, soft, nontender. No tenderness. No masses or organomegaly. Hyperactive bowel sounds. No bruit heard. RECTAL: Exam is deferred. EXTREMITIES: Patient has bilateral [id number]-pch-[id number] amputations with very superficial chronic ulcerations anteriorly on both legs. No breakdown elsewhere on his stumps. He has good femoral pulses bilaterally. No edema noted. No clubbing in the upper extremities. NEUROLOGICAL: No focal deficits. SKIN: See above. Otherwise grossly normal. MUSCULOSKELETAL: Exam is grossly normal. ASSESSMENT: 1. Chest pain with abnormal CKs, normal CK index. 2. Coronary artery disease. 3. Peripheral arterial disease. 4. Anemia of chronic kidney disease. 5. Chronic kidney disease stage 4. 6. Type 2 diabetes with nephropathy. 7. Hyperlipidemia. 8. Chronic pain syndrome with opioid dependence. 9. Ischemic cardiomyopathy with ejection fraction of 35-40%. PLAN: At this time, the patient's case was discussed with Dr. Hammond, cake puncher specialty finishing utility person, who recommended admission. We will admit the patient. Patient will have serial cardiac enzymes drawn and if cardiac enzymes escalate cake puncher will be notified. Nitro paste will be instituted. Only sparingly opiates will be given. In the meantime, we will add on Plavix together with aspirin and start him on a more potent statin. Continue with beta blockers. Continue with Cozaar and diuretics for his CHF. Dr. Hammond will see patient in the a.m. and make further recommendations barring any unforeseen circumstances. Regarding his diabetes, we will put him on Lantus 5 units and continue with sliding scale. I discontinued lisinopril and switched him on Cozaar because of his chronic cough. Hopefully this will make some change. cc: Shakeel Morel MD MTDD
[2017-05-29] MEDS: NITROGLYCERIN TOP SCH (04:52)
[2017-05-29 05:32] LABS: CK INDEX 3.5 (0.0-2.5); CK-MB 10.63 ng/mL (0.0-5.0)
[2017-05-29] MEDS ORDERED: PRILOSEC PO SCH (07:00)
[2017-05-29] MEDS ORDERED: OFIRMEV 1000 MG/ISOTONIC SOLN 1,000 MG/100 ML BOTTLE IV PRN (08:08)
[2017-05-29] MEDS ORDERED: FOLIC ACID PO SCH (09:00)
[2017-05-29] MEDS ORDERED: PEPCID PO SCH (09:00)
[2017-05-29] MEDS ORDERED: COZAAR PO SCH (09:00)
[2017-05-29] MEDS ORDERED: ASPIRIN PO SCH ×2 (09:00→10:35)
[2017-05-29] MEDS ORDERED: PERICOLACE PO SCH (09:00)
[2017-05-29] MEDS ORDERED: FLOMAX PO SCH (09:00)
[2017-05-29] MEDS ORDERED: LANTUS SUBQ SCH (09:00)
[2017-05-29] MEDS: PLAVIX PO SCH (10:53)
[2017-05-29] MEDS: LASIX PO SCH (10:54)
[2017-05-29] MEDS: COREG PO SCH (10:54)
[2017-05-29] MEDS: NEURONTIN PO SCH (10:54)
--- NOTE | 2017-05-29 11:07 | CONSULTATION ---
DATE OF CONSULTATION: 05/29/2017 INDICATION: Chest pain. HISTORY OF PRESENT ILLNESS: Mr. Ventura is an unfortunate 61-year-old white male with a history of an ischemic cardiomyopathy. He is well known to the cardiology service. He normally follows with Dr. Hammond; however has not made any of his recent appointments including 3 missed appointments over the last 3 months. He has had multiple hospital visits including several ER visits here to [place], as well as over in [place] with at least 5 in [place] since early March, and many more here over that time period as well. He presented for evaluation of chest pain that has been ongoing for what seems like at least 12+ hours. This has been continuous. There has been no real exertional component to it with the exception that he had some worsening of the discomfort when he rolls over in bed. There is no pleuritic component. The pain is described as a throbbing sensation in his precordial area. He reports it is 8/10 currently although I had to wake him up when I presented in the room and he nodded off several times during the visit. There is no reproducible component to it. Notably, he had a cardiac cath on April 18 that demonstrated nonobstructive coronary disease with a patent LAD stent. At that time, he had cardiac enzyme elevations with troponins in the mid 0.2 range. At that time, medical management was undertaken. No nausea or vomiting. He reports compliance with his medications. PAST MEDICAL HISTORY: 1. Significant for ischemic cardiomyopathy. Last cardiac cath was April 18 demonstrating a normal left main. LAD had a stent in the proximal portion after high 1st diagonal. 30% disease was noted within the LAD portion of the stent. There is another smaller mid LAD stent just after the diagonal which was patent. The second diagonal had mild luminal irregularities of around 10% or so. Circumflex had 20% disease in the proximal OM. RCA was heavily calcified but was only 20% obstruction. The ejection fraction at that time by echo was 20-25% with severe hypokinesis of the mid anterior septal and apical segments. 2. Hypertension. 3. Hyperlipidemia. 4. Diabetes. 5. Chronic kidney disease. 6. COPD with home oxygen use. 7. Chronic pain with a history of frequent ER evaluations. 8. Peripheral arterial disease with history of bilateral burql-mch-[id number] amputations SOCIAL HISTORY: Denies actively smoking. He lives alone. No alcohol or illicit drugs. FAMILY HISTORY: Significant for diabetes and hypertension. REVIEW OF SYSTEMS: A 10 system review of systems is negative except for those things mentioned in HPI. PHYSICAL EXAMINATION: Vital signs: During this hospitalization he has been afebrile. Most recently his pulse rate was 68, blood pressure 157/89. General: He is in no acute distress. HEENT: Oropharynx is moist. He has poor dentition. His eye examination is clear conjunctivae white sclerae. Neck,: Examination shows no obvious thyromegaly or thyroid tenderness. Cardiovascular: He is in a regular rate and rhythm. He has no obvious murmurs. He has no S3. Extremities: He has trace lower extremity edema it in his bilateral lower extremities, although BKAs are noted. Chest exam: Is relatively clear with poor inspiratory effort. Again, the patient was nodding off during the examination on several occasions. Abdomen: Soft, nontender. Skin Exam: Warm and dry throughout. He did have some mild abrasions to the distal portions of the stones bilaterally that appeared to be healing. Psychiatric: He seems oriented to the current situation although he was nodding off of several times during the evaluation. PERTINENT DATA: He had an EKG during this hospitalization that demonstrated sinus rhythm, rate of 73 beats per minute that was at 17:47. There does appear to be evidence of anterior infarct with poor R-wave progression noted. The echo and cath findings noted above in the past medical history. Those were performed in March at [facility]. He had a chest x-ray performed during this hospitalization demonstrating a slightly shallow inspiration but mild prominence of interstitial markings, but no effusions noted. No focal infiltrates. LABORATORY DATA: Shows white count of 9.7, his hematocrit is 31. His platelet count is 277,000. His D-dimer 0.8, his INR is 1.0. His ABG was reviewed. His sodium is 139, potassium 3.8, his BUN is 55, creatinine 2.1 which seems relatively stable over the recent time period. His A1c is 7.6. His liver enzymes appear unremarkable. His albumin is 3.1. His cardiac enzymes were elevated with an initial check on the at 0.235, most recent is 0.207. Notably the patient has had multiple troponin checks since September,; I would say approaching 20-30 of these. Every 1 of those levels has been elevated over that time period. In addition, his troponin was elevated at the time of his catheterization on April 17, and those were elevated as well in the 0.27 [place] [address]. His LDL was 67. His UDS was positive for opiates. ASSESSMENT: Chest pain in a patient with a known history of ischemic cardiomyopathy. PLAN: Would likely not pursue any further ischemia evaluation of the patient given that he had a recent cardiac cath that showed nonobstructive disease in the setting of elevated cardiac enzymes. His EKG does not seem to show any acute findings and his symptoms are somewhat atypical. The patient also has a long history of noncompliance with medical followup including 3 missed appointments just within the last few months and seems to prefer to get most of his care in the ERs in the area. I have recommended to the patient that he follow up with Dr. Hammond who has been assigned him after Dr. Ac was transferred to another clinic. His blood pressure is somewhat elevated today. I would take that opportunity to try to titrate his antihypertensives. We could preferentially use antianginals in this case. He is on lisinopril 20 mg daily, carvedilol 12.5 b.i.d. To that regimen I would add in amlodipine 5 mg daily. I would not repeat an echo in this patient given that he had one just a month ago. Again I would not perform an ischemia evaluation at this point. I believe we can also cancel the troponins which were significantly elevated and again have been so for many checks over the last almost 2 years. cc: Obi Madrigal MD
[2017-05-29] MEDS ORDERED: TYLENOL PO ONE (14:42)
[2017-05-29 14:45] VITALS: BP 159/72
--- NOTE | 2017-05-30 07:26 | DISCHARGE SUMMARY ---
ADMISSION DATE: 05/28/2017 DISCHARGE DATE: 05/29/2017 CONSULTATIONS: Dr. Obi Madrigal with Cardiology. PERTINENT PROCEDURES: Chest x-ray showed slightly shallow inspiration, stable mild prominence of interstitial markings. DISCHARGE DIAGNOSES: 1. Ischemic cardiomyopathy. Left heart catheterization on 04/18/2017 demonstrated a normal left main, left anterior descending had a stent in the proximal portion after a high first diagonal, 30% disease was noted in the left anterior descending portion of the stent, another smaller mid left anterior descending stent just after the diagonal was patent, the second diagonal had luminal irregularities of around 10% or so, circumflex had 20% disease in the proximal obtuse marginal, right coronary artery was heavily calcified, but was only 20% obstructed, the ejection fraction by echocardiogram was 20% to 25% with severe hypokinesis of the mid anterior septal and apical segments. Cardiology does not plan for any further ischemia evaluation given that the patient just had a recent cardiac catheterization. Again, that showed nonobstructive disease in the setting of elevated cardiac enzymes. His electrocardiogram did not show any acute findings. His symptoms are atypical, as well as a long history of noncompliance with medical followup. He has missed 3 appointments with Cardiology in the last few months. He has gotten most of his care from surrounding emergency departments in the area. We continue to recommend followup with Dr. Hammond, and in light of his blood pressure being somewhat elevated, Dr. Madrigal titrated his antihypertensives with an antianginal with amlodipine 5 mg daily. Stable for discharge. Continue on previous home medications. 2. Peripheral artery disease. 3. Anemia of chronic kidney disease. 4. Chronic kidney disease stage 4. 5. Type 2 diabetes with neuropathy. 6. Hyperlipidemia. 7. Chronic pain syndrome with opiate dependence. 8. Chest pain in the setting of ischemic cardiomyopathy, see #1. 9. Chronic obstructive pulmonary disease with home oxygen use. 10. Medical noncompliance. The patient has been educated on medication as well as physician followup compliance. HOSPITAL COURSE: Mr. Ventura is a 61-year-old male, well known to our service for ischemic cardiomyopathy. He was followed by Dr. Ac, and switched to Dr. Hammond when Dr. Ac left the service. He is well known to the Hospitalist Service for multiple admissions to our service, as well as outside of our service. This is his third presentation to the ED in 24 hours. He had a heart catheterization a month ago done at [facility] with no intervention, only medical management. On prior admissions, he has come in and signed out AGAINST MEDICAL ADVICE when he never got pain medications. On this specific occasion, he came in with chest pain, which he says is throbbing in the precordial area, with no specific radiation. The pain is worse with slight movement or when he takes a breath. He states he has a chronic cough that is dry. No fever or chills. Does state he has been having some nausea, but no diaphoresis or vomiting. He said initially the pain was intermittent the day before, but it had now become constant. The case was discussed with Dr. Hammond, the business development representative who was on-call. Because the patient is unknown to Dr. Hammond, he recommended admission to have serial cardiac enzymes drawn, and he was placed on nitropaste, and only given sparing opiate. Dr. Madrigal has seen Mr. Ventura today. He would not pursue any further ischemic evaluation given that he just had a recent cardiac cath at [facility] that showed nonobstructive disease in the setting of elevated cardiac enzymes. His EKG does not show any acute findings, his symptoms are somewhat atypical, and with his long history of noncompliance with medical followup, including 3 missed appointments within the last few months. He recommends that the patient follow up with Dr. Hammond, and with his blood pressure being elevated, he has taken the opportunity to titrate up his antihypertensives with Norvasc 5 mg daily, and he feels that he is also appropriate for discharge home today. VITAL SIGNS: Temperature is 97.9 degrees, heart rate 73, respirations 17, blood pressure 157/89, O2 is 100% on room air. DISCHARGE DIET: Healthy heart. DISCHARGE MEDICATIONS: 1. Tylenol 650 mg p.o. every 6 hours p.r.n. 2. Norvasc 5 mg p.o. daily. This is a new prescription. 3. Aspirin 81 mg p.o. daily. 4. Coreg 12.5 mg p.o. b.i.d. 5. Flexeril 10 mg p.o. t.i.d. p.r.n. 6. Pepcid 20 mg p.o. daily. 7. Folic acid 1 mg p.o. daily. 8. Lasix 40 mg p.o. daily. 9. Neurontin 100 mg p.o. b.i.d. 10. Lantus 5 units subcutaneously daily. 11. Lisinopril 20 mg p.o. daily. 12. Robaxin 750 mg p.o. daily. 13. Naproxen 250 mg p.o. b.i.d. 14. Nitroglycerin 0.4 mg/hour patch topical p.r.n. 15. Percocet 5 one each p.o. every 8 hours p.r.n. 16. Pravachol 80 mg p.o. daily. 17. Senokot S one tablet p.o. daily. 18. Flomax 0.4 mg p.o. daily. FOLLOWUP: Mr. Ventura is being discharged back home with home health with [facility]. He is to follow up with Todd More, his PCP in 1 week, as well as Dr. Hammond on 06/22/2017 at 9:45 a.m. He can return to the ED for any worsening of symptoms. TIME SPENT: Discharge time was 30 minutes. Dictated by WILLIS Macedo for Ti Craig MD cc: MD Todd Gongora MD
[2017-05-30] MEDS ORDERED: NORVASC PO SCH (09:00)
== END 2017-05-29 16:38 | disposition home health service (06) ==
LOC: 3N 15:16 → ED 15:16 → SUATTDRO 19:11
PROVIDERS: ATTEND Internal Medicine

== ENCOUNTER 2017-06-16 08:20 | Inpatient (IN) ==
[2017-06-16] MEDS ORDERED: ZOFRAN IV ONE (08:56)
[2017-06-16] MEDS ORDERED: NS 1,000 ML IV ONE (08:56)
[2017-06-16 09:19] LABS: BASO% 0.1 % (0.0-0.8); EOS# 0.02 X1000 (0.0-0.7); EOS% 0.1 % (0.0-10.0); HEMATOCRIT 28.2 % (42.0-52.0); HEMOGLOBIN 9.3 g/dL (14.0-18.0); IMM GRAN# 0.05 X1000 (0.0-0.04); IMM GRAN% 0.3 % (0.0-0.5); LYMPH# 0.21 X1000 (1.2-3.4); LYMPH% 1.1 % (20.5-51.1); MANUAL DIFF NEEDED? NO; MCH 29.4 PG (27-31); MCV 89.2 FL (81-99); MONO# 0.66 X1000 (0.11-0.59); MONO% 3.3 % (1.7-9.3); MPV 10.7 FL (7.4-10.4); NEUT% 95.1 % (42.2-75.2); PLT 177 X1000 (130-400); RBC 3.16 XMIL (4.7-6.1)
[2017-06-16] MEDS ORDERED: TORADOL ONE (09:28)
[2017-06-16 09:29] LABS: INR 1.16; PROTIME 12.3 Seconds (9.2-11.7); PTT 36.2 Seconds (22.0-36.0)
[2017-06-16] MEDS ORDERED: TORADOL IV ONE (09:31)
[2017-06-16 09:47] LABS: ALLEN TEST YES; BLOOD TYPE ARTERIAL; DRAW SITE R RADIAL; METHB 1.4 % (0.0-1.5); PCO2(98.6) 26 mmHg (35-45); PO2(98.6) 96 mmHg (60-100); SAMPLE BLOOD; SAO2 99.5 % (95.0-100.0); THB 8.8 g/dL (11.5-17.4); pH(98.6) 7.45 (7.35-7.45)
[2017-06-16 09:48] LABS: MODALITY CANNULA
[2017-06-16 09:58] LABS: ALBUMIN 3.2 g/dL (3.5-5.0); POTASSIUM 4.2 mmol/L (3.5-5.1); TOTAL PROTEIN 5.7 g/dL (6.3-8.3)
[2017-06-16 10:07] LABS: URINE MICRO REVIEW NEEDED? NO; URINE SOURCE CATH
[2017-06-16] MEDS ORDERED: ASPIRIN PO ONE (10:11)
[2017-06-16] MEDS ORDERED: ROCEPHIN 2 GM in NS 50 ML IV ONE (10:23)
[2017-06-16 10:26] LABS: UR EPITHELIAL CELLS <10 /HPF (<10); URINE BACTERIA 2+ /HPF; URINE RBC TNTC /HPF (<10); URINE WBC TNTC /HPF (<10)
[2017-06-16 10:30] LABS: CK INDEX 1.8 (0.0-2.5); CK-MB 10.07 ng/mL (0.0-5.0)
[2017-06-16 10:38] LABS: COLOR YELLOW; TURBIDITY URINE CLEAR (CLEAR)
[2017-06-16 10:39] LABS: GLUCOSE URINE 300 mg/dL (NEGATIVE)
[2017-06-16 10:40] LABS: BILIRUBIN URINE SMALL (NEGATIVE); BLOOD URINE LARGE (NEGATIVE)
[2017-06-16 10:41] LABS: PH URINE 6.5
[2017-06-16 10:42] LABS: NITRITE URINE NEGATIVE (NEGATIVE); PROTEIN URINE 300 mg/dL (NEGATIVE); UROBILINOGEN URINE 2 mg/dL (NORMAL)
[2017-06-16 10:43] LABS: LEUKOCYTES URINE NEGATIVE (NEGATIVE); URINE CULTURE NEEDED? YES
[2017-06-16 10:47] LABS: UR AMPHETAMINES QUAL NONE DETECTED (NONE DETECT); UR BARBITUATES QUAL NONE DETECTED (NONE DETECT); UR BENZODIAZEPIN QUAL NONE DETECTED (NONE DETECT); UR CANNABINOIDS QUAL NONE DETECTED (NONE DETECT); UR COCAINE QUAL NONE DETECTED (NONE DETECT); UR METHADONE QUAL NONE DETECTED (NONE DETECT); UR OPIATES QUAL PRESUMPTIVE POSITIVE (NONE DETECT); UR OXYCODONE QUAL PRESUMPTIVE POSITIVE (NONE DETECT); UR PCP QUAL NONE DETECTED (NONE DETECT)
[2017-06-16] MEDS ORDERED: ZOFRAN IV PRN (11:49)
[2017-06-16] MEDS ORDERED: NITROGLYCERIN TOP ONE (11:53)
[2017-06-16] MEDS ORDERED: HEPARIN 25,000 UNIT in NS 250 ML IV SCH ×2 (12:00→16:48)
[2017-06-16] MEDS: ZOSYN 2.25 GM in NS 50 ML IV SCH ×2 (15:52→18:38)
[2017-06-16] MEDS: NORCO-7.5 PO PRN ×2 (16:08→21:57)
[2017-06-16] MEDS: HUMALOG SUBQ SCH ×2 (16:09→20:42)
[2017-06-16] MEDS ORDERED: MORPHINE IV ONE (17:00)
[2017-06-16 17:12] LABS: URIC ACID 7.8 mg/dL (3.4-7.0)
[2017-06-16 18:36] LABS: CK INDEX 1.5 (0.0-2.5); CK-MB 8.4 ng/mL (0.0-5.0)
[2017-06-16] MEDS: MIRALAX PO SCH (20:43)
[2017-06-16] MEDS: DULCOLAX PR SCH (20:43)
[2017-06-16] MEDS ORDERED: VANCOMYCIN IV PER PHARMACY MISC SCH (20:45)
[2017-06-16] MEDS ORDERED: VANCOMYCIN 1.5 GM in NS 250 ML IV SCH (22:00)
[2017-06-17] MEDS: ZOSYN 2.25 GM in NS 50 ML IV SCH ×4 (00:19→20:09)
[2017-06-17 01:26] LABS: CK INDEX 1.5 (0.0-2.5); CK-MB 8.1 ng/mL (0.0-5.0)
[2017-06-17] MEDS: NORCO-7.5 PO PRN ×2 (05:32→13:11)
[2017-06-17 06:25] LABS: ALBUMIN 2.3 g/dL (3.5-5.0); CALCIUM 7.7 mg/dL (8.8-10.2); POTASSIUM 4.6 mmol/L (3.5-5.1)
[2017-06-17 06:32] LABS: HEMATOCRIT 25.5 % (42.0-52.0); HEMOGLOBIN 8.4 g/dL (14.0-18.0); MCH 30.3 PG (27-31); MCHC 32.9 g/dL (33-37); MCV 92.1 FL (81-99); RBC 2.77 XMIL (4.7-6.1)
[2017-06-17] MEDS: PROTONIX IV SCH (06:43)
[2017-06-17] MEDS: HUMALOG SUBQ SCH ×4 (06:44→20:06)
[2017-06-17] MEDS ORDERED: HEPARIN 25,000 UNIT in NS 250 ML IV SCH (10:00)
[2017-06-17] MEDS: MIRALAX PO SCH ×2 (10:00→20:06)
[2017-06-17] MEDS: HEPARIN 25,000 UNIT in NS 250 ML IV SCH (10:21)
[2017-06-17] MEDS: LASIX SCH (13:52)
[2017-06-17] MEDS: PERCOCET-10 PO PRN ×2 (15:26→20:09)
[2017-06-17 18:10] LABS: HOURS 24 Hrs
[2017-06-17 18:48] LABS: CREATININE CLEARANCE 6 mL/MIN (85-125); UR CREATININE 143.2 mg/dL (14-26); UR CREATININE TOTAL 286.4 mg/24 (800-1800); UR PROTEIN > 600.0 mg/dL
[2017-06-17] MEDS: DULCOLAX PR SCH (20:11)
[2017-06-18] MEDS: PERCOCET-10 PO PRN ×5 (02:03→20:00)
[2017-06-18] MEDS: LASIX SCH ×2 (02:04→13:43)
[2017-06-18] MEDS: HEPARIN 25,000 UNIT in NS 250 ML IV SCH (02:30)
[2017-06-18] MEDS: ZOSYN 2.25 GM in NS 50 ML IV SCH (04:28)
[2017-06-18 05:49] LABS: HEMATOCRIT 26.6 % (42.0-52.0); HEMOGLOBIN 8.7 g/dL (14.0-18.0); MCH 30.3 PG (27-31); MCHC 32.7 g/dL (33-37); MCV 92.7 FL (81-99); MPV 10.9 FL (7.4-10.4); RBC 2.87 XMIL (4.7-6.1)
[2017-06-18 06:02] LABS: ALBUMIN 2.5 g/dL (3.5-5.0); IRON SATURATION 12 %; POTASSIUM 4.7 mmol/L (3.5-5.1); TIBC 160 ug/dL; TOTAL IRON 19 ug/dL (53-167); UNBOUND IRON 141 ug/dL (112-346)
[2017-06-18] MEDS: HUMALOG SUBQ SCH ×4 (06:15→20:01)
[2017-06-18] MEDS: PROTONIX IV SCH (06:15)
[2017-06-18 06:59] LABS: FERRITIN 1501 ng/mL (30-400)
[2017-06-18] MEDS: SENOKOT PO SCH (08:08)
[2017-06-18] MEDS: MIRALAX PO SCH ×2 (08:11→20:00)
[2017-06-18] MEDS ORDERED: AMITIZA PO ONE (09:00)
[2017-06-18] MEDS: NITROGLYCERIN TOP SCH ×2 (10:59→16:42)
[2017-06-18] MEDS: ASPIRIN PO SCH (10:59)
[2017-06-18] MEDS: CUBICIN 700 MG in NS 100 ML IV SCH (16:42)
[2017-06-18] MEDS: COREG PO SCH (20:00)
[2017-06-18] MEDS ORDERED: HEPARIN SUBQ SCH (21:00)
[2017-06-18] MEDS: DULCOLAX PR SCH (21:34)
[2017-06-19] MEDS: LASIX SCH (00:08)
[2017-06-19] MEDS: PERCOCET-10 PO PRN ×2 (00:08→06:26)
[2017-06-19] MEDS: NITROGLYCERIN TOP SCH ×5 (00:08→22:16)
[2017-06-19 05:24] LABS: BASO% 0.1 % (0.0-0.8); EOS# 0.44 X1000 (0.0-0.7); EOS% 2.7 % (0.0-10.0); HEMATOCRIT 25.6 % (42.0-52.0); HEMOGLOBIN 8.6 g/dL (14.0-18.0); IMM GRAN# 0.07 X1000 (0.0-0.04); IMM GRAN% 0.4 % (0.0-0.5); LYMPH# 0.48 X1000 (1.2-3.4); LYMPH% 2.9 % (20.5-51.1); MANUAL DIFF NEEDED? YES; MCH 29.9 PG (27-31); MCHC 33.6 g/dL (33-37); MCV 88.9 FL (81-99); MONO# 0.63 X1000 (0.11-0.59); MONO% 3.9 % (1.7-9.3); MPV 11.1 FL (7.4-10.4); PLT 160 X1000 (130-400); RBC 2.88 XMIL (4.7-6.1)
[2017-06-19 06:00] LABS: ALBUMIN 2.5 g/dL (3.5-5.0); CALCIUM 8.2 mg/dL (8.8-10.2); MAGNESIUM 1.9 mg/dL (1.5-2.7); POTASSIUM 5.2 mmol/L (3.5-5.1)
[2017-06-19] MEDS: PROTONIX IV SCH ×2 (06:27→21:02)
[2017-06-19 06:36] LABS: BANDS 4 % (0-1); EOS 4 % (1-10); LYMPHS 3 % (21-51); MONO 2 % (1-9)
[2017-06-19] MEDS: HUMALOG SUBQ SCH ×4 (06:36→21:03)
[2017-06-19] MEDS: ASPIRIN PO SCH (08:03)
[2017-06-19] MEDS: SENOKOT PO SCH (08:36)
[2017-06-19] MEDS: COREG PO SCH ×2 (08:36→21:03)
[2017-06-19] MEDS: FLOMAX PO SCH (08:37)
[2017-06-19] MEDS: MIRALAX PO SCH ×2 (08:37→21:03)
[2017-06-19] MEDS: NORCO-10 PO PRN ×2 (10:59→22:15)
[2017-06-19] MEDS ORDERED: LASIX SCH (12:17)
[2017-06-19] MEDS ORDERED: LASIX IV SCH (13:50)
[2017-06-19] MEDS ORDERED: MORPHINE IV ONE (15:18)
[2017-06-19] MEDS: LASIX 200 MG in NS 25 ML IV SCH (15:33)
[2017-06-19 16:37] LABS: DIFF NEEDED? NO
[2017-06-19] MEDS: TORADOL IV SCH ×2 (16:44→22:16)
[2017-06-19] MEDS: SOLU-MEDROL IV SCH ×2 (16:44→22:16)
[2017-06-19 16:48] LABS: WBC BF 1 /cumm
[2017-06-19] MEDS: HEPARIN SUBQ SCH (21:02)
[2017-06-19] MEDS: DULCOLAX PR SCH (21:07)
[2017-06-20] MEDS: LASIX 200 MG in NS 25 ML IV SCH ×3 (02:55→14:54)
[2017-06-20] MEDS: TORADOL IV SCH ×4 (04:24→20:56)
[2017-06-20] MEDS: SOLU-MEDROL IV SCH ×4 (04:24→20:56)
[2017-06-20] MEDS: NORCO-10 PO PRN ×2 (04:24→11:00)
[2017-06-20] MEDS: NITROGLYCERIN TOP SCH ×4 (04:24→20:57)
[2017-06-20 05:12] LABS: BASO% 0.1 % (0.0-0.8); HEMATOCRIT 27.3 % (42.0-52.0); HEMOGLOBIN 8.9 g/dL (14.0-18.0); IMM GRAN# 0.08 X1000 (0.0-0.04); IMM GRAN% 0.5 % (0.0-0.5); LYMPH# 0.21 X1000 (1.2-3.4); LYMPH% 1.2 % (20.5-51.1); MANUAL DIFF NEEDED? NO; MCHC 32.6 g/dL (33-37); MCV 88.9 FL (81-99); MONO# 0.05 X1000 (0.11-0.59); MONO% 0.3 % (1.7-9.3); MPV 11.2 FL (7.4-10.4); NEUT% 97.9 % (42.2-75.2); PLT 166 X1000 (130-400); RBC 3.07 XMIL (4.7-6.1)
[2017-06-20 05:48] LABS: ALBUMIN 2.4 g/dL (3.5-5.0); CALCIUM 8.1 mg/dL (8.8-10.2); MAGNESIUM 1.9 mg/dL (1.5-2.7)
[2017-06-20 06:10] LABS: POTASSIUM 6.1 mmol/L (3.5-5.1)
[2017-06-20] MEDS: HUMALOG SUBQ SCH ×4 (06:14→20:57)
[2017-06-20] MEDS ORDERED: VELTASSA PO ONE (07:48)
[2017-06-20 08:54] LABS: HEMOGLOBIN A1C 7.6 % (4.8-6.0)
[2017-06-20] MEDS: SENOKOT PO SCH (09:30)
[2017-06-20] MEDS: PROTONIX IV SCH ×2 (09:30→20:56)
[2017-06-20] MEDS: ASPIRIN PO SCH (09:30)
[2017-06-20] MEDS: FLOMAX PO SCH (09:30)
[2017-06-20] MEDS: COREG PO SCH ×2 (09:30→20:56)
[2017-06-20] MEDS: HEPARIN SUBQ SCH ×2 (09:30→20:56)
[2017-06-20] MEDS: SODIUM CHLORIDE 0.9% INJ SCH (09:30)
[2017-06-20] MEDS: MIRALAX PO SCH ×2 (09:31→20:56)
[2017-06-20] MEDS ORDERED: XANAX PO ONE (10:43)
[2017-06-20] MEDS: CUBICIN 700 MG in NS 100 ML IV SCH (17:40)
[2017-06-20] MEDS: DULCOLAX PR SCH (20:56)
[2017-06-21] MEDS: NORCO-10 PO PRN ×2 (02:29→22:08)
[2017-06-21] MEDS: TORADOL IV SCH ×3 (02:54→08:51)
[2017-06-21] MEDS: SOLU-MEDROL IV SCH ×5 (02:54→20:14)
[2017-06-21] MEDS: NITROGLYCERIN TOP SCH ×4 (03:04→14:14)
[2017-06-21] MEDS: LASIX 200 MG in NS 25 ML IV SCH ×2 (04:38→14:14)
[2017-06-21] MEDS: HUMALOG SUBQ SCH ×4 (06:08→22:08)
[2017-06-21 07:10] LABS: EOS# 0.01 X1000 (0.0-0.7); EOS% 0.1 % (0.0-10.0); HEMATOCRIT 25.1 % (42.0-52.0); HEMOGLOBIN 8.5 g/dL (14.0-18.0); IMM GRAN% 0.6 % (0.0-0.5); LYMPH# 0.37 X1000 (1.2-3.4); LYMPH% 2.1 % (20.5-51.1); MANUAL DIFF NEEDED? YES; MCH 29.1 PG (27-31); MCHC 33.9 g/dL (33-37); MONO# 0.31 X1000 (0.11-0.59); MONO% 1.7 % (1.7-9.3); MPV 10.8 FL (7.4-10.4); NEUT% 95.5 % (42.2-75.2); PLT 197 X1000 (130-400); RBC 2.92 XMIL (4.7-6.1)
[2017-06-21 07:20] LABS: BANDS 8 % (0-1); LYMPHS 2 % (21-51)
[2017-06-21 07:29] LABS: ALBUMIN 2.5 g/dL (3.5-5.0); CALCIUM 7.8 mg/dL (8.8-10.2)
[2017-06-21 07:42] LABS: POTASSIUM 5.9 mmol/L (3.5-5.1)
[2017-06-21] MEDS: SODIUM CHLORIDE 0.9% INJ SCH (08:50)
[2017-06-21] MEDS: HEPARIN SUBQ SCH ×2 (08:51→20:13)
[2017-06-21] MEDS: MIRALAX PO SCH (08:51)
[2017-06-21] MEDS: ASPIRIN PO SCH (08:51)
[2017-06-21] MEDS: COREG PO SCH (08:51)
[2017-06-21] MEDS: FLOMAX PO SCH (08:51)
[2017-06-21] MEDS: SENOKOT PO SCH (08:51)
[2017-06-21] MEDS: PROTONIX IV SCH ×2 (08:51→20:14)
[2017-06-21] MEDS ORDERED: KAYEXALATE PO ONE (12:24)
[2017-06-22] MEDS: DULCOLAX PR SCH (02:40)
[2017-06-22] MEDS: COREG PO SCH ×2 (02:40→09:22)
[2017-06-22] MEDS: MIRALAX PO SCH ×2 (02:40→09:22)
[2017-06-22] MEDS: NITROGLYCERIN TOP SCH ×4 (02:41→16:02)
[2017-06-22] MEDS: HUMALOG SUBQ SCH ×4 (06:17→21:14)
[2017-06-22] MEDS: SOLU-MEDROL IV SCH ×3 (06:17→17:14)
[2017-06-22] MEDS: LASIX 200 MG in NS 25 ML IV SCH ×2 (06:53→16:01)
[2017-06-22 07:04] LABS: HEMATOCRIT 24.1 % (42.0-52.0); HEMOGLOBIN 8.2 g/dL (14.0-18.0); IMM GRAN# 0.16 X1000 (0.0-0.04); LYMPH# 0.23 X1000 (1.2-3.4); LYMPH% 1.5 % (20.5-51.1); MANUAL DIFF NEEDED? YES; MCH 29.2 PG (27-31); MCV 85.8 FL (81-99); MONO# 0.47 X1000 (0.11-0.59); MPV 10.4 FL (7.4-10.4); NEUT% 94.5 % (42.2-75.2); PLT 215 X1000 (130-400); RBC 2.81 XMIL (4.7-6.1)
[2017-06-22 07:22] LABS: BANDS 2 % (0-1); LYMPHS 2 % (21-51); MONO 4 % (1-9)
[2017-06-22 07:26] LABS: ALBUMIN 2.4 g/dL (3.5-5.0); CALCIUM 7.9 mg/dL (8.8-10.2); POTASSIUM 5.6 mmol/L (3.5-5.1)
[2017-06-22] MEDS: ASPIRIN PO SCH (09:22)
[2017-06-22] MEDS: SENOKOT PO SCH (09:22)
[2017-06-22] MEDS: HEPARIN SUBQ SCH ×2 (09:22→21:14)
[2017-06-22] MEDS: FLOMAX PO SCH (09:22)
[2017-06-22] MEDS: PROTONIX IV SCH ×2 (09:22→21:15)
[2017-06-22] MEDS: SODIUM CHLORIDE 0.9% INJ SCH (09:23)
[2017-06-22] MEDS: HYDROXYZINE PO PRN ×2 (13:59→21:15)
[2017-06-22] MEDS: CUBICIN 700 MG in NS 100 ML IV SCH (16:12)
[2017-06-22] MEDS: RIFAMPIN PO SCH (16:35)
[2017-06-22] MEDS: NORCO-10 PO PRN ×2 (17:13→21:15)
[2017-06-23] MEDS: SOLU-MEDROL IV SCH ×4 (02:07→21:42)
[2017-06-23] MEDS: LASIX 200 MG in NS 25 ML IV SCH ×2 (02:07→14:46)
[2017-06-23] MEDS: HYDROXYZINE PO PRN ×2 (04:14→23:44)
[2017-06-23] MEDS: MIRALAX PO SCH ×3 (04:34→21:45)
[2017-06-23] MEDS: DULCOLAX PR SCH ×2 (04:34→21:45)
[2017-06-23] MEDS: COREG PO SCH ×4 (04:34→21:44)
[2017-06-23] MEDS: NITROGLYCERIN TOP SCH ×6 (04:35→22:06)
[2017-06-23] MEDS: HUMALOG SUBQ SCH ×4 (06:36→21:43)
[2017-06-23 06:43] LABS: HEMATOCRIT 25.3 % (42.0-52.0); HEMOGLOBIN 8.5 g/dL (14.0-18.0); MCH 28.7 PG (27-31); MCHC 33.6 g/dL (33-37); MCV 85.5 FL (81-99); MPV 10.4 FL (7.4-10.4); RBC 2.96 XMIL (4.7-6.1)
[2017-06-23 06:55] LABS: ALBUMIN 2.5 g/dL (3.5-5.0); CALCIUM 7.9 mg/dL (8.8-10.2); POTASSIUM 5.2 mmol/L (3.5-5.1)
[2017-06-23] MEDS: ASPIRIN PO SCH (07:00)
[2017-06-23] MEDS ORDERED: COREG PO ONE (07:29)
[2017-06-23] MEDS: PROTONIX IV SCH (09:29)
[2017-06-23] MEDS: SENOKOT PO SCH (09:29)
[2017-06-23] MEDS: SODIUM CHLORIDE 0.9% INJ SCH (09:29)
[2017-06-23] MEDS: FLOMAX PO SCH (09:29)
[2017-06-23] MEDS: RIFAMPIN PO SCH (09:29)
[2017-06-23] MEDS: HEPARIN SUBQ SCH ×3 (09:30→22:06)
[2017-06-23] MEDS: CARDIZEM 100 MG/NS 100 MG/100 ML IVPB IV SCH ×2 (12:27→19:46)
[2017-06-23] MEDS: PROTONIX PO SCH ×2 (19:48→21:45)
[2017-06-24] MEDS: NITROGLYCERIN TOP SCH ×4 (03:16→23:11)
[2017-06-24] MEDS: NORCO-10 PO PRN ×2 (03:17→23:11)
[2017-06-24] MEDS: SOLU-MEDROL IV SCH ×2 (03:17→15:36)
[2017-06-24] MEDS: LASIX 200 MG in NS 25 ML IV SCH ×2 (03:17→15:36)
[2017-06-24] MEDS: CARDIZEM 100 MG/NS 100 MG/100 ML IVPB IV SCH (05:27)
[2017-06-24] MEDS: HUMALOG SUBQ SCH ×5 (05:27→23:12)
[2017-06-24] MEDS: PROTONIX PO SCH ×3 (05:28→23:11)
[2017-06-24 05:50] LABS: HEMATOCRIT 26.6 % (42.0-52.0); MCH 29.7 PG (27-31); MCHC 33.8 g/dL (33-37); MCV 87.8 FL (81-99); MPV 10.5 FL (7.4-10.4); RBC 3.03 XMIL (4.7-6.1)
[2017-06-24 06:28] LABS: ALBUMIN 2.4 g/dL (3.5-5.0); CALCIUM 7.8 mg/dL (8.8-10.2); POTASSIUM 5.2 mmol/L (3.5-5.1)
[2017-06-24] MEDS: RIFAMPIN PO SCH (08:48)
[2017-06-24] MEDS: MIRALAX PO SCH ×2 (08:48→23:10)
[2017-06-24] MEDS: SENOKOT PO SCH (08:48)
[2017-06-24] MEDS: HEPARIN SUBQ SCH ×2 (08:48→23:11)
[2017-06-24] MEDS: ASPIRIN PO SCH (08:49)
[2017-06-24] MEDS: COREG PO SCH ×2 (08:49→23:11)
[2017-06-24] MEDS: FLOMAX PO SCH (08:49)
[2017-06-24] MEDS ORDERED: INSULIN PEN NEEDLES ONE (09:58)
[2017-06-24] MEDS: LANTUS SUBQ SCH (09:59)
[2017-06-24] MEDS: HYDROXYZINE PO PRN (16:01)
[2017-06-24] MEDS: CUBICIN 700 MG in NS 100 ML IV SCH (17:47)
[2017-06-24] MEDS: DULCOLAX PR SCH (23:11)
[2017-06-25] MEDS: LASIX 200 MG in NS 25 ML IV SCH ×2 (04:02→14:11)
[2017-06-25] MEDS: NITROGLYCERIN TOP SCH ×4 (04:03→20:12)
[2017-06-25] MEDS: SOLU-MEDROL IV SCH ×2 (04:03→08:14)
[2017-06-25] MEDS: HYDROXYZINE PO PRN (04:03)
[2017-06-25] MEDS: PROTONIX PO SCH ×2 (05:27→20:12)
[2017-06-25] MEDS: MIRALAX PO SCH ×2 (05:27→20:10)
[2017-06-25 06:20] LABS: HEMATOCRIT 27.6 % (42.0-52.0); HEMOGLOBIN 9.4 g/dL (14.0-18.0); MCH 29.4 PG (27-31); MCHC 34.1 g/dL (33-37); MCV 86.3 FL (81-99); MPV 9.9 FL (7.4-10.4); RBC 3.2 XMIL (4.7-6.1)
[2017-06-25] MEDS: HUMALOG SUBQ SCH ×4 (06:38→20:14)
[2017-06-25 06:49] LABS: ALBUMIN 2.3 g/dL (3.5-5.0); CALCIUM 7.9 mg/dL (8.8-10.2); POTASSIUM 4.6 mmol/L (3.5-5.1)
[2017-06-25] MEDS: COREG PO SCH ×2 (08:14→20:12)
[2017-06-25] MEDS: SENOKOT PO SCH (08:14)
[2017-06-25] MEDS: ASPIRIN PO SCH (08:14)
[2017-06-25] MEDS: RIFAMPIN PO SCH (08:14)
[2017-06-25] MEDS: FLOMAX PO SCH (08:15)
[2017-06-25] MEDS: LANTUS SUBQ SCH (08:15)
[2017-06-25] MEDS: HEPARIN SUBQ SCH ×2 (08:15→20:13)
[2017-06-25] MEDS: NORCO-10 PO PRN ×2 (11:16→20:12)
[2017-06-25] MEDS: HYDROXYZINE PO SCH ×3 (13:02→20:12)
[2017-06-25] MEDS: SEROQUEL PO SCH (20:12)
[2017-06-25] MEDS: DULCOLAX PR SCH (20:12)
[2017-06-26] MEDS: LASIX 200 MG in NS 25 ML IV SCH ×2 (03:30→14:45)
[2017-06-26] MEDS: NITROGLYCERIN TOP SCH ×4 (03:31→22:34)
[2017-06-26] MEDS: HUMALOG SUBQ SCH ×4 (06:21→22:36)
[2017-06-26] MEDS: PROTONIX PO SCH ×2 (06:21→22:33)
[2017-06-26 06:29] LABS: BASO% 0.1 % (0.0-0.8); EOS# 0.28 X1000 (0.0-0.7); EOS% 1.4 % (0.0-10.0); HEMATOCRIT 25.3 % (42.0-52.0); HEMOGLOBIN 8.7 g/dL (14.0-18.0); IMM GRAN# 0.76 X1000 (0.0-0.04); IMM GRAN% 3.9 % (0.0-0.5); LYMPH# 0.74 X1000 (1.2-3.4); LYMPH% 3.8 % (20.5-51.1); MCH 28.7 PG (27-31); MCHC 34.4 g/dL (33-37); MCV 83.5 FL (81-99); MONO% 4.1 % (1.7-9.3); MPV 10.1 FL (7.4-10.4); NEUT% 86.7 % (42.2-75.2); PLT 351 X1000 (130-400); RBC 3.03 XMIL (4.7-6.1)
[2017-06-26 06:30] LABS: MANUAL DIFF NEEDED? NO
[2017-06-26 06:41] LABS: ALBUMIN 2.2 g/dL (3.5-5.0); CALCIUM 7.6 mg/dL (8.8-10.2); DIRECT BILIRUBIN 0.2 mg/dL (0.00-0.20); POTASSIUM 4.5 mmol/L (3.5-5.1); TOTAL BILIRUBIN 0.31 mg/dL (0.20-1.00); TOTAL PROTEIN 4.5 g/dL (6.3-8.3)
[2017-06-26] MEDS: LANTUS SUBQ SCH (08:10)
[2017-06-26] MEDS: HYDROXYZINE PO SCH ×2 (08:11→12:55)
[2017-06-26] MEDS: COREG PO SCH ×2 (08:11→22:34)
[2017-06-26] MEDS: SENOKOT PO SCH (08:11)
[2017-06-26] MEDS: MIRALAX PO SCH ×2 (08:11→22:31)
[2017-06-26] MEDS: ASPIRIN PO SCH (08:11)
[2017-06-26] MEDS: NORCO-10 PO PRN ×2 (08:12→22:35)
[2017-06-26] MEDS: FLOMAX PO SCH (08:12)
[2017-06-26] MEDS: HEPARIN SUBQ SCH ×2 (08:12→22:32)
[2017-06-26] MEDS ORDERED: SOLU-MEDROL IV SCH (09:00)
[2017-06-26] MEDS: RIFAMPIN PO SCH (14:45)
[2017-06-26] MEDS: BUSPAR PO SCH ×2 (15:20→22:34)
[2017-06-26] MEDS ORDERED: STERILE WATER INJ. INJ ONE (16:11)
[2017-06-26] MEDS ORDERED: GEODON IM ONE (16:11)
[2017-06-26] MEDS ORDERED: STERILE WATER INJ. ONE (16:17)
[2017-06-26] MEDS ORDERED: GEODON ONE (16:17)
[2017-06-26] MEDS: CUBICIN 700 MG in NS 100 ML IV SCH (17:03)
[2017-06-26] MEDS: SEROQUEL PO SCH (22:34)
[2017-06-26] MEDS: DULCOLAX PR SCH (22:40)
[2017-06-27] MEDS: COREG PO SCH ×2 (03:05→08:46)
[2017-06-27] MEDS ORDERED: CARDIZEM IV ONE ×2 (03:56→05:25)
[2017-06-27] MEDS ORDERED: CARDIZEM ONE (04:00)
[2017-06-27] MEDS: LASIX 200 MG in NS 25 ML IV SCH (04:18)
[2017-06-27] MEDS: NITROGLYCERIN TOP SCH ×2 (04:18→08:54)
[2017-06-27] MEDS ORDERED: CARDIZEM PO ONE (05:21)
[2017-06-27] MEDS: PROTONIX PO SCH ×2 (05:39→08:53)
[2017-06-27] MEDS ORDERED: INSULIN PEN NEEDLES ONE (06:13)
[2017-06-27] MEDS: HUMALOG SUBQ SCH (06:41)
[2017-06-27] MEDS: RIFAMPIN PO SCH (08:42)
[2017-06-27] MEDS: BUSPAR PO SCH (08:43)
[2017-06-27] MEDS: SENOKOT PO SCH (08:43)
[2017-06-27] MEDS: FLOMAX PO SCH (08:43)
[2017-06-27] MEDS: HEPARIN SUBQ SCH ×2 (08:43→08:54)
[2017-06-27] MEDS: ASPIRIN PO SCH (08:44)
[2017-06-27] MEDS: LANTUS SUBQ SCH (08:45)
[2017-06-27] MEDS: MIRALAX PO SCH (08:53)
[2017-06-27 11:49] VITALS: BP 136/79
[2017-06-27] MEDS ORDERED: CARDIZEM PO SCH (12:00)
== END 2017-06-27 17:02 | disposition left against medical advice (07) ==
LOC: ED 08:20 → SUATTDRO 14:11 → 3S 14:11 → 3N 06-20 08:25 → 3S 06-23 11:31 → 3N 06-24 13:15
PROVIDERS: ATTEND Internal Medicine

== ENCOUNTER 2017-06-29 14:25 | Inpatient (IN) ==
[2017-06-29] MEDS ORDERED: ASPIRIN PO STA (14:40)
[2017-06-29] MEDS ORDERED: CARDIZEM IV ONE ×2 (14:59→16:21)
--- NOTE | 2017-06-29 15:05 | EKG Report ---
Test Performed on : 06/29/2017 2:46:37 PM Test Reason : Chest Pain Blood Pressure : / mmHG Vent. Rate : 104 BPM Atrial Rate : 357 BPM P-R Int : 000 ms QRS Dur : 096 ms QT Int : 338 ms P-R-T Axes : 000 223 015 degrees QTc Int : 444 ms Atrial fibrillation. with rapid ventricular response. Right superior axis deviation Cannot rule out Anteroseptal infarct (cited on or before 17-JUN-2017) Abnormal ECG When compared with ECG of 27-JUN-2017 04:31, QRS axis shifted left ST less depressed in Inferior leads T wave inversion no longer evident in Inferior leads T wave inversion no longer evident in Lateral leads Unconfirmed Result
[2017-06-29 15:31] LABS: EOS# 0.13 X1000 (0.0-0.7); HEMATOCRIT 25.4 % (42.0-52.0); HEMOGLOBIN 8.5 g/dL (14.0-18.0); IMM GRAN% 0.8 % (0.0-0.5); LYMPH# 0.47 X1000 (1.2-3.4); LYMPH% 3.5 % (20.5-51.1); MANUAL DIFF NEEDED? NO; MCHC 33.5 g/dL (33-37); MCV 86.7 FL (81-99); MONO# 0.83 X1000 (0.11-0.59); MONO% 6.2 % (1.7-9.3); MPV 10.7 FL (7.4-10.4); NEUT% 88.5 % (42.2-75.2); PLT 281 X1000 (130-400); RBC 2.93 XMIL (4.7-6.1)
--- NOTE | 2017-06-29 15:32 | Diag Imaging Result Doc PS360 ---
EXAM: CHEST-2 VIEWS HISTORY: CP TECHNIQUE: AP upright and lateral chest COMMENT: The appearance of the chest has not changed significantly since 06/19/2017. IMPRESSION: Stable chest. Electronically signed by Mario Michael 06/29/2017 3:30 PM
[2017-06-29 15:34] LABS: INR 1.12; PROTIME 11.9 Seconds (9.2-11.7); PTT 36.7 Seconds (22.0-36.0)
[2017-06-29 15:43] LABS: ALBUMIN 2.7 g/dL (3.5-5.0); CALCIUM 8.6 mg/dL (8.8-10.2); TOTAL BILIRUBIN 0.42 mg/dL (0.20-1.00); TOTAL PROTEIN 6.1 g/dL (6.3-8.3)
[2017-06-29 15:59] LABS: CK INDEX 6.9 (0.0-2.5); CK-MB 19.38 ng/mL (0.0-5.0)
[2017-06-29] MEDS ORDERED: LOVENOX 1 MG/KG SUBQ ONE (16:22)
--- NOTE | 2017-06-29 16:30 | PROVIDER DOCUMENTATION ---
This chart was entered by Cecilio Long Scribe, acting as scribe for Yair Chamberlain Jr, MD. HPI-Chest Pain - General Stated Complaint: CHEST PAIN Time Seen by Provider: 06/29/17 14:40 Source: patient Allergies/Adverse Reactions: Patient Allergies Allergy/AdvReac Type Severity Reaction Status Date / Time No Known Allergies Allergy Verified 06/15/17 14:54 Home Medications: Home Medication List Medication Instructions Recorded Confirmed Last Taken Type Aspirin [Aspir-Low] 81 mg PO DAILY 02/13/17 06/15/17 06/04/17 13:00 History Carvedilol [Coreg] 12.5 mg PO BID 02/13/17 06/15/17 06/04/17 12:00 History Famotidine [Pepcid] 20 mg PO DAILY 02/13/17 06/15/17 06/04/17 13:00 History Folic Acid 1 mg PO DAILY 02/13/17 06/15/17 06/04/17 07:00 History Gabapentin [Neurontin] 100 mg PO BID 02/13/17 06/15/17 06/04/17 12:00 History Insulin Glargine [Lantus] 40 units SQ DAILY 02/13/17 06/15/17 06/04/17 History Lisinopril 20 mg PO DAILY 02/13/17 06/15/17 06/05/17 History PRAVAstatin [Pravachol] 80 mg PO DAILY 02/13/17 06/15/17 06/04/17 12:00 History Tamsulosin [Flomax] 0.4 mg PO DAILY 02/13/17 06/15/17 06/04/17 07:00 History Furosemide [Lasix] 40 mg PO DAILY #30 vial 02/15/17 06/15/17 06/04/17 12:00 Rx Cyclobenzaprine [Flexeril] 10 mg PO TID PRN #30 tablet 05/14/17 06/18/17 12:00 Rx Oxycodone/APAP 5 mg/325 mg 1 each PO Q8H #15 tablet 05/22/17 06/18/17 06/04/17 14:00 Rx [Percocet-5] Amlodipine [Norvasc] 5 mg PO DAILY #30 tablet 05/29/17 06/18/17 Unknown Rx Insulin Glargine [Lantus] 1 unit SUBQ QHS PRN 06/05/17 06/15/17 06/04/17 20:00 History 30 Ciprofloxacin HCl [Cipro] 500 mg PO BID #14 tablet 06/15/17 Unknown Rx Hydroxyzine HCl [Hydroxyzine HCl] 25 mg PO 06/18/17 Unknown History Naproxen [Naproxen] 06/18/17 Unknown History Hydroxyzine [Atarax] 25 mg PO TID PRN 06/22/17 06/22/17 Unknown History - History of Present Illness-CP Nature of Presenting Problem: Patient is a 61 y/o M that presents to the ER once again for chest pain to goes to his left shoulder. Patient has many visits to the ER for same. many admissions in which he signs out AMA due to lack of pain medications given to him to help him control the level he wants his pain controlled. He was also being seen by Dr.Leroy Brewer for infection. Patient describes not different in symtpoms Location: reports: substernal Chest Pain Radiation: reports: shoulders Quality of Pain: reports: pressure, tightness Severity in ED: moderate Onset/Duration: abrupt, this afternoon (but chronic for years) Timing: still present, constant Context/Activities at Onset: reports: none Modifying Factors: improves with: nothing Associated Symptoms: reports: diaphoresis, shortness of breath. denies: edema, fatigue, fever/chills, nausea, vomiting Aspirin Treatment Today: 325 mg x 1, provided by ED Prior Chest Pain/Cardiac Workup: reports: echocardiography (ef 20 to 25%) Similar Symptoms Previously?: Yes Recently Seen Here or By Another Healthcare Provider: Yes Review of Systems - Adult - REVIEW OF SYSTEMS - ADULT Constitutional: denies: chills, fever Eyes: reports: no symptoms reported Ears, Nose, Mouth & Throat: reports: no symptoms reported Cardiovascular: reports: chest pain. denies: orthopnea, palpitations, syncope Respiratory: denies: cough, shortness of breath, wheezing Gastrointestinal: denies: abdominal pain, diarrhea, nausea, vomiting Genitourinary: reports: no symptoms reported Musculoskeletal: reports: joint pain. denies: back pain, neck pain Integumentary: reports: no symptoms reported Neurological: reports: no symptoms reported Psychiatric: reports: no symptoms reported Endocrine: reports: no symptoms reported Hematologic/Lymphatic: reports: no symptoms reported Allergic/Immunologic: reports: no symptoms reported All Other Systems: Reviewed and Negative Past History - Adult - PAST MEDICAL HISTORY-ADULT Review of Records: reports: Old Records Reviewed, Nursing Assessment Review, Medications Reviewed Cardiovascular: reports: CAD, CHF, HTN, hyperlipidemia, DC, other (pulmonary edema) Respiratory: reports: COPD, sleep apnea Gastrointestinal: reports: GERD Obstetrical/Gynecological: reports: denies history Genitourinary: reports: dialysis, ESRD, kidney disease Musculoskeletal: reports: chronic pain, intervertebral disc disease Neurological: reports: denies history Psychiatric: reports: anxiety, depression Endocrine/Immune: reports: Diabetes, thyroid disorder (hyperparathyroid), other (hyperparathyroid) Other Conditions: reports: denies history - PRIOR SURGERIES/PROCEDURES Surgical/Procedure History: reports: cholecystectomy, cardiac stent, orthopedic (extremity), back/neck (back) - IMMUNIZATION STATUS Childhood Immunizations: See Nurse Assessment Flu Vaccine: See Nurse Assessment - FAMILY HISTORY Family History: reviewed, not pertinent - SOCIAL HISTORY Smoking: quit greater than 1 year, cigarettes Substance Use: none/never Living Situation: family Physical Exam-General - PHYSICAL EXAM-ADULT Initial Vital Signs Reviewed: Yes - CONSTITUTIONAL General Appearance: alert, anxious - EYES Eyes: PERRL/EOMI, pink conjunctivae - HEAD, EARS, NOSE, MOUTH & THROAT HENMT: normocephalic/atraumatic, moist mucous membranes, normal ENT inspection - NECK Neck: full range of motion, normal inspection - RESPIRATORY Respiratory: lungs clear, normal breath sounds, no respiratory distress, no accessory muscle use - CARDIOVASCULAR Cardiovascular: no JVD, irregularly irregular - GASTROINTESTINAL (ABDOMEN) Abdominal Exam: normal bowel sounds, non tender, soft - MUSCULOSKELETAL Extremity: normal capillary refill, other (bilateral BKA) - SKIN Integumentary: diaphoresis, ecchymosis (multiple area) - NEUROLOGIC Neurologic: grossly normal, no motor/sensory deficits - PSYCHIATRIC Psych/Mental Status: oriented x 3, anxious Progress - PLAN OF CARE/RESULTS Progress/Plan/Lab Results: Vital Signs - 8 hr 06/29/17 14:46 Temperature 98.9 F Pulse Rate 116 H Respiratory Rate 18 Blood Pressure 141/9 O2 Sat by Pulse Oximetry 100 Laboratory Results - last 24 hr 06/29/17 06/29/17 06/29/17 15:01 15:01 15:01 WBC 13.30 H RBC 2.93 L Hgb 8.5 L Hct 25.4 L MCV 86.7 MCH 29.0 MCHC 33.5 RDW Std Deviation 15.6 H Plt Count 281 MPV 10.7 H Immature Gran % (Auto) 0.8 H Neut % (Auto) 88.5 H Lymph % (Auto) 3.5 L Dawes % (Auto) 6.2 Eos % (Auto) 1.0 Baso % (Auto) 0.0 Immature Gran # (Auto) 0.10 H Neut # (Auto) 11.77 H Lymph # (Auto) 0.47 L Dawes # (Auto) 0.83 H Eos # (Auto) 0.13 Baso # (Auto) 0.00 PT INR PTT (Actin FS) Sodium 128 L Potassium 5.0 Chloride 91 L Carbon Dioxide 20 L Anion Gap 17 BUN 105 H Creatinine 3.0 H Estimated GFR/1.73 m2 22 BUN/Creatinine Ratio 35 Glucose 385 H Calculated Osmolality 306 Calcium 8.6 L Magnesium 2.0 Total Bilirubin 0.42 AST 52 H ALT 32 Alkaline Phosphatase 146 H Creatine Kinase 281 H Creatine Kinase Index 6.9 H CK-MB (CK-2) 19.38 H Troponin T Ccw-[id number]-Gmsronnbqis Pept > 16575 H Total Protein 6.1 L Albumin 2.7 L Globulin 3.4 Albumin/Globulin Ratio 0.8 06/29/17 06/29/17 15:01 15:01 WBC RBC Hgb Hct MCV MCH MCHC RDW Std Deviation Plt Count MPV Immature Gran % (Auto) Neut % (Auto) Lymph % (Auto) Dawes % (Auto) Eos % (Auto) Baso % (Auto) Immature Gran # (Auto) Neut # (Auto) Lymph # (Auto) Dawes # (Auto) Eos # (Auto) Baso # (Auto) PT 11.9 H INR 1.12 PTT (Actin FS) 36.7 H Sodium Potassium Chloride Carbon Dioxide Anion Gap BUN Creatinine Estimated GFR/1.73 m2 BUN/Creatinine Ratio Glucose Calculated Osmolality Calcium Magnesium Total Bilirubin AST ALT Alkaline Phosphatase Creatine Kinase Creatine Kinase Index CK-MB (CK-2) Troponin T 0.724 H* [id number]-Enhmaahcrbw Pept Total Protein Albumin Globulin Albumin/Globulin Ratio Orders Category Date Time Status Cardiac Monitoring DIRECTED Care 06/29/17 14:41 Active Oxygen Therapy- ED Nursing DIRECTED Care 06/29/17 14:41 Active Saline Loc NOW Care 06/29/17 14:41 Active CHEST-2 VIEWS [RAD] Stat Exams 06/29/17 14:41 Completed CBC WITH ELECTRONIC DIFF [HEME] Stat Lab 06/29/17 15:01 Completed CK PROFILE [SP CHEM] Stat Lab 06/29/17 15:01 Completed COMPREHENSIVE METABOLIC PANEL [CHEM] Stat Lab 06/29/17 15:01 Completed MAGNESIUM [CHEM] Stat Lab 06/29/17 15:01 Completed PRO B-NATRIURETIC PEPTIDE Stat Lab 06/29/17 15:01 Completed PROTIME WITH INR [COAG] Stat Lab 06/29/17 15:01 Completed PTT [COAG] Stat Lab 06/29/17 15:01 Completed TROPONIN T Stat Lab 06/29/17 15:01 Completed Aspirin Med 06/29/17 14:40 Discontinued 325 mg PO STAT STA Diltiazem [Cardizem] Med 06/29/17 14:59 Discontinued 10 mg IV NOW ONE Diltiazem [Cardizem] Med 06/29/17 16:21 Discontinued 10 mg IV NOW ONE Enoxaparin 1 mg/kg [Lovenox 1 mg/kg] Med 06/29/17 16:22 Discontinued 1 each SUBQ NOW ONE EKG [EKG] Stat Ther 06/29/17 14:41 Draft Result Diagrams: 06/29/17 15:01 06/29/17 15:01 - EKG 1 Time of EKG reading by physician:: 14:46 EKG Read and Signed by:: Yair Chamberlain Jr EKG Interpretation (*Must complete 3 of following elements*): Abnormal Rate: 104 Rhythm: a-fib with RVR [place]: right ID Interval: normal ST Wave: non-specific ST changes - CONSULTS/PCP/HOSPITALIST Notification #1 *Consult/PCP/Hospitalist*: Magdaleno with hospitalist Time Discussed: 16:19 Reason/Comments: a-fib with rvr, acs, elevated trop Consult Disposition: Will see in ED, Admit #2 Consult: Time Discussed: 16:28 Reason/Comments: will consult Departure - Departure Date of Disposition Decision: 06/29/17 Time of Disposition Decision: 16:21 DIAGNOSIS: Atrial fibrillation with RVR, Elevated troponin Chest pain Qualifiers: Chest pain type: unspecified Qualified Code(s): R07.9 - Chest pain, unspecified Chronic kidney disease Qualifiers: Chronic kidney disease stage: unspecified stage Qualified Code(s): N18.9 - Chronic kidney disease, unspecified Heart failure Qualifiers: Heart failure type: unspecified heart failure type Heart failure chronicity: acute on chronic Qualified Code(s): I50.9 - Heart failure, unspecified Amputated below knee Qualifiers: Laterality: bilateral Qualified Code(s): Z89.512 - Acquired absence of left leg below knee; Z89.511 - Acquired absence of right leg below knee Shoulder pain Qualifiers: Chronicity: chronic Laterality: left Qualified Code(s): M25.512 - Pain in left shoulder; G89.29 - Other chronic pain Disposition: ADMITTED INPATIENT 09 Certified Medical Emergency: Emergent Condition: Stable Referrals and Follow-Ups: None,PCP [Clinical Support] - - Critical Care Note This patient required my direct & personal management of CC.: Yes Total Time (mins): 45 Critical Care Statement: This patient required my direct personal management to treat or rule out processes, the absence of which, could potentiallly result in sudden, clinically significant life or limb threatening deterioration. Attestation - Physician/ MARY Attestation The physician spent face to face time with patient:: Yes Advanced Practice Provider documentation review:: Supervising physician onsite and consulted in the evaluation and care of this patient. The physician did have a face to face encounter with the patient. This chart was documented by the indicated scribe, (Cecilio Long, Scribe) and accurately reflects the services I performed and decisions made by me, Yair Chamberlain Jr, MD, as attested by the provider's signature.
[2017-06-29] MEDS ORDERED: LOVENOX SUBQ ONE (17:00)
[2017-06-29] MEDS ORDERED: CUBICIN 500 MG in NS 100 ML IV SCH (17:00)
[2017-06-29] MEDS ORDERED: RIFAMPIN 600 MG in NS 100 ML IV SCH ×2 (17:00→18:00)
[2017-06-29] MEDS ORDERED: LASIX IV ONE (17:02)
[2017-06-29 17:26] LABS: ALLEN TEST NO; BE -4.9 mmoll (-3.0-3.0); BLOOD TYPE ARTERIAL; DRAW SITE L BRACHIAL; METHB 1.1 % (0.0-1.5); PCO2(98.6) 31 mmHg (35-45); PO2(98.6) 127 mmHg (60-100); SAMPLE BLOOD; SAO2 99.1 % (95.0-100.0); THB 8.6 g/dL (11.5-17.4)
[2017-06-29 17:28] LABS: MODALITY ROOM AIR
[2017-06-29] MEDS ORDERED: LASIX ONE (17:37)
--- NOTE | 2017-06-29 18:02 | HISTORY AND PHYSICAL ---
CHIEF COMPLAINT: Chest pain. HISTORY OF PRESENT ILLNESS: Mr. Ventura is a 61-year-old, male, who is well known to our service with multiple admissions, re-admissions and AMA discharges who most recently discharged against medical advice 2 days ago after he was found to have MRSA bacteremia. He left without antibiotics. He states he had to go home and take care of some personal issues. Since that time, he has been having chest pain, severe fatigue, shortness of breath, volume overload and chills. Pain is reported as midsternal, radiating to the left arm, which is typical for his pain, he has been short of breath and complaining of swelling, especially in his right arm. When he got to the ER today, his troponins were noted to be higher than they have ever been at 0.724 with CK-MB of 19.38. His EKG shows atrial flutter with a variable block. His chest x-ray shows some mild vascular congestion, but nothing acute and his creatinine is noted to be 3. We have started the patient on a heparin drip and we have restarted the antibiotics he was on previous to AMA discharge and he is going to be admitted to the CICU. PAST MEDICAL HISTORY: 1. Chronic troponin elevation. 2. Congestive heart failure, systolic. 3. Chronic renal failure. 4. Poorly controlled diabetes. 5. Poorly controlled hypertension. 6. Medical noncompliance. 7. Severe PAD status post bilateral BKAs. 8. Diabetic neuropathy. 9. Chronic back pain. 10. Opioid dependence. 11. Ischemic cardiomyopathy. SURGICAL HISTORY: Bilateral BKA. Multiple back surgeries. Cholecystectomy. Coronary stenting. SOCIAL HISTORY: The patient lives at home alone. He has poor family support. He denies tobacco or alcohol use. He denies any drug use. FAMILY HISTORY: Reviewed and noncontributory. REVIEW OF SYSTEMS: Fourteen-point review of systems obtained and found to be negative with the exception of the HPI. HOME MEDICATIONS: Norvasc 5 mg daily. Aspirin 81 mg daily. Coreg 12.5 mg b.i.d., Flexeril 10 mg t.i.d., famotidine 20 mg daily. Folic acid 1 mg daily. Lasix 40 mg IV daily. Neurontin 100 mg b.i.d., Atarax 25 mg p.o. t.i.d., Lantus 40 units subcutaneous daily. Lisinopril 20 mg daily. Naproxen 250 mg b.i.d., oxycodone every 8 hours as needed. Pravachol 80 mg daily. Flomax 0.4 mg daily. ALLERGIES: No known drug allergies. PHYSICAL EXAMINATION: VITAL SIGNS: Blood pressure is 142/87, heart rate 120, respiratory rate is 14. O2 saturation is 100% on 2 L. Temperature is 98.9. GENERAL: This is a chronically ill and disheveled appearing, 61-year-old male, lying in hospital bed in no acute distress. NEUROLOGIC: The patient is oriented. Exam is nonfocal. HEENT: Head is atraumatic, normocephalic. His pupils are equal, round, reactive to light. Oral mucosa is moist. Trachea is midline. CHEST: Crackles bilaterally and diminished throughout. CARDIOVASCULAR: Tachy and irregular. S1-S2 is noted. GI: Soft, nondistended, nontender. Bowel sounds positive. EXTREMITIES: Bilateral BKA noted. Neurovascular is intact. Femoral pulses are diminished bilaterally. DIAGNOSTIC DATA: Chest x-ray, pulmonary vascular congestion, nothing acute. EKG: Atrial flutter with a variable block. WBC 13.3, hemoglobin 8.5, hematocrit 25.4, platelet count 281. INR 1.12. Sodium 128, potassium 5.0, chloride 91, CO2 of 20. Anion gap 17. BUN 105, creatinine 3, glucose 385 , calcium 8.6, magnesium 2. AST 52, ALT 32, alkaline phosphatase 146. CK 281. CK index 6.9, CK-MB 19.38. Troponin 0.724. Pro-B greater than 35,000. Protein 6.1. ASSESSMENT AND PLAN: 1. Non ST-elevation myocardial infarction: Patient will be started on a Heparin drip and placed in the CICU. He has been given aspirin and we will consult Cardiology as well. We will trend his enzymes and monitor tele closely. 2. Sepsis: We know that the patient is bacteremic and has been untreated over the past few days as he has left against medical advice. We will restart his Rifampin and daptomycin and consult Dr. Brewer. Blood cultures and lactic acid have been ordered as well. 3. Atrial flutter rapid ventricular response: Cardizem bolus and drip have been started. We will continue his heparin drip for anticoagulation and consult Cardiology. He has had multiple thyroid function tests done in the past. 4. Acute kidney injury on chronic kidney disease: Creatinine actually down from when he left, but still high enough with a BUN of 105, we will get Dr. Brown on board as well. 5. Poorly controlled diabetes mellitus: Continue his insulin regimen, pattern sugars and sliding scale insulin. 6. Chronic anemia: This is stable. We will continue to monitor and adjust accordingly. 7. Right shoulder pain and right arm swelling: We are going to order a venous Doppler of the upper extremity and an MRI of the shoulder tomorrow as this was planned prior to AMA discharge. 8. Deep vein thrombosis prophylaxis is provided with heparin drip. DISPOSITION: Patient states that he would like to talk to social work about prison. Social work consult has been ordered. Dictated by WILLIS To for Kenia Rees MD cc: WILLIS To MD I have personally performed a face to face diagnostic evaluation on this patient. I agree with the care plan. On exam the patient has 2+ edema involving his bilateral BKA stumps as well as swelling and limited range of motion of his right shoulder. The patient is currently in atrial flutter. He has been started on a cardizem drip. The patient will be admitted to CICU. Will restart the rifampin and daptomycin. Cardiology, Nephrology and ID will be consulted for further assistance. CHRISTINE
[2017-06-29] MEDS ORDERED: DUONEB (A & A) INH PRN (19:08)
[2017-06-29] MEDS: DUONEB (A & A) INH SCH ×2 (19:30→23:30)
[2017-06-29] MEDS: HEPARIN 25,000 UNIT in NS 250 ML IV SCH (20:15)
[2017-06-29 20:46] LABS: URINE SOURCE CLEAN CATCH
[2017-06-29 20:52] LABS: BILIRUBIN URINE NEGATIVE (NEGATIVE); BLOOD URINE SMALL (NEGATIVE); COLOR YELLOW; GLUCOSE URINE 500 mg/dL (NEGATIVE); LEUKOCYTES URINE NEGATIVE (NEGATIVE); NITRITE URINE NEGATIVE (NEGATIVE); PH URINE 5.5; PROTEIN URINE 100 mg/dL (NEGATIVE); SP GRAVITY URINE 1.011; TURBIDITY URINE CLEAR (CLEAR); UROBILINOGEN URINE NORMAL (NORMAL)
[2017-06-29 20:53] LABS: URINE MICRO REVIEW NEEDED? YES
[2017-06-29] MEDS ORDERED: NAPROSYN PO SCH (21:00)
[2017-06-29 21:03] LABS: UR AMPHETAMINES QUAL NONE DETECTED (NONE DETECT); UR BARBITUATES QUAL NONE DETECTED (NONE DETECT); UR BENZODIAZEPIN QUAL NONE DETECTED (NONE DETECT); UR CANNABINOIDS QUAL NONE DETECTED (NONE DETECT); UR COCAINE QUAL NONE DETECTED (NONE DETECT); UR METHADONE QUAL NONE DETECTED (NONE DETECT); UR OPIATES QUAL NONE DETECTED (NONE DETECT); UR OXYCODONE QUAL PRESUMPTIVE POSITIVE (NONE DETECT); UR PCP QUAL NONE DETECTED (NONE DETECT)
[2017-06-29 21:17] LABS: UR EPITHELIAL CELLS <10 /HPF (<10); URINE BACTERIA NEGATIVE /HPF; URINE RBC <10 /HPF (<10); URINE WBC <10 /HPF (<10)
[2017-06-29 21:25] LABS: URINE CASTS NONE SEEN; URINE CRYSTALS NONE SEEN; URINE SMALL ROUND CELLS RENAL PRESENT
[2017-06-29] MEDS: NORCO-7.5 PO PRN (22:00)
[2017-06-29] MEDS: COREG PO SCH (22:00)
[2017-06-29] MEDS: NEURONTIN PO SCH (22:00)
[2017-06-29 23:02] LABS: CK INDEX 7.4 (0.0-2.5); CK-MB 15.46 ng/mL (0.0-5.0)
[2017-06-29] MEDS: CARDIZEM 100 MG/NS 100 MG/100 ML IVPB IV SCH (23:39)
[2017-06-29] MEDS ORDERED: NITROGLYCERIN TOP ONE (23:44)
[2017-06-30] MEDS ORDERED: LANOXIN IV ONE (00:25)
[2017-06-30] MEDS ORDERED: DULCOLAX PR ONE (00:25)
[2017-06-30] MEDS: CARDIZEM 100 MG/NS 100 MG/100 ML IVPB IV SCH ×5 (01:25→16:51)
[2017-06-30] MEDS: HEPARIN 25,000 UNIT in NS 250 ML IV SCH ×3 (03:00→18:33)
[2017-06-30 03:09] LABS: HEMOGLOBIN 7.4 g/dL (14.0-18.0); MCH 29.2 PG (27-31); MCHC 33.6 g/dL (33-37); MPV 10.7 FL (7.4-10.4); RBC 2.53 XMIL (4.7-6.1)
[2017-06-30 03:48] LABS: ALBUMIN 2.6 g/dL (3.5-5.0); CALCIUM 8.4 mg/dL (8.8-10.2); CK INDEX 7.8 (0.0-2.5); CK-MB 16.38 ng/mL (0.0-5.0); POTASSIUM 4.7 mmol/L (3.5-5.1)
[2017-06-30] MEDS: DUONEB (A & A) INH SCH ×6 (03:50→23:20)
--- NOTE | 2017-06-30 07:45 | EKG Report ---
Test Performed on : 06/30/2017 07:02:29 AM Test Reason : afib Blood Pressure : / mmHG Vent. Rate : 117 BPM Atrial Rate : 315 BPM P-R Int : 000 ms QRS Dur : 096 ms QT Int : 332 ms P-R-T Axes : 000 -44 180 degrees QTc Int : 463 ms Atrial flutter. with variable AV block. Left axis deviation Cannot rule out Anteroseptal infarct (cited on or before 17-JUN-2017) T wave abnormality, consider inferolateral ischemia Abnormal ECG When compared with ECG of 29-JUN-2017 19:05, (Unconfirmed) No significant change was found Confirmed by Shahzad Gonzalez MD ([id number]) on 07/02/2017 9:57:04 PM
--- NOTE | 2017-06-30 07:49 | EKG Report ---
Test Performed on : 06/29/2017 7:05:19 PM Test Reason : No Order in Order Mapper Blood Pressure : / mmHG Vent. Rate : 101 BPM Atrial Rate : 101 BPM P-R Int : 156 ms QRS Dur : 088 ms QT Int : 350 ms P-R-T Axes : 000 -42 187 degrees QTc Int : 453 ms Sinus tachycardia. with premature atrial complexes. Left axis deviation Minimal voltage criteria for LVH, may be normal variant Cannot rule out Anteroseptal infarct (cited on or before 17-JUN-2017) ST \T\ T wave abnormality, consider inferolateral ischemia Abnormal ECG When compared with ECG of 29-JUN-2017 14:46, (Unconfirmed) Sinus rhythm. has replaced Atrial fibrillation. Serial changes of Anteroseptal infarct present Unconfirmed Result
[2017-06-30] MEDS ORDERED: CARDIZEM IV ONE (08:25)
[2017-06-30] MEDS: ASPIRIN EC PO SCH (09:00)
[2017-06-30] MEDS: LANTUS SUBQ SCH (09:00)
[2017-06-30] MEDS: COREG PO SCH ×2 (09:00→21:21)
[2017-06-30] MEDS ORDERED: PRINIVIL PO SCH (09:00)
[2017-06-30] MEDS: FLOMAX PO SCH (09:00)
[2017-06-30] MEDS: NORVASC PO SCH (09:00)
[2017-06-30] MEDS ORDERED: PEPCID PO SCH (09:00)
[2017-06-30] MEDS: FOLIC ACID PO SCH (09:00)
[2017-06-30] MEDS: NEURONTIN PO SCH ×2 (09:13→21:21)
[2017-06-30] MEDS: NORCO-7.5 PO PRN ×2 (09:13→17:58)
[2017-06-30] MEDS: HUMULIN R SUBQ SCH ×4 (09:55→21:21)
--- NOTE | 2017-06-30 15:47 | CONSULTATION ---
DATE OF CONSULTATION: 06/30/2017 REASON FOR CONSULTATION: Assistance with management. HISTORY OF PRESENT ILLNESS: Mr. Ventura is a 61-year-old white male who was just discharged from the hospital. He had acute kidney injury overlying his chronic kidney disease stage 4 as well as volume overload. He went home and has returned. No nausea, vomiting, chest pain, shortness of breath this time. He feels like his swelling is improved. PAST MEDICAL HISTORY: 1. Diabetes. 2. Peripheral vascular disease status post amputations. 3. CKD stage 4. 4. Hypertension and diabetes. 5. Hypertension. 6. Proteinuria. 7. Anemia. MEDICATIONS: See list. SOCIAL HISTORY: He lives alone. His son and brother live next door. FAMILY HISTORY: Noncontributory. PHYSICAL EXAM: Vitals: As recorded. General: No acute distress. Chronically ill-appearing man sitting up, no distress. Skin: Pale and dry. HEENT: Pupils are equal. Conjunctivae are pink. Oropharynx is moist. Neck: Veins are not visible. Heart: Regular with a gallop. Lungs: Have equal breath sounds. Shallow, no crackles. Abdomen: Soft, nontender. Bowel sounds are present. Extremities: Bilateral BKA. Edema is less than when he left the hospital. Perhaps 2+ . His pannus is no longer edematous. LABORATORY DATA: Reviewed. IMPRESSION: 1. Acute kidney injury overlying chronic kidney disease. His creatinine has returned to his historical baseline. 2. Volume overload. This is improved since discharge as well. I will continue his current medications and follow clinically. cc: Herb Brown MD
--- NOTE | 2017-06-30 16:30 | PROGRESS NOTE ---
DATE: 06/30/2017 PRESENT ILLNESS: The patient has a methicillin-resistant Staph aureus bacteremia. It has been quite difficult to stop his bacteremia from occurring. Currently he is on daptomycin and rifampin. Repeat blood cultures have been drawn. I think it is possible that the patient's right shoulder is still infected. His right arm also remains very swollen and this may be why it has been difficult to clear the patient's bacteremia. MEDICATIONS: Patient is on daptomycin 600 mg IV every 48 hours and rifampin 600 mg p.o. daily. PHYSICAL EXAM: Extremities: Patient has bilateral [id number] amputations. LAB AND X-RAY: CBC shows a white count of 11,260, hemoglobin 7.4 and platelet count 231,000. Creatinine is 2.9. GFR is 22. Repeat blood cultures are pending. ASSESSMENT AND PLAN: I plan to continue with the patient's current antibiotics and if methicillin resistant Staphylococcus aureus grows again I will send it for susceptibility testing. COMORBIDITIES: Include diabetes mellitus, peripheral vascular disease and end-stage renal disease. cc: Franco Brewer MD
--- NOTE | 2017-06-30 17:37 | PROGRESS NOTE ---
DATE: 06/30/2017 ADDENDUM: The patient's laboratory studies showed an alkaline phosphatase of 146, and a CPK of 209. cc: Franco Brewer MD
[2017-06-30] MEDS: RIFAMPIN PO SCH (17:55)
[2017-06-30] MEDS ORDERED: MISC. PHARMACY COMMUNICATION SCH (18:15)
--- NOTE | 2017-06-30 19:52 | CONSULTATION ---
DATE OF CONSULTATION: 06/30/2017 REQUESTED BY: Hospitalist service REASON FOR CONSULTATION: Irregular heart rate, palpitations, chest discomfort. HISTORY: Mr. Ventura is a 61-year-old male who I saw personally in consultation on June 16. He has been readmitted to the hospital on June 29, presenting to the emergency room with complaint of a couple days of palpitations, chest discomfort in the center of the chest radiating down to the left arm, and feeling somewhat short of breath. Upon presentation initial chest x-ray showed cardiomegaly with elevation of the right diaphragm, some cephalization of the pulmonary vessel was noted. His electrocardiogram initially showed atrial fibrillation with rapid response, no acute ischemic changes noted. His initial white count was 13,300, his hemoglobin 8.5. Initial BUN was 105, creatinine 3, sodium 128. His initial troponin was 0.639. Initial CK 281. CK- MB 15.46. Subsequent CK 209, 210, and 159. His CK-MB fraction initially was 19, thereafter 15, and finally 16.3. The troponin level initially was 0.7, then 0.69, 0.618. Subsequent EKG shows atrial flutter with variable block, rapid response, nonspecific T wave in the inferolateral leads, leftward axis. The patient was placed on IV Cardizem and with that his heart rate is better and he is feeling more comfortable. He complains of pain in the right shoulder. PAST MEDICAL HISTORY: Positive for recent hospital admission between June 16 through June 27, when he presented with pain in the right shoulder as well as elevation of troponin levels consistent with non-ST elevation myocardial infarction. He was found to have positive blood culture for Staphylococcus aureus. The source of the septicemia was unclear. He developed also worsening renal failure. He was in anasarca edema. He was almost ready for dialysis; however, they eventually decided to follow a conservative path. He has chronic kidney disease. He has vascular disease of the legs. He has had previously myocardial infarction, systolic congestive heart failure, diabetes mellitus type 2. PAST SURGICAL HISTORY: Bilateral below the knee amputations, previous back surgery, cholecystectomy. SOCIAL HISTORY: He lives by himself. He has a son living next door to him. His social support is minimal. This patient has been to the emergency room many, many times since May 14. REVIEW OF SYSTEMS: He has had swelling of the lower extremities. His right shoulder has been hurting him quite a lot. Please refer to previously dictated consultation. HOME MEDICATIONS: At the time of this admission: He is on hydroxyzine 25 three a day, Flomax 0.4 mg daily, Pravachol 80 daily, lisinopril 20 daily, Lantus Insulin at bedtime and 4 units in the morning, Neurontin 100 twice a day, furosemide 40 daily, folic acid 1 mg daily, Pepcid 20 mg daily, Flexeril 10 mg 3 times a day, Coreg 12.5 twice a day, aspirin 81 mg daily , amlodipine 5 mg daily.' ALLERGIES: Negative. PHYSICAL EXAMINATION: VITAL SIGNS: Blood pressure 125/73. Pulse 101. Temperature 98.2. Respirations 20. GENERAL: He is chronically ill, somewhat pale. HEENT: Prominent jugular veins. CHEST: Diminished breath sounds at the bases. No rales were noted. HEART: Irregularly, irregular, I do not hear any definite gallop or murmur. ABDOMEN: Somewhat distended. Probably ascites is present. No hepatomegaly noted. EXTREMITIES: Edema of both thighs and somewhat in the distal thigh and stumps. It appears to be less swollen than 3 weeks ago. Pulses are markedly diminished. He does have swelling of the right arm and right shoulder is very tender to touch. NEUROLOGIC: Follows commands. Moves 4 extremities. Blood work has been reported. IMPRESSION: 1. Patient presenting at this time with atrial fibrillation/atrial flutter with rapid response and chest pain. He has elevation of troponins suggesting non-ST myocardial infarction. 2. Severe coronary heart disease. Please refer to my consultation from June 16, for more details. The patient probably has severe ostial stenosis of the right coronary artery. 3. Chronic kidney disease, which is very advanced. I suspect this patient is at the end stage of renal failure. 4. He had methicillin-resistant Staphylococcus aureus septicemia recent. The source was unclear. RECOMMENDATION: At this point in time, we will treat him with IV Cardizem to control his heart rate. Decision needs to be made as to what we are going to do with his septicemia and also with renal replacement therapy. The way he is right now, he cannot be subjected to the risks of cardiac catheterization and coronary intervention because of the septicemia and his advanced renal failure. His prognosis is really very poor. This patient has no social support. Decision should be made with the hospital administration as to whether or not somebody could help to get him placed at a [facility] facility for permanent medical care. I do not think it is acceptable to have a patient coming so many times to the emergency department and to the hospital in such a short period of time. Thank you for the opportunity to participate in his evaluation. cc: Nick Mitchell MD MTDD
--- NOTE | 2017-06-30 21:14 | PROGRESS NOTE ---
DATE: 06/30/2017 SUBJECTIVE: The patient is resting comfortably in bed. He is currently on a Cardizem drip. He has no complaints at this time except for pain in his right shoulder. OBJECTIVE: Vital Signs: Temperature 97.5 degrees, blood pressure 131/80, heart rate 98, respirations 18, O2 saturations 100% on 3 L nasal cannula. General: This is a chronically ill- appearing male, lying in bed, in no acute distress. HEENT: Normocephalic. PERRLA, EOMI. Oral mucosa is moist. Trachea is midline. Heart: S1, S2 normal. Tachycardic. Lungs: Clear to auscultation bilaterally. No crackles. No rales. Abdomen: Positive bowel sounds. Soft, nontender, nondistended. Extremities: 2+ edema in the BKA stump. Neurologic: The patient is alert and oriented x3. LABS: White blood cell count 11, hemoglobin 7.4, hematocrit 22, platelets 231,000. Sodium 129, potassium 4.7, chloride 92, CO2 18, BUN 109, creatinine 2.9, glucose 348, phosphorus 6. ASSESSMENT AND PLAN: 1. Ngz-CG-qegvztygn myocardial infarction. The patient is currently on a heparin drip. Cardiology is following. 2. MRSA bacteremia. Continue on daptomycin and rifampin as directed by Dr. Brewer. 3. Right shoulder swelling and pain. An MRI of the right shoulder will be done on Monday. The patient may need an orthopedic consult if there turns out to be an abscess present. 4. Stage 4 chronic kidney disease. Improved. Dr. Brown is following. 5. Uncontrolled insulin-dependent diabetes mellitus. Continue on Lantus plus sliding scale insulin. 6. Atrial fibrillation/atrial flutter. The patient is currently on a Cardizem drip. Further management as per the apartment groundskeeper. 7. Peripheral vascular disease. Aware. 8. Benign prostatic hypertrophy. Continue on Flomax. 9. Gastroesophageal reflux disease. Continue on omeprazole. cc: Kenia Rees MD
[2017-06-30] MEDS ORDERED: AYR NASAL SPRAY NAS PRN (23:37)
[2017-07-01] MEDS: DUONEB (A & A) INH SCH ×6 (03:00→23:07)
[2017-07-01] MEDS: NORCO-7.5 PO PRN ×2 (03:54→12:15)
[2017-07-01] MEDS: CARDIZEM 100 MG/NS 100 MG/100 ML IVPB IV SCH ×2 (04:11→20:45)
[2017-07-01 05:37] LABS: HEMATOCRIT 23.6 % (42.0-52.0); HEMOGLOBIN 7.7 g/dL (14.0-18.0); MCH 28.6 PG (27-31); MCHC 32.6 g/dL (33-37); MCV 87.7 FL (81-99); MPV 11.5 FL (7.4-10.4); RBC 2.69 XMIL (4.7-6.1)
[2017-07-01] MEDS: PRILOSEC PO SCH (06:26)
[2017-07-01] MEDS: HUMULIN R SUBQ SCH ×4 (06:26→20:44)
[2017-07-01 06:39] LABS: ALBUMIN 2.6 g/dL (3.5-5.0); CALCIUM 8.9 mg/dL (8.8-10.2); POTASSIUM 4.6 mmol/L (3.5-5.1)
[2017-07-01] MEDS: NEURONTIN PO SCH ×2 (09:45→20:44)
[2017-07-01] MEDS: FLOMAX PO SCH (09:45)
[2017-07-01] MEDS: ASPIRIN EC PO SCH (09:45)
[2017-07-01] MEDS: COREG PO SCH ×2 (09:45→20:44)
[2017-07-01] MEDS: RIFAMPIN PO SCH (09:45)
[2017-07-01] MEDS: LANTUS SUBQ SCH (09:45)
[2017-07-01] MEDS: FOLIC ACID PO SCH (09:45)
[2017-07-01] MEDS: NORVASC PO SCH (09:45)
--- NOTE | 2017-07-01 11:05 | Diag Imaging Result Doc PS360 ---
CT of the right shoulder - 07/01/2017 INDICATION: Right shoulder pain and swelling TECHNIQUE: A CT dose reduction protocol was used. COMPARISON: Chest CT 06/16/2017 FINDINGS: Bones are intact and normally aligned. No fracture or dislocation. No bony erosions. The glenohumeral joint is smooth. There is some degeneration at the acromioclavicular joint. Soft tissues are clear. No joint effusion. There is probably a chronic supraspinatus tendon rupture. IMPRESSION: Probable chronic supraspinatus tendon rupture. Acromial clavicular joint degeneration. No acute disease. Electronically signed by Carlos Alston 07/01/2017 11:03 AM
[2017-07-01] MEDS: CALMOSEPTINE OINTMENT TOP PRN (12:29)
[2017-07-01] MEDS ORDERED: LASIX IV ONE (15:16)
--- NOTE | 2017-07-01 15:37 | PROGRESS NOTE ---
DATE: 07/01/2017 SUBJECTIVE: Patient continues without chest discomfort or dyspnea. He complains of right shoulder pain. OBJECTIVE: Vital Signs: Blood pressure 112/68, heart rate 90 and irregular with ECG monitor showing atrial flutter, his underlying rhythm. Oxygen saturation 100% on nasal cannula oxygen at 3 L/minute. Neck: Jugular venous distention is demonstrated suggesting elevated central venous pressure. Chest: Auscultation of chest reveals a few bibasilar inspiratory crackles. Cardiac: Reveals an irregular rate and rhythm without appreciable murmur or gallop. Extremities: Status post bilateral below-knee amputations. There is no peripheral edema. LABORATORY DATA: Hematocrit 23.6, white blood cell count 13.28. BUN 106, creatinine 2.9, CPK 209 on admission with an MB index of 7.4 and troponin T is 0.639. B-type natriuretic peptide level greater than 35,000. IMPRESSION: 1. Recent small [id number]-ZY-dqxnbinhq myocardial infarction. 2. Atrial flutter. 3. Severe coronary atherosclerosis and severe ischemic cardiomyopathy. The patient appears to manifest some indication of acute on chronic congestive heart failure. 4. Chronic kidney disease, advanced. 5. Recent methicillin-resistant Staphylococcus aureus septicemia. Source not clear. RECOMMENDATIONS: 1. Cautious diuresis. 2. Repeat echocardiography. 3. Follow-up recent blood cultures. cc: Bulmaro Hammond MD
[2017-07-01] MEDS: HEPARIN 25,000 UNIT in NS 250 ML IV SCH (17:09)
[2017-07-01] MEDS: CUBICIN 600 MG in NS 100 ML IV SCH (17:09)
--- NOTE | 2017-07-01 17:56 | Extremity Venous Study ---
PROCEDURE NAME: Venous U/S Right Arm - 06/29/2017 INDICATIONS: The patient has edema and pain in the right upper extremity. The patient does have a torn rotator cuff. The right upper extremity is imaged. The right internal jugular subclavian, axillary, brachial, basilic and cephalic veins are imaged in the upper arm. All are compressible. The left subclavian vein is imaged for comparison purposes. INTERPRETATION: No evidence of deep or superficial venous thrombosis in the right upper extremity in the veins identified. cc: MD Jack García CRNP
[2017-07-01] MEDS: LACTULOSE PO SCH ×2 (18:20→21:47)
[2017-07-01] MEDS ORDERED: CUBICIN 700 MG in NS 100 ML IV SCH (19:00)
[2017-07-01] MEDS: DESYREL PO SCH (20:44)
[2017-07-02] MEDS: NORCO-7.5 PO PRN (00:59)
[2017-07-02] MEDS: DUONEB (A & A) INH SCH ×7 (03:47→23:43)
[2017-07-02 05:28] LABS: HEMOGLOBIN 6.6 g/dL (14.0-18.0); MCH 29.6 PG (27-31); MCV 89.7 FL (81-99); MPV 11.7 FL (7.4-10.4); RBC 2.23 XMIL (4.7-6.1)
[2017-07-02 05:44] LABS: ALBUMIN 2.4 g/dL (3.5-5.0)
[2017-07-02] MEDS: HUMULIN R SUBQ SCH ×4 (06:23→20:17)
[2017-07-02] MEDS: PRILOSEC PO SCH (06:23)
[2017-07-02] MEDS ORDERED: INSULIN PEN NEEDLES ONE (09:09)
[2017-07-02] MEDS: COREG PO SCH ×2 (09:19→20:14)
[2017-07-02] MEDS: LACTULOSE PO SCH ×2 (09:19→20:14)
[2017-07-02] MEDS: FOLIC ACID PO SCH (09:19)
[2017-07-02] MEDS: NORVASC PO SCH (09:19)
[2017-07-02] MEDS: NEURONTIN PO SCH ×2 (09:19→20:14)
[2017-07-02] MEDS: RIFAMPIN PO SCH (09:20)
[2017-07-02] MEDS: ASPIRIN EC PO SCH (09:20)
[2017-07-02] MEDS: FLOMAX PO SCH (09:20)
[2017-07-02] MEDS: LANTUS SUBQ SCH (09:21)
[2017-07-02] MEDS: CORDARONE PO SCH ×2 (13:23→16:43)
--- NOTE | 2017-07-02 13:32 | PROGRESS NOTE ---
DATE: 07/02/2017 SUBJECTIVE: The patient continues without chest discomfort or dyspnea on supplemental oxygen per nasal cannula. He does report some anorexia. There has been no melena or bright red blood per rectum. OBJECTIVE: Vital Signs: Blood pressure 128/69, heart rate 94 and irregular with ECG monitor showing atrial flutter. Oxygen saturation 94% on nasal cannula oxygen at 2 L/minute. Neck: Jugular venous distention cannot be appreciated. Lungs: Auscultation chest reveals clear lungs bilaterally. Cardiac Exam: Reveals an irregular rate and rhythm without appreciable murmur or gallop. Extremities: Demonstrate previous bilateral qhlru-oti-tpyf amputations. There is no peripheral edema. LABORATORY DATA: Remarkable for hematocrit of 20, white blood cell count 14.33, platelet count 259,000. Sodium 129, BUN 104, creatinine 2.9. Recent blood cultures no growth after 48 hours. Recent catheterized urine culture reveals gram-negative moustapha. IMPRESSION: 1. Recent small non-ST elevation myocardial infarction. 2. Atrial flutter with controlled rate. Noteworthy that in late May of this year he was in sinus rhythm. 3. Severe coronary atherosclerosis and severe ischemic cardiomyopathy. 4. Chronic kidney disease, advanced. 5. Anemia, significant and probably multifactorial. Suspect underlying chronic anemia but that may have been exacerbated by iatrogenic cause/frequent blood draws. No signs of acute blood loss clinically. 6. Recent methicillin-resistant Staphylococcus aureus septicemia. Source not clear. RECOMMENDATIONS: 1. Follow up repeat echocardiography. 2. Transfuse packed red blood cells x2 units. 3. Continue intravenous heparin for now and monitor for any signs of blood loss. 4. Atrial flutter persists, will initiate amiodarone in effort to suppress atrial flutter. 5. Otherwise conservative cardiovascular management at this time in light of patient's severe multiple comorbidities, advance renal dysfunction and recent Staphylococcus aureus septicemia. cc: Bulmaro Hammond MD
[2017-07-02 14:08] LABS: IRON SATURATION 38 %; TIBC 221 ug/dL; TOTAL IRON 84 ug/dL (53-167); UNBOUND IRON 137 ug/dL (112-346)
[2017-07-02] MEDS ORDERED: NS 500 ML ONE (14:22)
--- NOTE | 2017-07-02 15:27 | PROGRESS NOTE ---
DATE: 07/02/2017 SUBJECTIVE: The patient is resting comfortably in bed. He did have some chest pain earlier this morning. At this time, he is chest pain-free. OBJECTIVE: Vital Signs: Temperature 97.9 degrees, blood pressure 120/69, heart rate 94, respirations 18, O2 saturations 94% on 2 L nasal cannula. Input 1.2 L, out 350 mL. General: This is a chronically ill-appearing, elderly male, lying in bed, in no acute distress. Heart: S1, S2. Normal. Irregularly irregular rate and rhythm. Lungs: Equal air entry bilaterally. No crackles. No rales. Abdomen: Positive bowel sounds. Soft, nontender, nondistended. Extremities: The patient has bilateral below-knee amputations. Neurologic: The patient is alert oriented x4. LABORATORIES: White blood cell count 14, hemoglobin 6.6, hematocrit 20, platelets 259,000. Sodium 129, potassium 5, chloride 95, CO2 18, BUN 104, creatinine 2.9, glucose 103, calcium 8, phosphorus 5.3, albumin 2.4. Vitamin B12 greater than 2000. Folate 18. ASSESSMENT AND PLAN: 1. Yog-EQ-gxuilimyb myocardial infarction. Continue on the current cardiac medications plus the heparin drip. Cardiology is following. 2. Chronic kidney disease. Stable. The cement side laster is following. 3. Hyponatremia. We will continue to monitor this closely. 4. Methicillin-resistant Staphylococcus aureus bacteremia. Continue on rifampin and daptomycin as directed by Dr. Brewer. 5. Uncontrolled insulin-dependent diabetes mellitus. Continue on Lantus plus sliding scale insulin. 6. Right shoulder pain and swelling. Patient is scheduled to undergo an MRI tomorrow. 7. Atrial flutter. Management as per the instrument checker. 8. Peripheral vascular disease. Aware. 9. Anemia. This is most likely secondary to chronic disease. We will check stool for occult blood. The patient is going to be transfused today. 10. Benign prostatic hypertrophy. Continue on Flomax. 11. Gastroesophageal reflux disease. Continue on omeprazole. 12. Severe protein calorie malnutrition. I will add Glucerna. 13. Constipation. We will add scheduled laxative therapy. cc: MD CHRISTINE Hu
[2017-07-02] MEDS: HEPARIN 25,000 UNIT in NS 250 ML IV SCH (15:48)
[2017-07-02] MEDS: CUBICIN 600 MG in NS 100 ML IV SCH (18:10)
[2017-07-02 18:39] LABS: RETIC% 2.89 % (0.8-2.1); RETIC-HE 32.5 PG (28.2-36.6)
[2017-07-02] MEDS: COLACE PO SCH (20:14)
[2017-07-02] MEDS: DESYREL PO SCH (20:14)
[2017-07-02] MEDS: DULCOLAX PR SCH (20:16)
[2017-07-02] MEDS: DULCOLAX PR PRN (22:18)
[2017-07-02] MEDS: CALMOSEPTINE OINTMENT TOP PRN (22:20)
[2017-07-03] MEDS: D50W SYRINGE IV PRN ×3 (00:45→11:20)
[2017-07-03] MEDS: NORCO-7.5 PO PRN (02:28)
[2017-07-03] MEDS: DUONEB (A & A) INH SCH ×6 (03:42→23:05)
--- NOTE | 2017-07-03 04:42 | PROGRESS NOTE ---
DATE: 07/01/2017 SUBJECTIVE: The patient is resting comfortably in bed. He complains of pain in his right shoulder, he denies having any chest pain or shortness of breath at this time. OBJECTIVE: Vital Signs: Temperature 97 degrees, blood pressure 112/60, heart rate 90, respirations 20, O2 saturations 100% on 3 L nasal cannula. General: This is a chronically ill- appearing elderly male sitting up in bed in no acute distress. Heart: S1, S2. Normal. Lungs: Equal air entry bilaterally, no crackles, no rales. Abdomen: Positive bowel sounds, soft, nontender, nondistended. Extremities: The patient has bilateral BKA stumps. Patient does have edema involving the right shoulder. Neuro: The patient is alert oriented x3. LABS: White blood cell count 13, hemoglobin 7.7, hematocrit 23, platelets 249, 000. Sodium 136, potassium 4.6, chloride 99, CO2 21, BUN 106, creatinine 2.9, glucose 175, phosphorus 5.7. ASSESSMENT AND PLAN: 1. NSTEMI. Continue on the current cardiac medications. Cardiology is following. 2. Methicillin-resistant Staphylococcus aureus bacteremia. Will continue on rifampin and daptomycin as scheduled by Dr. Franco Brewer. 3. Right shoulder swelling and pain. The CT done today does not show an obvious fluid collection. An MRI of the shoulder is scheduled for Monday. 4. Stage 4 chronic kidney disease. Unchanged. Will continue to monitor this closely. Nephrology is following. 5. Insulin-dependent diabetes mellitus. Continue on Lantus plus sliding scale insulin. 6. Atrial flutter. The patient is currently rate controlled. Management as per the filter tank tender. 7. Peripheral vascular disease with bilateral below-knee amputation. Aware. 8. Benign prostatic hypertrophy. Continue on Flomax. 9. Gastroesophageal reflux disease. Continue on omeprazole. 10. Anemia. The patient's hemoglobin and hematocrit are low but stable. Will continue to monitor this closely. cc: MD CHRISTINE Hu
[2017-07-03 05:39] LABS: BASO% 0.2 % (0.0-0.8); EOS# 0.12 X1000 (0.0-0.7); HEMATOCRIT 26.5 % (42.0-52.0); HEMOGLOBIN 8.8 g/dL (14.0-18.0); IMM GRAN# 0.07 X1000 (0.0-0.04); IMM GRAN% 0.6 % (0.0-0.5); LYMPH# 0.66 X1000 (1.2-3.4); LYMPH% 5.2 % (20.5-51.1); MANUAL DIFF NEEDED? YES; MCH 29.1 PG (27-31); MCHC 33.2 g/dL (33-37); MCV 87.7 FL (81-99); MONO# 0.85 X1000 (0.11-0.59); MONO% 6.7 % (1.7-9.3); MPV 11.6 FL (7.4-10.4); NEUT% 86.3 % (42.2-75.2); PLT 296 X1000 (130-400); RBC 3.02 XMIL (4.7-6.1)
[2017-07-03 06:04] LABS: ALBUMIN 2.4 g/dL (3.5-5.0); CALCIUM 8.6 mg/dL (8.8-10.2); POTASSIUM 4.9 mmol/L (3.5-5.1)
[2017-07-03] MEDS: PRILOSEC PO SCH (06:30)
[2017-07-03] MEDS: HUMULIN R SUBQ SCH ×4 (06:30→20:52)
--- NOTE | 2017-07-03 07:14 | PROGRESS NOTE ---
DATE: 07/03/2017 PRESENT ILLNESS: The patient has a methicillin-resistant Staphylococcus aureus bacteremia which has been very refractory to treat but now, on the 29 of June, blood cultures drawn then show no growth at 48 hours. Patient also has a swollen, painful right shoulder. We were unable to obtain any fluid from it and on CT scan, it shows a tendon rupture and acromioclavicular joint degeneration. The patient's right arm is awfully swollen too. The previous Doppler study done shows no evidence of deep venous or superficial venous thrombosis in the arm. MEDICATIONS: Patient is on the combination of daptomycin and rifampin. This is day 4 of treatment. The first day of treatment is when the patient's blood cultures first turned negative. PHYSICAL EXAMINATION: Vital Signs: Temperature is 97.6 degrees, pulse 104, respirations 19, blood pressure 110/82. General: This is a chronically ill-appearing, middle-aged male who is in no acute distress. Lungs: Clear to auscultation. Cardiovascular: Regular heart rate. Abdomen: Soft and nontender. Extremities: The right arm is swollen and edematous. The right shoulder is also slightly swollen but does not seem to be as painful when I passively move the joint. Abdomen: Soft and nontender. Neurologic: Patient is awake. He can move his extremities. There is no tremor. Extremities: The patient has bilateral innxm-jkm-lldk amputations. LAB AND X-RAY: CBC shows a white count of 12,600, hemoglobin 8.8, and a platelet count of 296,000. Creatinine is 2.9. GFR is 22. CPK is 159. CT scan of the right shoulder and a prior Doppler venous study, the results are as mentioned above. Specifically, the right shoulder showed tendon rupture and acromioclavicular joint degeneration. The blood cultures have been negative for 48 hours. Urine culture grew Klebsiella. ASSESSMENT AND PLAN: I plan to continue daptomycin and rifampin for a total of 8 weeks to treat the patient's bacteremia which has been very refractory to treatment. We had previously had echocardiograms which did not show the presence of vegetations. As regarding the patient's Klebsiella urinary tract infection, I think it is asymptomatic and does not need to be treated. COMORBIDITIES: Include diabetes, peripheral vascular disease, and end-stage renal disease. cc: Franco Brewer MD
[2017-07-03 07:33] LABS: BANDS 2 % (0-1); LYMPHS 18 % (21-51); POLYCHROM 1+
[2017-07-03] MEDS ORDERED: DILAUDID IV ONE (07:36)
--- NOTE | 2017-07-03 08:40 | PROGRESS NOTE ---
DATE: 07/03/2017 CHIEF COMPLAINT: Swelling, irregular heart beat, palpitations, chest pain. SUBJECTIVE: The patient is not having any chest pain. His breathing is back to normal. He still has pain in the right shoulder and when I examined him I touched a very sensitive area of his shoulder and he started hollering from the pain. His rhythm remains atrial flutter with a variable response. His weights according to the scale do not make any sense. On June 29, they recorded a weight of 180 pounds, but the next day 219 pounds, the next day 210 pounds, the following day 233 pounds. This is totally absurd. I do not know how we can get a more accurate weight on this patient. His examination does not suggest that he has gained 50 pounds since the day of the initial weight entry which would be 4 days ago. OBJECTIVE: Vital signs: Blood pressure 110/82, temperature 97.6, pulse 104, respirations 19. He is awake. He is sitting upright. He seemed initially comfortable. Examination of his neck was unremarkable. His right shoulder was incredibly tender to touch at the level of the acromioclavicular area or joint. His examination of the chest revealed diminished breath sounds in the right lung. Heart sounds were irregularly irregular with a systolic murmur over the left external border about 2/6 in intensity. There is a questionable diastolic murmur also. No gallop noted. Abdomen is nontender and not distended. No hepatosplenomegaly noted. Extremities showed bilateral jirdf-lcd-gwfw amputations with 2+ edema bilaterally. Brawny. Neurologic examination: Followed commands, moved 4 extremities. LABORATORY DATA: Blood work white count 12,600, hemoglobin 8.8, hematocrit 26.5. Sodium 127, potassium 4.9, BUN 104, creatinine 2.9. ASSESSMENT: The patient presenting with increasing shoulder pain, chest pain, shortness of breath. The patient has been found to be in atrial flutter with a rapid response. He does have a Staphylococcus aureus septicemia documented on very recent admission. He is medically noncompliant. He has significant social issues as far as support at home. RECOMMENDATIONS: At this point in time from cardiology I agree with adding amiodarone to his regimen to try to get his rhythm back to normal. We will see how he does. The patient does have advanced renal insufficiency and he is probably very close to requiring dialysis. He is evidently already showing acidosis on his basic metabolic panel with a low carbon dioxide. Regarding his coronary heart disease that cannot be evaluated invasively until his septicemia is absolutely resolved, and also his renal insufficiency would be a major limiting factor. He does have chronic congestive heart failure which makes his management more complex. His ejection fraction according to the last echo was 25% to 30%. He does have evidence of at least on physical examination of a prominent systolic murmur. This could relate to tricuspid regurgitation,mitral regurgitation or aortic valve disease. I have reviewed a follow-up limited echocardiogram performed yesterday ,which was ordered to reassess his valvular structures. That study shows thickening of the posterior leaflet of mitral valve with possible perforation. At this point in time, he is likely to have seeded his mitral valve. Given his multiple comorbidities,including advanced renal failure, bilateral knee amputation, likely severe ostial RCA stenosis and significant LV systolic dysfunction his chances of surviving surgical management of severe mitral valve disease are practically zero. I will not suggest to pursue any further investigation along those lines. A THU would make sense if we were going to do anything along surgical management. In his particular case, that is not a viable option. I would suggest to extend his antibiotic coverage against MRSA for total of 8 weeks or as long as I.D. retail consultant () deems reasonable. Palliative care/ Hospice care should be entertained given his truly dismal prognosis. cc: Nick Mitchell MD MTDD
[2017-07-03] MEDS ORDERED: CORDARONE PO SCH (09:00)
[2017-07-03] MEDS: COREG PO SCH ×2 (09:21→20:51)
[2017-07-03] MEDS: LACTULOSE PO SCH ×2 (09:21→20:52)
[2017-07-03] MEDS: FLOMAX PO SCH (09:21)
[2017-07-03] MEDS: NORVASC PO SCH (09:22)
[2017-07-03] MEDS: ASPIRIN EC PO SCH (09:22)
[2017-07-03] MEDS: NEURONTIN PO SCH ×2 (09:22→20:51)
[2017-07-03] MEDS: RIFAMPIN PO SCH (09:22)
[2017-07-03] MEDS: LANTUS SUBQ SCH (09:23)
[2017-07-03] MEDS: FOLIC ACID PO SCH (09:32)
[2017-07-03] MEDS: COLACE PO SCH ×2 (09:33→20:52)
[2017-07-03] MEDS: CORDARONE PO SCH ×3 (09:33→17:43)
--- NOTE | 2017-07-03 10:04 | PROGRESS NOTE ---
DATE: 07/03/2017 SUBJECTIVE: Patient is sitting up in bed. He feels poorly today. Very sleepy. OBJECTIVE: Vital Signs: Temperature 97.7 degrees, pulse 66, respiratory rate 18, blood pressure 112/61, intake 1.4 L, output 1 L. General: This is a middle-aged gentleman resting in bed. He is awake, but drowsy. HEENT: Normocephalic, atraumatic. Oral mucosa is moist. Conjunctivae pink. Neck: Supple. No JVD. Cardiovascular: Regular rate and rhythm. S1, S2, S4. Pulmonary: Equal excursion. He has some rhonchi bilaterally. Abdomen: Soft, with positive bowel sounds. : Not inspected. He is voiding. Extremities: Bilateral BKA. He has dependent edema to the thighs. Skin: Pale. LAB DATA: WBC of 12.6, hemoglobin 8.8. Sodium 127, potassium 4.9, CO2 19, BUN 104, creatinine 2.9, albumin 2.4. ASSESSMENT AND PLAN: 1. Acute kidney injury. His renal function is stable and unchanged over the weekend. Urine output has been adequate., If it has been accurately recorded. He has no absolute indication for intervention in the form of dialysis at this time. We will continue to follow him closely as the patient does have severe renal disease. We have discussed dialysis with the patient secondary to his severe renal disease and his fluid volume status during his last visit just last week. The patient has not been willing to consider dialysis at this point. We will offer it if patient has an absolute indication for it and if he will accept it. 2. Atrial flutter with rapid response followed by primary and Cardiology. Dictated by WILLIS De Jesus for Herb Brown MD Patient seen, data reviewed, discussed with Alvina Lucas on 07/03/17. I agree with the above assessment and plan of care. cc: Herb Brown MD [facility]
[2017-07-03] MEDS ORDERED: D50W SYRINGE IV ONE (11:16)
[2017-07-03 11:25] LABS: ALLEN TEST YES; BE -6.8 mmoll (-3.0-3.0); BLOOD TYPE ARTERIAL; DRAW SITE L RADIAL; O2(CT) 12.6 mL/dL (15.0-23.0); PCO2(98.6) 34 mmHg (35-45); PO2(98.6) 91 mmHg (60-100); SAMPLE BLOOD; SAO2 99.1 % (95.0-100.0); THB 9.1 g/dL (11.5-17.4); pH(98.6) 7.34 (7.35-7.45)
[2017-07-03 11:26] LABS: MODALITY CANNULA
--- NOTE | 2017-07-03 12:05 | PROGRESS NOTE ---
DATE: 07/03/2017 SUBJECTIVE: Patient has no focal complaints. OBJECTIVE: Vital Signs: Blood pressure 112/61, heart rate is 77, respiratory rate 22, temperature 97.7, 96% on 2 L. Cardiovascular: Regular rate and rhythm. Pulmonary: Bilateral breath sounds. Clear to auscultation. GI: Soft, nontender, nondistended. Bowel sounds are positive. General: Subjectively, he is very hard to wake up. He is kind of diaphoretic. LABORATORY DATA: White count is 12. Hemoglobin and hematocrit 8 and 26, platelets 296. Sodium 127, BUN and creatinine 104 and 2.9. His sugars, interestingly enough yesterday he bottomed out. His morning sugar today is 116, but they just checked and his sugar is 34, and he was kind of low all night like in the 50s. I think we are going to scale back his Lantus. PROBLEM LIST: 1. Encephalopathy. This is likely related to hypoglycemia. We will also rule out hypercapnia. 2. Cai-WU-lktqpyvvn myocardial infarction. He is getting medical treatment. We cannot pursue any cardiac catheterization until his septicemia has resolved which he has got MRSA bacteremia and he is going to have to be on antibiotics for 8 weeks. 3. Methicillin-resistant Staphylococcus aureus bacteremia. He is on rifampin and daptomycin per Dr. Brewer. It will need to be negative. He needs a total of 8 weeks. I am not sure when day one was. His repeat blood cultures on the were negative. So, possibly day 4 today. 4. Chronic renal failure. Appears to be stable. 5. Right shoulder pain and swelling. MRI is scheduled for today. CT scan showed a supraspinatus tear so he may need an orthopedic, at least evaluation. 6. Anemia. He has gotten transfused. Hemoccult is pending. 7. Disposition pending his clinical status. He will need IV antibiotics at home. I am not sure if we have not gotten to a PICC line, so he may end up needing a [place] catheter because he is a renal patient to evaluate. 8. Atrial fibrillation. Again, we suggested his amiodarone. He is getting a load and we will follow. cc: Tommy Ann MD
[2017-07-03] MEDS: HEPARIN 25,000 UNIT in NS 250 ML IV SCH (12:17)
--- NOTE | 2017-07-03 14:00 | ECHO REPORT ---
ORDER DATE: 07/01/2017 MEASUREMENTS: Left ventricular end-diastolic diameter 5.6, end-systolic diameter 4.4, septal thickness 0.8, left atrium 4.2, aortic root 4. SUMMARY: 1. Fair quality study. 2. Aortic valve is trileaflet and opens normally on 2-dimensional images. There is prominent sclerotic thickening of posterior mitral leaflet with mild posterior leaflet prolapse. There was some thickening on the left atrial surface of the posterior mitral leaflet suspicious for valvular vegetation of endocarditis. There is moderate posteriorly directed mitral regurgitation. Tricuspid and pulmonic valves are without structural abnormality with mild tricuspid regurgitation. The estimated systolic PA pressure by Doppler is 60-65 mmHg. The aortic root is mildly enlarged. 3. Borderline left ventricular enlargement with normal wall thickness suggested. Estimated left ejection fraction is approximately 30% in the setting of global hypokinesis and akinesis of the mid to apical anteroseptal region and apex left ventricle. Left atrium is mildly enlarged. Right atrium and right ventricle are normal in size with grossly preserved right ventricular systolic function. 4. No pericardial effusion. 5. Appearance of inferior vena cava suggests elevated central venous pressure. CONCLUSIONS: 1. Prominent sclerotic thickening of posterior mitral leaflet with mild posterior leaflet prolapse and some thickening on the left atrial surface of posterior leaflet suspicious for vegetation with associated moderate posteriorly directed mitral regurgitation. 2. Mild tricuspid regurgitation with moderate to severe pulmonary hypertension by Doppler. 3. Estimated left ventricular ejection fraction of 30% with akinesis of mid to apical anteroseptal region and apex. 4. Mild left atrial enlargement. 5. Mild aortic root enlargement. 6. Elevated central venous pressure suggested. cc: Bulmaro Hammond MD
[2017-07-03] MEDS: CUBICIN 600 MG in NS 100 ML IV SCH (17:43)
[2017-07-03] MEDS: CARDIZEM 100 MG/NS 100 MG/100 ML IVPB IV SCH (17:58)
[2017-07-03] MEDS: DESYREL PO SCH (20:51)
[2017-07-03] MEDS: DULCOLAX PR SCH (20:52)
[2017-07-04] MEDS: DUONEB (A & A) INH SCH ×3 (03:25→11:28)
[2017-07-04 05:30] LABS: MANUAL DIFF NEEDED? NO
[2017-07-04 06:05] LABS: ALBUMIN 2.4 g/dL (3.5-5.0); CALCIUM 8.2 mg/dL (8.8-10.2); POTASSIUM 4.6 mmol/L (3.5-5.1)
[2017-07-04 06:09] LABS: BASO% 0.3 % (0.0-0.8); EOS# 0.36 X1000 (0.0-0.7); EOS% 3.1 % (0.0-10.0); HEMATOCRIT 26.3 % (42.0-52.0); HEMOGLOBIN 8.8 g/dL (14.0-18.0); IMM GRAN# 0.08 X1000 (0.0-0.04); IMM GRAN% 0.7 % (0.0-0.5); LYMPH# 0.66 X1000 (1.2-3.4); LYMPH% 5.7 % (20.5-51.1); MCH 29.4 PG (27-31); MCHC 33.5 g/dL (33-37); MONO# 1.03 X1000 (0.11-0.59); MONO% 8.8 % (1.7-9.3); MPV 11.5 FL (7.4-10.4); NEUT% 81.4 % (42.2-75.2); PLT 274 X1000 (130-400); RBC 2.99 XMIL (4.7-6.1)
[2017-07-04] MEDS: HUMULIN R SUBQ SCH ×4 (06:13→22:52)
[2017-07-04] MEDS: PRILOSEC PO SCH (06:13)
--- NOTE | 2017-07-04 07:35 | PROGRESS NOTE ---
DATE: 07/04/2017 PRESENT ILLNESS: The patient has a methicillin-resistant Staphylococcus aureus bacteremia. Yesterday on echocardiogram, Dr. Hammond felt that the patient had mitral valve endocarditis. A recent echocardiogram did not show any vegetation suggestive of endocarditis. MEDICATIONS: This is day 5 of treatment with daptomycin and rifampin. PHYSICAL EXAMINATION: Vital Signs: Temperature is 97.5 degrees, pulse is 110, respirations are 18, blood pressure is 115/84. General: This is a chronically ill-appearing, middle-aged male who is in no acute distress. Lungs: Clear to auscultation. Cardiovascular: Regular heart rate. Abdomen: Soft and nontender. Extremities: Patient has bilateral bryli-nnp-ecxf amputations. The amputation sites are completely healed and are not red or draining. LAB AND X-RAY: The CBC today shows a white count of 11,640, hemoglobin 8.8, and platelet count 274,000. Creatinine is 2.8. GFR is 23. Blood cultures are sterile. Urine culture grew Klebsiella. Transthoracic echocardiogram showed mitral valve endocarditis. ASSESSMENT AND PLAN: Patient has a methicillin-resistant Staphylococcus aureus endocarditis. The patient will need a total of daptomycin and rifampin because of the patient's bacteremia which has been refractory to treat. The patient has a Klebsiella urinary tract infection. It is asymptomatic and therefore treatment is not needed at this time. COMORBIDITIES: Include diabetes mellitus, peripheral vascular disease, and end-stage renal disease. cc: Franco Brewer MD
[2017-07-04] MEDS ORDERED: LANTUS SUBQ SCH (09:00)
[2017-07-04] MEDS ORDERED: DILAUDID IV PRN (09:20)
[2017-07-04] MEDS: ASPIRIN EC PO SCH (09:33)
[2017-07-04] MEDS: NORVASC PO SCH (09:33)
[2017-07-04] MEDS: FLOMAX PO SCH (09:33)
[2017-07-04] MEDS: CORDARONE PO SCH ×3 (09:33→17:10)
[2017-07-04] MEDS: COREG PO SCH ×2 (09:33→20:09)
[2017-07-04] MEDS: NEURONTIN PO SCH ×2 (09:33→20:09)
[2017-07-04] MEDS: COLACE PO SCH ×2 (09:34→20:09)
[2017-07-04] MEDS: FOLIC ACID PO SCH (09:34)
[2017-07-04] MEDS: RIFAMPIN PO SCH (09:34)
[2017-07-04] MEDS: LACTULOSE PO SCH ×2 (09:34→20:09)
--- NOTE | 2017-07-04 10:08 | PROGRESS NOTE ---
DATE: 07/04/2017 SUBJECTIVE: Patient is sitting up in bed. He states that he just feels poorly. He remains in pain. Of note, he does have chronic pain. OBJECTIVE: Vital Signs: Temperature 97.5 degrees, pulse 71, respiratory rate 16, blood pressure 115/84. Intake 1.2 L. Output 1.1 L. General: This is a middle-aged gentleman , chronically ill- appearing, resting in bed. He is awake and alert. HEENT: Normocephalic, atraumatic. Oral mucosa is moist. Neck: Supple. Trachea midline. No JVD is noted. He is in a sitting position. Cardiovascular: He is atrial flutter on the monitor. He has an irregular rate. He remains on Cardizem drip. Pulmonary: Equal excursion. He continues with rhonchi bilaterally. No overt wheeze. He is currently receiving a breathing treatment. Abdomen: Soft, with positive bowel sounds. : Not inspected. He is voiding. Extremities: Bilateral BKA with trace dependent edema to the backs of the thighs. Integumentary: Skin is pale, warm, and dry. LAB DATA: WBC of 11.6, hemoglobin 8.8. Sodium 127, potassium 4.6, CO2 18, BUN 103, creatinine 2.8. ASSESSMENT AND PLAN: 1. Acute on chronic kidney disease. His renal function has remained fairly stable at his baseline. His urine output remains adequate. Given the constraints, the patient was placed on this regarding aggressive therapy, we will continue with current treatment and continue close monitoring. 2. Atrial flutter, followed by Cardiology and primary. 3. Methicillin-resistant Staphylococcus aureus bacteremia. He had an echocardiogram yesterday that Cardiology felt he had a mitral valve endocarditis. Patient is on daptomycin and rifampin, also has Klebsiella urinary tract infection. These are being treated by infectious disease. Dictated by WILLIS De Jesus for Herb Brown MD Patient seen, data reviewed, discussed with Alvina Lucas on 07/03/17. I agree with the above assessment and plan of care. cc: Herb Brown MD [facility]
[2017-07-04] MEDS: CARDIZEM 100 MG/NS 100 MG/100 ML IVPB IV SCH (10:52)
[2017-07-04] MEDS ORDERED: HEPARIN 25,000 UNIT in NS 250 ML IV SCH (12:00)
[2017-07-04] MEDS ORDERED: NS NEB INH SCH (13:15)
--- NOTE | 2017-07-04 13:22 | PROGRESS NOTE ---
DATE: 07/04/2017 SUBJECTIVE: Patient has no focal complaints. He is much more awake and alert since yesterday. OBJECTIVE: Vital signs: Blood pressure 110/81, heart rate of 89, respiratory rate 16, temperature degrees 97.2, 99% on 2 L. Cardiovascular: Regular rate and rhythm. Pulmonary: Bilateral breath sounds. Clear to auscultation. GI: Soft, nontender, and nondistended. Bowel sounds are positive. Extremities: No clubbing or cyanosis. Lymphatics: No peripheral edema. Neurological: Nonfocal. LABORATORY DATA: is 127. BUN and creatinine of 103 and 2.8. CBC showed an hemoglobin and hematocrit 8.8 and 26, white count of 11, platelets at 274,000. PROBLEM LIST: 1. Patient has methicillin-resistant Staphylococcus aureus endocarditis. He is currently on rifampin and daptomycin for at least 8 weeks. Unfortunately, he is not a surgical candidate for intervention. He had a recent myocardial infarction. His ejection fraction is around 30%. He is close to end-stage renal. He is a bilateral amputee. His risk of any surgical intervention is extremely high. At this point, I think we will just have to treat medically. I have discussed the case with Dr. Mitchell. 2. Vtv-CO-qeklzipjv myocardial infarction. He is on heparin. We really cannot do any stenting or anything at this point. 1) He has got renal dysfunction. 2) He has got endocarditis. I think it will be too high risk of obviously infecting endovascular structures, so we will continue treat that medically. 3. Atrial fibrillation with rapid ventricular response. He is still not under control. He is on amiodarone. He is on Coreg. We had to resume Cardizem last night because he was still tachycardic. 4. Acute on chronic renal failure. BUN is still elevated. We are continuing to monitor. 5. Right shoulder pain. Continue pain control. The patient has a significant issue with narcotics. There is a concern about overuse, especially with over-sedation. However, I do think he has active issues that are causing pain, and we will treat him accordingly. 6. Disposition. We will continue to monitor him until at least his atrial fibrillation is under control. DISPOSITION: Pending his medical stability. cc: Tommy Ann MD
[2017-07-04] MEDS ORDERED: SAMSCA PO ONE (13:26)
[2017-07-04] MEDS: MIRALAX PO SCH (13:47)
[2017-07-04] MEDS: CARDIZEM PO SCH ×2 (13:47→20:09)
[2017-07-04] MEDS ORDERED: HEPARIN IV PRN (14:32)
[2017-07-04] MEDS: HEPARIN 25,000 UNIT in NS 250 ML IV SCH (15:11)
[2017-07-04] MEDS: ATROVENT NEB INH SCH ×2 (15:18→20:15)
[2017-07-04] MEDS: XOPENEX NEB INH SCH ×2 (15:18→20:15)
[2017-07-04] MEDS: DILAUDID IV PRN ×2 (15:53→19:42)
[2017-07-04] MEDS: CUBICIN 600 MG in NS 100 ML IV SCH (17:09)
--- NOTE | 2017-07-04 18:47 | PROGRESS NOTE ---
DATE: 07/04/2017 CHIEF COMPLAINT: Shoulder pain, shortness of breath. SUBJECTIVE: Mr. Ventura is more comfortable today. Last night his heart rate went over 100 beats per minute. He has been put back on Cardizem IV at a dose of 5 mg per hour. He is more comfortable right now. OBJECTIVE: Vital signs: Blood pressure is 110/82, temperature 97.2, pulse 89, respirations 16. General: He is chronically ill, awake. Neck: Jugular veins are distended. Chest: Markedly diminished breath sounds at the level of the right base. Dullness to percussion. There is bilateral crepitus louder on the left than on the right. Cardiac: Heart sounds are irregularly irregular. He does have a systolic murmur, 2/6, over the aortic and mitral area. No definite gallop is noted. Abdomen: Slightly distended, nontender. Extremities: Showed trace edema. Neurologic: Follows commands. Moves four extremities. LABORATORY DATA: White count 11,640, hemoglobin 8.8, hematocrit 26.3. Sodium 127, potassium 4.6, BUN 103, creatinine 2.8, albumin 2.4. His 2D echocardiogram that was done on July 01 suggested the presence of a thickening of the posterior leaflet of the mitral valve with a moderate jet of mitral regurgitation. The valve is thickened, possibly represents a perforation. Last chest x-ray that we have on record was done on June 29 which showed "stable" chest. IMPRESSION: 1. Patient who presented with atrial fibrillation and rapid response. Rate is better controlled now on IV Cardizem. 2. Non ST elevation myocardial infarction. This has happened on top of severe underlying coronary heart disease. 3. Mitral regurgitation, moderate, with suspected endocarditis of mitral valve. 4. Staphylococcus aureus septicemia (MRSA). 5. Advanced renal failure, probably end stage. 6. Urinary tract infection with Klebsiella pneumoniae growing in the urine culture from June 29. This particular germ is ESBL positive which makes it resistant to gentamicin, Levaquin, nitrofurantoin, trimethoprim, intermediate sensitivity to tobramycin, sensitive to amikacin, ertapenem, and imipenem. 7. Status post bilateral below knee amputations secondary to severe peripheral vascular disease. 8, hyponatremia. RECOMMENDATIONS: Given this patient's severe multiple comorbidities, my recommendation is to treat him with antibiotics for 6-8 weeks under the direction of Infectious Disease. Cardiac moore, I do not believe that he is a reasonable candidate for open heart surgery. Given his severe coronary heart disease, he would require, in addition to the mitral valve replacement, a multivessel coronary bypass procedure. He will probably have to be initiated on hemodialysis and all the infections should be controlled as best as we can before even contemplating that possibility. The serious limiting factors in his case are the fact that he has bilateral below knee amputations, he has chronic pain, he will be an extremely poor candidate for cardiac rehabilitation, making his outcome incredibly poor. At this point in time, I will not recommend to do a THU because it is not going to change my opinion in the case, however, if any of the members of the team feel that a different outcome is probable, then feel free to get a second opinion. Regarding his hyponatremia, I would suggest to try Samsca and see if that helps to correct his sodium to some extent. Thank you again for asking us to participate in his evaluation. cc: Nick Mitchell MD [facility]
[2017-07-04] MEDS: DULCOLAX PR PRN (20:09)
[2017-07-04] MEDS: DESYREL PO SCH (20:09)
[2017-07-05] MEDS: CARDIZEM PO SCH ×4 (01:04→19:55)
[2017-07-05] MEDS: DILAUDID IV PRN ×5 (01:04→19:56)
[2017-07-05] MEDS: ATROVENT NEB INH SCH ×4 (03:52→19:00)
[2017-07-05] MEDS ORDERED: DILAUDID IV ONE (03:53)
[2017-07-05] MEDS: XOPENEX NEB INH SCH ×4 (03:53→19:00)
[2017-07-05 05:40] LABS: MANUAL DIFF NEEDED? NO
[2017-07-05 06:12] LABS: ALBUMIN 2.5 g/dL (3.5-5.0); BASO% 0.2 % (0.0-0.8); CALCIUM 7.8 mg/dL (8.8-10.2); EOS# 0.31 X1000 (0.0-0.7); EOS% 2.2 % (0.0-10.0); HEMATOCRIT 26.2 % (42.0-52.0); HEMOGLOBIN 8.6 g/dL (14.0-18.0); IMM GRAN# 0.04 X1000 (0.0-0.04); IMM GRAN% 0.3 % (0.0-0.5); LYMPH# 0.82 X1000 (1.2-3.4); LYMPH% 5.7 % (20.5-51.1); MCH 29.6 PG (27-31); MCHC 32.8 g/dL (33-37); MONO# 1.17 X1000 (0.11-0.59); MONO% 8.2 % (1.7-9.3); MPV 11.7 FL (7.4-10.4); NEUT% 83.4 % (42.2-75.2); PLT 266 X1000 (130-400); POTASSIUM 5.2 mmol/L (3.5-5.1); RBC 2.91 XMIL (4.7-6.1)
[2017-07-05] MEDS: PRILOSEC PO SCH (06:36)
--- NOTE | 2017-07-05 07:47 | PROGRESS NOTE ---
DATE: 07/05/2017 PRESENT ILLNESS: The patient has a methicillin-resistant Staphylococcus aureus mitral valve endocarditis. MEDICATIONS: This is day 6 of treatment with daptomycin and rifampin. PHYSICAL EXAMINATION: Vital Signs: Temperature is 97.8 degrees, pulse 78, respirations 14, blood pressure 111/83. General: This is a chronically ill-appearing, middle-aged male. He is in no acute distress. Lungs: Clear to auscultation. Cardiovascular: Regular heart rate. Abdomen: Soft and nontender. LAB AND X-RAY: There is no new x-ray. The patient's CBC shows a white count of 14,320, hemoglobin 8.6, and platelet count 266,000. Creatinine is 3.1. GFR is 21. ASSESSMENT AND PLAN: The patient has methicillin-resistant Staphylococcus aureus mitral valve endocarditis. My plan will be to treat the patient for a total of 6 weeks with the combination of daptomycin and rifampin. The patient does have a Klebsiella urinary tract infection. I think this is asymptomatic and therefore, antibiotic treatment for it is not indicated. Two days from now, I am going to get a CBC, CMP, and CPK. COMORBIDITIES: Include diabetes mellitus, peripheral vascular disease, and end-stage renal disease. cc: Franco Brewer MD
--- NOTE | 2017-07-05 08:29 | PROGRESS NOTE ---
DATE: 07/05/2017 CHIEF COMPLAINT: Shortness of breath, irregular heartbeat. SUBJECTIVE: Mr. Ventura is generally feeling better today. He continues to have intermittent pain in the right shoulder. This is clearly aggravated by motion. He denies having any fever. There is no cough. The swelling of his legs appears to have improved. He is not having any chest pain. OBJECTIVE: Vital signs: His pulse rate today is 78 beats per minute, temperature 97.8, respirations 14, blood pressure 111/83. General: He is awake, alert, follows commands. He is pleasant. HEENT: Some jugular venous distention. Chest: Diminished breath sounds, especially in the right lung field. Cardiac: Heart sounds are irregularly irregular. He does have a subtle murmur over the mitral area suggestive of mitral regurgitation. Abdomen: Nontender. It is distended. Bowel sounds diminished. I think he has ascites. Extremities: Show 1+ to 2+ edema bilaterally, although they appear to be less swollen than before. He follows commands, moves four extremities. Cranial nerves are normal. He is alert and oriented x3. BLOOD WORK TODAY: His sodium is 129, potassium is 5.2, BUN 102, creatinine 3.1. His phosphorus is 6.2. IMPRESSION: 1. Patient who presented with congestive heart failure with systolic and diastolic dysfunction. 2. Zyc-WZ-fctagcdsr myocardial infarction. No recurrent chest pain. 3. Mitral regurgitation, moderate, suspected endocarditis in mitral valve. 4. Recent staph aureus septicemia. 5. Advanced renal insufficiency, probably stage 5 already. 6. Urinary tract infection with Klebsiella pneumonia, positive ESBL. 7. Status post bilateral below-knee amputation. 8. Hyponatremia. Everything is happening on top of a substrate of ischemic cardiomyopathy. Low ejection fraction. RECOMMENDATION: The patient will be given another dose of Samsca today, trying to correct his low sodium. The fact that he is not growing staph aureus any more in the blood is positive in the sense that we may be able to control his septicemia with antibiotics. We might consider performing a transesophageal echocardiogram mostly for academic purposes down the road. However, at this point in time there is no immediate benefit to the patient. The patient is really not a candidate for mitral valve surgery or coronary artery bypass surgery. We will see how he does. We will follow him along. cc: Nick Mitchell MD
[2017-07-05] MEDS ORDERED: SAMSCA PO ONE (08:30)
[2017-07-05] MEDS: PHOSLO PO SCH ×3 (09:07→17:14)
[2017-07-05] MEDS: COLACE PO SCH ×2 (09:07→21:39)
[2017-07-05] MEDS: FOLIC ACID PO SCH (09:07)
[2017-07-05] MEDS: NEURONTIN PO SCH ×2 (09:07→21:39)
[2017-07-05] MEDS: FLOMAX PO SCH (09:07)
[2017-07-05] MEDS: CORDARONE PO SCH ×3 (09:08→17:14)
[2017-07-05] MEDS: MIRALAX PO SCH (09:08)
[2017-07-05] MEDS: ASPIRIN EC PO SCH (09:08)
[2017-07-05] MEDS: COREG PO SCH ×2 (09:08→21:39)
[2017-07-05] MEDS: LACTULOSE PO SCH ×2 (09:08→21:38)
[2017-07-05] MEDS: RIFAMPIN PO SCH (09:08)
[2017-07-05] MEDS: HEPARIN 25,000 UNIT in NS 250 ML IV SCH (09:09)
[2017-07-05] MEDS: HUMULIN R SUBQ SCH ×4 (10:24→21:50)
[2017-07-05] MEDS ORDERED: LASIX IV ONE (11:06)
--- NOTE | 2017-07-05 12:16 | Diag Imaging Result Doc PS360 ---
EXAM: MRI UPPER EXT JT W/O CON-RIGHT INDICATION: possible septic shoulder on right TECHNIQUE: COMPARISON: 02/19/2017 FINDINGS: On the previous study from the outside facility, there was what appears to be a focal full-thickness tear of the supraspinatus tendon. During the interval, there is been significant worsening of this tear. There is now at least 4 cm of retraction of the tendon. The subscapularis, infraspinatus, and teres minor tendons appear to be intact. The biceps long head tendon is intact. There is fluid in the subdeltoid and subacromial bursae. Although I suppose it is possible that this is related to a superimposed infection, it certainly may be explained by the large supraspinatus tear alone, which is more likely. There are no new bony erosions appreciated. There are stable degenerative changes involving the AC joint. IMPRESSION: Marked worsening of a focal rupture of the supraspinatus tendon seen on the previous study from the outside facility with marked widening of the defect. Electronically signed by Shaheen Perea 07/05/2017 12:13 PM
--- NOTE | 2017-07-05 13:26 | PROGRESS NOTE ---
DATE: 07/05/2017 SUBJECTIVE: The patient is sitting up in bed. He is eating breakfast. He states he feels a little bit better today. OBJECTIVE: Vital Signs: Temperature 97.8 degrees, pulse 78, respiratory rate 14 , blood pressure 111/83. Intake 1.8 L. Output 400 mL. PHYSICAL EXAMINATION: General: This is a middle-aged gentleman resting in bed. He is awake and alert in no acute distress. HEENT is normocephalic, atraumatic. His oral mucosa is moist. Neck is supple. Trachea in midline. Trace JVD. Cardiovascular: Irregularly irregular rate and rhythm. Abdomen soft. Positive bowel sounds. Somewhat rounded. : Not inspected. Extremities: He has 1+ dependent edema to the bilateral lower extremities. Integumentary: Skin is warm and dry otherwise. LABORATORY DATA: WBC of 14.3, hemoglobin 8.6. Sodium 129, potassium 5.2, CO2 of 19. BUN 102, creatinine 3.1. Albumin 2.5, phosphorus 6.2, calcium 7.8. ASSESSMENT AND PLAN: 1. Xmndp-jx-ckvyecz kidney disease. Urine output acceptable. Renal function with slight increase in creatinine. He has no overt indication for additional intervention. Again, we discussed dialysis with the patient previously and he was not willing. We will continue to monitor closely. If his status changes to where intervention again will be warranted, we will again speak to the patient regarding his wishes. Continue to monitor. 2. Atrial flutter, congestive heart failure, systolic and diastolic dysfunction , yns-KP-pqdlderim myocardial infarction, ischemic cardiomyopathy followed by primary and cardiology. 3. Klebsiella pneumonia followed by primary Infectious Disease. 4. Electrolytes. He received Samsca yesterday. He had small improvement overall. He understands he is being dosed again today. 5. Hyperphosphatemia. Go ahead and start PhosLo. I discussed with the patient the rationale behind. Once he is an outpatient and, if we need to, we can transition back over to calcium carbonate instead of calcium acetate if needed. Dictated by WILLIS De Jesus for Herb Brown MD Patient seen, data reviewed, discussed with Alvina Lucas on 07/05/17. I agree with the above assessment and plan of care. cc: Herb Brown MD [facility]
[2017-07-05] MEDS: CUBICIN 600 MG in NS 100 ML IV SCH (17:21)
[2017-07-05 19:07] LABS: URINE SOURCE CATH
[2017-07-05 19:10] LABS: BILIRUBIN URINE NEGATIVE (NEGATIVE); BLOOD URINE MODERATE (NEGATIVE); COLOR ORANGE; GLUCOSE URINE NEGATIVE (NEGATIVE); LEUKOCYTES URINE LARGE (NEGATIVE); NITRITE URINE NEGATIVE (NEGATIVE); PH URINE 5.5; PROTEIN URINE 200 mg/dL (NEGATIVE); SP GRAVITY URINE 1.009; TURBIDITY URINE TURBID (CLEAR); UROBILINOGEN URINE NORMAL (NORMAL)
[2017-07-05 19:14] LABS: UR EPITHELIAL CELLS >10 /HPF (<10); URINE BACTERIA NEGATIVE /HPF; URINE CASTS GRANULAR PRESENT; URINE CULTURE NEEDED? YES; URINE MICRO REVIEW NEEDED? YES; URINE RBC TNTC /HPF (<10); URINE WBC TNTC /HPF (<10)
[2017-07-05] MEDS: DESYREL PO SCH (21:39)
[2017-07-06] MEDS: DILAUDID IV PRN ×5 (00:09→19:06)
[2017-07-06] MEDS: CARDIZEM PO SCH ×2 (02:07→08:38)
[2017-07-06] MEDS: ATROVENT NEB INH SCH ×4 (03:15→22:28)
[2017-07-06] MEDS: XOPENEX NEB INH SCH ×4 (03:16→22:28)
[2017-07-06] MEDS: HEPARIN 25,000 UNIT in NS 250 ML IV SCH ×2 (04:23→09:27)
[2017-07-06] MEDS: HUMULIN R SUBQ SCH ×4 (06:14→21:13)
[2017-07-06] MEDS: PRILOSEC PO SCH (06:15)
[2017-07-06] MEDS ORDERED: DILAUDID IV ONE ×2 (06:25→21:11)
--- NOTE | 2017-07-06 07:20 | PROGRESS NOTE ---
DATE: 07/06/2017 PRESENT ILLNESS: The patient has a methicillin-resistant Staph aureus mitral valve endocarditis. MEDICATIONS: The patient is receiving daptomycin and rifampin. This is day 7 of treatment. PHYSICAL EXAMINATION: Vital Signs: Temperature is 97.2 degrees, pulse 101, respirations, blood pressure 121/75. General: This is a chronically ill-appearing, middle-aged male. He is in no acute distress. Cardiovascular: Heart rate is regular. No murmur was heard. Lungs: Clear to auscultation. Abdomen: Soft and nontender. Neurologic: Patient is awake. He can move his extremities. There is no tremor. LAB AND X-RAY: There is no new lab or x-ray for today. ASSESSMENT AND PLAN: The patient has endocarditis. Dr. Loera aspirated R shoulder and got back 5-10ml of serosanguinous fluid which will be sent to the lab for studies. COMORBIDITIES: Includes diabetes mellitus, peripheral vascular disease, and end -stage renal disease. cc: Franco Brewer MD [facility]
[2017-07-06 08:24] LABS: DIFF NEEDED? YES; WBC BF 107348 /cumm
[2017-07-06] MEDS: COLACE PO SCH ×2 (08:38→21:12)
[2017-07-06] MEDS: CORDARONE PO SCH ×2 (08:38→21:12)
[2017-07-06] MEDS: ASPIRIN EC PO SCH (08:38)
[2017-07-06] MEDS: COREG PO SCH ×2 (08:38→21:12)
[2017-07-06] MEDS: NEURONTIN PO SCH ×2 (08:38→21:13)
[2017-07-06] MEDS: LACTULOSE PO SCH (08:38)
[2017-07-06] MEDS: MIRALAX PO SCH (08:38)
[2017-07-06] MEDS: PHOSLO PO SCH ×3 (08:38→16:17)
[2017-07-06] MEDS: FLOMAX PO SCH (08:38)
[2017-07-06] MEDS: RIFAMPIN PO SCH (08:39)
[2017-07-06] MEDS: FOLIC ACID PO SCH (08:39)
[2017-07-06] MEDS ORDERED: MISC. PHARMACY COMMUNICATION SCH (08:47)
[2017-07-06] MEDS: ZOFRAN IV PRN ×2 (08:50→15:08)
[2017-07-06 09:26] LABS: MONOS 4 %; POLYS 90 %
--- NOTE | 2017-07-06 10:08 | CONSULTATION ---
DATE OF CONSULTATION: 07/06/2017 CLINICAL HISTORY: Patient is a pleasant 61-year-old male, with a chronic history of pain and paresthesia and swelling in his right upper extremity. Patient was found to have MRSA bacteremia approximately a week or so ago. He did leave against medical advice without antibiotics and was readmitted. The patient has had significant pain and discomfort and inability to use his right upper extremity. He has undergone a workup and MRI revealed a rotator cuff tear as well as fluid in the subdeltoid and subacromial bursa however no bony erosions. Orthopedic consultation requested. Patient does have pain with range of motion of his shoulder. PAST MEDICAL HISTORY: Significant for congestive heart failure, systolic, chronic renal failure, poorly controlled diabetes, poorly-controlled hypertension, medical noncompliance, severe PAD status post bilateral BKAs, diabetic neuropathy, chronic back pain, opioid dependence, ischemic cardiomyopathy, PAST SURGICAL HISTORY: Bilateral BKAs, multiple back surgeries, cholecystectomy and coronary stenting. HOME MEDICATIONS: Norvasc 5 mg p.o. daily. Aspirin 81 mg p.o. daily. Coreg 12.5 mg p.o. b.i.d. Flexeril 10 mg t.i.d. Famotidine 20 mg p.o. daily. Folic acid 1 mg p.o. daily. Lasix 40 mg IV daily. Neurontin 100 mg b.i.d. Atarax 25 mg p.o. t.i.d. Lantus 40 units subcu daily. Lisinopril 20 mg p.o. daily. Naproxen 250 mg b.i.d. Oxycodone every 8 hours p.r.n. pain. Pravachol 80 mg p.o. daily. Flomax 0.4 mg p.o. daily. ALLERGIES: No known drug allergies. PHYSICAL EXAM: The patient is awake, alert and cooperative on exam. His right upper extremity has significant pitting edema throughout the right upper extremity. There is no evidence of erythema. He is unable to actively elevate his arm. He does have some discomfort with terminal forward elevation and has positive near impingement, positive Hawkin's reinforcement. Significant weakness and pain with any attempt at active elevation of his shoulder. The patient is able to flex his fingers. He has passive forward flexion to approximately 140-150 degrees with pain. External rotation was approximately 30-35 degrees with pain. MRI available for review revealed full- thickness rotator cuff tear involving supraspinatus tendon again with evidence of some fluid in the subacromial bursa region. No evidence of bony erosion. Has an intact biceps tendon. IMPRESSION: 1. Right rotator cuff tear with possible septic joint. 2. Edema right upper extremity. 3. 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 4. Klebsiella urinary tract infection. PLAN: At this point, discussed treatment options with the patient as well as with Dr. Ann and Dr. Brewer. Given patient's pain and discomfort and MRI findings, my recommendation is to proceed with an aspiration to rule out septic joint. Approximately 5 mm of turbid fluid was aspirated. We will obtain Gram stain, C and S and await results. The patient will continue his IV antibiotics and will wait the findings. cc: Konstantin Loera MD MTDD
[2017-07-06 11:08] LABS: HEMOGLOBIN 8.7 g/dL (14.0-18.0); MCH 29.2 PG (27-31); MCHC 32.2 g/dL (33-37); MCV 90.6 FL (81-99); MPV 11.4 FL (7.4-10.4); RBC 2.98 XMIL (4.7-6.1)
[2017-07-06] MEDS: CARDIZEM CD PO SCH (11:34)
--- NOTE | 2017-07-06 11:50 | PROGRESS NOTE ---
DATE: 07/06/2017 SUBJECTIVE: The patient has no focal complaints except for nausea, vomiting. No chest pains. OBJECTIVE: Vital Signs: Blood pressure 118/82, respiratory rate of 18, heart rate 101, temperature 96.9, 100% saturation on 2.5. Cardiovascular: Regular rate. He has converted to sinus. Pulmonary: Decreased breath sounds at the bases. GI: Soft, nontender, nondistended. Bowel sounds are positive. LABORATORY DATA: His hemoglobin and hematocrit is 8 and 27. White count is normal. Chemistry: Sodium is 129, potassium 5.2, BUN and creatinine are 102 and 3.1, albumin is 2.5. PROBLEM LIST: 1. MRSA endocarditis. We will plan for 8 weeks total of antibiotics he is on daptomycin and rifampin. Blood cultures are clear since the , so I think we could progress towards a line because of his renal situation. We will pursue a Livingston catheter because he is unable, versus a PICC line. Since his blood cultures are clear, I think we could go ahead and start working on that. It will have to be coordinated with his heparin drip. I put in a consult for Dr. Michel. 2. Mcm-MP-fqaerbtso myocardial infarction. We will continue to do medical management. He is obviously a poor surgical candidate with his renal failure, his current endocarditis. His poor compliance. His bilateral below the knee amputations, so we will continue to follow. Appreciate Cardiology input. 3. Atrial fibrillation. He is now rate controlled. Cardiology is managing. He is on Coreg, amiodarone and Cardizem, but it has controlled his heart rate. 4. Acute on chronic renal failure, stable. Currently with significant azotemia, but other than that, he seems to be doing okay. I think we could definitely re-dose him with Samsca and follow. 5. Right shoulder pain. I consulted Orthopedics. Apparently already had an arthrocentesis. It looked like he had it on exam. I did not see documentation of that, so Dr. Loera I think went ahead and drained it again this morning. We will ensure that there is no infection although he is getting coverage. He has a chronic supraspinatus tear which will have to be managed with PT. DISPOSITION: Rehab resources are limited I do not think he will be at a very good candidate to go home. I think self-care is an issue for him, so we are pursuing a possible LTAC transfer and evaluation. cc: Tommy Ann MD
[2017-07-06 12:16] LABS: CALCIUM 8.6 mg/dL (8.8-10.2)
[2017-07-06] MEDS ORDERED: SAMSCA PO ONE (13:13)
[2017-07-06] MEDS ORDERED: KAYEXALATE PO ONE (13:14)
[2017-07-06] MEDS ORDERED: CALCIUM GLUCONATE 4.65 MEQ in NS 50 ML IV ONE (13:26)
[2017-07-06] MEDS ORDERED: LASIX IV SCH (16:15)
--- NOTE | 2017-07-06 16:50 | PROGRESS NOTE ---
DATE: 07/06/2017 SUBJECTIVE: Patient complaining of pain especially to the right arm. OBJECTIVE: Vital Signs: Temperature 97.8, pulse 99, respiratory rate 19, blood pressure 130/79. Intake 698 mL with output 850 mL. General: On exam, this is a middle-aged gentleman resting in bed. Awake and alert. No acute distress. HEENT: Normocephalic, atraumatic. Oral mucosa moist. Neck: Supple. Trachea midline. Trace JVD. Cardiovascular: Irregularly irregular. Pulmonary: Equal excursion. He has got some rhonchi bilaterally, but no increased work of breathing. Abdomen: Soft, mildly distended. Positive bowel sounds. : Not inspected. Extremities: He has 1+ dependent edema to the bilateral lower extremities. He has some dependent edema that extends up to the hips as well as dependent edema to the upper extremities. Integumentary: Skin is warm and dry. LAB DATA: WBC of 9.8, hemoglobin 8.7, sodium 122, potassium 6.0, chloride 89, CO2 of 18, BUN 105, creatinine 3.4. ASSESSMENT AND PLAN: 1. Acute on chronic kidney disease. His urine output has been adequate, although in discussion with the patient, it appears that he is taking in more fluid than is charted. We will place him on a strict 1 L fluid restriction. His edema appears worse. Creatinine again has had a slight increase. 2. Electrolytes, acid-base balance. His sodium, even with tolvaptan has not improved. He is on trazodone. Will stop that. We will also place the patient on a strict 1 L fluid restriction. Check labs in the morning. 3. Hyperkalemia. He has Kayexalate ordered today. I will go ahead and put him on some Veltassa for the next 3 days and see if we can get his potassium under control a little better. Appears likely related to #1. 4. Acidosis, mild and stable. 5. Fluid volume. Again, does not appear that his renal intake and output have been measured. He has probably a liter of fluid that he has been drinking on just on his tray since lunch. The weight in the computer indicates that he is about 2 kg heavier over the last 2 days. We will give him 40 of Lasix a day for the next 3 days. I understand his creatinine may take a bump with this. 6. Hypertension, controlled. 7. Question septic shoulder. He has been seen by Ortho and had a tap done today with labs in all. He is being followed by Dr. Brewer for methicillin-resistant Staph aureus mitral valve endocarditis. DISPOSITION: We understand that LTAC is in the works. We agree with that plan. Dictated by WILLIS De Jesus for Herb Brown MD Patient seen, data reviewed, discussed with Alvina Lucas on 07/07/17. I agree with the above assessment and plan of care. cc: Herb Brown MD [facility]
[2017-07-06] MEDS: CUBICIN 600 MG in NS 100 ML IV SCH (17:03)
--- NOTE | 2017-07-06 20:07 | PROGRESS NOTE ---
DATE: 07/06/2017 SUBJECTIVE: Patient continues without dyspnea or chest discomfort on supplemental oxygen per nasal cannula. He relates some right shoulder discomfort as before. OBJECTIVE: Vital Signs: Blood pressure 129/86, heart rate 97 and regular. ECG monitor showing sinus rhythm. There is no discernible jugular venous distention. Chest: Clear to auscultation. Cardiac: Reveals a regular rate and rhythm with a very soft systolic murmur at the left ventricular apex. No gallop could be appreciated. LABORATORY DATA: Includes white blood cell count 9.9, hematocrit 27. BUN 105, creatinine 3.4. IMPRESSION: 1. Rjwcb-wr-ysghqlo systolic heart failure, mixed systolic and diastolic. 2. Fjw-MP-zcwntbiqd myocardial infarction. 3. Previous myocardial infarction and associated ischemic cardiomyopathy. 4. Mitral valve disorder with moderate mitral regurgitation and abnormal posterior mitral leaflet suspicious for endocarditis with blood culture recently showing methicillin-resistant Staph aureus. 5. Advanced renal dysfunction. 6. Status post rvjtp-wen-jrys amputation. RECOMMENDATION: 1. Fluid restrict, given hyponatremia. 2. Reduce amiodarone dose to 200 mg twice daily in effort to maintain sinus rhythm. Patient previously in atrial flutter, but has converted back to sinus rhythm spontaneously. cc: Bulmaro Hammond MD
--- NOTE | 2017-07-06 20:35 | CONSULTATION ---
DATE OF CONSULTATION: 07/06/2017 HISTORY OF PRESENT ILLNESS: This is a 61-year-old gentleman well known to me who has extensive cardiopulmonary peripheral vascular disease and severe diabetes resulting in bilateral below-knee amputations. This is how he is known to me from previous wounds. He presents now with bacterial endocarditis. He has been in the hospital for a while. He is going to need long-term antibiotics for treatment of this and Dr. Brewer is following and he has requested catheter placement. PAST MEDICAL HISTORY: 1. Diabetes. 2. Hypertension. 3. History of myocardial infarction and NSTEMI in the past. 4. Bacterial endocarditis. 5. Chronic kidney disease. SURGICAL HISTORY: 1. He has had bilateral below-knee amputations. 2. He has had a Livingston catheter in the past I believe in the right internal jugular vein. SOCIAL HISTORY: Lives alone. He has a son and brother who live next door. History of smoking. Denies any current alcohol or tobacco use. FAMILY HISTORY: Reviewed with the patient. Noncontributory. REVIEW OF SYSTEM: 10 point negative other than HPI PHYSICAL EXAMINATION: Vital Signs: Temperature is 97.6 degrees, pulse 97, blood pressure 129/86, O2 saturation 100% on 2 L nasal cannula. General: He is alert, no acute distress. chronically ill appearing gentleman. HEENT: No scleral icterus. I do not see any cervical masses or scars. Cardiovascular: Normal rate, regular rhythm. Pulmonary: He is on nasal cannula, but in no distress. Abdomen: Soft, nontender, nondistended. Integument: Warm, dry. Musculoskeletal: Bilateral below-knee amputation sites that are well healed. Peripheral vascular: Stumps well perfused with no edema. Psychiatric: Appropriate affect and insight into his current disease process. Neurologic: I do not see any gross motor deficits. Lymphatic: No cervical lymphadenopathy. LABORATORIES: White count is 9, hematocrit 27. PTT is 93.4, secondary to heparin drip. Potassium is elevated at 6. Creatinine is 3.4, glucose is 88, blood cultures show no growth from 06/29. ASSESSMENT/PLAN: A 61-year-old male known to me with multiple medical issues. He now has bacterial endocarditis and need for long-term intravenous access. We discussed risks, benefits, alternatives, including bleeding, infection, pneumothorax, vascular injury and ultimate need for removal of the Livingston catheter. He understands and consents. No plans for discharge for LTAC tomorrow. As such, we will continue him via peripheral access over the weekend and plan for Livingston placement on Monday. He will need his heparin drip held ideally at midnight, but if this is not safe from a cardiac standpoint, we could hold it at 2-3 hours preoperatively and resume it shortly thereafter. He consents. He will need to be made NPO at midnight on Monday. cc: MD CHRISTINE Jimenez
[2017-07-06] MEDS ORDERED: BLISTEX MEDICATED BERRY LIP BALM TOP PRN (21:46)
[2017-07-07] MEDS: DILAUDID IV PRN ×5 (01:55→21:15)
[2017-07-07] MEDS: HEPARIN 25,000 UNIT in NS 250 ML IV SCH ×2 (03:40→08:50)
[2017-07-07 04:29] LABS: BASO% 0.4 % (0.0-0.8); EOS# 0.25 X1000 (0.0-0.7); EOS% 2.3 % (0.0-10.0); HEMOGLOBIN 8.9 g/dL (14.0-18.0); IMM GRAN# 0.03 X1000 (0.0-0.04); IMM GRAN% 0.3 % (0.0-0.5); LYMPH% 5.4 % (20.5-51.1); MANUAL DIFF NEEDED? YES; MCH 29.7 PG (27-31); MONO# 0.71 X1000 (0.11-0.59); MONO% 6.4 % (1.7-9.3); MPV 10.9 FL (7.4-10.4); NEUT% 85.2 % (42.2-75.2); PLT 243 X1000 (130-400)
[2017-07-07 04:34] LABS: ALBUMIN 2.4 g/dL (3.5-5.0); CALCIUM 8.4 mg/dL (8.8-10.2); TOTAL BILIRUBIN 1.67 mg/dL (0.20-1.00); TOTAL PROTEIN 6.2 g/dL (6.3-8.3)
[2017-07-07 04:37] LABS: POTASSIUM 6.5 mmol/L (3.5-5.1)
[2017-07-07 04:42] LABS: EOS 3 % (1-10); LYMPHS 5 % (21-51); MONO 3 % (1-9)
[2017-07-07 04:43] LABS: POLYCHROM OCCASIONAL
[2017-07-07] MEDS ORDERED: D50W SYRINGE IV ONE ×3 (04:55→23:27)
[2017-07-07] MEDS ORDERED: HUMULIN R IV ONE ×3 (04:55→23:27)
[2017-07-07] MEDS ORDERED: ALBUTEROL 0.5% INH CONC FOR HYPERKALEMIA INH ONE ×3 (04:55→23:27)
[2017-07-07] MEDS: PRILOSEC PO SCH ×2 (05:18→07:35)
[2017-07-07] MEDS: ATROVENT NEB INH SCH ×4 (05:32→21:07)
[2017-07-07] MEDS: XOPENEX NEB INH SCH ×4 (05:33→21:07)
[2017-07-07] MEDS: HUMULIN R SUBQ SCH ×3 (07:34→16:10)
[2017-07-07] MEDS ORDERED: LASIX IV SCH (08:45)
[2017-07-07] MEDS: MIRALAX PO SCH (08:46)
[2017-07-07] MEDS: NEURONTIN PO SCH ×2 (08:47→21:14)
[2017-07-07] MEDS: ASPIRIN EC PO SCH (08:47)
[2017-07-07] MEDS: COREG PO SCH ×2 (08:47→21:14)
[2017-07-07] MEDS: CARDIZEM CD PO SCH (08:47)
[2017-07-07] MEDS: FOLIC ACID PO SCH (08:47)
[2017-07-07] MEDS: FLOMAX PO SCH (08:47)
[2017-07-07] MEDS: PHOSLO PO SCH ×3 (08:47→16:32)
[2017-07-07] MEDS: COLACE PO SCH ×2 (08:47→21:14)
[2017-07-07] MEDS: CORDARONE PO SCH ×2 (08:48→21:14)
--- NOTE | 2017-07-07 08:59 | PROGRESS NOTE ---
DATE: 07/07/2017 SUBJECTIVE: The patient has methicillin-resistant Staph aureus mitral valve endocarditis. The patient also appears to have a septic right shoulder as manifested by an aspirate of synovial fluid, that had a white cell count of 107,348 with 90% polys. MEDICATIONS: The patient is on rifampin and daptomycin. OBJECTIVE: Vital signs: Temperature is 97.8, pulse 96, respirations 18, blood pressure 108/64. General: This is an ill-appearing, middle-aged male. He is in no acute distress. Lungs: Clear to auscultation. Cardiovascular: Regular heart rate. Abdomen: Soft and nontender. Bones, joints, muscles: The right shoulder remains swollen and painful with movement. LAB AND X-RAY: The CBC today shows a white count of 11,111, hemoglobin 8.9, and platelet count 243,000. CPK is 64. The synovial fluid had a white cell count of 107,348, white cells of which 90% were polys. The examination for crystals was negative. The patient's CPK is 64. The ALT is 520. Creatinine is 3.7. GFR is 17. ASSESSMENT AND PLAN: The patient has methicillin-resistant Staphylococcus aureus mitral valve endocarditis which now appears to be complicated by a septic right shoulder. The patient's ALT is elevated which could be from taking rifampin. My plan now is to keep going with daptomycin, but will have to stop rifampin because of the high ALT. The patient's comorbidities include diabetes mellitus, peripheral vascular disease, end-stage renal disease. Dr. Loera will make a decision if he thinks surgery is indicated for the patient's right shoulder. cc: Franco Brewer MD [facility]
[2017-07-07] MEDS ORDERED: CORDARONE PO SCH (09:00)
--- NOTE | 2017-07-07 09:23 | PROGRESS NOTE ---
DATE: 07/07/2017 SUBJECTIVE: He feels that his swelling is improved. He does have episodic shortness of breath which sometimes awakens him from sleep. OBJECTIVE: Blood pressure is 121/71, heart rate 102, respirations 14, afebrile. General: He is in no acute distress. Skin: Warm and dry. Neck veins are not appreciated. Heart is regular. Lungs are equal. Abdomen: Soft, nontender. Bowel sounds present. Extremities: 3+ edema. No clubbing or cyanosis. IMPRESSION: 1. Chronic kidney disease. His creatinine is rising again. We have had to give him extra diuretics which I will actually increase today for a short duration. 2. Electrolytes. Hyperkalemia is being treated with oral Veltassa. 3. Acidosis. Chronic. No other intervention as I do not want to add more sodium to his regimen. cc: Herb Brown MD
[2017-07-07] MEDS: LASIX 200 MG in NS 25 ML IV SCH ×2 (10:49→21:14)
[2017-07-07 14:39] LABS: CALCIUM 7.9 mg/dL (8.8-10.2)
[2017-07-07 14:43] LABS: POTASSIUM 6.2 mmol/L (3.5-5.1)
[2017-07-07] MEDS ORDERED: ALBUTEROL NEB INH ONE (15:26)
[2017-07-07] MEDS ORDERED: SAMSCA PO ONE (15:30)
[2017-07-07] MEDS: VELTASSA PO SCH (15:43)
[2017-07-07] MEDS: CUBICIN 600 MG in NS 100 ML IV SCH (17:39)
[2017-07-08] MEDS: HUMULIN R SUBQ SCH ×5 (00:01→21:05)
[2017-07-08] MEDS: DILAUDID IV PRN ×6 (01:33→22:44)
[2017-07-08] MEDS: XOPENEX NEB INH SCH ×4 (03:47→22:56)
[2017-07-08] MEDS: ATROVENT NEB INH SCH ×4 (03:47→22:55)
[2017-07-08] MEDS: HEPARIN 25,000 UNIT in NS 250 ML IV SCH ×2 (04:07→08:19)
[2017-07-08 05:42] LABS: HEMATOCRIT 27.1 % (42.0-52.0); HEMOGLOBIN 8.6 g/dL (14.0-18.0); MCH 29.7 PG (27-31); MCHC 31.7 g/dL (33-37); MCV 93.4 FL (81-99); MPV 11.1 FL (7.4-10.4); RBC 2.9 XMIL (4.7-6.1)
[2017-07-08] MEDS: PRILOSEC PO SCH (06:11)
[2017-07-08 06:24] LABS: ALBUMIN 2.3 g/dL (3.5-5.0); CALCIUM 8.2 mg/dL (8.8-10.2); POTASSIUM 5.5 mmol/L (3.5-5.1)
[2017-07-08] MEDS: VELTASSA PO SCH (08:15)
[2017-07-08] MEDS: COREG PO SCH ×2 (08:15→20:35)
[2017-07-08] MEDS ORDERED: VERSED ONE (09:08)
[2017-07-08] MEDS ORDERED: XYLOCAINE-MPF 2% ONE (09:08)
[2017-07-08] MEDS ORDERED: FENTANYL ONE (09:09)
[2017-07-08] MEDS ORDERED: DIPRIVAN 1% ONE (09:09)
[2017-07-08] MEDS ORDERED: NEOSPORIN G.U. IRRIGANT ONE ×2 (09:54→11:52)
[2017-07-08] MEDS ORDERED: MARCAINE 0.25% PF ONE (10:46)
[2017-07-08] MEDS ORDERED: NEOSTIGMINE ONE (11:50)
[2017-07-08] MEDS ORDERED: ROBINUL ONE (11:50)
[2017-07-08] MEDS ORDERED: ZOFRAN ONE (12:05)
[2017-07-08] MEDS ORDERED: DECADRON ONE (12:05)
[2017-07-08] MEDS: MORPHINE ONE ×2 (13:03→20:07)
[2017-07-08] MEDS ORDERED: SAMSCA PO ONE (13:40)
[2017-07-08] MEDS: CORDARONE PO SCH ×2 (13:59→20:35)
[2017-07-08] MEDS: MIRALAX PO SCH (13:59)
[2017-07-08] MEDS: ASPIRIN EC PO SCH (13:59)
[2017-07-08] MEDS: NEURONTIN PO SCH ×2 (13:59→20:35)
[2017-07-08] MEDS: PHOSLO PO SCH ×3 (13:59→17:23)
[2017-07-08] MEDS: COLACE PO SCH ×2 (13:59→20:35)
[2017-07-08] MEDS: CARDIZEM CD PO SCH (14:00)
[2017-07-08] MEDS: FLOMAX PO SCH (14:00)
[2017-07-08] MEDS: FOLIC ACID PO SCH (14:00)
[2017-07-08] MEDS: LASIX 200 MG in NS 25 ML IV SCH ×2 (14:25→20:35)
[2017-07-08] MEDS: ALBUMIN 25% IV SCH (14:59)
--- NOTE | 2017-07-08 15:27 | PROGRESS NOTE ---
DATE: 07/08/2017 SUBJECTIVE: Patient has no focal complaints except his arm hurts. OBJECTIVE: Vital signs: Blood pressure 118/83, heart rate of 82, respiratory rate 16, temperature was 97 degrees. General: Well-developed male. No acute distress. Cardiovascular: Regular rate and rhythm. Pulmonary: Bilateral breath sounds. Clear to auscultation. GI: Soft, nontender, nondistended. Bowel sounds are positive. LABORATORY DATA: Sodium 124, potassium finally down to 5.5, BUN and creatinine of 109 and 4.1, calcium 8.2. White count 9, hemoglobin and hematocrit of 8 and 27, platelets 208,000. His cell count on the synovial fluid was 107,348, 90% were polymorphonucleated white blood cells. PROBLEM LIST: 1. Methicillin-resistant Staphylococcus aureus endocarditis. Plan for 8 weeks of antibiotics. We are pursuing a Livingston hopefully on Monday for chronic IV therapy. He is on daptomycin and rifampin. I believe this is day 9. 2. Right shoulder joint abscess status post incision and drainage and lavage today per Dr. Loera. I greatly appreciate his input. Could not pursue yesterday because he was persistently hyperkalemic but that has improved. 3. Exx-AD-rtckbptgm myocardial infarction. We are doing medical management. He is on a heparin drip. 4. Atrial fibrillation appears to be rate controlled. Currently I think he is on amiodarone, Coreg and Cardizem and heart rate seems to be under decent control. 5. Disposition. We are looking at rehab options versus LTAC. Will continue to follow. cc: Tommy Ann MD
[2017-07-08] MEDS: CUBICIN 600 MG in NS 100 ML IV SCH (17:23)
--- NOTE | 2017-07-08 17:40 | OPERATIVE NOTE ---
PROCEDURE DATE: 07/08/2017 PREOPERATIVE DIAGNOSIS: Septic right shoulder with rotator cuff tear. POSTOPERATIVE DIAGNOSIS: Septic right shoulder with rotator cuff tear with partial biceps tendon tear. PROCEDURE: Arthroscopic lavage right shoulder, with biceps tenotomy and bursectomy. SURGEON: Konstantin Loera MD. ANESTHESIA: General. IV FLUIDS: 700 mL lactated Ringer's. ESTIMATED BLOOD LOSS: 30 mL. COMPLICATIONS: None. INDICATION: The patient was a pleasant 61-year-old male who has chronic underlying methicillin- resistant Staph aureus mitral valve endocarditis who also had an MRI which revealed a full- thickness rotator cuff tear as well as some fluid suspicious for an infection. His cell count on aspirate revealed a white count of 107,348 with 90% polys consistent with infection. Recommendation to proceed with arthroscopic lavage was offered. Risks and benefits of surgery explained, including risks of anesthesia, , bleeding, infection, failure to relieve pain, postop stiffness, nerve injury, blood clots and other imponderables. All questions answered. Patient and family wished to proceed with surgery. DETAILS OF OPERATION: The patient was taken to the operating room and placed supinely on the operating table. Once adequate anesthesia was obtained, he was placed in the left lateral decubitus position on a rainey bag with an axillary roll. Right shoulder was subsequently prepped and draped in usual sterile fashion. A standard posterior incision was made with an 11 blade. A blunt tip trocar with overlying cannula was introduced. There was some purulent fluid which was expressed. The arthroscope was then introduced. Anterior portal was then made. Inspection of glenohumeral joint did reveal some underlying chondromalacia of the humeral head as well as significant fraying and partial tearing of the biceps tendon. Given this finding, we proceeded with a biceps tenotomy. There was evidence of full-thickness rotator cuff tear. There was no evidence of loose body in the inferior pouch. Arthroscopic lavage was performed with antibiotic irrigation. After irrigating with 6000 mL of antibiotic irrigation, arthroscope was transferred to the subacromial space. A lateral incision was made in a standard fashion. A bursectomy was performed. Some of the frayed portion of the rotator cuff was debrided as well. Arthroscopic lavage was then performed as well into the subacromial space as well as the joint for a total of 12,000 mL of antibiotic irrigation. A 1/8 Hemovac drain was placed through a cannula through the lateral portal and was not sewn in. 3-0 nylon was used to close the skin in an interrupted fashion. Patient did have evidence of a small eschar which was debrided on the superior aspect of the shoulder down to healthy tissue. Adaptic was placed on all the wounds. Sterile 4 x 4's, ABD pad, and tape were applied to the right shoulder. The patient tolerated the procedure well and was transferred to the recovery room in stable condition. cc: Konstantin Loera MD
[2017-07-08] MEDS: OXY IR PO PRN (20:36)
[2017-07-09] MEDS: DILAUDID IV PRN ×5 (02:43→20:41)
[2017-07-09] MEDS: HEPARIN 25,000 UNIT in NS 250 ML IV SCH ×3 (03:06→22:56)
[2017-07-09] MEDS: ATROVENT NEB INH SCH ×4 (03:56→22:52)
[2017-07-09] MEDS: XOPENEX NEB INH SCH ×4 (03:56→22:52)
[2017-07-09 05:53] LABS: HEMATOCRIT 26.5 % (42.0-52.0); HEMOGLOBIN 8.4 g/dL (14.0-18.0); MCH 29.2 PG (27-31); MCHC 31.7 g/dL (33-37); MPV 10.7 FL (7.4-10.4); RBC 2.88 XMIL (4.7-6.1)
[2017-07-09 06:06] LABS: ALBUMIN 2.9 g/dL (3.5-5.0); CALCIUM 8.7 mg/dL (8.8-10.2)
[2017-07-09] MEDS: PRILOSEC PO SCH (06:24)
[2017-07-09] MEDS: HUMULIN R SUBQ SCH ×4 (08:08→20:41)
[2017-07-09] MEDS: MIRALAX PO SCH (09:04)
[2017-07-09] MEDS: FLOMAX PO SCH (09:04)
[2017-07-09] MEDS: COLACE PO SCH ×2 (09:04→20:41)
[2017-07-09] MEDS: CORDARONE PO SCH ×2 (09:04→20:42)
[2017-07-09] MEDS: COREG PO SCH ×2 (09:04→20:41)
[2017-07-09] MEDS: VELTASSA PO SCH (09:04)
[2017-07-09] MEDS: FOLIC ACID PO SCH (09:04)
[2017-07-09] MEDS: PHOSLO PO SCH ×3 (09:04→16:05)
[2017-07-09] MEDS: CARDIZEM CD PO SCH (09:04)
[2017-07-09] MEDS: ASPIRIN EC PO SCH (09:04)
[2017-07-09] MEDS: NEURONTIN PO SCH ×2 (09:05→20:42)
[2017-07-09] MEDS: ALBUMIN 25% IV SCH (09:17)
[2017-07-09] MEDS ORDERED: SAMSCA PO ONE (14:38)
--- NOTE | 2017-07-09 15:53 | PROGRESS NOTE ---
DATE: 07/09/2017 SUBJECTIVE: Patient complaining of shoulder pain. He also has had some abdominal discomfort, nausea, vomiting. OBJECTIVE: Vital signs: Blood pressure was 107/71, heart rate of 74, respiratory rate 16, temperature 97.6 degrees. Cardiovascular: Regular rate and rhythm. Pulmonary: Bilateral breath sounds. Clear to auscultation. GI: Soft, nontender, nondistended. Bowel sounds are positive. LABORATORY DATA: White count 9, hemoglobin and hematocrit 8 and 26, platelets 176,000. Sodium 125, potassium 6, BUN and creatinine of 105 and 3.9, glucose of 277. PROBLEM LIST: 1. Methicillin-resistant Staphylococcus aureus endocarditis. He is on daptomycin and rifampin, I think we are on day 10 of treatment for 8 weeks. Plan hopefully is Livingston catheter tomorrow. 2. Right shoulder joint abscess status post incision and drainage per Dr. Loera. Could not pursue previously because hyperkalemia. Continue to follow. 3. Azr-LX-lxnexrpsk myocardial infarction. We will continue to treat medically. He is on heparin. 4. Atrial fibrillation appears to be rate controlled. He is on amiodarone, Coreg and Cardizem. He does have some borderline hypotension. We may have to decrease the Coreg possibly. 5. Hyperkalemia. He is on Veltassa. We will continue to follow. He may need additional treatment. 6. Acute on chronic renal failure. He is borderline at the point of requiring renal replacement therapy. The patient is not really keen on doing that #1 plus he has an active high-grade bacteremia which will make that process difficult. DISPOSITION: LTAC versus rehab but right now we will have to see how to manage further. cc: Tommy Ann MD
[2017-07-09] MEDS ORDERED: INSULIN PEN NEEDLES ONE (16:56)
[2017-07-09] MEDS: LANTUS SUBQ SCH (16:57)
[2017-07-09] MEDS: CUBICIN 600 MG in NS 100 ML IV SCH (18:38)
[2017-07-10] MEDS: DILAUDID IV PRN ×2 (00:34→04:34)
[2017-07-10] MEDS: OXY IR PO PRN ×4 (02:44→23:48)
[2017-07-10] MEDS: ATROVENT NEB INH SCH ×4 (04:53→23:50)
[2017-07-10] MEDS: XOPENEX NEB INH SCH ×4 (04:54→23:50)
[2017-07-10 05:46] LABS: HEMATOCRIT 26.3 % (42.0-52.0); HEMOGLOBIN 8.3 g/dL (14.0-18.0); MCH 29.9 PG (27-31); MCHC 31.6 g/dL (33-37); MCV 94.6 FL (81-99); MPV 10.8 FL (7.4-10.4); RBC 2.78 XMIL (4.7-6.1)
[2017-07-10 06:14] LABS: CALCIUM 9.4 mg/dL (8.8-10.2); POTASSIUM 5.7 mmol/L (3.5-5.1)
[2017-07-10] MEDS: HUMULIN R SUBQ SCH ×4 (06:16→21:58)
[2017-07-10] MEDS: PRILOSEC PO SCH (06:18)
[2017-07-10] MEDS ORDERED: HEPARIN IV ONE ×2 (06:22→17:26)
--- NOTE | 2017-07-10 06:28 | PROGRESS NOTE ---
DATE: 07/10/2017 SUBJECTIVE: The patient has a methicillin-resistant Staph aureus mitral valve endocarditis and methicillin-resistant Staph aureus septic right shoulder arthritis. The patient has a yeast in the urine. This is asymptomatic. MEDICATIONS: The patient is on daptomycin as a single agent. Rifampin was dropped because the patient's ALT was elevated. Also, I have changed the daptomycin dose instead of every 24 hours to every 48 hours because of his elevated creatinine. OBJECTIVE: Vital signs: Temperature is 97.9 degrees, pulse 79, respirations 18 , blood pressure 109/69. General: This is an ill-appearing, middle-aged male. He is in no acute distress. Lungs: Clear to auscultation. Cardiovascular: The patient is atrial flutter. However, his heart rate is regular. Abdomen: Soft and nontender. Bones, joints, muscles : There is a large dressing, and drain is in place on the right shoulder. LAB AND X-RAY: CBC today showed a white count of 8640, hemoglobin 8.3, and platelet count 147,000. Creatinine is 3.9. GFR is 16. Culture from the right shoulder is negative. Urine is growing yeast. ASSESSMENT AND PLAN: I plan to continue with daptomycin therapy for the patient 's endocarditis and his septic shoulder arthritis. As regarding the yeast in the patient's urine, this is asymptomatic and does not merit treating with any antifungal agent. COMORBIDITIES: This patient include diabetes mellitus, peripheral vascular disease, end-stage renal disease. cc: Franco Brewer MD MTDD
--- NOTE | 2017-07-10 07:00 | PROGRESS NOTE ---
DATE: 07/10/2017 SUBJECTIVE: The patient is a pleasant, 61-year-old male who is 2 days status post arthroscopic lavage and biceps tenotomy of the right shoulder. He is currently resting comfortably. OBJECTIVE: On physical exam, patient's wounds look good. He continues with significant pitting edema throughout the right upper extremity. His Hemovac had 30 mL out over a 24 hours shift. IMPRESSION: Postoperative day #2, status post arthroscopic lavage of the right shoulder. PLAN: At this point, we will discontinue his drain. The patient is stable from an orthopedic standpoint. We will discontinue his sutures on 07/18/2017. Patient will follow up in the office after discharge from rehab. cc: Konstantin Loera MD
--- NOTE | 2017-07-10 07:26 | Diag Imaging Result Doc PS360 ---
EXAM: CHEST-PORTABLE INDICATION: dyspnea TECHNIQUE: One view COMPARISON: 06/29/2017 FINDINGS: There is stable elevation of the right hemidiaphragm. The lungs are grossly clear. There is no discrete pleural fluid collection or pneumothorax. The cardiac silhouette appears mildly prominent but stable. IMPRESSION: No definite acute pathology by plain radiograph. Electronically signed by Shaheen Perea 07/10/2017 7:24 AM
[2017-07-10 07:28] LABS: DIRECT BILIRUBIN 0.7 mg/dL (0.00-0.20); TOTAL BILIRUBIN 1.14 mg/dL (0.20-1.00); TOTAL PROTEIN 6.1 g/dL (6.3-8.3)
[2017-07-10] MEDS ORDERED: INSULIN PEN NEEDLES ONE (08:45)
[2017-07-10] MEDS: FLOMAX PO SCH (08:50)
[2017-07-10] MEDS: FOLIC ACID PO SCH (08:50)
[2017-07-10] MEDS: CORDARONE PO SCH ×2 (08:50→21:49)
[2017-07-10] MEDS: LANTUS SUBQ SCH (08:51)
[2017-07-10] MEDS: CARDIZEM CD PO SCH (08:51)
[2017-07-10] MEDS: ASPIRIN EC PO SCH (08:51)
[2017-07-10] MEDS: NEURONTIN PO SCH ×2 (08:51→21:48)
[2017-07-10] MEDS: COLACE PO SCH ×2 (08:51→21:48)
[2017-07-10] MEDS: COREG PO SCH ×2 (08:51→21:49)
[2017-07-10] MEDS: PHOSLO PO SCH ×3 (08:51→17:59)
[2017-07-10] MEDS: MIRALAX PO SCH (08:52)
[2017-07-10] MEDS: VELTASSA PO SCH (08:52)
[2017-07-10] MEDS ORDERED: HEPARIN 25,000 UNIT in NS 250 ML IV SCH (11:00)
[2017-07-10] MEDS ORDERED: DILAUDID IV PRN (12:29)
[2017-07-10] MEDS ORDERED: RELISTOR SUBQ ONE (12:32)
[2017-07-10] MEDS: ZOFRAN IV PRN (12:37)
--- NOTE | 2017-07-10 12:39 | PROGRESS NOTE ---
DATE: 07/10/2017 TIME SEEN: 0815. SUBJECTIVE: Mr. Ventura is resting quietly in bed. He has no complaints except a chronic cough that he feels is not clearing when coughing. OBJECTIVE: Vital signs: His most recent vital signs, last temperature 98.4 degrees, blood pressure 123/79, heart rate 77, respirations 18. He is on 2 L nasal cannula. Last recorded saturation was 94%. He has had 772 in. He has had 1080 out per Bustillos catheter. Labs: Sodium 127, potassium 5.7, chloride 90, CO2 18, BUN 106, creatinine 4.1, glucose 222. Anion gap 19, calcium 9.4, phosphorus 6.7, albumin of 3. White count 8.64, hemoglobin 8.3, hematocrit 26.3, with a platelet count of 147,000. PHYSICAL EXAMINATION: General: This is a 61-year-old white male. He is currently resting in bed. Head of the bed is elevated. He is in mild distress secondary to chronic cough with nonclearing. HEENT: Normocephalic, atraumatic conjunctiva is pale. He has ЮЛИЯ. Mucous membranes moist. Neck: Supple. Trachea midline. No JVD with the positioning of head of the bed at a 90 degrees angle. Cardiovascular: He is regular rate and rhythm. He has no murmur or gallop. Lungs: He has bibasilar crackles. He remains on O2. Equal excursion. Abdomen: Round, soft, nontender. Positive bowel sounds. Extremities: He has bilateral BKAs. He does have 4+ edema up into the hip, sacral, and abdominal prepubic area. Integumentary: Different stages of healing of ecchymosis to upper extremities. Neurological: He is alert and oriented x3. ASSESSMENT AND PLAN: 1. Acute kidney injury. Patient's BUN and creatinine continue elevated. His last creatinine was 4.1 with a BUN of 106. Patient continues on large doses of Lasix 200 mg IV q.12 hours. Patient feels that this is not helping with his fluid volume overload. We have indicated that we can assist with hemodialysis. This is been offered multiple times. Patient states that he would like to continue to think about it. We will continue to manage his therapy medically as indicated by patient's wishes. 2. Electrolytes. Patient continues with hyperkalemia and hyponatremia. Again, this is secondary to #1. 3. Acidosis this remains chronic. We have not given him anymore sodium acetate or sodium bicarb secondary to his fluid volume overload. 4. Anemia. This remains low but stable with no indications for intervention. 5. Bdh-[id number] myocardial infarction and bacteremia. Patient remains on renal dosed antibiotics. I would to thank you for allowing us to follow with this patient. Dictated by WILLIS Vail for Herb Brown MD Patient seen, data reviewed, discussed with Hamida Guan on 07/10/17. I agree with the above assessment and plan of care. cc: WILLIS Vail MD [facility]
[2017-07-10] MEDS ORDERED: XYLOCAINE 1%/EPI 1:100,000 ONE (13:12)
[2017-07-10] MEDS ORDERED: NS 250 ML ONE (13:13)
[2017-07-10] MEDS ORDERED: XYLOCAINE-MPF 2% ONE (13:14)
[2017-07-10] MEDS ORDERED: DIPRIVAN 1% ONE (13:14)
[2017-07-10] MEDS: DILAUDID ONE ×2 (14:40→14:45)
--- NOTE | 2017-07-10 14:53 | Diag Imaging Result Doc PS360 ---
EXAM: CHEST-1 VIEW HISTORY: line placement TECHNIQUE: Portable upright AP COMPARISON: Compared to film taken earlier FINDINGS: Interval placement of a right jugular catheter. Tip overlies the mid superior vena cava. Poor inspiratory effort with either atelectasis or infiltrates on the current exam which have developed since earlier this morning. No pleural effusions identified. IMPRESSION: No postprocedural pneumothorax. Development of atelectasis or small infiltrates.. Electronically signed by Francisco Wu 07/10/2017 2:51 PM
[2017-07-10] MEDS: LACTULOSE PO SCH ×2 (15:14→21:49)
[2017-07-10] MEDS: ALBUMIN 25% IV SCH (15:15)
[2017-07-10] MEDS ORDERED: MISC. PHARMACY COMMUNICATION SCH (17:24)
--- NOTE | 2017-07-10 17:59 | OPERATIVE NOTE ---
PROCEDURE DATE: 07/10/2017 PREOPERATIVE DIAGNOSIS: Bacterial endocarditis. POSTOPERATIVE DIAGNOSIS: Bacterial endocarditis. PROCEDURE PERFORMED: 1. Ultrasound-guided right internal jugular vein Livingston catheter placement. 2. Fluoroscopy less than 1 hour. COMPLICATIONS: None. ANESTHESIA: MAC with local. INDICATION: This is a 61-year-old male with multiple medical issues who presents with bacterial endocarditis, septic right shoulder, who needs long-term tunneled access for IV antibiotics. OPERATIVE FINDINGS: Ultrasound examination of the right neck shows a dilated compressible internal jugular vein with no evidence of intraluminal thrombus. Final fluoroscopic image showed no evidence of pneumothorax and no kink in the catheter along its course with the tip positioned at the superior vena cava-atrial junction. OPERATIVE NOTE: Risks, benefits, alternatives discussed with the patient. He consented to the procedure. He was seen preoperatively and surgical site was confirmed. He was taken to the operating room, placed in supine position. IV anesthesia was then administered. He is on scheduled antibiotics. Bilateral neck and chest were prepped with Betadine and draped in usual fashion. After time-out was performed, focused ultrasound of the right neck was performed with adequate internal jugular vein. We infiltrated local anesthetic in the subcutaneous tissues and the pink introducer needle was used to access the vein on the 1st pass. Dark nonpulsatile venous blood was noted on return. The wire threaded easily in the right side of the heart and was confirmed with fluoroscopy. Local anesthetic was infiltrated along the tunneled catheters planned tract and a small incision was made in the chest and the incision in the neck was made larger with an 11 blade scalpel. We tunneled the catheter between the 2 and using overlapping with a fluoroscopic images, we trimmed the catheter to the appropriate length. The cuff was placed just underneath the skin level and a dilator peel-away introducer sheath was then placed over the wire and the wire and the dilator were removed. The catheter was threaded into the right side of the heart, withdrew just slightly until it was in good position. The catheter withdrew blood and flushed easily. We flushed this with dilute heparinized saline. We placed a sterile cap, closed the incision in neck with 4-0 Monocryl in subcuticular fashion. A pursestring was placed around the skin at the chest and it was secured with a nylon suture. Sterile dressing was applied. Dermabond was applied to the neck. He tolerated the procedure well. There was no identified complications. Count correct x2. Chest x-ray will be obtained in recovery. cc: Daniel Michel MD
[2017-07-10] MEDS: MORPHINE IV PRN (21:48)
[2017-07-10] MEDS ORDERED: NS IV SCH (23:00)
[2017-07-10] MEDS ORDERED: HEPARIN IV SCH (23:00)
[2017-07-11] MEDS: MORPHINE IV PRN ×4 (01:58→21:46)
--- NOTE | 2017-07-11 03:57 | PROGRESS NOTE ---
DATE: 07/10/2017 SUBJECTIVE: As I walk in the room, he is asking for Dilaudid. Otherwise, no events over the weekend. He did have an arthroscopic drainage of the right septic shoulder arthritis. OBJECTIVE: Vital signs: Temperature is 97.6 degrees, pulse 75, blood pressure 127/85, O2 saturation 95% on 2 L. General: He is alert, in no acute distress. neck: I do not see any mass in his right neck. extremities: He has an incision in his right shoulder, but no erythema. Cardiovascular: Normal rate, regular rhythm. lungs: He is on nasal cannula O2. DIAGNOSTICS: White count is 8, hematocrit 26. Creatinine is 4.1, potassium is elevated, as high as 5.7. BNP is greater than 35,000. Bilirubin is 1.14, AST, ALT and alkaline phosphatase were also elevated mildly. ASSESSMENT AND PLAN: A 61-year-old male with multiple medical issues, includin. Septic arthritis. 2. Bacterial endocarditis. He needs fpc IV access with Livingston catheter. Discussed risks, benefits, alternatives with the patient, including bleeding, infection, vascular injury, pneumothorax. He consents to procedure. We will go today and plan to place a Livingston catheter in the right internal jugular vein today, and the Medicine Service can use this as-needed going forward. cc: Daniel Michel MD
[2017-07-11 05:12] LABS: MANUAL DIFF NEEDED? NO
[2017-07-11] MEDS: XOPENEX NEB INH SCH ×4 (05:22→22:12)
[2017-07-11] MEDS: ATROVENT NEB INH SCH ×4 (05:22→22:12)
[2017-07-11 05:25] LABS: BASO% 0.2 % (0.0-0.8); EOS# 0.22 X1000 (0.0-0.7); EOS% 2.7 % (0.0-10.0); HEMATOCRIT 25.4 % (42.0-52.0); IMM GRAN# 0.03 X1000 (0.0-0.04); IMM GRAN% 0.4 % (0.0-0.5); LYMPH# 0.46 X1000 (1.2-3.4); LYMPH% 5.7 % (20.5-51.1); MCH 29.1 PG (27-31); MCHC 31.5 g/dL (33-37); MCV 92.4 FL (81-99); MONO% 6.2 % (1.7-9.3); MPV 11.1 FL (7.4-10.4); NEUT% 84.8 % (42.2-75.2); PLT 142 X1000 (130-400); RBC 2.75 XMIL (4.7-6.1)
[2017-07-11] MEDS: OXY IR PO PRN ×3 (05:43→20:19)
[2017-07-11] MEDS: PRILOSEC PO SCH ×2 (05:43→06:28)
[2017-07-11 05:56] LABS: ALBUMIN 3.2 g/dL (3.5-5.0); CALCIUM 8.8 mg/dL (8.8-10.2); POTASSIUM 5.6 mmol/L (3.5-5.1)
[2017-07-11] MEDS: HUMULIN R SUBQ SCH ×4 (06:27→20:18)
--- NOTE | 2017-07-11 08:05 | PROGRESS NOTE ---
DATE: 07/11/2017 SUBJECTIVE: The patient has methicillin-resistant Staph aureus, mitral valve endocarditis, and methicillin-resistant Staph aureus, septic right shoulder arthritis. The patient has yeast in the urine, which is asymptomatic. Yesterday, the patient had a clear x-ray in the morning and after he had his Livingston catheter placed, there were some bibasilar infiltrates that I think most likely were due to atelectasis from failure to take a deep breath. I doubt that pneumonia would develop that quickly on the chest x-ray. PHYSICAL EXAMINATION: Vital signs: Temperature is 97.8 degrees, respirations 18, blood pressure 113/73. General: This is an ill-appearing, middle-aged male. He is in no acute distress. Lungs: Clear to auscultation. Cardiovascular: Irregular heart rate. Abdomen: Soft and nontender. Thorax: Patient has a Livingston catheter in place on the right side. The site is not bleeding or swollen. Bones, joints, muscles: The dressing has been removed from the patient's right shoulder. The small incisions are not erythematous or draining. LAB AND X-RAY: CBC today shows a white count of 8020, hemoglobin 8, platelet count 142,000. Creatinine is 4.1. GFR is 15. Chest x-ray shows bibasilar atelectasis versus infiltrate. ASSESSMENT AND PLAN: The patient has endocarditis and septic shoulder arthritis. My plan is to continue daptomycin as a single agent. I previously had the patient on rifampin, but his liver function tests elevated and therefore, I have stopped it. COMORBIDITIES: Diabetes mellitus, peripheral vascular disease, and end-stage renal disease. cc: Franco Brewer MD
[2017-07-11] MEDS: NEURONTIN PO SCH ×2 (09:39→20:18)
[2017-07-11] MEDS: PHOSLO PO SCH ×3 (09:39→17:48)
[2017-07-11] MEDS: COREG PO SCH ×2 (09:39→20:18)
[2017-07-11] MEDS: CORDARONE PO SCH ×2 (09:39→20:18)
[2017-07-11] MEDS: FOLIC ACID PO SCH (09:39)
[2017-07-11] MEDS: MIRALAX PO SCH (09:40)
[2017-07-11] MEDS: COLACE PO SCH ×2 (09:40→20:18)
[2017-07-11] MEDS: VELTASSA PO SCH (09:40)
[2017-07-11] MEDS: ASPIRIN EC PO SCH (09:40)
[2017-07-11] MEDS: CARDIZEM CD PO SCH (09:40)
[2017-07-11] MEDS: FLOMAX PO SCH (09:40)
[2017-07-11] MEDS: LANTUS SUBQ SCH (09:40)
--- NOTE | 2017-07-11 11:54 | PROGRESS NOTE ---
DATE: 07/11/2017 SUBJECTIVE: This patient states that he is feeling a little bit better. He is still complaining of mild right shoulder pain and abdominal discomfort, otherwise, he is stable. He has some fluid overload, mostly his abdomen and upper extremities. He has kidney injury and nephrology department is following this patient. He is still on heparin drip, and I will contact Cardiology to see if we need to continue with this or switch it to p.o. medications, I do believe this patient is close to be discharged unless he will agree with dialysis. He has been getting furosemide at high doses. OBJECTIVE: Vital Signs: Temperature 97.7 degrees, pulse 77, respiratory rate 18, blood pressure 117/77, oxygen saturation 100% on 2 L of nasal cannula. HEENT: Head normocephalic. No trauma. PERRLA. Neck supple. No JVD. There are no masses. Central trachea. Chest: Decreased breath sounds at the bases with some rales. Abdomen is soft, obese, abdominal wall edema positive bowel sounds. Extremities: Lower extremity amputations bilateral over extremities 3+ edema. Neurologic: Patient is alert, oriented x3. He moves all 4 extremities. LABORATORY DATA: WBC 8, hemoglobin 8, hematocrit 25.4, platelets 142,000. Sodium 127 potassium 5.6, chloride 91 bicarbonate 17. BUN 111, creatinine 4.1, GFR 15, glucose 239. Calcium 8.8, phosphorus 6.4. ASSESSMENT AND PLAN: 1. Methicillin-resistant Staphylococcus aureus endocarditis. Continue with daptomycin, Infectious Disease Department is following this patient. She already had a Livingston catheter yesterday. 2. Right shoulder joint abscess status post incision and drainage, stable. 3. [id number] myocardial infarction. We continued to treat this patient medically. He is on heparin. I will talk to Cardiology Department to see if we need to do something else at this point, which I do not think we can be more aggressive. 4. Atrial fibrillation, rate controlled. Continue with the same management. 5. Hyperkalemia. He is on Veltassa. Will control to follow. We will continue to follow. May need probably to increase the dose of/or and additional treatment. 6. Hjmzr-ld-pdpkjse renal failure. I do believe, at this point, he is going to end up with renal replacement therapy. Nephrology department following this patient closely. 7. Chronic heart failure, aware. 8. Type 2 diabetes. I have increased his dose of Lantus from 10 to 20. We will continue to monitor. cc: Fred Mclean MD
[2017-07-11] MEDS: LACTULOSE PO SCH ×2 (12:17→20:19)
[2017-07-11] MEDS: ZOFRAN IV PRN (13:18)
--- NOTE | 2017-07-11 15:32 | PROGRESS NOTE ---
DATE: 07/11/2017 TIME SEEN: 0850 SUBJECTIVE: Mr. Ventura is sitting up in bed. He denies any increased work of breathing today, denies any chest pain. 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 OBJECTIVE: Temperature is 97.8 degrees, blood pressure 113/73, heart rate 76, respirations 18. He is on 2 L nasal cannula. Last recorded saturation 97%. He has had 940 in. He has had 920 out. He is in a negative fluid balance today. LABS: Sodium 127, potassium 5.6, chloride 91, CO2 17, BUN 111, creatinine 4.1, glucose 239, anion gap 19, calcium 8.8, phosphorus 6.4, albumin 3.2. White count 8.02, hemoglobin 8, hematocrit 25.4, platelet count 142,000. PTT 57.6. PHYSICAL EXAMINATION: General: This is a 61-year-old white male. He is currently resting in bed. He appears in some mild distress. He appears chronically ill. Skin: Warm and dry. HEENT: Normocephalic, atraumatic. Conjunctiva is pale. He has ЮЛИЯ. Mucous membranes are moist. Neck: Supple. Trachea midline. No JVD. Cardiovascular: He is regular rate and rhythm. No murmur or gallop appreciated. Lungs: Clear to auscultation anterior. Equal excursion. Remains on O2. Abdomen: Round, soft, nontender. Positive bowel sounds. Extremities: Have bilateral BKA to the lower extremities, 4+ edema up into the hip sacral abdominal prepubic area remains. No changes from yesterday. INTEGUMENT: Different stages of healing with ecchymosis to the upper extremities.Neurologic: He is alert and oriented x3. ASSESSMENT AND PLAN: 1. Acute kidney injury. Patient's BUN and creatinine continue elevated. This remains stable at 4.1 over the last 3-4 days. Again, we have offered patient dialysis to assist with his fluid volume overload. Patient states that he is not ready to talk about this today. 2. Electrolytes with mild hyperkalemia and hyponatremia. This is actually improved over the last several days. No indications for intervention. We will continue to monitor. 3. Acidosis. Patient remains with a mild anion gap metabolic acidosis again secondary to #1. We will continue to monitor. No indications for intervention today. 4. Anemia. This remains low but stable. 5. Non-ST segment elevation myocardial infarction and bacteremia. Again these are followed by Cardiology and the primary care team. No indications to follow. I would like to thank you for allowing us to follow with this patient. Dictated by WILLIS Vail for Herb Brown MD Patient seen, data reviewed, discussed with Hamida Guan on 07/11/17. I agree with the above assessment and plan of care. cc: WILLIS Vail MD [facility]
[2017-07-11] MEDS: CUBICIN 600 MG in NS 100 ML IV SCH (18:27)
[2017-07-11] MEDS: ELIQUIS PO SCH (20:18)
[2017-07-12] MEDS: ATROVENT NEB INH SCH ×4 (03:30→21:15)
[2017-07-12] MEDS: XOPENEX NEB INH SCH ×4 (03:30→21:15)
[2017-07-12] MEDS: MORPHINE IV PRN ×5 (04:55→22:19)
[2017-07-12 06:33] LABS: MANUAL DIFF NEEDED? NO
[2017-07-12] MEDS: HUMULIN R SUBQ SCH ×4 (06:35→22:21)
[2017-07-12] MEDS: PRILOSEC PO SCH (06:35)
[2017-07-12 07:06] LABS: BASO% 0.6 % (0.0-0.8); EOS# 0.65 X1000 (0.0-0.7); EOS% 7.4 % (0.0-10.0); HEMATOCRIT 26.5 % (42.0-52.0); HEMOGLOBIN 8.5 g/dL (14.0-18.0); IMM GRAN# 0.03 X1000 (0.0-0.04); IMM GRAN% 0.3 % (0.0-0.5); LYMPH# 0.62 X1000 (1.2-3.4); LYMPH% 7.1 % (20.5-51.1); MCH 29.6 PG (27-31); MCHC 32.1 g/dL (33-37); MCV 92.3 FL (81-99); MONO# 0.54 X1000 (0.11-0.59); MONO% 6.2 % (1.7-9.3); NEUT% 78.4 % (42.2-75.2); PLT 160 X1000 (130-400); RBC 2.87 XMIL (4.7-6.1)
[2017-07-12 07:11] LABS: ALBUMIN 2.9 g/dL (3.5-5.0); CALCIUM 9.1 mg/dL (8.8-10.2); POTASSIUM 5.3 mmol/L (3.5-5.1)
[2017-07-12] MEDS: PHOSLO PO SCH ×3 (08:12→16:00)
[2017-07-12] MEDS: LACTULOSE PO SCH ×2 (10:29→22:19)
[2017-07-12] MEDS: FLOMAX PO SCH (10:29)
[2017-07-12] MEDS: ASPIRIN EC PO SCH (10:29)
[2017-07-12] MEDS: MIRALAX PO SCH (10:29)
[2017-07-12] MEDS: DULCOLAX PR PRN (10:29)
[2017-07-12] MEDS: LANTUS SUBQ SCH (10:30)
[2017-07-12] MEDS: CORDARONE PO SCH ×2 (10:30→22:19)
[2017-07-12] MEDS: ELIQUIS PO SCH ×2 (10:30→22:20)
[2017-07-12] MEDS: NEURONTIN PO SCH ×2 (10:30→22:20)
[2017-07-12] MEDS: CARDIZEM CD PO SCH (10:30)
[2017-07-12] MEDS: COLACE PO SCH ×2 (10:30→22:19)
[2017-07-12] MEDS: FOLIC ACID PO SCH (10:30)
[2017-07-12] MEDS: COREG PO SCH ×2 (10:30→22:20)
--- NOTE | 2017-07-12 11:52 | PROGRESS NOTE ---
DATE: 07/12/2017 TIME SEEN: 0800 SUBJECTIVE: Mr. Ventura is sitting quietly in bed. Head of the bed is elevated. He states that he just does not feel right, but is in no apparent acute distress. OBJECTIVE: Vital Signs: Temperature 97.6 degrees, blood pressure 111/70, heart rate 89, respirations. He is on 3 L nasal cannula. Last recorded saturation 100%. He has had 120 in. He has had 475 out per Bustillos catheter. LABS: Sodium 125, potassium 5.3, chloride 90, CO2 16, BUN 119, creatinine 4, glucose 139. Anion gap 19, calcium 9.1, phosphorus 5.9, albumin 2.9. White count 8.74, hemoglobin 8.5, and hematocrit 26.5, with a platelet count of 160, 000. PTT of 39. PHYSICAL EXAMINATION: General appearance: This is a 61-year-old white male, who is currently resting in bed. He appears chronically ill in no acute distress. Skin: Warm and dry. HEENT: Normocephalic, atraumatic. Conjunctivae pale. He has ЮЛИЯ. Mucous membranes are moist. Neck: Supple. Trachea midline. No evidence of JVD. Cardiovascular: Regular rate and rhythm. No murmur or gallop appreciated. Lungs: Clear to auscultation anteriorly. Equal excursion. He is on O2. No recent complaints of cough in the last 24 hours. Abdomen: Round, soft, nontender. Positive bowel sounds. Genitourinary: Not inspected. Bustillos catheter is in place. Adequate urine out. Extremities: Have bilateral BKA with 4+ edema to the lower extremities, sacral abdominal more prepubic area with edema. No changes from yesterday. Neurological: Alert and oriented x2. ASSESSMENT AND PLAN: Acute kidney injury on chronic kidney disease, stage 5. Patient's BUN and creatinine basically remained stable. Patient continues to deny our services for hemodialysis secondary to adequate urine output. No indications for fluid volume overload. We will sign off at this time and be available as indicated. We will glad to help in any way that we can if patient changes his mind for possible dialysis intervention. I would to thank you for allowing us to follow with this patient. Dictated by WILLIS Vail for Herb Brown MD Patient seen, data reviewed, discussed with Hamida Guan on 07/12/17. I agree with the above assessment and plan of care. cc: WILLIS Vail MD [facility]
--- NOTE | 2017-07-12 14:56 | PROGRESS NOTE ---
DATE: 07/12/2017 SUBJECTIVE: This patient states that he is not feeling good, he has been complaining of shortness of breath and right shoulder pain. He has some fluid overload, mostly his abdomen and upper extremities. He has kidney injury with a BUN and creatinine that have been elevated for the past days and also he has been having hyponatremia and hyperkalemia. Nephrology Department has recommended dialysis but he has been refusing. 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 As per the nurse, also he has been refusing to take all his medications, I have talked to him about this, I told him that he needs to take his medications. He seems to understand but I do not think he is going to follow instructions. OBJECTIVE: Vital Signs: Temperature 97.7 degrees, pulse 85, respiratory rate 20, blood pressure 123/80, O2 saturation 100% on 3 L of nasal cannula. HEENT: Normocephalic. No trauma. PERRLA. Neck: Supple. No JVD. No masses. Central trachea. Chest: Decreased breath sounds globally with some rales at the bases. Abdomen: Soft, obese. Abdominal wall edema. Positive bowel sounds. Extremities: Lower extremity amputation bilaterally, 2 to 3+ lower extremity edema. Neurological Examination: The patient is alert and oriented x3. He moves all 4 extremities. LABORATORY: WBC 8.7, hemoglobin 8.5, hematocrit 26.5, platelets 160,000. Sodium 125, potassium 5.3, chloride 90, bicarbonate 16, BUN 111, creatinine 4, glucose 139, calcium 9.1, phosphorus 5.9, albumin 2.9. ASSESSMENT AND PLAN: 1. MRSA endocarditis. Continue with daptomycin. Infectious Disease Department following this patient. He already had a Livingston catheter placed. 2. Right shoulder joint abscess status post incision and drainage. Stable. Continue with antibiotics. 3. Non ST elevation myocardial infarction. Continue with medical treatment. Cardiology Department already adjusted his medications. 4. Atrial fibrillation, rate controlled. He is on anticoagulation right now. 5. Hyperkalemia. He is on Pentasa. We will continue monitoring the potassium. 6. Acute on chronic renal failure. At this point, I think this patient needs dialysis, Nephrology department has been following this patient and offering dialysis but he has been refusing. But today when I started talking about discharging this patient once we have placement he started complaining of shortness of breath and he told me that now he wants to talk to Dr. Brown because he needs probably dialysis. 7. Congestive heart failure. Aware. Continue with the same management. 8. Type 2 diabetes. Continue with the same treatment for now. 9. Hyponatremia. Continue with the same management. 10. Hypokalemia. Continue with the same treatment. cc: Fred Mclean MD
--- NOTE | 2017-07-12 17:04 | PROGRESS NOTE ---
DATE: 07/12/2017 PRESENT ILLNESS: The patient has a methicillin-resistant Staph aureus mitral valve endocarditis and septic right shoulder arthritis. MEDICATIONS: The patient is receiving daptomycin as a single agent in a dose of 600 mg IV daily. PHYSICAL EXAMINATION: Vital Signs: Temperature is 97.7 degrees, pulse 90, respirations 16, blood pressure 123/80. General: This is an ill-appearing middle-aged male. He is in no acute distress. He does seem to be developing edema in both arms and chest area. Lungs: Clear to auscultation. Cardiovascular: Regular heart rate. Abdomen: Soft and nontender. Thorax: Patient has a Livingston catheter in place. The site is not erythematous or swollen. LABORATORY AND X-RAY: CBC: White count of 8740, hemoglobin is 8.5, and platelet count 160,000. Creatinine is 4, GFR is 15. ASSESSMENT AND PLAN: 1. Patient has endocarditis and septic right shoulder. My plan is to continue daptomycin as a single agent. I plan on 07/14 to get a CBC, CMP, chest x-ray and CPK of the patient. 2. Comorbidities include diabetes mellitus, peripheral vascular disease, end-stage renal disease. The patient refuses dialysis. cc: Franco Brewer MD
[2017-07-12] MEDS: VELTASSA PO SCH (18:30)
[2017-07-12] MEDS ORDERED: BLISTEX MEDICATED BERRY LIP BALM TOP ONE (22:34)
[2017-07-13] MEDS: MORPHINE IV PRN ×5 (02:38→20:23)
[2017-07-13] MEDS: ATROVENT NEB INH SCH ×4 (03:50→21:09)
[2017-07-13] MEDS: XOPENEX NEB INH SCH ×4 (03:50→21:09)
[2017-07-13] MEDS: HUMULIN R SUBQ SCH ×4 (06:01→21:33)
[2017-07-13] MEDS: PRILOSEC PO SCH (06:13)
[2017-07-13 06:28] LABS: MANUAL DIFF NEEDED? NO
[2017-07-13 06:57] LABS: BASO% 0.4 % (0.0-0.8); EOS# 0.64 X1000 (0.0-0.7); EOS% 7.9 % (0.0-10.0); HEMATOCRIT 26.7 % (42.0-52.0); HEMOGLOBIN 8.4 g/dL (14.0-18.0); LYMPH# 0.52 X1000 (1.2-3.4); LYMPH% 6.4 % (20.5-51.1); MCH 29.4 PG (27-31); MCHC 31.5 g/dL (33-37); MCV 93.4 FL (81-99); MONO# 0.51 X1000 (0.11-0.59); MONO% 6.3 % (1.7-9.3); PLT 161 X1000 (130-400); RBC 2.86 XMIL (4.7-6.1)
--- NOTE | 2017-07-13 07:19 | Diag Imaging Result Doc PS360 ---
EXAM: CHEST-1 VIEW HISTORY: pneumonia TECHNIQUE: Erect AP portable at 0545 COMMENT: Considering differences in technique and inspiration the appearance of the chest has not changed significantly since 07/10/2017. There is some minimal subsegmental atelectasis in both bases. The heart size is within normal limits. IMPRESSION: Atelectasis versus pneumonia. Electronically signed by Mario Michael 07/13/2017 7:17 AM
[2017-07-13 07:29] LABS: ALBUMIN 3.1 g/dL (3.5-5.0); CALCIUM 8.5 mg/dL (8.8-10.2); TOTAL BILIRUBIN 0.86 mg/dL (0.20-1.00); TOTAL PROTEIN 6.1 g/dL (6.3-8.3)
[2017-07-13] MEDS: PHOSLO PO SCH ×2 (08:47→16:05)
[2017-07-13] MEDS ORDERED: XYLOCAINE 1% ONE (13:23)
[2017-07-13] MEDS ORDERED: NS 250 ML ONE (13:23)
[2017-07-13] MEDS ORDERED: DIPRIVAN 1% ONE (14:07)
[2017-07-13] MEDS ORDERED: FENTANYL ONE (14:07)
[2017-07-13] MEDS ORDERED: XYLOCAINE-MPF 2% ONE (14:08)
[2017-07-13] MEDS ORDERED: HEPARIN ONE (14:11)
[2017-07-13] MEDS ORDERED: NS 2,000 ML ONE (14:11)
--- NOTE | 2017-07-13 14:38 | PROGRESS NOTE ---
DATE: 07/13/2017 SUBJECTIVE: The patient states he wants to undergo dialysis at this point. After long discussion with Dr. Brown, complaint is right shoulder pain. OBJECTIVE: Vital Signs: No fevers. Pulse has been in the 80s. Blood pressure 115/86. O2 saturation 100% on 3 L. General: He is alert, in no acute distress. He is oriented. Cardiovascular: Normal rate, regular rhythm. He has got a right Livingston catheter in the IJ location. No scars on the left neck. Integument: Integument was otherwise warm and dry. LABS: White count of 8, hematocrit 26, creatinine is 4.1, potassium 5. BNP was greater than 35,000 on the eighteenth. ASSESSMENT AND PLAN: A 61-year-old male with multiple medical issues. He has had chronic kidney disease apparently progressed to end-stage. He is quite volume overloaded with hyperkalemia despite diuretic therapy, and has consented to hemodialysis initiation. Dr. Brown requested tunneled catheter. We discussed risks, benefits, alternatives. I placed central lines in this gentleman before. He understands the risk of vascular injury, pneumothorax and bleeding. He does take Eliquis; we held it this morning. We plan to go the operating room for tunneled hemodialysis catheter. We will place it on the left side so that he can have the Livingston on the right and will continue to follow along. cc: Daniel Michel MD [facility]
--- NOTE | 2017-07-13 15:12 | Diag Imaging Result Doc PS360 ---
EXAM: CHEST-PORTABLE HISTORY: L port insertion TECHNIQUE: AP portable upright at 1500 COMMENT: There is a double-lumen catheter in the internal jugular on the left with its tip in the superior vena cava. There is a previously present right internal jugular catheter with its tip also in the superior vena cava. Considering differences in technique there has been no significant change since 07/13/2017 at 0545 otherwise. No pneumothorax or pleural fluid collection is present. IMPRESSION: Stable chest. Electronically signed by Mario Michael 07/13/2017 3:09 PM
[2017-07-13] MEDS: FLOMAX PO SCH (16:05)
[2017-07-13] MEDS: LACTULOSE PO SCH ×2 (16:05→20:24)
[2017-07-13] MEDS: ASPIRIN EC PO SCH (16:05)
[2017-07-13] MEDS: CARDIZEM CD PO SCH (16:05)
[2017-07-13] MEDS: CORDARONE PO SCH ×2 (16:05→20:23)
[2017-07-13] MEDS: COREG PO SCH ×2 (16:06→20:23)
[2017-07-13] MEDS: LANTUS SUBQ SCH (16:06)
[2017-07-13] MEDS: FOLIC ACID PO SCH (16:06)
[2017-07-13] MEDS: COLACE PO SCH ×2 (16:06→20:23)
[2017-07-13] MEDS: NEURONTIN PO SCH ×2 (16:07→20:23)
[2017-07-13] MEDS: MIRALAX PO SCH (16:07)
[2017-07-13] MEDS: CUBICIN 600 MG in NS 100 ML IV SCH (18:29)
[2017-07-13] MEDS: VELTASSA PO SCH (18:29)
--- NOTE | 2017-07-13 18:46 | PROGRESS NOTE ---
DATE: 07/13/2017 TIME SEEN: 08:45. SUBJECTIVE: Mr. Ventura is resting quietly in bed. Head of the bed is elevated. He has his right arm elevated on 2 pillows. He states understanding that he is NPO to have a tunnel catheter placed today for starting of hemodialysis. He denies any chest pain at this time. OBJECTIVE: Most recent vital signs: Last temperature 98.2 degrees, blood pressure 122/83, heart rate 88, respirations 19, he is on room air, last recorded saturation 99%. He has had 712 in, he has had 1300 out, per Bustillos catheter. LABORATORY DATA: Sodium 127, potassium 5, chloride 92, CO2 19, BUN 117, creatinine 4.1, glucose 128, anion gap 16, calcium 8.5, albumin 3.1. White count 8.08, hemoglobin 8.4, hematocrit 26.7, platelet count 161,000. Chest x-ray completed this a.m. shows chest x-ray with atelectasis versus pneumonia. PHYSICAL EXAMINATION: General: This is a 61-year-old, white male. He is currently resting in bed. He is in no acute distress. His skin is warm and dry though he does appear chronically ill. HEENT: Normocephalic, atraumatic. Conjunctivae pale, [id number]. Mucous membranes moist. Neck: Supple. Trachea midline. No JVD. Cardiovascular: Regular rate and rhythm. No murmur or gallop appreciated. Lungs: Clear to auscultation anterior. Equal excursion on room air. Abdomen: Round, soft, nontender. Positive bowel sounds. Genitourinary: Not inspected. Bustillos catheter is in place with adequate urine out. Extremities: Bilateral BKA with 4+ edema to the upper and lower extremities, right greater than left to the upper. Neurological: Patient is alert and oriented x3. ASSESSMENT AND PLAN: 1. CKD5. Patient stated he had spoken to the Primary Care team with Dr. Mott yesterday. He is agreeable to starting hemodialysis and the placement of tunnel catheter. We have consulted Dr. Michel. He came in and spoke to the patient. He remains NPO for placement of tunnel catheter and starting of hemodialysis today. If this is placed in time, we will place him on a 2K bath. He is to dialyze for 2 hours. We will put patient on a low flow and attempt to only pull 1-2 L of ultrafiltration if tolerated. 2. Electrolytes. These remain stable with mild hyponatremia with correction on dialysis. 3. Acid-base balance. This is stable. 4. Anemia. This remains low but stable. 5. Questionable pneumonia with increased work of breathing. Patient has chest x -ray indicating possible pneumonia. He remains on renal dosed antibiotics. 6. Non-ST IA with myocardial infection. Again this is followed by Primary Care team. 7. Bacteremia. Patient on renal dosed antibiotics as mentioned. I would like to thank you for allowing us to follow with this patient. Dictated by WILLIS Vail for Herb Brown MD Patient seen, data reviewed, discussed with Hamida Guan on 07/13/17. I agree with the above assessment and plan of care. cc: WILLIS Vail MD [facility]
--- NOTE | 2017-07-13 18:58 | PROGRESS NOTE ---
DATE: 07/13/2017 SUBJECTIVE: This patient states that he is not feeling good. He has been complaining of shortness of breath and right shoulder pain. He has some fluid overload mostly in his abdomen and upper extremities. Kidney function is about the same. He decided to go ahead and get dialysis. Surgery Department has been consulted and they will place a dialysis catheter for this patient. OBJECTIVE: Vital Signs: Temperature 98 degrees, pulse 84, respiratory rate 17, blood pressure 148/104, O2 saturation 100% on 3 L of nasal cannula. HEENT: Head normocephalic. No trauma. PERRLA. Neck: Supple. No JVD. No masses. Central trachea. Chest: Decreased breath sounds globally with rales. Abdomen: Soft, obese, abdominal wall edema, positive bowel sounds. Extremities: Lower extremity amputation bilaterally. 2 to 3+ lower extremity edema. Neurological Examination: The patient is alert and oriented x3. He moves all 4 extremities. LABORATORY: WBC 8, hemoglobin 8.4, hematocrit 26.7, platelets 161,000. Sodium 127, potassium 5, chloride 92, bicarbonate 19, BUN 117, creatinine 4.1, glucose 128, calcium 8.5, AST 71, ALT 203, alkaline phosphatase 253, albumin 3.1. ASSESSMENT AND PLAN: 1. Methicillin-resistant Staphylococcus aureus endocarditis. Continue with daptomycin. This patient used to be on rifampin but because of his elevated liver function tests this has been stopped. Infectious Disease Department is following this patient closely. 2. Right shoulder joint abscess status post incision and drainage, stable. Continue with antibiotics. 3. Non-ST elevation myocardial infarction. Continue with medical treatment. Cardiology Department already adjusted his medications. 4. Atrial fibrillation rate controlled. He is on anticoagulation right now but it has been stopped because he will get a dialysis catheter placed. 5. Hyperkalemia. He is on Veltassa. We will continue to monitor. This is likely secondary to his kidney dysfunction. 6. Hyponatremia. Continue with the same management. 7. Acute on chronic renal failure that now advanced to end-stage renal disease. Probably he will start dialysis soon. A dialysis catheter will be placed. 8. Congestive heart failure. Aware. Continue with same management. 9. Type 2 diabetes. Continue with same treatment for now. cc: Fred Mclean MD
--- NOTE | 2017-07-13 21:54 | OPERATIVE NOTE ---
PROCEDURE DATE: 07/13/2017 PREOPERATIVE DIAGNOSIS: End-stage renal disease. POSTOPERATIVE DIAGNOSIS: End-stage renal disease. PROCEDURES PERFORMED: 1. Ultrasound-guided left internal jugular vein PermCath placement. 2. Fluoroscopy, less than 1 hour. SURGEON: Daniel Michel MD ANESTHESIA: Intravenous monitored anesthesia with local. ESTIMATED BLOOD LOSS: Less than 10 mL. COMPLICATIONS: None. OPERATIVE FINDINGS: 1. There was a dilated internal jugular vein that was compressible and otherwise normal vascular anatomy. No evidence of intraluminal thrombus. 2. Final fluoroscopic image showed good position of the catheter in the superior vena cava. There was some slight retroflexion of the tip of the catheter but did functioned normally and otherwise no kinking of the catheter along its course. OPERATIVE INDICATIONS: This is a 61-year-old male with multiple medical problems who has progressed to end-stage renal disease, volume overload with hyperkalemia, and needs long-term hemodialysis access. OPERATIVE NOTE: Risks, benefits, and alternatives were discussed with the patient and he consented to the procedure. He was seen preoperatively and surgery to be performed was confirmed. He was taken to the operating room, where he was placed supine. Intravenous anesthesia was administered. Bilateral neck and chest were prepped with Betadine and draped in the usual fashion. After a time-out was performed, we performed focused ultrasound of the left neck with the above findings. A local anesthetic was infiltrated and an introducer needle was used to access the vein on the 1st pass. A wire threaded easily in the right side of the heart. We then made an incision in the chest and an incision in the neck and we tunneled a 12.5 cm dual- lumen, 22 cm from tip to curve catheter from the incision in the chest up to the incision in the neck. He tolerated this well. We serially dilated the tract under fluoroscopic guidance and then threaded the catheter through the peel-away introducer into the superior vena cava. After threading the wire, it was noted that the tip was flexed back slightly on itself. This was likely at the junction with the right atria or possibly passing the azogus vein. We tried numerous maneuvers to manipulate this and reposition, and we were unsuccessful, but it withdrew blood briskly and flushed without difficulty, and we felt that it was functional. When he was in an upright position, it may settle more appropriately. We flushed the catheter with heparinized saline. We applied the sterile caps, secured it with a nylon suture, pursestringed the incision in the chest with Monocryl and closed the incision in the neck with a subcuticular Monocryl. He tolerated this well. A sterile dressing was applied. No identified complications. We will obtain a chest x-ray in recovery. Counts correct x2. cc: Daniel Michel MD [facility]
[2017-07-14] MEDS: MORPHINE IV PRN ×6 (01:03→22:01)
[2017-07-14] MEDS: OXY IR PO PRN (02:33)
[2017-07-14] MEDS: ATROVENT NEB INH SCH ×4 (03:53→22:54)
[2017-07-14] MEDS: XOPENEX NEB INH SCH ×4 (03:53→22:53)
[2017-07-14] MEDS: PRILOSEC PO SCH (06:00)
[2017-07-14 06:19] LABS: MANUAL DIFF NEEDED? NO
[2017-07-14 06:31] LABS: BASO% 0.4 % (0.0-0.8); EOS# 0.49 X1000 (0.0-0.7); EOS% 6.6 % (0.0-10.0); HEMATOCRIT 27.2 % (42.0-52.0); HEMOGLOBIN 8.5 g/dL (14.0-18.0); LYMPH# 0.45 X1000 (1.2-3.4); MCH 29.4 PG (27-31); MCHC 31.3 g/dL (33-37); MCV 94.1 FL (81-99); MONO# 0.59 X1000 (0.11-0.59); MONO% 7.9 % (1.7-9.3); MPV 11.2 FL (7.4-10.4); NEUT% 79.1 % (42.2-75.2); PLT 154 X1000 (130-400); RBC 2.89 XMIL (4.7-6.1)
[2017-07-14] MEDS ORDERED: HEPARIN IV PRN (07:34)
[2017-07-14] MEDS ORDERED: TIGHT: 0.2 ML/HR MISC PRN (07:34)
[2017-07-14 08:06] LABS: ALBUMIN 2.8 g/dL (3.5-5.0); CALCIUM 8.9 mg/dL (8.8-10.2); POTASSIUM 5.4 mmol/L (3.5-5.1)
[2017-07-14] MEDS ORDERED: MORPHINE ONE (09:54)
[2017-07-14] MEDS: NS 2,000 ML MISC PRN ×2 (09:56→10:21)
[2017-07-14 10:51] LABS: HEPATITIS PROFILE ACUTE SEE COMMENTS
[2017-07-14] MEDS: VELTASSA PO SCH (11:55)
[2017-07-14] MEDS: PHOSLO PO SCH ×4 (11:56→16:57)
[2017-07-14] MEDS: FOLIC ACID PO SCH (11:56)
[2017-07-14] MEDS: FLOMAX PO SCH (11:56)
[2017-07-14] MEDS: CORDARONE PO SCH ×2 (11:56→22:04)
[2017-07-14] MEDS: LACTULOSE PO SCH ×2 (11:56→22:04)
[2017-07-14] MEDS: CARDIZEM CD PO SCH (11:56)
[2017-07-14] MEDS: COREG PO SCH ×2 (11:57→22:04)
[2017-07-14] MEDS: NEURONTIN PO SCH ×2 (11:57→22:04)
[2017-07-14] MEDS: LANTUS SUBQ SCH (11:57)
[2017-07-14] MEDS: COLACE PO SCH ×2 (11:57→22:04)
[2017-07-14] MEDS: ASPIRIN EC PO SCH (11:57)
[2017-07-14] MEDS: MIRALAX PO SCH (12:03)
[2017-07-14] MEDS: HUMULIN R SUBQ SCH ×3 (12:17→22:05)
--- NOTE | 2017-07-14 14:47 | DISCHARGE SUMMARY ---
ADMISSION DATE: 06/29/2017 DISCHARGE DATE: 07/15/2017 DESTINATION: LTAC in [place]. CONSULTATIONS: 1. Dr. Herb Brown with Nephrology. 2. Dr. Mitchell with Cardiology. 3. Dr. Loera with Orthopedics. 4. Dr. Porter Michel with General Surgery. PERTINENT PROCEDURES: 1. Chest x-ray. Stable chest. 2. Right arm venous Doppler showed no evidence of deep or superficial venous thrombosis. 3. 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 No acute disease. 4. Echocardiogram showed an EF of 30% with akinesis of mid to apical anterior septal region and apex. Prominent sclerotic thickening of posterior mitral leaflet with mild posterior leaflet prolapse and some thickening on the left atrial surface of the posterior leaflets suspicious for vegetation with associated moderate posteriorly directed mitral regurgitation. 5. Upper extremity MRI on the right shoulder showed marked worsening of focal rupture of the supraspinatus tendon seen on previous study from outside facility with marked worsening to the defect. 6. Arthroscopic lavage of the right shoulder with biceps tenotomy and bursectomy. 7. Ultrasound-guided right internal jugular Livingston line catheter placement for bacterial endocarditis. 8. Ultrasound-guided left IJ vein for Permacath placement for end-stage renal disease. DISCHARGE DIAGNOSES: 1. Methicillin-resistant Staphylococcus aureus endocarditis. The patient is being discharged to LTAC to continue with IV antibiotics. 2. Right shoulder joint abscess status post incision and drainage. Continue antibiotics. 3. [id number] myocardial infarction. Continue with current medications. Cardiology Department has already adjusted his medications. 4. Atrial fibrillation, rate controlled. Continue with medications and anticoagulation. 5. Hypokalemia, previously treated with Veltassa. The patient will now be undergoing hemodialysis. 6. Hyponatremia, continue with same management. 7. Acute on chronic renal failure. Patient has now advanced endstage. He has received a tunneled catheter and will start on hemodialysis. 8. Congestive heart failure. Aware. Continue current management. 9. Type 2 diabetes. Continue with pattern blood sugars and sliding scale insulin. 10. Sepsis. Improved. 11. Echo with rapid ventricular response, now controlled. 12. Chronic anemia. Stable. HOSPITAL COURSE: Ms. Ventura is a 61-year-old male, well known to our service with multiple admissions, readmissions, AMA discharges, most recently discharged AMA 2 days prior to this admission. He was found to have an MRSA bacteremia. He left without antibiotics. He stated he had to go home and take care of some personal issues. Since that time, he had been having chest pain, severe fatigue, shortness of breath, volume overload and chills. Pain reported as mid sternal, radiating to the left arm which is typical for his pain. He has been short of breath and complaining of swelling, especially his right arm. When he got to the ED, his troponins were noted to be higher than they had been in the past at 0.724 with a CK-MB of 19.38. His EKG showed atrial flutter with a variable block. His chest x-ray showed mild vascular congestion. His creatinine was noted to be 3. He was started on a heparin drip. Restarted on antibiotics. He was previously on his AMA discharge and he was admitted to the [facility] with a Cardiology and Infectious Disease consult. He was also given aspirin, trended his cardiac enzymes closely and monitored on telemetry. Ordered blood cultures, as well as lactate. For his atrial flutter with RVR, he was started on a Cardizem drip with bolus. Continued on heparin drip for anticoagulation as well as his non-STEMI, and for his worsening renal function, Dr. Brown was on board again, as well as did Dopplers for his right arm swelling and CT and MRI. Echocardiogram did show vegetation on the mitral valve. He did have a focal rupture and of his supraspinatus tendon on his right arm. Again, his creatinine was back to baseline and then it slowly began to rise again. He was then taking extra fluids. He was placed on a sodium restriction, initiated on Samsca as well as Veltassa. Nephrology had several discussions with him about going on dialysis for his end- stage renal; however, he was very hesitant and was not in agreement. He was initiated on IV Lasix. Continued shoulder pain. Dr. Loera did an arthroscopic lavage of his right shoulder with biceps tenotomy and bursectomy. Continued to be followed closely by Infectious Disease for his MRSA and mitral valve endocarditis and his septic right shoulder arthritis. Continued on IV antibiotics. He did have a Livingston catheter placed by Dr. Porter Michel. Mr. Ventura did come around to starting hemodialysis. He did have a tunneled catheter placed by Dr. Porter Michel on 07/13. He started dialysis on 07/14. Voice Network Administrator has been working hard on placement for Mr. Ventura. He has been accepted to [facility] where he will continue on long-term antibiotics as well as hemodialysis. [facility] has informed [facility] that they will have a bed for him on 07/15/2017. He will be discharged at that time in the a.m. DISCHARGE DIET: Diabetic. DISCHARGE MEDICATIONS: As per Dr. Mott. IV antibiotics as per Dr. Franco Brewer. FOLLOWUP: Mr. Ventura is being discharged to the LT in [place]. He will continue with IV antibiotics, diabetic diet, strict input and output, daily weights. His sutures from his surgery on his right shoulder can come on 07/18/[address] Loera with Orthopedics and he can follow up after his discharge from [facility] in his office. He can return to the ED for any worsening of symptoms. DISCHARGE TIME: Greater than 35 minutes. Dictated by WILLIS Macedo for Fred Mclean MD cc: MD Todd Purcell MD
--- NOTE | 2017-07-14 16:10 | PROGRESS NOTE ---
DATE: 07/14/2017 SUBJECTIVE: Patient currently undergoing hemodialysis. This is his 1st treatment. Thus far, he has had no complications. OBJECTIVE: Vital signs: Temperature 98.1 degrees, pulse 82, respiratory rate 20, blood pressure 128/84. Intake 250 mL. Output 2.7 L. General: This is a middle-aged gentleman resting in bed. He is in no acute distress. HEENT: Normocephalic, atraumatic. His oral mucosa is moist. Neck: Supple. Trachea midline. Cardiovascular: Regular rate and rhythm. No murmur or gallop. Pulmonary: Equal excursion. Clear bilaterally. Abdomen: Soft. Positive bowel sounds. : Not inspected. Bustillos catheter with adequate urine. Extremities: Bilateral BKA. He has 2 to 3+ upper extremity edema and edema to the thighs. Integument: Skin is warm and dry. LABORATORY DATA: WBC of 7.4, hemoglobin 8.5, sodium 128, potassium 5.4, CO2 17 , creatinine 3.8. ASSESSMENT AND PLAN: 1. Chronic kidney disease 5, now requiring dialysis secondary to again inability to manage fluids. The patient had access placed yesterday. Did not dialyze, but we will begin dialyzing him today on a 2-hour treatment. UF 2 L as tolerated on a 2 K bath and normal sodium bath. This is his 1st treatment. We will plan to dialyze him again tomorrow. 2. Electrolytes, acid-base balance. He is slightly hyponatremic today. See #1 for plan. Again, he is slightly acidotic. See #1 for plan. 3. Anemia, stable. 4. Atrial fibrillation, on anticoagulation. 5. Methicillin-resistant Staph aureus endocarditis. He is on daptomycin. Dictated by WILLIS De Jesus for Herb Brown MD Data reviewed, discussed with Alvina Lucas on 07/14/17. I agree with the above assessment and plan of care. cc: Herb Brown MD [facility]
[2017-07-14] MEDS: ELIQUIS PO SCH (22:04)
[2017-07-15] MEDS: MORPHINE IV PRN ×4 (01:54→13:59)
[2017-07-15] MEDS: OXY IR PO PRN (02:25)
[2017-07-15] MEDS: LACTULOSE PO SCH ×2 (02:54→12:54)
[2017-07-15] MEDS: ATROVENT NEB INH SCH ×2 (03:41→09:42)
[2017-07-15] MEDS: XOPENEX NEB INH SCH ×2 (03:41→09:42)
[2017-07-15] MEDS: PRILOSEC PO SCH ×2 (05:32→06:10)
[2017-07-15 05:54] LABS: MANUAL DIFF NEEDED? NO
[2017-07-15 06:01] LABS: BASO% 0.3 % (0.0-0.8); EOS# 0.36 X1000 (0.0-0.7); EOS% 5.4 % (0.0-10.0); HEMOGLOBIN 8.3 g/dL (14.0-18.0); LYMPH# 0.29 X1000 (1.2-3.4); LYMPH% 4.4 % (20.5-51.1); MCHC 30.7 g/dL (33-37); MCV 94.4 FL (81-99); MONO# 0.45 X1000 (0.11-0.59); MONO% 6.8 % (1.7-9.3); MPV 11.4 FL (7.4-10.4); NEUT% 83.1 % (42.2-75.2); PLT 146 X1000 (130-400); RBC 2.86 XMIL (4.7-6.1)
[2017-07-15] MEDS: HUMULIN R SUBQ SCH ×2 (06:10→13:34)
[2017-07-15 06:20] LABS: ALBUMIN 2.8 g/dL (3.5-5.0); POTASSIUM 4.8 mmol/L (3.5-5.1)
[2017-07-15] MEDS ORDERED: NS 2,000 ML MISC PRN (07:06)
[2017-07-15] MEDS ORDERED: HEPARIN IV PRN (07:06)
[2017-07-15] MEDS ORDERED: TIGHT: 0.2 ML/HR MISC PRN (07:06)
[2017-07-15] MEDS ORDERED: MORPHINE ONE (09:38)
[2017-07-15] MEDS: ASPIRIN EC PO SCH (12:52)
[2017-07-15] MEDS: PHOSLO PO SCH ×2 (12:52→12:53)
[2017-07-15] MEDS: COLACE PO SCH (12:53)
[2017-07-15] MEDS: NEURONTIN PO SCH (12:53)
[2017-07-15] MEDS: COREG PO SCH (12:53)
[2017-07-15] MEDS: VELTASSA PO SCH (12:54)
[2017-07-15] MEDS: MIRALAX PO SCH (12:54)
[2017-07-15] MEDS: FLOMAX PO SCH (12:54)
[2017-07-15] MEDS: ELIQUIS PO SCH (12:54)
[2017-07-15] MEDS: LANTUS SUBQ SCH (12:54)
[2017-07-15] MEDS: CORDARONE PO SCH (12:54)
[2017-07-15] MEDS: FOLIC ACID PO SCH (12:54)
[2017-07-15] MEDS: CARDIZEM CD PO SCH (12:54)
[2017-07-15 13:26] VITALS: BP 125/81
[2017-07-15] MEDS: CUBICIN 600 MG in NS 100 ML IV SCH (13:55)
--- NOTE | 2017-07-15 22:26 | PROGRESS NOTE ---
DATE: 07/15/2017 SUBJECTIVE: The patient sitting up in bed. He underwent dialysis this morning without difficulty. He believes he will be discharged to rehab to [place]. OBJECTIVE: Vital Signs: Temperature 97.9 degrees, pulse 87, respiratory rate 18, blood pressure 113/72, intake 240 mL, output 2.5 L. PHYSICAL EXAMINATION: General: This is a middle-aged gentleman resting in bed. He is awake and alert. No acute distress. HEENT: Normocephalic, atraumatic. Oral mucosa moist. Neck: Supple. Trachea midline. No JVD. Cardiovascular: Regular rate and rhythm. Controlled rate. Pulmonary: Equal excursion. Clear bilaterally. Abdomen: Soft, positive bowel sounds. : Not inspected. Extremities: Bilateral BKA, trace dependent edema. Integumentary: Skin is warm and dry. LAB DATA: WBC of 6.6, hemoglobin 8.3, sodium 128, potassium 4.8, CO2 28, creatinine 3.1. ASSESSMENT AND PLAN: 1. Chronic kidney disease stage 5, now progressing to end-stage renal disease requiring dialysis with inability to manage fluids. Dialysis occurred yesterday and then 2nd treatment today. If he goes to LTAC he can dialyze next week as per his schedule set up by the psychiatric social worker. 2. Electrolytes, acid-base balance, anemia. These have been stable. He has been mildly hyponatremic now for few days. Sodium is just stable at 128. We will routinely dialyze him on a normal sodium bath. 3. Atrial fibrillation on anticoagulation. 4. Methicillin-resistant Staphylococcus aureus endocarditis on daptomycin with antibiotic access. Dictated by WILLIS De Jesus for Herb Brown MD cc: Herb Brown MD
--- NOTE | 2017-07-16 08:56 | PROGRESS NOTE ---
DATE: 07/15/2017 SUBJECTIVE: This patient just had dialysis today and he is feeling good. He is not complaining of chest pain. No shortness of breath. He is tolerating the dialysis. He will be discharged today under the following diagnoses. DISCHARGE DIAGNOSES: 1. Possible methicillin-resistant Staphylococcus aureus endocarditis. 2. Right shoulder joint abscess, status post incision and drainage. 3. Non-ST elevation myocardial infarction. 4. Atrial fibrillation. 5. Hyperkalemia. 6. Hyponatremia. 7. End-stage renal disease, on hemodialysis. 8. Congestive heart failure. 9. Type 2 diabetes. 10. Sepsis/improved. 11. Chronic anemia. PHYSICAL EXAMINATION: Vital Signs: Temperature 98.1 degrees, pulse 86, respiratory rate 18, blood pressure 125/81, oxygen saturation 94% on 3 L of nasal cannula. HEENT: Head normocephalic. No trauma. PERRLA. Neck: Supple. No JVD. No masses. Central trachea. Chest: Decreased breath sounds globally. Abdomen: Soft, obese. Abdominal wall edema. Positive bowel sounds. Extremities: Lower extremity amputation bilaterally and 2+ lower extremity edema. Neurological Examination: Alert and oriented x3. He moves all 4 extremities. LABORATORY DATA: WBCs 6.6, hemoglobin 8.3, hematocrit 27, platelets 146,000. Sodium 128, potassium 4.8, chloride 93, bicarbonate 24, BUN 90, creatinine 3.1, glucose 270, calcium 8. PLAN: Like I mentioned before, this patient will be discharged today to a long-term acute care. All the paperwork and the formal discharge summary were done yesterday. The patient is stable to be discharged. cc: Fred Mclean MD
--- NOTE | 2017-07-20 10:19 | DISCHARGE SUMMARY ---
ADMISSION DATE: 06/29/2017 DISCHARGE DATE: 07/15/2017 ADDENDUM: Patient seen and examined by me [id number]. All the lab work, vital signs, and images were reviewed. This patient has been hospitalized multiple times in this hospital and this time this patient was admitted secondary to possible MRSA endocarditis, right shoulder abscess status post I D, [id number] myocardial infarction, atrial fibrillation, type 2 diabetes, sepsis that is already resolved, and acute on chronic renal failure, and now he is end-stage renal disease and getting dialysis. At the beginning he was refusing dialysis but since he was complaining every single day of shortness of breath, he decided at the end to go ahead and get dialysis. Of course, because of that his electrolytes were abnormal. Sodium was low and potassium was high. After getting dialysis this patient started to improve. He was feeling better but he is still having severe weakness. Cardiology department, infectious department, and orthopedic surgery were involved. On 07/15/2017 this patient was feeling much better. This is why we decided to discharge this patient to an LTAC in [place]. At the moment of discharge this patient was in stable medical condition, tolerating p.o., and getting physical therapy. He needs to follow up with his primary care doctor and continue dialysis as scheduled. I agree with the rest of the assessment and plan. Please, for more information go to the formal discharge summary. cc: Fred Mclean MD
== END 2017-07-15 15:39 ==
LOC: SUPCPDRO → ED 14:25 → SUATTDRO 17:28 → EDIPHOLD 17:28 → 3S 06-30 11:00 → 3N 07-11 15:27
PROVIDERS: ATTEND Internal Medicine